=== PATIENT | female | born 1955 | race Caucasian/White ===

== ENCOUNTER 2019-02-18 06:00 | Outpatient (RCR) | payer SELFPAY | END 2019-03-20 00:01 | LOC: APT 06:00 | PROVIDERS: Family Provider Nurse Practitioner; Visit Provider Nurse Practitioner Family | DX: M54.6 Pain in thoracic spine (principal); M51.26 Other intervertebral disc displacement, lumbar region; M46.90 Unspecified inflammatory spondylopathy, site unspecified; M54.2 Cervicalgia | CPT/HCPCS: 97110 ×7 ==

== ENCOUNTER 2019-03-21 06:00 | Outpatient (RCR) | payer MEDICAID, SELFPAY | END 2019-04-20 23:59 | disposition home or self-care (01) | LOC: APT 06:00 | PROVIDERS: Family Provider Nurse Practitioner; PCP Nurse Practitioner; Visit Provider Nurse Practitioner Family | DX: M54.6 Pain in thoracic spine (principal) | CPT/HCPCS: 97110 ==

== ENCOUNTER 2019-04-13 09:12 | Emergency (ER) | payer MEDICAID, SELFPAY ==
[2019-04-13 09:18] VITALS: BP 95/78; PULSE 89; RESP 18; TEMP 36.9; O2SAT 94; BMI 24.4
--- NOTE | 2019-04-13 09:18 | XR_ITS ---
WS: [id number] RIGHT WRIST: 3 VIEW(S) TECHNIQUE: PA, oblique and lateral. HISTORY: pain COMPARISON: 03/03/2010 No acute fracture or dislocation. Mild narrowing of the joint space. No soft tissue swelling. XR/XR wrist RT min 3V* [id number] IMPRESSION: Negative RIGHT wrist for fracture.
--- NOTE | 2019-04-13 09:18 | W.ED.UPPEXIN ---
HPI - Extremity Injury (Upper) General: Chief Complaint: Extremity Injury, Upper Stated Complaint: Right wrist pain Time Seen by Provider: 04/13/19 09:18 Source: patient Mode of arrival: ambulatory Limitations: no limitations History of Present Illness: HPI narrative: Patient comes in with right wrist pain. Patient reports no injury that she can recall. Patient does have but some mild bruising to the wrist and thenar area of the hand. No obvious deformity. Patient appears well. Patient appears in mild pain. Review of Systems General: Reports: 10 or more systems reviewed and unremarkable except in HPI and below Musc: Reports: joint pain (right wrist) PFSH ED PFSH: Statuses (acute, chronic, etc) shown below reflect problem list status as previously entered and may not be historically accurate Family History (Updated 03/28/19 @ 10:23 by Elicia Moreno LPN) Mother COPD (chronic obstructive pulmonary disease) Father COPD (chronic obstructive pulmonary disease) Social History (Updated 03/28/19 @ 10:58 by Elicia Moreno LPN) Smoking and tobacco status: current every day smoker Lives independently: Yes Household members: none Marital status: Current occupational status: disabled Physical Exam Const: COMMON NORMALS: no apparent distress and oriented x3 GENERAL APPEARANCE: cooperative HENMT: COMMON NORMALS: normocephalic, external ears normal, EAC's normal, TM's normal bilaterally and external nose normal HEAD & SCALP: normal to inspection and normocephalic FACE & SINUS: normal facial exam NOSE: external nose normal GENERAL EAR: hearing not grossly impaired EXTERNAL EAR: Yes external ears normal EXTERNAL AUDITORY CANAL: EAC's normal TYMPANIC MEMBRANE: TM's normal bilaterally MOUTH: oral and palatal mucosa normal THROAT: posterior oropharynx normal Eye: COMMON NORMALS: PERRL and EOMs intact bilaterally PUPIL: Yes PERRL Neck/C-Spine: COMMON NORMALS: full ROM and no lymphadenopathy Lymph: LYMPHATIC: no lymphedema noted Chest: COMMONS NORMALS: inspection of chest normal and palpation of chest normal Resp: COMMON NORMALS: normal respiratory effort and clear to auscultation bilaterally AUSCULTATION: clear to auscultation bilaterally Cardio: COMMON NORMALS: regular rate and regular rhythm RATE: regular rate RHYTHM: regular rhythm GI: COMMON NORMALS: normal to inspection, nondistended, normoactive bowel sounds and non-tender : COMMON NORMALS: Yes no CVA tenderness BLADDER/KIDNEY EXAM: Yes no CVA tenderness Back/Pelvis: COMMON NORMALS: no CVA tenderness and thoracic and lumbar spine normal to inspection Extremity: COMMON NORMALS: full ROM GENERAL: Yes edema (mild right wrist) RIGHT UPPER EXTREMITY: Yes wrist (mild tenderness, with mild ecchymosis) Neuro: COMMON NORMALS: oriented x3, moves all extremities and no focal motor deficits Psych: COMMON NORMALS: mental status grossly normal and cooperative Skin: COMMON NORMALS: no rashes or lesions noted GENERAL SKIN EXAM: no rashes or lesions noted Course Vital Signs: Vital signs: Vital Signs Temperature 98.4 F 04/13/19 09:18 Pulse Rate 89 04/13/19 09:18 Respiratory Rate 18 04/13/19 09:18 Blood Pressure 95/78 04/13/19 09:18 Pulse Oximetry 97 04/13/19 09:29 MDM - Extremity Injury (Upper) MDM Narrative: Medical decision making narrative: Patient comes in with concerns for pain and possible injury to the right wrist. On exam we note some mild swelling to the right wrist area and some mild ecchymosis. No obvious deformity is noted. Differential diagnosis includes fracture, sprain, contusion. Reviewed exam with patient, x-ray was negative for fracture dislocation, discussed recommendations for acetaminophen or ibuprofen for pain and elastic bandage for comfort. Patient reports understanding and agreed to plan. Discharge Plan Discharge Patient Disposition: Home, Self-Care Clinical Impression: Contusion of right wrist Qualifiers: Encounter type: initial encounter Qualified Code(s): S60.211A - Contusion of right wrist, initial encounter Condition: Stable Prescriptions: No Action albuterol sulfate 2.5 mg /3 mL (0.083 %) solution for nebulization 1.25 mg INHALATION QID PRNRF: 0 fluticasone propionate [24 Hour Allergy Relief] 50 mcg/actuation spray,suspension 2 spray INTRANASAL ONCE RF: 0 benzonatate 200 mg capsule 200 mg PO TID PRN (Reason: cough) RF: 0 fenofibrate nanocrystallized 145 mg tablet 145 mg PO DAILY RF: 0 gabapentin 100 mg capsule 200 mg PO BID RF: 0 guaifenesin [Mucinex] 600 mg tablet extended release 12hr 600 mg PO BID RF: 0 nitroglycerin 0.4 mg tablet, sublingual 0.4 mg SUBLINGUAL Q5M PRN (Reason: chest pain) RF: 0 albuterol sulfate [ProAir HFA] 90 mcg/actuation HFA aerosol inhaler 2 inh INHALATION Q4H PRNRF: 0 ramelteon [Rozerem] 8 mg tablet 8 mg PO .HS RF: 0 Spiriva with HandiHaler 18 mcg capsule, w/inhalation device 1 cap INHALATION DAILY RF: 0 Symbicort 80-4.5 mcg/actuation HFA aerosol inhaler 2 inh INHALATION BID RF: 0 cetirizine [Zyrtec] 10 mg tablet 10 mg PO DAILY RF: 0 Discharge Orders: Discharge Order (Routine); Ordered 04/13/19 Ordered By: Caleb Stokes Referrals: Janny Estrada, PLANOGRAPH OPERATOR-C [Primary Care Provider] - Discharge Diet: Usual diet Discharge Activity: Increase activity as tolerated Patient Instructions: Wrist Injury (ED) Activity Restrictions/Additional Instructions: elastic bandage for comfort Activity as tolerated Acetaminophen or ibuprofen for pain use ice or heat to area for comfort Follow-up with primary care in one week for recheck Coding Level 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
[2019-04-13 09:29] VITALS: O2SAT 97
[2019-04-13 11:01] VITALS: BP 132/87; PULSE 69; RESP 20; O2SAT 97
== END 2019-04-13 11:04 | disposition home or self-care (01) ==
PROVIDERS: Emergency Provider Nurse Practitioner Family; Family Provider Nurse Practitioner; PCP Nurse Practitioner
DX: S60.211A Contusion of right wrist, initial encounter (principal); X58.XXXA Exposure to other specified factors, initial encounter; F17.210 Nicotine dependence, cigarettes, uncomplicated
CPT/HCPCS: 73110; 99281

== ENCOUNTER → 2019-09-07 09:27 | Outpatient (BNVA) | payer MEDICAID, SELFPAY | PROVIDERS: Family Provider Nurse Practitioner; PCP Nurse Practitioner; Visit Provider Nurse Practitioner | DX: J43.9 Emphysema, unspecified (principal); R10.10 Upper abdominal pain, unspecified | CPT/HCPCS: 71046; 74018; 80053; 81000; 85025 ==

== ENCOUNTER 2019-11-23 07:30 | Outpatient (CLI) | payer MEDICAID, SELFPAY ==
--- NOTE | 2019-11-23 07:35 | CT_ITS ---
WS: [id number] LDCT LUNG CANCER SCREENING HISTORY: NICOTINE DEPENDENCE,CIGARETTES TECHNIQUE: Axial imaging performed from the apices to 1 cm below the costophrenic angles. Coronal and sagittal reformats are submitted with axial MIP series. All CT scans at [facility] use at least one of these dose optimization techniques: automated exposure control; mA and/or kV adjustment per patient size (includes targeted exams where dose is matched to clinical indication); or iterativ e reconstruction. DLP: 117.87 mGy.cm DIvol: 2.27 mGy,1.21 mGy COMPARISON: 11/14/2018 Diagnostic quality: Satisfactory Lung Nodules: No solid or subsolid pulmonary nodules. No groundglass attenuation or endobronchial les ions. Benign granuloma medial RIGHT upper lobe. Lungs: Marked pulmonary hyperexpansion with emphysema. No pneumonia. No pleural effusion. Heart: Normal size heart. Other findings: Top normal main pulmonary artery trunk size at 2.9 cm. Mild aortic atherosclerosis. P osterior RIGHT diaphragmatic hernia containing fat. CT/CT lung screening [id number] IMPRESSION: LUNG-RADS: 1-Negative FOLLOW UP: 12 Month: Continue annual screening with LDCT OTHER FINDINGS (S MODIFIER): None.
== END 2019-11-23 07:31 | disposition home or self-care (01) ==
LOC: CT 07:30
PROVIDERS: PCP Nurse Practitioner; Visit Provider Internal Medicine Pulmonary Disease
DX: Z12.2 Encounter for screening for malignant neoplasm of respiratory organs (principal); F17.210 Nicotine dependence, cigarettes, uncomplicated
CPT/HCPCS: G0297

== ENCOUNTER 2019-12-06 08:36 | Outpatient (CLI) | payer MEDICAID, SELFPAY ==
--- NOTE | 2019-12-06 09:30 | USCV_ITS ---
Alis Spencer Age: 64 Gender: F : 1955 Exam Date: 12/06/2019 08:53 Ordering Phys: Willam Betts M.D ([email or web address]) Technologist: Brittany Burnett Exam Location: [facility] [place] Indication: SOB BP: 118 / 87 HR: 70 Rhythm: Sinus Technical Quality: Adequate MEASUREMENTS (Male / Female) Normal Values 2D ECHO LV Chamber Size 3.8 cm RV Chamber Size 2.5 cm LVOT Diameter 2.0 cm LV Ejection Fraction MOD 2C 60.7 % LV Ejection Fraction 2C AL 58.1 % LA Width 2.9 cm LA Height 4.7 cm RA Width 3.4 cm RA Height 3.8 cm DOPPLER AV Peak Velocity 101.0 cm/s LVOT Peak Velocity 86.0 cm/s AV Area Cont Eq vti 2.5 cm squared AV Area Cont Eq pk 2.8 cm squared MV Area PHT 2.7 cm squared Mitral E to A Ratio 1.2 MV E' Velocity 10.0 cm/s Mitral E to MV E' Ratio 7.6 Mitral E to LV E' Lateral Ratio 7.8 Mitral E to LV E' Septal Ratio 7.4 TR Peak Velocity 241.4 cm/s TR Peak Gradient 23.3 mmHg TR Mean Velocity 186.5 cm/s TR Mean Gradient 15.1 mmHg TR Velocity Time Integral 62.9 cm TV Peak E Velocity 42.0 cm/s Right Atrial Pressure 3.0 mmHg Pulmonary Artery Systolic Pressu 26.3 mmHg PV Peak Velocity 53.0 cm/s FINDINGS Left Ventricle Normal left ventricular size, systolic function and wall thickness, with no regional wall motion abnormalities. LVEF is 55 to 60%. Normal left ventricular wall thickness. Normal diastolic filling pattern. Right Ventricle The right ventricle is normal in size and function. Right Atrium The right atrium is normal in size. Left Atrium The left atrium is normal in size. Mitral Valve Structurally normal mitral valve without significant stenosis or prolapse. There is no mitral regurgitation. Aortic Valve Structurally normal aortic valve without significant sclerosis or stenosis. There is no aortic regurgitation. Tricuspid Valve Structurally normal tricuspid valve without significant stenosis or regurgitation. Insufficient TR jet to calculate RVSP. Pulmonic Valve Structurally normal pulmonic valve without significant stenosis. There is no pulmonic regurgitation. Pericardium Normal pericardium without effusion. Aorta Normal ascending aorta dimension. CONCLUSIONS Normal LV systolic function with EF of 55 to 60%. Normal diastolic function. Willam Betts MD (Electronically Signed) Final Date: 07 December 2019 15:17 S
== END 2019-12-06 08:37 | disposition home or self-care (01) ==
PROVIDERS: PCP Nurse Practitioner; Visit Provider Internal Medicine
DX: R06.02 Shortness of breath (principal)
CPT/HCPCS: 87635; 93306

== ENCOUNTER → 2020-02-06 08:32 | Outpatient (BNVA) | payer MEDICAID, SELFPAY | PROVIDERS: PCP Nurse Practitioner; Visit Provider Nurse Practitioner Family | DX: E78.5 Hyperlipidemia, unspecified (principal); K21.9 Gastro-esophageal reflux disease without esophagitis; J43.9 Emphysema, unspecified; G43.909 Migraine, unspecified, not intractable, without status migrainosus | CPT/HCPCS: 80053; 80061; 84443; 85025 ==

== ENCOUNTER 2020-03-26 13:05 | Outpatient (CLI) | payer MEDICAID, SELFPAY ==
--- NOTE | 2020-03-26 13:11 | MM_ITS ---
WS: [id number] SCREENING DIGITAL MAMMOGRAM WITH CAD HISTORY: SCREENING COMPARISON: 06/20/2018 and 05/13/2016 Bilateral CC and MLO views submitted. Computer aided detection analyzed. Breast composition: There are scattered areas of fibroglandular density. No suspicious masses, microc alcifications or architectural distortion. MM/[place] [id number] IMPRESSION: BI-RADS: 1-Negative FOLLOW UP: 1 Year Follow-up
== END 2020-03-26 13:06 | disposition home or self-care (01) ==
LOC: RADSHAW 13:08
PROVIDERS: PCP Nurse Practitioner; Visit Provider Nurse Practitioner Family
DX: Z12.31 Encounter for screening mammogram for malignant neoplasm of breast (principal)
CPT/HCPCS: 77067

== ENCOUNTER → 2020-05-29 09:43 | Outpatient (BNVA) | payer MEDICAID, SELFPAY | PROVIDERS: PCP Nurse Practitioner; Visit Provider Internal Medicine Pulmonary Disease | DX: R06.02 Shortness of breath (principal); Z20.822 Contact with and (suspected) exposure to COVID-19 | CPT/HCPCS: 87635 ==

== ENCOUNTER 2020-06-02 09:14 | Outpatient (CLI) | payer MEDICAID, SELFPAY ==
--- NOTE | 2020-06-02 11:44 | PFTS_ITS ---
Date of Study:06/02/20 Date of Dictation: 06/02/2020 MECHANICS: Postbronchodilator forced vital capacity (FVC) is normal. Postbronchodilator forced expiratory volume in one second (FEV1) is severely reduced 36% FEV1/FVC is reduced. There is no significant response to bronchodilators. FLOW VOLUME LOOP: Severe scooping of expiratory limb suggestive of severe obstruction . LUNG VOLUMES: Total lung capacity (TLC) is increased. Residual volume (RV) is increased to 206% suggestive of severe air trapping.. DIFFUSING CAPACITY FOR CARBON MONOXIDE: Moderately reduced to 59% . INTERPRETATION: The pulmonary function tests are consistent with severe obstructive ventilatory defect with severe air trapping and moderately reduced gas transfer suggestive of emphysema. Please correlate clinically. MTDD
== END 2020-06-02 09:15 | disposition home or self-care (01) ==
LOC: RT 09:15
PROVIDERS: PCP Nurse Practitioner; Visit Provider Internal Medicine Pulmonary Disease
DX: R06.02 Shortness of breath (principal)
CPT/HCPCS: 94060; 94618; 94726; 94729; J7611

== ENCOUNTER → 2020-06-17 08:56 | Outpatient (BNVA) | payer MEDICAID, SELFPAY | PROVIDERS: PCP Nurse Practitioner; Visit Provider Internal Medicine Pulmonary Disease | DX: R06.02 Shortness of breath (principal) | CPT/HCPCS: 82785; 85025; 86003 ==

== ENCOUNTER → 2020-07-09 15:21 | Outpatient (BNVA) | payer MEDICAID, SELFPAY | PROVIDERS: PCP Nurse Practitioner; Visit Provider Nurse Practitioner Family | DX: J44.1 Chronic obstructive pulmonary disease with (acute) exacerbation (principal) | CPT/HCPCS: 71046 ==

== ENCOUNTER → 2020-10-27 14:24 | Outpatient (BNVA) | payer MEDICAID, SELFPAY | PROVIDERS: PCP Nurse Practitioner; Visit Provider Nurse Practitioner Family | DX: Z20.822 Contact with and (suspected) exposure to COVID-19 (principal); J44.1 Chronic obstructive pulmonary disease with (acute) exacerbation | CPT/HCPCS: 87635 ==

== ENCOUNTER → 2021-01-23 10:16 | Outpatient (BNVA) | payer MEDICAID, SELFPAY | PROVIDERS: PCP Nurse Practitioner; Visit Provider Nurse Practitioner Family | DX: E78.5 Hyperlipidemia, unspecified (principal); J43.9 Emphysema, unspecified; G47.9 Sleep disorder, unspecified; K21.9 Gastro-esophageal reflux disease without esophagitis; M47.819 Spondylosis without myelopathy or radiculopathy, site unspecified; R51.9 Headache, unspecified | CPT/HCPCS: 80053; 80061; 84443; 85025 ==

== ENCOUNTER → 2021-04-29 10:28 | Outpatient (BNVA) | payer MEDICAID, SELFPAY | PROVIDERS: PCP Nurse Practitioner; Visit Provider Nurse Practitioner Family | DX: J44.1 Chronic obstructive pulmonary disease with (acute) exacerbation (principal); E78.5 Hyperlipidemia, unspecified | CPT/HCPCS: 71046; 80053; 80061; 84443; 85025 ==

== ENCOUNTER → 2021-05-28 10:13 | Outpatient (BNVA) | payer MEDICARE, MEDICAID, SELFPAY | PROVIDERS: PCP Nurse Practitioner; Visit Provider Internal Medicine Critical Care Medicine | DX: J44.9 Chronic obstructive pulmonary disease, unspecified (principal); J96.11 Chronic respiratory failure with hypoxia; F17.210 Nicotine dependence, cigarettes, uncomplicated | CPT/HCPCS: 99214 ==

== ENCOUNTER 2021-06-08 12:28 | Outpatient (CLI) | payer MEDICARE, MEDICAID, SELFPAY ==
--- NOTE | 2021-06-08 13:15 | US_ITS ---
WS: [id number] Ultrasound abdomen, limited. HISTORY: Abdominal hernia. Ultrasound is directed to the RIGHT upper quadrant in the area of pain. In the site of pain is a foca l outpouching of omental fat. There is no peristalsis. The defect within the ventral abdominal wall m easures 9 mm. There is no increased vascularity. During coughing and Valsalva the extent of the herni ation increases. At no time is peristalsis identified. I favor this is probably a RIGHT upper quadran t hernia with omentum only. US/US abdomen limited [id number] IMPRESSION: Ventral RIGHT upper quadrant abdominal wall hernia corresponds to the area of p ain. No peristalsis was identified but the hernia increases in size with Valsal va. I suspect this is omentum only. For further evaluation CT of the abdomen ca n be obtained.
== END 2021-06-08 12:29 | disposition home or self-care (01) ==
LOC: RAD 12:31
PROVIDERS: PCP Nurse Practitioner; Visit Provider Nurse Practitioner Family
DX: K46.9 Unspecified abdominal hernia without obstruction or gangrene (principal)
CPT/HCPCS: 76705

== ENCOUNTER → 2021-06-29 09:17 | Outpatient (BNVA) | payer MEDICARE, MEDICAID, SELFPAY | PROVIDERS: PCP Nurse Practitioner; Referring Provider Nurse Practitioner Family; Visit Provider Surgery | DX: R19.01 Right upper quadrant abdominal swelling, mass and lump (principal); F17.210 Nicotine dependence, cigarettes, uncomplicated | CPT/HCPCS: 99203 ==

== ENCOUNTER 2021-07-10 10:00 | Outpatient (CLI) | payer MEDICARE, MEDICAID, SELFPAY ==
--- NOTE | 2021-07-10 10:21 | CT_ITS ---
WS: [id number] LDCT LUNG CANCER SCREENING HISTORY: Lung cancer screening TECHNIQUE: Axial imaging performed from the apices to 1 cm below the costophrenic angles. Coronal and sagittal reformats are submitted with axial MIP series. All CT scans at use at least one of these dose optimization techniques: automated exposure control; mA and/or kV adjustment per patient size (includes targeted exams where dose is matched to clinical indication); or iterativ e reconstruction. DLP: 77.67 mGy.cm DIvol: Mean CTDIvol: 1.60 (mGy) COMPARISON: 11/23/2019 Diagnostic quality: Satisfactory Lung Nodules: New very minimally spiculated ovoid nodule in the periphery RIGHT upper lobe. Nodule me asures 6 mm. This nodule was not present on the study of 11/23/2019. Otherwise lungs are hyperexpanded. No additional nodule or mass. No endobronchial lesion. Heart: Normal size heart. No mediastinal or hilar adenopathy. Other findings: Very minimal thickening of the LEFT adrenal gland is similar to the prior study. Post erior RIGHT diaphragmatic hernia contains fat only. Mild increase in the thoracic kyphosis. No osteob lastic or osteolytic disease. CT/CT lung screening [id number] IMPRESSION: LUNG-RADS: 4A-Probably Suspicious FOLLOW UP: 3 Month LDCT OTHER FINDINGS (S MODIFIER): None.
--- NOTE | 2021-07-10 12:00 | CT_ITS ---
WS: [id number] CT ABDOMEN WITHOUT CONTRAST HISTORY: K46.9 - Unspecified abdominal hernia without obstruction ... Contiguous single phase 5 mm axial imaging performed to the abdomen. Oral contrast has not been provi ded. Coronal and sagittal reformats are submitted. All CT scans at [facility] use at least on e of these dose optimization techniques: automated exposure control; mA and/or kV adjustment per eryn ent size (includes targeted exams where dose is matched to clinical indication); or iterative reconst ruction. CONTRAST: None DLP: 510.18 mGy.cm COMPARISON: 11/14/2018 Lower thorax: Pulmonary hyperinflation. No mass or nodule. Normal size heart. No hiatal hernia. Liver: Unenhanced liver is normal. Gallbladder: Prior cholecystectomy. No bile duct dilatation is evident. Common bile duct is top harshda l size at 7 mm. No interval change. Pancreas: Normal. Spleen: Normal. Adrenals: Normal. Right kidney: Normal size kidney. Low-attenuation nodule in the lower pole was present on the prior s tudy from 2019. No obstruction. Left kidney: Normal. Aorta: Mild atherosclerosis aorta. GI tract: Fluid distended stomach. No small bowel obstruction. Mild fecal retention. No adenopathy or free fluid. Abdominal wall: Prior supraumbilical hernia repair. There is no mass present. No recurrent hernia or omental fat protrusion is identified. No new hernia. Position of the graft and surgical changes is ve ry similar to the study of 11/14/2018. Visualized osseous structures: Unremarkable. CT/CT abdomen wo con [id number] IMPRESSION: 1. No acute abdominal findings. 2. Supraumbilical hernia repair is similar to the study of 11/14/2018. No recur rence of hernia. 3. Prior cholecystectomy.
== END 2021-07-10 10:01 | disposition home or self-care (01) ==
LOC: RAD 10:02
PROVIDERS: PCP Nurse Practitioner; Visit Provider Nurse Practitioner Family
DX: Z12.2 Encounter for screening for malignant neoplasm of respiratory organs (principal); K46.9 Unspecified abdominal hernia without obstruction or gangrene; F17.200 Nicotine dependence, unspecified, uncomplicated; Z90.49 Acquired absence of other specified parts of digestive tract
CPT/HCPCS: 71271; 74150

== ENCOUNTER → 2021-07-27 08:46 | Outpatient (BNVA) | payer MEDICARE, MEDICAID, SELFPAY | PROVIDERS: PCP Nurse Practitioner; Visit Provider Surgery | DX: J44.9 Chronic obstructive pulmonary disease, unspecified (principal); F17.210 Nicotine dependence, cigarettes, uncomplicated; J96.11 Chronic respiratory failure with hypoxia; R91.1 Solitary pulmonary nodule; E78.5 Hyperlipidemia, unspecified; K21.9 Gastro-esophageal reflux disease without esophagitis; Z99.81 Dependence on supplemental oxygen | CPT/HCPCS: 99213; 99214 ==

== ENCOUNTER 2021-11-06 10:07 | Emergency (ER) | payer MEDICARE, MEDICAID, SELFPAY ==
--- NOTE | 2021-11-06 10:12 | ECG_ITS ---
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 Measurements Intervals [place] Rate: 73 P: 63 OK: 92 QRS: 65 QRSD: 103 T: 68 QT: 365 QTc: 405 Interpretive Statements SINUS RHYTHM WITH SHORT OK INTERVAL WITH OCCASIONAL VENTRICULAR PREMATURE COMPLEXES Compared to ECG 11/14/2018 17:08:38 Ventricular premature complex(es) now present Sinus arrhythmia no longer present Electronically Signed On 11-06-2021 17:46:09 CDT by Willam Betts M.D. [email or web address] [facility] [id number]
--- NOTE | 2021-11-06 10:12 | XRR_ITS ---
PROCEDURE INFORMATION: Exam: XR Chest Exam date and time: 11/06/2021 10:32 AM Age: 66 years old Clinical indication: Cough and shortness of breath; Additional info: SOB TECHNIQUE: Imaging protocol: Radiologic exam of the chest. Views: 1 view. COMPARISON: CR XR chest 2V* [id number] 04/29/2021 10:30 AM FINDINGS: Lungs: Hyperexpanded lungs consistent with COPD No consolidation. Pleural spaces: Unremarkable. No pleural effusion. No pneumothorax. Heart/Mediastinum: Unremarkable. No cardiomegaly. Bones/joints: Unremarkable. Other findings: Comparison to prior examination similar findings is seen XR/XR chest 1V portable [id number] IMPRESSION: 1. No acute findings. 2. COPD
--- NOTE | 2021-11-06 10:16 | W.ED.SOB ---
HPI - SOB/Dyspnea General: Chief Complaint: Shortness of Breath/Dyspnea Stated Complaint: SHORTNESS OF BREATH/ BACK PAIN Time Seen by Provider: 11/06/21 10:09 History of Present Illness: HPI Narrative: Patient is a 66-year-old female comes to the ED via EMS with shortness of breath. Patient has a past medical history of GERD, COPD, hyperlipidemia and CKD. Patient is currently on 2 L of O2 via nasal cannula at home when at rest and then on 4 L when she is up and ambulating. EMS was called out to patient's home due to shortness of breath and back pain. EMS administered an albuterol breathing treatment and 125 mg of Solu-Medrol. Patient currently sees Dr. Hong and they are in the process of working up some masses that were seen in her right lung. Patient states her symptoms of worsening shortness of breath started approximately 7 days ago. 5 days ago on November 02 she went and saw her PCP for shortness of breath and they gave her a course of azithromycin and steroids. Patient says her shortness of breath has not improved over the past couple days. She also has a productive cough with green sputum. Today she woke up and had pain in the mid back region bilaterally and also some epigastric pain as well. Patient is not needing any increased oxygen at home. Denies any fever, nausea or vomiting, chest pain, bladder or bowel symptoms. Associated symptoms: Reports abdominal pain (Epigastric pain); Deny chest pain, fever(s), nausea, orthopnea, palpitations or vomiting Review of Systems Const: Denies: fever(s), chills or fatigue Eyes: Denies: change in vision or eye discomfort ENMT: Denies: throat pain, odynophagia, nasal discharge or nasal congestion Card: Denies: chest pain, palpitations, edema, swelling of feet/ankles, dyspnea on exertion or orthopnea Resp: Reports: dyspnea, productive cough and change in phlegm color (Green); Denies: non-productive cough GI: Reports: abdominal pain (Epigastric pain); Denies: nausea, vomiting, diarrhea, constipation or hematochezia : Denies: flank pain, dysuria or hematuria Musc: Reports: back pain; Denies: neck pain or extremity swelling Skin/Breast: Denies: rash or new lesions Neuro: Denies: headache(s), numbness in extremities or weakness in extremities PFSH ED PFSH: Medical History 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 Bipolar disorder, unspecified Chronic GERD Chronic kidney disease, stage 1 Chronic obstructive pulmonary emphysema Dependence on nocturnal oxygen therapy History of paroxysmal supraventricular tachycardia History of supraventricular tachycardia Status post ablation, successful Hyperlipidemia, unspecified Nocturnal oxygen desaturation Shortness of breath Spondylosis without myelopathy or radiculopathy, site unspecified TIA (transient ischemic attack) Tobacco abuse Vitamin D deficiency Surgical History History of appendectomy History of cholecystectomy History of hysterectomy History of repair of hiatal hernia Hx of tonsillectomy Family History Mother COPD (chronic obstructive pulmonary disease) Father COPD (chronic obstructive pulmonary disease) Social History Smoking and tobacco status: current every day smoker cigarettes Packs smoked per day: 0.5 Years cigarettes smoked: 50 [ Other cigarette details: Started at age 6 years] Quit status (tobacco): has tried quititng Number of times tried to quit tobacco: 10 Second hand smoke exposure: Yes Smoking risk assessment/counseling performed?: Yes Alcohol intake: former Year of sobriety/quit date alcohol: 2017 Desire information about alcohol rehabilitation?: No Counseling given: No Desire information about substance/drug rehabilitation?: No Counseling given: No Adopted: No Caregiver/support person: Yes Lives independently: Yes Household members: none Housing: Manufactured/Mobile home Marital status: Number of children: 3 service: No Current occupational status: disabled Pets and animals: Yes History of recent travel: No ([place] 2 wks ago) Current gender identity: Female Physical Exam Const: COMMON NORMALS: patient oriented x3 and alert GENERAL APPEARANCE: cooperative HENMT: COMMON NORMALS: normocephalic HEAD & SCALP: normocephalic MOUTH: Normal oral and palatal mucosa present THROAT: posterior oropharynx normal and uvula midline Eye: COMMON NORMALS: Equal, round and reactive pupils present and conjunctivae normal CONJUNCTIVA: Yes conjunctivae normal PUPIL: Yes Equal, round and reactive pupils present Neck/C-Spine: COMMON NORMALS: supple GENERAL: Yes normal visual inspection Resp: EFFORT & INSPECTION: Yes tachypneic (22 rpm) and Yes labored AUSCULTATION: wheezes expiratory wheezes and throughout and diminished lung sounds bilateral in the lower lung brown OTHER: Patient appears to have some mild labored breathing. Labored breathing gets worse if she is talking more. Cardio: COMMON NORMALS: regular rate, regular rhythm, S1 normal heart sound present, S2 normal heart sound present, No gallops present (Cardio), No clicks present (Cardio), No murmurs present (Cardio) and Peripheral pulses 2+ throughout RATE: regular rate RHYTHM: regular rhythm HEART SOUNDS: S1 normal heart sound present and S2 normal heart sound present PERIPHERAL PULSES: Peripheral pulses 2+ throughout GI: COMMON NORMALS: Normal to inspection, nondistended, normoactive bowel sounds present, Soft to palpation and no masses PALPATION: Yes Soft to palpation and Yes Tenderness to palpation present (GI) (Mild tenderness in epigastric region of abdomen) : COMMON NORMALS: Yes no CVA tenderness BLADDER/KIDNEY EXAM: Yes no CVA tenderness Back/Pelvis: COMMON NORMALS: no CVA tenderness Extremity: COMMON NORMALS: normal to inspection Neuro: COMMON NORMALS: patient oriented x3 SENSORIUM/ORIENTATION: Yes alert GAIT: Yes Normal gait present Skin: GENERAL SKIN EXAM: dry skin Course Vital Signs: Vital signs: Vital Signs Pulse Rate 69 11/06/21 16:24 Respiratory Rate 17 11/06/21 16:24 Blood Pressure 114/69 11/06/21 16:24 Pulse Oximetry 97 11/06/21 16:24 Oxygen Delivery Me thod 11/06/21 16:23 Oxygen Flow Rate 2 11/06/21 16:23 MDM - SOB/Dyspnea Medical Decision Making Patient is a 66-year-old female comes to the ED via EMS with shortness of breath. Patient has a past medical history of GERD, COPD, hyperlipidemia and CKD. Patient is currently on 2 L of O2 via nasal cannula at home when at rest and then on 4 L when she is up and ambulating. For the past week patient has worsening shortness of breath and cough. She was seen by her PCP on Tuesday and put on a prescription of azithromycin and steroid. She still having cough and shortness of breath. She is not needing any increased oxygen at home. She is afebrile here in the ED. respiration rate 22 at triage and she is on 2 L of oxygen via nasal cannula and O2 saturations 97%. Vitals are stable. She appears in no acute distress. Patient has some mild epigastric tenderness of her abdomen. Her breathing appears mildly labored especially when she is talking. She also has decreased breath sounds in the bilateral bases of lungs along with wheezing throughout. Rest of exam is benign. White blood cell count 13.1. The rest of CBC and CMP were unremarkable. Troponins were negative. Influenza negative COVID-negative chest x-ray showed no acute findings. EKG showed sinus rhythm with no ST segment elevation or depression seen. CT of chest, abdomen pelvis showed no acute findings. They did note some spiculated densities in right upper and lower lobes which patient is already aware of and sees Dr. Hong for this. She was given DuoNeb breathing treatments here in the ED. Patient is not needing any increased oxygen and is stable for discharge home and outpatient treatment. She was diagnosed with exacerbation of COPD was told to continue finishing out her previously prescribed azithromycin and prednisone. I added a prescription for doxycycline and told her to start taking that as well. Follow-up with PCP within the next week for reevaluation. Strict return to ED precautions given. Patient understood agree with plan Lab Data I reviewed the patient's lab results. : 11/06/21 10:40 11/06/21 10:40 Labs/Radiology: Radiology Impressions Chest X-Ray 11/06/21 10:12 IMPRESSION: 1. No acute findings. 2. COPD Chest/Abdomen/Pelvis CT 11/06/21 13:46 IMPRESSION: 1. No acute pathology in the chest. 2. Extensive centrilobular emphysema. 3. Spiculated densities in the right upper and lower lobes. For patients at high risk (history of smoking or of other known risk factors), recommend CT IMPRESSION: No acute intra-abdominal or intrapelvic pathology. Laboratory Results WBC 13.1 10^3/uL (4.0-10.0) H 11/06/21 10:40 RBC 4.25 10^6/uL (4.1-5.3) 11/06/21 10:40 Hgb 14.6 g/dL (11.5-15.3) 11/06/21 10:40 Hct 41.0 % (37.0-47.0) 11/06/21 10:40 MCV 96.5 fl (81-99) 11/06/21 10:40 MCH 34.4 pg (28.0-34.0) H 11/06/21 10:40 MCHC 35.6 g/dL (30.0-36.0) 11/06/21 10:40 RDW 15.4 % (12.1-15.1) H 11/06/21 10:40 Plt Count 404 10^3/cmm (130-400) H 11/06/21 10:40 MPV 8.7 fL (7.4-10.4) 11/06/21 10:40 Neut % (Auto) 66.5 % 11/06/21 10:40 Lymph % (Auto) 24.3 % 11/06/21 10:40 Morehouse % (Auto) 8.0 % 11/06/21 10:40 Eos % (Auto) 0.2 % 11/06/21 10:40 Baso % (Auto) 0.2 % 11/06/21 10:40 Neut # (Auto) 8.69 10^3/uL (1.8-7.7) H 11/06/21 10:40 Lymph # (Auto) 3.2 10^3/uL (0.8-4.8) 11/06/21 10:40 Morehouse # (Auto) 1.1 10^3/uL (0.2-0.9) H 11/06/21 10:40 Eos # (Auto) 0.0 10^3/uL (0.0-0.8) 11/06/21 10:40 Baso # (Auto) 0.0 10^3/uL (0.0-0.1) 11/06/21 10:40 Nucleated RBC % (auto) 0 % 11/06/21 10:40 Nucleated RBCs # 0.0 /100WBC 11/06/21 10:40 Sodium 143 mmol/L (136-145) 11/06/21 10:40 Potassium 3.6 mmol/L (3.5-5.1) 11/06/21 10:40 Chloride 102 mmol/L (98-107) 11/06/21 10:40 Carbon Dioxide 30 mmol/L (22-29) H 11/06/21 10:40 Anion Gap 14.6 (5-19) 11/06/21 10:40 BUN 9 mg/dL (8-23) 11/06/21 10:40 Creatinine 0.4 mg/dL (0.5-0.9) L 11/06/21 10:40 GFR Calculation 160.2 mL/min (90-130) H 11/06/21 10:40 Glucose 121 mg/dL (65-115) H 11/06/21 10:40 Calculated Osmolality 296 mOsm/kg (285-295) H 11/06/21 10:40 Calcium 9.8 mg/dL (8.5-10.5) 11/06/21 10:40 Total Bilirubin 0.2 mg/dL (0.15-1.2) 11/06/21 10:40 AST 18 U/L (0-32) 11/06/21 10:40 ALT 11 U/L (0-33) 11/06/21 10:40 Alkaline Phosphatase 87 U/L (35-105) 11/06/21 10:40 Troponin T Baseline 12 ng/L (0-10) H 11/06/21 10:40 Troponin T 120 Minute 10.83 ng/L (0-10) H 11/06/21 12:44 Delta Troponin T -1.17 ABS# (0-10) L 11/06/21 12:44 NT-Pro-B Natriuret Pep 188 pg/mL (0-125) H 11/06/21 10:40 Total Protein 6.7 g/dL (6.6-8.7) 11/06/21 10:40 Albumin 4.3 g/dL (3.5-5.2) 11/06/21 10:40 Globulin 2.4 g/dL (1.3-4.6) 11/06/21 10:40 Coronavirus 229E (PCR) Not detected (NOT DETECT) 11/06/21 11:55 Influenza Type A Ag Negative (Negative) 11/06/21 11:55 Influenza Type B Ag Negative (Negative) 11/06/21 11:55 SARS-CoV-2 (PCR) Not detected (NOT DETECT) 11/06/21 11:55 EKG Data EKG 1: EKG Interpretation Date: 11/06/21 Interpretation: Sinus rhythm, 73 bpm, occasional PVC noted. No ST segment elevation or depression seen. Discharge Plan Discharge Patient Disposition: Home Clinical Impression: COPD exacerbation Back pain Qualifiers: Back pain location: thoracic back pain Chronicity: acute Back pain laterality: bilateral Qualified Code(s): M54.6 - Pain in thoracic spine Condition: Stable Prescriptions: New doxycycline hyclate 100 mg capsule 100 mg PO BID 10 Days Qty: 20 0RF methocarbamol 750 mg tablet 750 mg PO Q8H PRN (Reason: Back muscle spasms and pain) Qty: 20 0RF Celebrex 100 mg capsule 100 mg PO BID PRN (Reason: back pain) Qty: 20 0RF No Action promethazine-DM 6.25-15 mg/5 mL syrup 5 ml PO Q6H PRN (Reason: cough) Qty: 473 2RF ammonium lactate 12 % cream 1 applic TOPICAL BID 30 Days Qty: 280 5RF nitroglycerin 0.4 mg tablet, sublingual 0.4 mg SUBLINGUAL Q5M PRN (Reason: chest pain) Qty: 24 0RF (DME) oxygen 24 hour with portable See Rx Instructions .Route .MEDSUPPLY Qty: 1 0RF Rx Instructions: As directed, oxygen 24 hours 2 liters prednisone 10 mg tablet 10 mg PO DAILY Qty: 10 0RF doxycycline hyclate 50 mg tablet 50 mg PO BID Qty: 14 0RF prednisone 10 mg tablets,dose pack See Rx Instructions PO PER PKG DIR Qty: 21 0RF Rx Instructions: PO PER PKG DIR budesonide 0.5 mg/2 mL suspension for nebulization 0.5 mg inhalation BID Qty: 60 11RF formoterol fumarate [Perforomist] 20 mcg/2 mL solution for nebulization 20 mcg inhalation BID Qty: 60 11RF Yupelri 175 mcg/3 mL solution for nebulization 175 mcg inhalation DAILY Qty: 30 11RF azithromycin 250 mg tablet 250 mg PO .COMPLEX Qty: 60 0RF Rx Instructions: 250 mg PO Tuesday pantoprazole [Protonix] 40 mg tablet,delayed release (DR/EC) 40 mg PO QDAY 30 Days Qty: 30 2RF montelukast [Singulair] 10 mg tablet 10 mg PO DAILY Qty: 30 2RF melatonin 10 mg capsule 10 mg PO BEDTIME 30 Days Qty: 30 2RF guaifenesin [Mucinex] 600 mg tablet extended release 12hr 600 mg PO BID Qty: 60 2RF gabapentin 100 mg capsule 200 mg PO BID Qty: 120 2RF fluticasone propionate [24 Hour Allergy Relief] 50 mcg/actuation spray,suspension 2 spray INTRANASAL DAILY Qty: 16 2RF fenofibrate nanocrystallized 145 mg tablet 145 mg PO DAILY Qty: 30 2RF cetirizine [Zyrtec] 10 mg tablet 10 mg PO DAILY Qty: 30 2RF benzonatate 200 mg capsule 200 mg PO TID PRN (Reason: cough) Qty: 90 2RF albuterol sulfate 2.5 mg /3 mL (0.083 %) solution for nebulization 2.5 mg INHALATION QID PRN (Reason: shortness of breath or wheezing) Qty: 75 2RF atorvastatin 20 mg tablet 20 mg PO DAILY Qty: 30 5RF albuterol sulfate [ProAir HFA] 90 mcg/actuation HFA aerosol inhaler 2 inh INHALATION Q4H PRN (Reason: shortness of breath or wheezing) 30 Days Qty: 8.5 2RF Discharge Orders: Discharge ED (Routine); Ordered 11/06/21 Ordered By: Phillip Jose Referrals: Janny Estrada FNP-C [Primary Care Provider] - Discharge Diet: Regular Discharge Activity: Increase activity as tolerated Patient Instructions: COPD (Chronic Obstructive Pulmonary Disease) (DC) Activity Restrictions/Additional Instructions: Follow-up with medical provider as directed in the next 3 to 5 days for reevaluation. Take medications as prescribed. Continue taking and finish course of azithromycin as well. Also continue taking your prescribed prednisone. Continue using your at home breathing treatments and oxygen. return to the ER or your medical provider if condition worsens. Please read and understand discharge instructions. Thank you for choosing [facility] for your healthcare needs today. Please realize this is an emergency room and that we are providing you with a medical screening exam and this may not be complete and all inclusive of all the testing and or work up that you may need to determine your ailment or severity of your illness. It is very important that you follow up as instructed or that you return to the Emergency Department should you have concerns or if your condition changes or worsens in any way. Coding Level of Care Code ED Motor Pool Clerk for Tyson Fwkamran Exam Comprehensive
[2021-11-06 10:20] VITALS: BP 156/86; PULSE 77; RESP 22; O2SAT 97; BMI 23.4
[2021-11-06 10:47] LABS: Basophils % 0.2 %; Eosinophils % 0.2 %; Hemoglobin 14.6 g/dL (11.5-15.3); Lymphocytes # 3.2 10^3/uL (0.8-4.8); Lymphocytes % 24.3 %; Mean Corpuscular HGB Conc 35.6 g/dL (30.0-36.0); Mean Corpuscular Hemoglobin 34.4 pg (28.0-34.0); Mean Corpuscular Volume 96.5 fl (81-99); Mean Platelet Volume 8.7 fL (7.4-10.4); Monocytes # 1.1 10^3/uL (0.2-0.9); Neutrophils # 8.69 10^3/uL (1.8-7.7); Neutrophils % 66.5 %; Nucleated Red Blood Cells % 0 %; Platelet Count 404 10^3/cmm (130-400); Red Blood Count 4.25 10^6/uL (4.1-5.3); Red Cell Distribution Width 15.4 % (12.1-15.1); White Blood Count 13.1 10^3/uL (4.0-10.0)
[2021-11-06 11:08] VITALS: RESP 18; O2SAT 98
[2021-11-06] MEDS: morphine 4 mg/mL SDV 1 mL IVP (11:08)
[2021-11-06] MEDS: ondansetron 2 mg/ML SDV 2 mL 4 MG IVP (11:08)
[2021-11-06 11:23] LABS: Troponin(5th) Baseline 12 ng/L (0-10)
[2021-11-06 11:28] LABS: Alanine Aminotransferase 11 U/L (0-33); Albumin Level 4.3 g/dL (3.5-5.2); Alkaline Phosphatase 87 U/L (35-105); Aspartate Amino Transferase 18 U/L (0-32); Blood Urea Nitrogen 9 mg/dL (8-23); Calcium 9.8 mg/dL (8.5-10.5); Carbon Dioxide 30 mmol/L (22-29); Chloride 102 mmol/L (98-107); Globulin 2.4 g/dL (1.3-4.6); Glomerular Filtration Rate 160.2 mL/min (90-130); Glucose 121 mg/dL (65-115); NT Pro B Type Natriuretic Pept 188 pg/mL (0-125); Osmolality Calculated 296 mOsm/kg (285-295); Sodium 143 mmol/L (136-145); Total Bilirubin 0.2 mg/dL (0.15-1.2); Total Protein 6.7 g/dL (6.6-8.7)
[2021-11-06 11:30] LABS: Anion Gap 14.6 (5-19); Potassium 3.6 mmol/L (3.5-5.1)
--- NOTE | 2021-11-06 12:27 | ECG_ITS ---
[facility] Test Date: 2021-11-06 Pat Name: Alis Spencer Department: Room: Gender: Female Endocrinology Nurse: : 1955 Requested By: Phillip Jose Order Number: [id number] Jam MD: Willam Betts M.D. Measurements Intervals Cassandra Rate: 63 P: 52 CA: 94 QRS: 53 QRSD: 89 T: 56 QT: 386 QTc: 397 Interpretive Statements SINUS RHYTHM WITH SHORT CA INTERVAL Compared to ECG 11/06/2021 10:27:03 Ventricular premature complex(es) no longer present Electronically Signed On 11-06-2021 17:49:38 CDT by Willam Betts M.D. [id number]
[2021-11-06 12:44] LABS: Influenza A by IFA Negative (Negative); Influenza B by IFA Negative (Negative)
[2021-11-06] MEDS: ketorolac 30 mg/mL INJ IVP (13:08)
[2021-11-06 13:15] VITALS: BP 156/86; PULSE 75; RESP 17; O2SAT 96
[2021-11-06 13:17] LABS: Troponin 5 2HR 10.83 ng/L (0-10)
[2021-11-06 13:18] LABS: Troponin 5 2HR Delta -1.17 ABS# (0-10)
--- NOTE | 2021-11-06 13:46 | CTR_ITS ---
PROCEDURE INFORMATION: Exam: CT Chest Without Contrast; Diagnostic Exam date and time: 11/06/2021 2:12 PM Age: 66 years old Clinical indication: Other: Back pain; Shortness of breath; Prior surgery; Surgery date: 6+ months; Surgery type: Gb, umbilical hernia; Additional info: Epigastric pain that radiates into back TECHNIQUE: Imaging protocol: Diagnostic computed tomography of the chest without contrast. Radiation optimization: All CT scans at this facility use at least one of these dose optimization techniques: automated exposure control; mA and/or kV adjustment per patient size (includes targeted exams where dose is matched to clinical indication); or iterative reconstruction. COMPARISON: CT chest w con* [id number] 11/14/2018 11:55 AM RADIATION DOSE METRICS: Total DLP (mGy-cm): 502.78 FINDINGS: Lungs: Extensive centrilobular emphysema is present. There is a 0.7 cm spiculated density along the anterior superior aspect of the right lower lobe. There is a tiny subpleural spiculated density along the lateral aspect of the right upper lobe measuring 0.5 cm. No consolidation. Tiny calcified granuloma noted in the anterior right upper lobe. Pleural spaces: Unremarkable. No pneumothorax. No pleural effusion. Heart: Normal heart size. Coronary atherosclerotic calcifications seen. No pericardial effusion. Lymph nodes: Unremarkable. No enlarged lymph nodes. Vasculature: Mild diffuse atherosclerotic disease is present. Bones/joints: Degenerative changes of the spine seen. Chronic appearing minimal anterior wedge compression fracture deformity of T8, involving the superior endplate noted. Soft tissues: Unremarkable. Chest at 3-6 months, then CT Chest at 18-24 months. (Reference: Rosario) REFERENCES: Ankushhoaakash Bautista, et al. Guidelines for Management of Incidental Pulmonary Nodules Detected on CT Images: From the Fleischner Society 2017. Radiology. 2017;284(1):228-243. PROCEDURE INFORMATION: Exam: CT Abdomen And Pelvis Without Contrast Exam date and time: 11/06/2021 2:12 PM Age: 66 years old Clinical indication: Other: Back pain; Shortness of breath; Prior surgery; Surgery date: 6+ months; Surgery type: Gb, umbilical hernia; Additional info: Epigastric pain that radiates into back TECHNIQUE: Imaging protocol: Computed tomography of the abdomen and pelvis without contrast. Radiation optimization: All CT scans at this facility use at least one of these dose optimization techniques: automated exposure control; mA and/or kV adjustment per patient size (includes targeted exams where dose is matched to clinical indication); or iterative reconstruction. COMPARISON: CT abdomen wo con [id number] 07/10/2021 10:28 AM RADIATION DOSE METRICS: Total DLP (mGy-cm): 502.78 FINDINGS: Liver: Normal. No mass. Gallbladder and bile ducts: The gallbladder has been surgically removed. Pancreas: Normal. No ductal dilation. Spleen: There is tiny calcific densities scattered throughout the spleen, likely sequela of previous granulomatous disease. The spleen is otherwise unremarkable. Adrenal glands: Normal. No mass. Kidneys and ureters: Normal. No hydronephrosis. Stomach and bowel: Unremarkable. No obstruction. No mucosal thickening. Appendix: No evidence of appendicitis. Intraperitoneal space: Unremarkable. No free air. No significant fluid collection. Vasculature: Mild diffuse atherosclerotic disease is present. Lymph nodes: Unremarkable. No enlarged lymph nodes. Urinary bladder: Unremarkable as visualized. Reproductive: The uterus is surgically absent. Bones/joints: Degenerative changes of the spine seen. Soft tissues: Ventral hernia mesh repair noted. CT/[place] [id number] IMPRESSION: 1. No acute pathology in the chest. 2. Extensive centrilobular emphysema. 3. Spiculated densities in the right upper and lower lobes. For patients at high risk (history of smoking or of other known risk factors), recommend CT IMPRESSION: No acute intra-abdominal or intrapelvic pathology.
[2021-11-06 13:53] LABS: Adenovirus Not Detected (NOT DETECT); Chlamydia Pneumoniae Not Detected (NOT DETECT); Coronavirus 229E,HKU1,NL63,OC4 Not Detected (NOT DETECT); Human Metapneumovirus Not Detected (NOT DETECT); Human Rhinovirus/Enterovirus Not Detected (NOT DETECT); Influenza A Not Detected (NOT DETECT); Influenza A H1 Not Detected (NOT DETECT); Influenza A H1-2009 Not Detected (NOT DETECT); Influenza A H3 Not Detected (NOT DETECT); Influenza B Not Detected (NOT DETECT); Mycoplasma Pneumoniae Not Detected (NOT DETECT); Parainfluenza Virus Type 1 Not Detected (NOT DETECT); Parainfluenza Virus Type 2 Not Detected (NOT DETECT); Parainfluenza Virus Type 3 Not Detected (NOT DETECT); Parainfluenza Virus Type 4 Not Detected (NOT DETECT); Respiratory Syncytial Virus A Not Detected (NOT DETECT); Respiratory Syncytial Virus B Not Detected (NOT DETECT); SARS-COV-2 Not Detected (NOT DETECT)
[2021-11-06 16:23] VITALS: BP 114/69; PULSE 77; RESP 17; O2SAT 96
[2021-11-06 16:24] VITALS: BP 114/69; PULSE 69; RESP 17; O2SAT 97
== END 2021-11-06 16:30 | disposition home or self-care (01) ==
PROVIDERS: Emergency Provider Physician Assistant; PCP Nurse Practitioner
DX: J44.1 Chronic obstructive pulmonary disease with (acute) exacerbation (principal); M54.6 Pain in thoracic spine; Z99.81 Dependence on supplemental oxygen; N18.1 Chronic kidney disease, stage 1; E78.5 Hyperlipidemia, unspecified; Z86.73 Personal history of transient ischemic attack (TIA), and cerebral infarction without residual deficits; F17.210 Nicotine dependence, cigarettes, uncomplicated; Z20.822 Contact with and (suspected) exposure to COVID-19
CPT/HCPCS: 36415; 71045; 71250; 74176; 80053; 83880; 84484; 85025; 87635; 87804; 93005; 96374; 96375; 99285; J1885; J2270; J2405

== ENCOUNTER 2021-11-14 21:03 | Emergency (ER) | payer MEDICARE, MEDICAID, SELFPAY ==
[2021-11-14 21:17] VITALS: BP 142/76; PULSE 97; RESP 22; TEMP 36.6; O2SAT 96; BMI 23.4
[2021-11-14 21:22] VITALS: BP 113/72; PULSE 94; RESP 20; O2SAT 98
--- NOTE | 2021-11-14 21:36 | ED_ITS ---
HPI - SOB/Dyspnea General: Chief Complaint: Shortness of Breath/Dyspnea Stated Complaint: SOB Time Seen by Provider: 11/14/21 21:20 History of Present Illness: HPI Narrative: Patient comes in with shortness of breath. States that she has a history of COPD. States she started developing some severe shortness of breath earlier while at home. States when this happened she developed severe back pain at the same time. When EMS arrived they gave her 2 nebulizer treatments, a shot of intramuscular Toradol, and she states she feels much better at this time. Associated symptoms: Deny abdominal pain, chest pain, fever(s), nausea, palpitations, polyuria or vomiting Review of Systems Const: Denies: fever(s) or body aches Eyes: Denies: change in vision or blurry vision ENMT: Denies: throat pain or odynophagia Card: Denies: chest pain or palpitations Resp: Reports: dyspnea and productive cough GI: Denies: abdominal pain, nausea or vomiting : Denies: flank pain or dysuria Musc: Reports: back pain; Denies: neck pain Skin/Breast: Denies: rash or pruritus Neuro: Denies: headache(s) or numbness in extremities Psych: Denies: anxiety or change in appetite Endo: Denies: polyuria or excessive sweating PFSH ED PFSH: Medical History 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 Bipolar disorder, unspecified Chronic GERD Chronic kidney disease, stage 1 Chronic obstructive pulmonary emphysema Dependence on nocturnal oxygen therapy History of paroxysmal supraventricular tachycardia History of supraventricular tachycardia Status post ablation, successful Hyperlipidemia, unspecified Nocturnal oxygen desaturation Shortness of breath Spondylosis without myelopathy or radiculopathy, site unspecified TIA (transient ischemic attack) Tobacco abuse Vitamin D deficiency Surgical History History of appendectomy History of cholecystectomy History of hysterectomy History of repair of hiatal hernia Hx of tonsillectomy Family History Mother COPD (chronic obstructive pulmonary disease) Father COPD (chronic obstructive pulmonary disease) Social History Smoking and tobacco status: current every day smoker cigarettes Packs smoked per day: 0.5 Years cigarettes smoked: 50 [ Other cigarette details: Started at age 6 years] Quit status (tobacco): has tried quititng Number of times tried to quit tobacco: 10 Second hand smoke exposure: Yes Smoking risk assessment/counseling performed?: Yes Alcohol intake: former Year of sobriety/quit date alcohol: 2017 Desire information about alcohol rehabilitation?: No Counseling given: No Desire information about substance/drug rehabilitation?: No Counseling given: No Adopted: No Caregiver/support person: Yes Lives independently: Yes Household members: none Housing: Manufactured/Mobile home Marital status: Number of children: 3 service: No Current occupational status: disabled Pets and animals: Yes History of recent travel: No ([place] 2 wks ago) Current gender identity: Female Physical Exam Const: COMMON NORMALS: no acute distress, patient oriented x3, healthy appearing and alert HENMT: COMMON NORMALS: normocephalic and atraumatic HEAD & SCALP: normocephalic and atraumatic Eye: COMMON NORMALS: Equal, round and reactive pupils present and EOMs intact bilaterally PUPIL: Yes Equal, round and reactive pupils present Neck/C-Spine: COMMON NORMALS: full ROM and supple Resp: COMMON NORMALS: normal respiratory effort, No retractions and No use of accessory muscles Cardio: COMMON NORMALS: regular rate and regular rhythm RATE: regular rate RHYTHM: regular rhythm GI: COMMON NORMALS: Normal to inspection, nondistended, normoactive bowel sounds present, Soft to palpation and non-tender PALPATION: Yes Soft to palpation Back/Pelvis: COMMON NORMALS: thoracic and lumbar spine normal to inspection and no thoracic nor lumbar tenderness Extremity: COMMON NORMALS: normal to inspection and full ROM Neuro: COMMON NORMALS: patient oriented x3 SENSORIUM/ORIENTATION: Yes alert Psych: COMMON NORMALS: mental status grossly normal and cooperative Skin: COMMON NORMALS: no rashes or lesions noted and no wounds GENERAL SKIN EXAM: no rashes or lesions noted Course Vital Signs: Vital signs: Vital Signs Temperature 97.8 F 11/14/21 21:17 Pulse Rate 94 11/14/21 21:22 Respiratory Rate 20 H 11/14/21 21:22 Blood Pressure 113/72 11/14/21 21:22 Pulse Oximetry 98 11/14/21 21:22 Oxygen Delivery Me thod 11/14/21 21:22 Oxygen Flow Rate 3 11/14/21 21:22 MDM - SOB/Dyspnea Medical Decision Making Patient comes in with shortness of breath. States that she has a history of COPD. States she started developing some severe shortness of breath earlier while at home. States when this happened she developed severe back pain at the same time. When EMS arrived they gave her 2 nebulizer treatments, a shot of intramuscular Toradol, and she states she feels much better at this time. On physical exam her lungs are clear to auscultation. She is in no acute distress. Will start steroids, and discharged with precautions return for worsening or changing symptoms. Discharge Plan Discharge Patient Disposition: Home Clinical Impression: COPD (chronic obstructive pulmonary disease) Condition: Stable Prescriptions: New prednisone 20 mg tablet 60 mg PO DAILY Qty: 12 0RF No Action promethazine-DM 6.25-15 mg/5 mL syrup 5 ml PO Q6H PRN (Reason: cough) Qty: 473 2RF ammonium lactate 12 % cream 1 applic TOPICAL BID 30 Days Qty: 280 5RF nitroglycerin 0.4 mg tablet, sublingual 0.4 mg SUBLINGUAL Q5M PRN (Reason: chest pain) Qty: 24 0RF (DME) oxygen 24 hour with portable See Rx Instructions .Route .MEDSUPPLY Qty: 1 0RF Rx Instructions: As directed, oxygen 24 hours 2 liters prednisone 10 mg tablet 10 mg PO DAILY Qty: 10 0RF prednisone 10 mg tablets,dose pack See Rx Instructions PO PER PKG DIR Qty: 21 0RF Rx Instructions: PO PER PKG DIR budesonide 0.5 mg/2 mL suspension for nebulization 0.5 mg inhalation BID Qty: 60 11RF formoterol fumarate [Perforomist] 20 mcg/2 mL solution for nebulization 20 mcg inhalation BID Qty: 60 11RF Yupelri 175 mcg/3 mL solution for nebulization 175 mcg inhalation DAILY Qty: 30 11RF azithromycin 250 mg tablet 250 mg PO .COMPLEX Qty: 60 0RF Rx Instructions: 250 mg PO Tuesday pantoprazole [Protonix] 40 mg tablet,delayed release (DR/EC) 40 mg PO QDAY 30 Days Qty: 30 2RF montelukast [Singulair] 10 mg tablet 10 mg PO DAILY Qty: 30 2RF melatonin 10 mg capsule 10 mg PO BEDTIME 30 Days Qty: 30 2RF guaifenesin [Mucinex] 600 mg tablet extended release 12hr 600 mg PO BID Qty: 60 2RF gabapentin 100 mg capsule 200 mg PO BID Qty: 120 2RF fluticasone propionate [24 Hour Allergy Relief] 50 mcg/actuation spray,suspension 2 spray INTRANASAL DAILY Qty: 16 2RF fenofibrate nanocrystallized 145 mg tablet 145 mg PO DAILY Qty: 30 2RF cetirizine [Zyrtec] 10 mg tablet 10 mg PO DAILY Qty: 30 2RF benzonatate 200 mg capsule 200 mg PO TID PRN (Reason: cough) Qty: 90 2RF albuterol sulfate 2.5 mg /3 mL (0.083 %) solution for nebulization 2.5 mg INHALATION QID PRN (Reason: shortness of breath or wheezing) Qty: 75 2RF atorvastatin 20 mg tablet 20 mg PO DAILY Qty: 30 5RF albuterol sulfate [ProAir HFA] 90 mcg/actuation HFA aerosol inhaler 2 inh INHALATION Q4H PRN (Reason: shortness of breath or wheezing) 30 Days Qty: 8.5 2RF doxycycline hyclate 100 mg capsule 100 mg PO BID 10 Days Qty: 20 0RF methocarbamol 750 mg tablet 750 mg PO Q8H PRN (Reason: Back muscle spasms and pain) Qty: 20 0RF Celebrex 100 mg capsule 100 mg PO BID PRN (Reason: back pain) Qty: 20 0RF Discharge Orders: Discharge ED (Routine); Ordered 11/14/21 Ordered By: Domenico Mayfield Referrals: Janny Estrada, FIRE SPRINKLER SERVICE TECHNICIAN-C [Primary Care Provider] - Coding Level of Care Code ED Roll On Worker for Chg Fwd Exam Comprehensive
[2021-11-14 22:57] VITALS: BP 125/68; PULSE 81; RESP 20; O2SAT 98
== END 2021-11-14 22:45 | disposition home or self-care (01) ==
PROVIDERS: Emergency Provider Emergency Medicine; PCP Nurse Practitioner
DX: J44.9 Chronic obstructive pulmonary disease, unspecified (principal); M54.9 Dorsalgia, unspecified; F17.210 Nicotine dependence, cigarettes, uncomplicated
CPT/HCPCS: 96374; 99284; J2930

== ENCOUNTER → 2021-11-18 13:15 | Outpatient (BNVA) | payer MEDICARE, MEDICAID, SELFPAY | PROVIDERS: PCP Nurse Practitioner; Visit Provider Internal Medicine Critical Care Medicine | DX: J44.9 Chronic obstructive pulmonary disease, unspecified (principal); J96.11 Chronic respiratory failure with hypoxia; F17.210 Nicotine dependence, cigarettes, uncomplicated; R91.8 Other nonspecific abnormal finding of lung field; Z99.81 Dependence on supplemental oxygen | CPT/HCPCS: 99214 ==

== ENCOUNTER 2021-11-27 06:00 | Outpatient (RCR) | payer MEDICARE, MEDICAID, SELFPAY | END 2021-12-18 23:59 | disposition home or self-care (01) | LOC: APT 06:00 | PROVIDERS: PCP Nurse Practitioner; Visit Provider Nurse Practitioner Family | DX: M54.6 Pain in thoracic spine (principal); J44.9 Chronic obstructive pulmonary disease, unspecified; R53.1 Weakness | CPT/HCPCS: 97110; 97163 ==

== ENCOUNTER 2022-01-04 13:04 | Emergency (ER) | payer MEDICARE, MEDICAID, SELFPAY ==
[2022-01-04 13:05] VITALS: BP 124/72; PULSE 96; RESP 18; TEMP 36.6; O2SAT 96; BMI 24.4
--- NOTE | 2022-01-04 13:11 | XRR_ITS ---
PROCEDURE INFORMATION: Exam: XR Chest Exam date and time: 01/04/2022 1:17 PM Age: 66 years old Clinical indication: Cough and dyspnea and shortness of breath; Prior surgery; Surgery type: Cholecystectomy, appendectomy, hysterectomy; Patient HX: PT states that she is short of breath with pain that originated in the upper umbelical part of the abdomen but is now radiating to her mid back . ; additional info: Dyspnea/cough TECHNIQUE: Imaging protocol: Radiologic exam of the chest. Views: 1 view. COMPARISON: [place] [id number] 11/06/2021 2:12 PM FINDINGS: Lungs: The lungs are overinflated consistent with pulmonary emphysema. No acute pulmonary infiltrates are present. Pleural spaces: Unremarkable. No pleural effusion. No pneumothorax. Heart/Mediastinum: Unremarkable. No cardiomegaly. Bones/joints: Unremarkable. XR/XR chest 1V portable [id number] IMPRESSION: Pulmonary emphysema. No acute abnormality.
--- NOTE | 2022-01-04 13:11 | ECG_ITS ---
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 Measurements Intervals [place] Rate: 94 P: 79 RI: 120 QRS: 62 QRSD: 85 T: 71 QT: 303 QTc: 381 Interpretive Statements SINUS RHYTHM NONSPECIFIC T-WAVE ABNORMALITY Compared to ECG 11/06/2021 12:27:57 T-wave abnormality now present Short RI interval no longer present Electronically Signed On 01-04-2022 17:16:45 CDT by Willam Betts M.D. [id number]
--- NOTE | 2022-01-04 13:13 | W.ED.SOB ---
HPI - SOB/Dyspnea General: Chief Complaint: Shortness of Breath/Dyspnea Stated Complaint: SOB Time Seen by Provider: 01/04/22 13:08 Source: patient Mode of arrival: ambulatory History of Present Illness: HPI Narrative: 66 yo female rpesent to the ER with complaints of shortness of breath last 5 to 7 days progressively worsening. She does get some relief with albuterol treatment. No fever sweats or chills cough is nonproductive. She is chronically on oxygen she usually uses 3 L at rest and up to 5 L if she is up and active. On arrival here she was on 6 L immediately after arrival she was titrated down to 3 and is tolerating well oxygen sats remaining stable. MD elicited complaint: shortness of breath and cough Pertinent past history: COPD Onset (ago): day(s) Context: recent illness Timing: constant Exacerbating factors: nothing Relieving factors: nothing Known history of: COPD Associated symptoms: Reports chest congestion, chest pain and cough; Deny abdominal pain, diaphoresis, dizziness, extremity pain, fever(s), hemoptysis, lightheadedness, myalgias, nausea, orthopnea, palpitations, paresthesias, polydipsia, polyuria, rash, sense of impending doom, syncope or vomiting Treatment prior to arrival: oxygen Review of Systems Const: Denies: fever(s), chills or diaphoresis ENMT: Denies: throat pain, ear or mastoid pain, nasal discharge or nasal congestion Card: Reports: chest pain; Denies: palpitations, lightheadedness, syncope or orthopnea Resp: Reports: chest congestion; Denies: dyspnea, productive cough or hemoptysis GI: Denies: abdominal pain, nausea or vomiting : Denies: flank pain, difficulty voiding, dysuria, urinary frequency or urinary urgency Musc: Denies: extremity pain Skin/Breast: Denies: rash or pruritus Neuro: Denies: dizziness Endo: Denies: polyuria or polydipsia PFSH ED PFSH: Medical History 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 Bipolar disorder, unspecified Chest wall pain Chronic GERD Chronic kidney disease, stage 1 Chronic obstructive pulmonary emphysema Dependence on nocturnal oxygen therapy History of paroxysmal supraventricular tachycardia History of supraventricular tachycardia Status post ablation, successful Hyperlipidemia, unspecified Nocturnal oxygen desaturation Shortness of breath Spondylosis without myelopathy or radiculopathy, site unspecified TIA (transient ischemic attack) Tobacco abuse Vitamin D deficiency Surgical History History of appendectomy History of cholecystectomy History of hysterectomy History of repair of hiatal hernia Hx of tonsillectomy Family History Mother COPD (chronic obstructive pulmonary disease) Father COPD (chronic obstructive pulmonary disease) Social History Smoking and tobacco status: current every day smoker cigarettes Packs smoked per day: 0.5 Years cigarettes smoked: 50 [ Other cigarette details: Started at age 6 years] Quit status (tobacco): has tried quititng Number of times tried to quit tobacco: 10 Second hand smoke exposure: Yes Smoking risk assessment/counseling performed?: Yes Alcohol intake: former Year of sobriety/quit date alcohol: 2017 Desire information about alcohol rehabilitation?: No Counseling given: No Desire information about substance/drug rehabilitation?: No Counseling given: No Adopted: No Caregiver/support person: Yes Lives independently: Yes Household members: none Housing: Manufactured/Mobile home Marital status: Number of children: 3 service: No Current occupational status: disabled Pets and animals: Yes History of recent travel: No ([place] 2 wks ago) Current gender identity: Female Course Vital Signs: Vital signs: Vital Signs Temperature 97.8 F 01/04/22 13:05 Pulse Rate 89 01/04/22 13:41 Respiratory Rate 20 H 01/04/22 13:41 Blood Pressure 138/68 01/04/22 15:36 Pulse Oximetry 98 01/04/22 13:41 Oxygen Delivery Me thod 01/04/22 13:20 Oxygen Flow Rate 3 01/04/22 13:20 MDM - SOB/Dyspnea Medical Decision Making Labs imaging and EKG reviewed as found in the chart. No acute changes noted troponins unremarkable. Patient is feeling COVID better discharge home steroid taper doxycycline albuterol. Recheck with primary care if not improving over the next several days. Return if worsens. Medical Records I reviewed the patient's medical records. Lab Data I reviewed the patient's lab results. : 01/04/22 13:56 01/04/22 13:56 Labs/Radiology: Radiology Impressions Chest X-Ray 01/04/22 13:11 IMPRESSION: Pulmonary emphysema. No acute abnormality. Laboratory Results WBC 6.0 10^3/uL (4.0-10.0) 01/04/22 13:56 RBC 4.61 10^6/uL (4.1-5.3) 01/04/22 13:56 Hgb 14.8 g/dL (11.5-15.3) 01/04/22 13:56 Hct 44.3 % (37.0-47.0) 01/04/22 13:56 MCV 96.1 fl (81-99) 01/04/22 13:56 MCH 32.1 pg (28.0-34.0) 01/04/22 13:56 MCHC 33.4 g/dL (30.0-36.0) 01/04/22 13:56 RDW 14.1 % (12.1-15.1) 01/04/22 13:56 Plt Count 343 10^3/cmm (130-400) 01/04/22 13:56 MPV 8.6 fL (7.4-10.4) 01/04/22 13:56 Neut % (Auto) 79.9 % 01/04/22 13:56 Lymph % (Auto) 14.2 % 01/04/22 13:56 [place] % (Auto) 3.2 % 01/04/22 13:56 Eos % (Auto) 1.2 % 01/04/22 13:56 Baso % (Auto) 1.3 % 01/04/22 13:56 Neut # (Auto) 4.77 10^3/uL (1.8-7.7) 01/04/22 13:56 Lymph # (Auto) 0.9 10^3/uL (0.8-4.8) 01/04/22 13:56 [place] # (Auto) 0.2 10^3/uL (0.2-0.9) 01/04/22 13:56 Eos # (Auto) 0.1 10^3/uL (0.0-0.8) 01/04/22 13:56 Baso # (Auto) 0.1 10^3/uL (0.0-0.1) 01/04/22 13:56 Nucleated RBC % (auto) 0 % 01/04/22 13:56 Nucleated RBCs # 0.0 /100WBC 01/04/22 13:56 Sodium 138 mmol/L (136-145) 01/04/22 13:56 Potassium 4.1 mmol/L (3.5-5.1) 01/04/22 13:56 Chloride 98 mmol/L (98-107) 01/04/22 13:56 Carbon Dioxide 31 mmol/L (22-29) H 01/04/22 13:56 Anion Gap 13.1 (5-19) 01/04/22 13:56 BUN 7 mg/dL (8-23) L 01/04/22 13:56 Creatinine 0.4 mg/dL (0.5-0.9) L 01/04/22 13:56 GFR Calculation 160.2 mL/min (90-130) H 01/04/22 13:56 Glucose 117 mg/dL (65-115) H 01/04/22 13:56 Calculated Osmolality 285 mOsm/kg (285-295) 01/04/22 13:56 Calcium 9.6 mg/dL (8.5-10.5) 01/04/22 13:56 Total Bilirubin 0.3 mg/dL (0.15-1.2) 01/04/22 13:56 AST 14 U/L (0-32) 01/04/22 13:56 ALT < 5 U/L (0-33) 01/04/22 13:56 Alkaline Phosphatase 100 U/L (35-105) 01/04/22 13:56 Troponin T Baseline 16 ng/L (0-10) H 01/04/22 13:56 Troponin T 120 Minute 14.04 ng/L (0-10) H 01/04/22 15:52 Delta Troponin T -1.96 ABS# (0-10) L 01/04/22 15:52 Total Protein 6.6 g/dL (6.6-8.7) 01/04/22 13:56 Albumin 4.5 g/dL (3.5-5.2) 01/04/22 13:56 Globulin 2.1 g/dL (1.3-4.6) 01/04/22 13:56 Discharge Plan Discharge Patient Disposition: Home Clinical Impression: Acute exacerbation of chronic obstructive airways disease Condition: Stable Prescriptions: New albuterol sulfate 90 mcg/actuation HFA aerosol inhaler 2 inh INHALATION Q4H PRN (Reason: shortness of breath or wheezing) Qty: 18 0RF doxycycline hyclate 100 mg capsule 100 mg PO BID 10 Days Qty: 20 0RF prednisone 20 mg tablet 20 mg PO TID Qty: 15 0RF Rx Instructions: 1 p.o. 3 times daily x3 days, 1 p.o. twice daily x2 days, 1 p.o. daily x2 days No Action nitroglycerin 0.4 mg tablet, sublingual 0.4 mg SUBLINGUAL Q5M PRN (Reason: chest pain) Qty: 24 0RF (DME) oxygen 24 hour with portable See Rx Instructions .Route .MEDSUPPLY Qty: 1 0RF Rx Instructions: As directed, oxygen 24 hours 2 liters cyclobenzaprine 10 mg tablet 10 mg PO DAILY Qty: 30 2RF fluoxetine 10 mg capsule 10 mg PO DAILY Qty: 30 2RF budesonide 0.5 mg/2 mL suspension for nebulization 0.5 mg inhalation BID Qty: 60 11RF formoterol fumarate [Perforomist] 20 mcg/2 mL solution for nebulization 20 mcg inhalation BID Qty: 60 11RF azithromycin 250 mg tablet 250 mg PO .COMPLEX Qty: 60 0RF Rx Instructions: 250 mg PO Tuesday montelukast [Singulair] 10 mg tablet 10 mg PO DAILY Qty: 30 2RF melatonin 10 mg capsule 10 mg PO BEDTIME 30 Days Qty: 30 2RF guaifenesin [Mucinex] 600 mg tablet extended release 12hr 600 mg PO BID Qty: 60 2RF fenofibrate nanocrystallized 145 mg tablet 145 mg PO DAILY Qty: 30 2RF cetirizine [Zyrtec] 10 mg tablet 10 mg PO DAILY Qty: 30 2RF benzonatate 200 mg capsule 200 mg PO TID PRN (Reason: cough) Qty: 90 2RF albuterol sulfate 2.5 mg /3 mL (0.083 %) solution for nebulization 2.5 mg INHALATION QID PRN (Reason: shortness of breath or wheezing) Qty: 75 2RF albuterol sulfate [ProAir HFA] 90 mcg/actuation HFA aerosol inhaler 2 inh INHALATION Q4H PRN (Reason: shortness of breath or wheezing) 30 Days Qty: 8.5 5RF celecoxib [Celebrex] 100 mg capsule 100 mg PO BID PRN (Reason: back pain) Qty: 20 0RF atorvastatin 20 mg tablet 20 mg PO BEDTIME Protonix 40 mg tablet,delayed release (DR/EC) 40 mg PO DAILY Discharge Orders: Discharge ED (Routine); Ordered 01/04/22 Ordered By: Allan Crump Referrals: Janny Estrada, INSTRUCTIONAL RESOURCE TEACHER-C [Primary Care Provider] - Discharge Diet: Usual diet Discharge Activity: Increase activity as tolerated Patient Instructions: Opioid Safety, Pain Management Activity Restrictions/Additional Instructions: Follow-up within the next week with your primary care provider if not improving. If symptoms worsen return to the emergency room Coding Level of Care Code ED Director Process Engineering for [employer] Pretty
[2022-01-04 13:20] VITALS: BP 137/86; PULSE 89; RESP 20; O2SAT 99
[2022-01-04 13:41] VITALS: BP 114/73; PULSE 89; RESP 20; O2SAT 98
[2022-01-04 14:07] LABS: Basophils # 0.1 10^3/uL (0.0-0.1); Basophils % 1.3 %; Eosinophils # 0.1 10^3/uL (0.0-0.8); Eosinophils % 1.2 %; Hematocrit 44.3 % (37.0-47.0); Hemoglobin 14.8 g/dL (11.5-15.3); Lymphocytes # 0.9 10^3/uL (0.8-4.8); Lymphocytes % 14.2 %; Mean Corpuscular HGB Conc 33.4 g/dL (30.0-36.0); Mean Corpuscular Hemoglobin 32.1 pg (28.0-34.0); Mean Corpuscular Volume 96.1 fl (81-99); Mean Platelet Volume 8.6 fL (7.4-10.4); Monocytes # 0.2 10^3/uL (0.2-0.9); Monocytes % 3.2 %; Neutrophils # 4.77 10^3/uL (1.8-7.7); Neutrophils % 79.9 %; Nucleated Red Blood Cells % 0 %; Platelet Count 343 10^3/cmm (130-400); Red Blood Count 4.61 10^6/uL (4.1-5.3); Red Cell Distribution Width 14.1 % (12.1-15.1)
[2022-01-04 14:21] LABS: Alanine Aminotransferase < 5 U/L (0-33); Albumin Level 4.5 g/dL (3.5-5.2); Alkaline Phosphatase 100 U/L (35-105); Anion Gap 13.1 (5-19); Aspartate Amino Transferase 14 U/L (0-32); Blood Urea Nitrogen 7 mg/dL (8-23); Calcium 9.6 mg/dL (8.5-10.5); Carbon Dioxide 31 mmol/L (22-29); Chloride 98 mmol/L (98-107); Globulin 2.1 g/dL (1.3-4.6); Glomerular Filtration Rate 160.2 mL/min (90-130); Glucose 117 mg/dL (65-115); Osmolality Calculated 285 mOsm/kg (285-295); Potassium 4.1 mmol/L (3.5-5.1); Sodium 138 mmol/L (136-145); Total Bilirubin 0.3 mg/dL (0.15-1.2); Total Protein 6.6 g/dL (6.6-8.7)
[2022-01-04 14:31] LABS: Troponin(5th) Baseline 16 ng/L (0-10)
--- NOTE | 2022-01-04 15:12 | ECG_ITS ---
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 Measurements Intervals [place] Rate: 90 P: 76 MD: 127 QRS: 71 QRSD: 81 T: 77 QT: 362 QTc: 443 Interpretive Statements SINUS RHYTHM Compared to ECG 01/04/2022 13:18:10 T-wave abnormality no longer present Electronically Signed On 01-04-2022 17:23:00 CDT by Willam Betts M.D. [id number]
[2022-01-04 15:36] VITALS: BP 138/68
[2022-01-04 16:32] LABS: Troponin 5 2HR 14.04 ng/L (0-10)
[2022-01-04 16:33] LABS: Troponin 5 2HR Delta -1.96 ABS# (0-10)
[2022-01-04 17:59] VITALS: BP 145/72; PULSE 81; O2SAT 98
== END 2022-01-04 18:01 | disposition home or self-care (01) ==
PROVIDERS: Emergency Provider Family Medicine; PCP Nurse Practitioner
DX: J44.1 Chronic obstructive pulmonary disease with (acute) exacerbation (principal); F17.210 Nicotine dependence, cigarettes, uncomplicated; N18.1 Chronic kidney disease, stage 1; E78.5 Hyperlipidemia, unspecified; Z86.73 Personal history of transient ischemic attack (TIA), and cerebral infarction without residual deficits
CPT/HCPCS: 36415; 71045; 80053; 84484; 85025; 93005; 99285

== ENCOUNTER → 2022-04-05 11:51 | Outpatient (BNVA) | payer MEDICARE, MEDICAID, SELFPAY | PROVIDERS: PCP Nurse Practitioner; Visit Provider Nurse Practitioner Family | DX: J44.9 Chronic obstructive pulmonary disease, unspecified (principal); E78.5 Hyperlipidemia, unspecified; G45.9 Transient cerebral ischemic attack, unspecified | CPT/HCPCS: 80053; 80061; 84443; 85025 ==

== ENCOUNTER 2022-05-26 18:08 | Inpatient (IN) | payer MEDICARE, MEDICAID, SELFPAY ==
[2022-05-26] VITALS (16 sets, daily range): BP systolic 110–118; BP diastolic 80–91; PULSE 110–126; RESP 17–25; TEMP 36.1–36.4; O2SAT 95–99; BMI 25.4
--- NOTE | 2022-05-26 18:11 | W.ED.SOB ---
HPI - SOB/Dyspnea General: Chief Complaint: ER Hold Stated Complaint: RESP/ COPD Time Seen by Provider: 05/26/22 18:11 History of Present Illness: HPI Narrative: Ms. Spencer is a 66-year-old lady with history of COPD with chronic hypoxic respiratory failure on 3 L at baseline presenting to the emergency department for shortness of breath. She reports 3 days of gradually worsening symptoms with more profound symptoms today. She endorses minimal relief with albuterol treatments. Intensity symptoms is moderate to severe. Worse with exertion and laying down. She does have associated chest aching and heaviness. She was unable to sleep even sitting up last night due to severity. No other specific changes in health, exacerbating, or alleviating factors identified. EMS administered DuoNeb and 125 mg Solu-Medrol. Onset (ago): day(s) Timing: progressively worsening Severity: severe Exacerbating factors: exertion and coughing Known history of: COPD Associated symptoms: Reports chest pain Review of Systems General: Reports: 10 or more systems reviewed and unremarkable except in HPI and below Card: Reports: chest pain PFSH ED PFSH: Medical History 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 Bipolar disorder, unspecified Chest wall pain Chronic GERD Chronic kidney disease, stage 1 Chronic obstructive pulmonary emphysema Dependence on nocturnal oxygen therapy History of paroxysmal supraventricular tachycardia History of supraventricular tachycardia Status post ablation, successful Hyperlipidemia, unspecified Nocturnal oxygen desaturation Shortness of breath Spondylosis without myelopathy or radiculopathy, site unspecified TIA (transient ischemic attack) Tobacco abuse Vitamin D deficiency Surgical History History of appendectomy History of cholecystectomy History of hysterectomy History of repair of hiatal hernia Hx of tonsillectomy Family History Mother COPD (chronic obstructive pulmonary disease) Father COPD (chronic obstructive pulmonary disease) Social History Smoking and tobacco status: current every day smoker cigarettes Packs smoked per day: 0.5 Years cigarettes smoked: 50 [ Other cigarette details: Started at age 6 years] Quit status (tobacco): has tried quititng Number of times tried to quit tobacco: 10 Second hand smoke exposure: Yes Smoking risk assessment/counseling performed?: Yes Alcohol intake: former Year of sobriety/quit date alcohol: 2017 Desire information about alcohol rehabilitation?: No Counseling given: No Desire information about substance/drug rehabilitation?: No Counseling given: No Adopted: No Caregiver/support person: Yes Lives independently: Yes Household members: none Housing: Manufactured/Mobile home Marital status: Number of children: 3 service: No Current occupational status: disabled Pets and animals: Yes Current gender identity: Female Physical Exam Const: COMMON NORMALS: alert GENERAL APPEARANCE: cooperative and well developed HENMT: COMMON NORMALS: normocephalic and atraumatic HEAD & SCALP: normocephalic and atraumatic Eye: COMMON NORMALS: conjunctivae normal CONJUNCTIVA: Yes conjunctivae normal SCLERA: sclerae normal Neck/C-Spine: COMMON NORMALS: supple GENERAL: Yes trachea midline Resp: EFFORT & INSPECTION: Yes tachypneic AUSCULTATION: diminished lung sounds Cardio: COMMON NORMALS: regular rhythm RATE: tachycardic RHYTHM: regular rhythm GI: COMMON NORMALS: Soft to palpation PALPATION: Yes Soft to palpation and No Tenderness to palpation present (GI) Extremity: GENERAL: Yes normal exam except as noted and No edema Neuro: COMMON NORMALS: moves all extremities SENSORIUM/ORIENTATION: Yes alert and No Orientation impaired Psych: COMMON NORMALS: mental status grossly normal and Normal thought process present THOUGHT PROCESS: Normal thought process present Course Vital Signs: Vital signs: Vital Signs Temperature 98.8 F 06/05/22 13:25 Pulse Rate 102 H 06/05/22 14:00 Respiratory Rate 16 06/05/22 14:00 Blood Pressure 95/69 06/05/22 13:25 Pulse Oximetry 98 06/05/22 14:00 Oxygen Delivery Me thod 06/05/22 14:00 Oxygen Flow Rate 3 06/05/22 14:00 Fraction of Inspir ed Oxygen 35 06/03/22 08:00 MDM - SOB/Dyspnea Medical Decision Making 66-year-old lady presenting with shortness of breath in the context of known COPD. EKG notable for sinus rhythm with nonspecific ST segment abnormalities, no STEMI. Labs with mild leukocytosis and hemoconcentration. Metabolic panel without significant derangement. Initial troponin is elevated with positive range 2-hour delta. BNP elevated. Chest x-ray with COPD, no other significant finding. Given elevated troponin in the mid range aspirin given. Heparin drip initiated. Most likely etiology of patient's symptoms is acute COPD exacerbation with NSTEMI. The results of ED evaluation were discussed with the patient including plan for admission due to requirement for level of care not available if discharged to prevent significant worsening/deterioration. Patient agreeable with plan. Discussed with hospitalist service who was agreeable to admit patient. Medical Records I reviewed the patient's medical records. Lab Data I reviewed the patient's lab results. 05/26/22 18:32 05/26/22 18:32 Labs/Radiology: Radiology Impressions Chest CTA 05/26/22 19:23 IMPRESSION: 1. Negative for pulmonary embolus. 2. Cholecystectomy. 3. Emphysematous changes. 4. Bibasilar atelectasis versus infiltrate. 5. Minimal coronary artery atherosclerotic calcifications. 6. T7 and T8 vertebral body compression fractures without retropulsion of bony fragments, the T8 fracture appears chronic and similar to prior exam. COMMENTS: In the absence of a history or active diagnosis of lung cancer, it is recommended that this patient with emphysema be evaluated for enrollment in a low dose CT lung cancer screening program. Chest X-Ray 05/28/22 08:23 Impression: Hyperinflation and atherosclerosis. Renal Ultrasound 05/28/22 13:07 IMPRESSION: Negative renal ultrasound. Laboratory Results WBC 11.5 10^3/uL (4.0-10.0) H 05/26/22 18:32 RBC 5.08 10^6/uL (4.1-5.3) 05/26/22 18:32 Hgb 15.8 g/dL (11.5-15.3) H 05/26/22 18:32 Hct 48.8 % (37.0-47.0) H 05/26/22 18:32 MCV 96.1 fl (81-99) 05/26/22 18: MCH 31.1 pg (28.0-34.0) 05/26/22 18: MCHC 32.4 g/dL (30.0-36.0) 05/26/22 18:32 RDW 15.7 % (12.1-15.1) H 05/26/22 18:32 Plt Count 419 10^3/cmm (130-400) H 05/26/22 18:32 MPV 8.4 fL (7.4-10.4) 05/26/22 18:32 Neut % (Auto) 73.7 % 05/26/22 18:32 Lymph % (Auto) 18.8 % 05/26/22 18:32 [place] % (Auto) 6.4 % 05/26/22 18:32 Eos % (Auto) 0.3 % 05/26/22 18:32 Baso % (Auto) 0.5 % 05/26/22 18: Neut # (Auto) 8.50 10^3/uL (1.8-7.7) H 05/26/22 18:32 Lymph # (Auto) 2.2 10^3/uL (0.8-4.8) 05/26/22 18:32 [place] # (Auto) 0.7 10^3/uL (0.2-0.9) 05/26/22 18:32 Eos # (Auto) 0.0 10^3/uL (0.0-0.8) 05/26/22 18: Baso # (Auto) 0.1 10^3/uL (0.0-0.1) 05/26/22 18: Nucleated RBC % (auto) 0 % 05/26/22: Nucleated RBCs # 0.0 /100WBC 05/26/22 18: PT 12.90 SECONDS (12.1-14.9) 05/26/22 18: INR 0.94 (0.8-1.2) 05/26/22 18: APTT 26.5 SECONDS (23.9-36.7) 05/26/22 18:21 Specimen Type Arterial 05/26/22 18:30 Sample Site Radial, left 05/26/22 18:30 ABG pH 7.27 (7.35-7.45) L 05/26/22 18:30 ABG pCO2 77.7 mmHg (35-45) H* 05/26/22 18:30 ABG pO2 153.0 mmHg (80.0-100.0) H 05/26/22 18:30 ABG HCO3 35.7 mmol/L (22-26) H 05/26/22 18:30 ABG Base Excess 5.5 mmol/L (-2.0-2.0) H 05/26/22 18:30 Jann Test Pos 05/26/22 18:30 Hematocrit 47.4 % (37-47) H 05/26/22 18:30 Hgb O2 Saturation 96.8 % (95-100) 05/26/22 18:30 Carboxyhemoglobin 2.0 %THgb (0.4-20.1) 05/26/22 18:30 Methemoglobin 0.6 % (0.4-1.5) 05/26/22 18:30 Total Hemoglobin 15.4 g/dL (12-16) 05/26/22 18:30 O2 Delivery Device Nc 05/26/22 18:30 O2 Liters/Min 4.0 % 05/26/22 18:30 FiO2 36.0 % 05/26/22 18:30 Marketing Education Teacher ID Cak 05/26/22 18:30 Sodium 142 mmol/L (136-145) 05/26/22 18:32 Potassium 3.8 mmol/L (3.5-5.1) 05/26/22 18:32 Chloride 99 mmol/L (98-107) 05/26/22 18:32 Carbon Dioxide 34 mmol/L (22-29) H 05/26/22 18:32 Anion Gap 12.8 (5-19) 05/26/22 18:32 BUN 13 mg/dL (8-23) 05/26/22 18:32 Creatinine 0.5 mg/dL (0.5-0.9) 05/26/22 18:32 GFR Calculation 123.8 mL/min (90-130) 05/26/22 18:32 Glucose 205 mg/dL (65-115) H 05/26/22 18:32 Calculated Osmolality 300 mOsm/kg (285-295) H 05/26/22 18:32 Lactic Acid 2.2 mmol/L (0.5-2.2) 05/26/22 18:32 Lactic Acid (Sepsis) 2.1 mmol/L (0.5-2.2) 05/26/22 21:00 Calcium 9.8 mg/dL (8.5-10.5) 05/26/22 18:32 Total Bilirubin 0.2 mg/dL (0.15-1.2) 05/26/22 18:32 AST 33 U/L (0-32) H 05/26/22 18:32 ALT 10 U/L (0-33) 05/26/22 18:32 Alkaline Phosphatase 97 U/L (35-105) 05/26/22 18:32 Troponin T Baseline 216 ng/L (0-10) H* 05/26/22 18:32 Troponin T 120 Minute 223.1 ng/L (0-10) H 05/26/22 21:00 Delta Troponin T 7.1 ABS# (0-10) 05/26/22 21:00 C-Reactive Protein 3.3 mg/L (0.0-4.9) 05/26/22 18:21 NT-Pro-B Natriuret Pep 4592 pg/mL (0-125) H 05/26/22 18:32 Total Protein 7.2 g/dL (6.6-8.7) 05/26/22 18:32 Albumin 4.3 g/dL (3.5-5.2) 05/26/22 18:32 Globulin 2.9 g/dL (1.3-4.6) 05/26/22 18:32 Procalcitonin 0.06 ng/mL (0-0.5) 05/26/22 18:21 Nasal Influ A H1 2008 PCR Not detected (NOT DETECT) 05/26/22 19:10 Adenovirus (PCR) Not detected (NOT DETECT) 05/26/22 19:10 C. pneumoniae DNA (PCR) Not detected (NOT DETECT) 05/26/22 19:10 Coronavirus 229E (PCR) Not detected (NOT DETECT) 05/26/22 19:10 Human Metapneumovir PCR Not detected (NOT DETECT) 05/26/22 19:10 Influenza A (H1) PCR Not detected (NOT DETECT) 05/26/22 19:10 Influenza A (H3) PCR Not detected (NOT DETECT) 05/26/22 19:10 Influenza Type A (PCR) Not detected (NOT DETECT) 05/26/22 19:10 Influenza Type B (PCR) Not detected (NOT DETECT) 05/26/22 19:10 M. pneumoniae (PCR) Not detected (NOT DETECT) 05/26/22 19:10 Parainfluenza 1 (PCR) Not detected (NOT DETECT) 05/26/22 19:10 Parainfluenza 2 (PCR) Not detected (NOT DETECT) 05/26/22 19:10 Parainfluenza 3 (PCR) Not detected (NOT DETECT) 05/26/22 19:10 Parainfluenza 4 (PCR) Not detected (NOT DETECT) 05/26/22 19:10 RSV Type A (PCR) Not detected (NOT DETECT) 05/26/22 19:10 RSV Type B (PCR) Not detected (NOT DETECT) 05/26/22 19:10 Entero/Rhino (PCR) Not detected (NOT DETECT) 05/26/22 19:10 SARS-CoV-2 (PCR) Not detected (NOT DETECT) 05/26/22 19:10 Critical Care Time Critical Care Time: Critical Care Time: Yes Total Critical Care Time: 35 Attestation: Due to a high probability of clinically significant, possibly life threatening deterioration, the patient required my highest level of attention and preparedness to intervene emergently and I personally spent this critical care time directly and personally managing the patient. This critical care time included obtaining a history; examining the patient; pulse oximetry; ordering and review of laboratory and imaging studies; arranging urgent treatment with development of a management plan; evaluation of patient's response to treatment; frequent reassessment; and, discussions with other providers as applicable. It was exclusive of separately billable procedures. Primary system involved is cardiopulmonary Discharge Plan Discharge Patient Disposition: Admitted As Inpatient Admit Provider: Bushra Hill Clinical Impression: Acute exacerbation of chronic obstructive airways disease, Acute non-ST elevation myocardial infarction (NSTEMI), Acute on chronic respiratory failure with hypoxia and hypercapnia Condition: Stable Discharge Diet: Cardiac Discharge Activity: Increase activity as tolerated Coding Level of Care Code ED Triage Register Nurse for Tyson Pretty
--- NOTE | 2022-05-26 18:20 | ECG_ITS ---
[facility] Test Date: 2022-05-26 Pat Name: Alis Spencer Department: Room: Gender: Female Portfolio Manager: : 1955 Requested By: Israel Baez Order Number: [id number] Jam MD: Gita Tyler M.D. Measurements Intervals [place] Rate: 112 P: 85 OK: 96 QRS: 85 QRSD: 91 T: 267 QT: 347 QTc: 475 Interpretive Statements SINUS TACHYCARDIA WITH SHORT OK INTERVAL SEPTAL MYOCARDIAL INFARCTION , OF INDETERMINATE AGE [40+ ms Q WAVE IN V1/V2] MODERATE T-WAVE ABNORMALITY, CONSIDER ANTEROLATERAL ISCHEMIA [-0.1+ mV T-WAVE IN V3-V6] MODERATE T-WAVE ABNORMALITY, CONSIDER INFERIOR ISCHEMIA [-0.1+ mV T-WAVE IN II/aVF] Compared to ECG 01/04/2022 15:12:30 Short OK interval now present Myocardial infarct finding now present T-wave abnormality now present Possible ischemia now present Sinus rhythm no longer present Electronically Signed On 05-27-2022 23:26:52 LEAD GENERATOR by Gita Tyler M.D. [id number]
--- NOTE | 2022-05-26 18:20 | XRR_ITS ---
PROCEDURE INFORMATION: Exam: XR Chest Exam date and time: 05/26/2022 6:41 PM Age: 66 years old Clinical indication: Shortness of breath; Additional info: SOB TECHNIQUE: Imaging protocol: Radiologic exam of the chest. Views: 1 view. COMPARISON: CR XR chest 1V portable [id number] 01/04/2022 1:17 PM FINDINGS: Lungs: Emphysematous, hyperinflated lungs. No consolidation. Pleural spaces: Unremarkable. No pleural effusion. No pneumothorax. Heart/Mediastinum: Unremarkable. No cardiomegaly. Bones/joints: Unremarkable. XR/XR chest 1V portable [id number] IMPRESSION: Sequela of COPD. No acute findings.
[2022-05-26] MEDS: albuterol 2.5 mg/3 mL Neb INHALATION ×2 (18:29→22:39)
[2022-05-26 18:41] LABS: ABG PH Result 7.27 (7.35-7.45); Arterial Blood Gas Hematocrit 47.4 % (37-47); Base Excess ABG 5.5 mmol/L (-2.0-2.0); Blood Gas Allen Test Pos; Blood Gas Operator Identificat CAK; Blood Gas Sample Site Radial, left; Blood Gas Sample Type Arterial; HCO3 ABG 35.7 mmol/L (22-26); HGB O2 Sat 96.8 % (95-100); Methemoglobin 0.6 % (0.4-1.5); Oxygen Device NC; Total Hemoglobin 15.4 g/dL (12-16)
[2022-05-26 18:42] LABS: ABG PCO2 77.7 mmHg (35-45)
[2022-05-26 18:50] LABS: Basophils # 0.1 10^3/uL (0.0-0.1); Basophils % 0.5 %; Eosinophils % 0.3 %; Hematocrit 48.8 % (37.0-47.0); Hemoglobin 15.8 g/dL (11.5-15.3); Lymphocytes # 2.2 10^3/uL (0.8-4.8); Lymphocytes % 18.8 %; Mean Corpuscular HGB Conc 32.4 g/dL (30.0-36.0); Mean Corpuscular Hemoglobin 31.1 pg (28.0-34.0); Mean Corpuscular Volume 96.1 fl (81-99); Mean Platelet Volume 8.4 fL (7.4-10.4); Monocytes # 0.7 10^3/uL (0.2-0.9); Monocytes % 6.4 %; Neutrophils % 73.7 %; Nucleated Red Blood Cells % 0 %; Platelet Count 419 10^3/cmm (130-400); Red Blood Count 5.08 10^6/uL (4.1-5.3); Red Cell Distribution Width 15.7 % (12.1-15.1); White Blood Count 11.5 10^3/uL (4.0-10.0)
[2022-05-26] MEDS: cefTRIAXone 1,000 MG in sodium chloride 0.9% (plus) 50 ML 100 MG IV (19:03)
[2022-05-26 19:05] LABS: Lactic Sepsis W/Reflex 2.2 mmol/L (0.5-2.2)
[2022-05-26 19:11] LABS: Alanine Aminotransferase 10 U/L (0-33); Albumin Level 4.3 g/dL (3.5-5.2); Alkaline Phosphatase 97 U/L (35-105); Anion Gap 12.8 (5-19); Aspartate Amino Transferase 33 U/L (0-32); Blood Urea Nitrogen 13 mg/dL (8-23); Calcium 9.8 mg/dL (8.5-10.5); Carbon Dioxide 34 mmol/L (22-29); Chloride 99 mmol/L (98-107); Globulin 2.9 g/dL (1.3-4.6); Glomerular Filtration Rate 123.8 mL/min (90-130); Glucose 205 mg/dL (65-115); Osmolality Calculated 300 mOsm/kg (285-295); Potassium 3.8 mmol/L (3.5-5.1); Sodium 142 mmol/L (136-145); Total Bilirubin 0.2 mg/dL (0.15-1.2); Total Protein 7.2 g/dL (6.6-8.7)
[2022-05-26] MEDS: doxycycline 100 MG in sodium chloride 0.9% (plus) 100 ML IV (19:13)
[2022-05-26 19:14] LABS: Troponin(5th) Baseline 216 ng/L (0-10)
[2022-05-26 19:18] LABS: NT Pro B Type Natriuretic Pept 4592 pg/mL (0-125)
--- NOTE | 2022-05-26 19:23 | CTR_ITS ---
PROCEDURE INFORMATION: Exam: CTA Chest With Contrast Exam date and time: 05/26/2022 8:17 PM Age: 66 years old Clinical indication: Abnormal findings; Abnormal diagnostic tests; Elevated d-dimer; Shortness of breath; Prior surgery; Surgery type: Gb; Patient HX: Worsening SOB with elevated d dimer. Copd. History of lung cancer. ; Additional info: SOB, tachycardia TECHNIQUE: Imaging protocol: Computed tomographic angiography of the chest with contrast. 3D rendering (Not supervised by radiologist): MIP and/or 3D reconstructed images were created by the technologist. Radiation optimization: All CT scans at this facility use at least one of these dose optimization techniques: automated exposure control; mA and/or kV adjustment per patient size (includes targeted exams where dose is matched to clinical indication); or iterative reconstruction. Contrast material: OMNI 350; Contrast volume: 67 ml; Contrast route: INTRAVENOUS (IV); REPORTING DATA: Count of CT and Cardiac NM exams in prior 12 months: This patient has received 3 known CTs and 0 known cardiac nuclear medicine studies in the 12 months prior to the current study. COMPARISON: [place] [id number] 11/06/2021 2:12 PM RADIATION DOSE METRICS: Total DLP (mGy-cm): 240.19 FINDINGS: Pulmonary arteries: Normal. No pulmonary emboli. Aorta: Unremarkable. No aortic aneurysm. No aortic dissection. Lungs: Emphysematous changes. Bibasilar atelectasis versus infiltrate. Pleural spaces: Unremarkable. No pneumothorax. No pleural effusion. Heart: Minimal coronary artery atherosclerotic calcifications. Lymph nodes: Unremarkable. No enlarged lymph nodes. Gallbladder and bile ducts: Cholecystectomy. Bones/joints: T7 and T8 vertebral body compression fractures without retropulsion of bony fragments, the T8 fracture appears chronic and similar to prior exam. Soft tissues: Unremarkable. CT/CT angio chest PE protcl [id number] IMPRESSION: 1. Negative for pulmonary embolus. 2. Cholecystectomy. 3. Emphysematous changes. 4. Bibasilar atelectasis versus infiltrate. 5. Minimal coronary artery atherosclerotic calcifications. 6. T7 and T8 vertebral body compression fractures without retropulsion of bony fragments, the T8 fracture appears chronic and similar to prior exam. COMMENTS: In the absence of a history or active diagnosis of lung cancer, it is recommended that this patient with emphysema be evaluated for enrollment in a low dose CT lung cancer screening program.
[2022-05-26 19:33] LABS: C Reactive Protein 3.3 mg/L (0.0-4.9)
[2022-05-26 19:41] LABS: Procalcitonin 0.06 ng/mL (0-0.5)
[2022-05-26 19:55] LABS: INR 0.94 (0.8-1.2)
[2022-05-26 19:56] LABS: Partial Thromboplastin Time 26.5 SECONDS (23.9-36.7)
--- NOTE | 2022-05-26 20:20 | ECG_ITS ---
[facility] Test Date: 2022-05-26 Pat Name: Alis Spencer Department: Room: Gender: Female Sand Mixer: : 1955 Requested By: Israel Baez Order Number: [id number] Jam MD: Gita Tyler M.D. Measurements Intervals [place] Rate: 111 P: 78 AL: 96 QRS: 76 QRSD: 85 T: 248 QT: 367 QTc: 500 Interpretive Statements SINUS TACHYCARDIA WITH SHORT AL INTERVAL SEPTAL MYOCARDIAL INFARCTION , OF INDETERMINATE AGE [40+ ms Q WAVE IN V1/V2] MODERATE T-WAVE ABNORMALITY, CONSIDER ANTEROLATERAL ISCHEMIA [-0.1+ mV T-WAVE IN V3-V6] MODERATE T-WAVE ABNORMALITY, CONSIDER INFERIOR ISCHEMIA [-0.1+ mV T-WAVE IN II/aVF] Compared to ECG 05/26/2022 18:30:16 No significant changes Electronically Signed On 05-27-2022 23:47:36 AUTO BODY REPAIRMAN by Gita Tyler M.D. [email or web address] [email or web address] Make [id number]
[2022-05-26] MEDS: iohexol 350 mg/mL 500 mL Btl (per mL) IV (20:26)
[2022-05-26 20:33] LABS: Reflex Lactate Order REFLEX LACTIC ORDERD
[2022-05-26] MEDS: aspirin 81 mg Chew Tablet 324 MG PO (20:33)
[2022-05-26] MEDS: heparin 5,000 unit/mL INJ 1 mL IV (20:33)
[2022-05-26] MEDS: heparin drip 25,000 UNIT/500 ML PREMIX 16 UNIT IV (20:37)
[2022-05-26 21:28] LABS: Lactic Acid level (Lactate) 2.1 mmol/L (0.5-2.2)
[2022-05-26 21:31] LABS: Adenovirus Not Detected (NOT DETECT); Chlamydia Pneumoniae Not Detected (NOT DETECT); Coronavirus 229E,HKU1,NL63,OC4 Not Detected (NOT DETECT); Human Metapneumovirus Not Detected (NOT DETECT); Human Rhinovirus/Enterovirus Not Detected (NOT DETECT); Influenza A Not Detected (NOT DETECT); Influenza A H1 Not Detected (NOT DETECT); Influenza A H1-2009 Not Detected (NOT DETECT); Influenza A H3 Not Detected (NOT DETECT); Influenza B Not Detected (NOT DETECT); Mycoplasma Pneumoniae Not Detected (NOT DETECT); Parainfluenza Virus Type 1 Not Detected (NOT DETECT); Parainfluenza Virus Type 2 Not Detected (NOT DETECT); Parainfluenza Virus Type 3 Not Detected (NOT DETECT); Parainfluenza Virus Type 4 Not Detected (NOT DETECT); Respiratory Syncytial Virus A Not Detected (NOT DETECT); Respiratory Syncytial Virus B Not Detected (NOT DETECT); SARS-COV-2 Not Detected (NOT DETECT)
[2022-05-26 21:33] LABS: Troponin 5 2HR Delta 7.1 ABS# (0-10)
[2022-05-26 21:35] LABS: Troponin 5 2HR 223.1 ng/L (0-10)
--- NOTE | 2022-05-26 21:38 | PC.NURSE ---
Verbal order Dr Hill, Once the current bag of Heparin has finished- d/c and change to Lovenox. RBVO.
--- NOTE | 2022-05-26 22:00 | P.HP_ITS ---
Providers/Chief Complaint Admitting Physician: Bushra Hill MD Primary Care Provider: Janny Estrada, ACID BLEACHER-C Chief Complaint: RESP/ COPD History of Present Illness Alis Spencer is a 66 year old female with end-stage COPD, chronically on 4 L/min home O2, chronic steroids, presenting with 3 days of worsening shortness of breath and chest pain. Patient has not been unable to perform minimal activities within the house such as transferring from bed to chair without getting worsening shortness of breath and chest discomfort. She has a past history of A-fib for which she had ablation 2 years ago. No past history of CAD. She has tried to increase her inhalers at home, and has doubled her dose of steroids, however this has not made a significant difference. ABG upon admission showed evidence of acute on chronic hypoxic hypercapnic decompensated respiratory failure. She has been placed on BiPAP. Baseline troponin returned elevated at 216. 2-hour delta at 7. Her cough is no worse than baseline, no fever no chills Review of Systems General: Reports: 10 or more systems reviewed and unremarkable except in HPI and below Const: Denies: fever(s), chills or body aches Eyes: Denies: change in vision, blurry vision or photophobia ENMT: Reports: hoarseness; Denies: throat pain, enlarged tonsils, odynophagia or nasal congestion Card: Denies: chest pain, palpitations, irregular heart rhythm, edema, swelling of feet/ankles, lightheadedness, pre-syncope, dyspnea on exertion or orthopnea Resp: Denies: dyspnea, productive cough, non-productive cough, wheezing, stridor, pain on inspiration, change in phlegm color, hemoptysis or chest c ongestion GI: Denies: abdominal pain, nausea, vomiting, hematemesis, coffee ground emesis, dysphagia, heartburn, diarrhea, constipation, GI cramping, change in stool character, hematochezia or melena : Denies: flank pain, difficulty voiding, dysuria, urinary frequency, urinary urgency, urinary hesitancy or hematuria Musc: Denies: neck pain, back pain, extremity pain, joint swelling, joint warmth or deformity Neuro: Denies: headache(s), numbness in extremities, weakness in extremities, sensory changes, difficulty walking, frequent falls, dizziness, vertigo, behavioral changes, Slurred speech present or seizure-like activity Psych: Denies: anxiety, depression, suicidal ideation or homicidal ideation Endo: Denies: polyuria, polydipsia, tired all the time, cold intolerance or hot flashes Smith/Lymph: Denies: easy bruising or easy bleeding Medications/Allergies Home Medications Medication Instructions Recorded Confirmed Last Taken Type nitroglycerin 0.4 mg sublingual 0.4 mg sublingual Q5M PRN chest 05/30/2012/11 Unknown Rx tablet pain #24 tabs oxygen 24 hour with portable #1 ea 01/30/21 05/27/22 Unknown Rx budesonide 0.5 mg/2 mL suspension 0.5 mg (2 mL) inhalation BID #60 mL 07/30/21 05/27/22 01/03/22 Rx for nebulization formoterol fumarate 20 mcg/2 mL 20 mcg (2 mL) inhalation BID #60 mL 07/30/21 05/27/22 01/03/22 Rx solution for nebulization (Perforomist) fenofibrate nanocrystallized 145 145 mg PO DAILY #30 tabs 08/11/21 05/27/22 01/03/22 Rx mg tablet albuterol sulfate 2.5 mg/3 mL 2.5 mg (3 mL) inhalation QID PRN 12/04/21 05/27/22 01/04/22 Rx (0.083 %) solution for nebulization shortness of breath or wheezing #75 mL albuterol sulfate 90 mcg/actuation 2 inh inhalation Q4H PRN shortness 01/04/22 05/27/22 Unknown Rx aerosol inhaler of breath or wheezing #18 grams albuterol sulfate 90 mcg/actuation 2 inh inhalation Q4H PRN shortness 04/05/22 05/27/22 Unknown Rx aerosol inhaler (ProAir HFA) of breath or wheezing 30 days #8.5 grams atorvastatin 20 mg tablet 20 mg PO BEDTIME #30 tabs 04/05/22 05/27/22 Unknown Rx benzonatate 200 mg capsule 200 mg PO TID PRN cough #90 caps 04/05/22 05/27/22 Unknown Rx cetirizine 10 mg tablet (Zyrtec) 10 mg PO DAILY #30 tabs 04/05/22 05/27/22 Unknown Rx citalopram 10 mg tablet (Celexa) 10 mg PO DAILY #30 tabs 04/05/22 05/27/22 Unknown Rx cyclobenzaprine 10 mg tablet 10 mg PO DAILY #30 tabs 04/05/22 05/27/22 Unknown Rx fluticasone fur. 100 mcg-umeclid 1 inh inhalation DAILY #28 ea 04/05/22 05/27/22 Unknown Rx 62.5 mcg-vilant 25 mcg inhalat.powder (Trelegy Ellipta) guaifenesin 600 mg tablet, 600 mg PO BID #60 tabs 04/05/22 05/27/22 Unknown Rx extended release 12 hr (Mucinex) melatonin 10 mg capsule 10 mg PO BEDTIME 30 days #30 caps 04/05/22 05/27/22 Unknown Rx montelukast 10 mg tablet 10 mg PO DAILY #30 tabs 04/05/22 05/27/22 Unknown Rx (Singulair) pantoprazole 40 mg tablet,delayed 40 mg PO DAILY #30 tabs 04/05/22 05/27/22 Unknown Rx release (Protonix) Allergies Allergy/AdvReac Type Severity Reaction Status Date / Time No Known Allergies Allergy Verified 04/05/22 10:50 PFSH Acute PFSH: Medical History 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 Bipolar disorder, unspecified Chest wall pain Chronic GERD Chronic kidney disease, stage 1 Chronic obstructive pulmonary emphysema Dependence on nocturnal oxygen therapy History of paroxysmal supraventricular tachycardia History of supraventricular tachycardia Status post ablation, successful Hyperlipidemia, unspecified Nocturnal oxygen desaturation Shortness of breath Spondylosis without myelopathy or radiculopathy, site unspecified TIA (transient ischemic attack) Tobacco abuse Vitamin D deficiency Surgical History History of appendectomy History of cholecystectomy History of hysterectomy History of repair of hiatal hernia Hx of tonsillectomy Family History Mother COPD (chronic obstructive pulmonary disease) Father COPD (chronic obstructive pulmonary disease) Social History Smoking and tobacco status: current every day smoker cigarettes Packs smoked per day: 0.5 Years cigarettes smoked: 50 [ Other cigarette details: Started at age 6 years] Quit status (tobacco): has tried quititng Number of times tried to quit tobacco: 10 Second hand smoke exposure: Yes Smoking risk assessment/counseling performed?: Yes Alcohol intake: former Year of sobriety/quit date alcohol: 2017 Desire information about alcohol rehabilitation?: No Counseling given: No Desire information about substance/drug rehabilitation?: No Counseling given: No Adopted: No Caregiver/support person: Yes Lives independently: Yes Household members: none Housing: Manufactured/Mobile home Marital status: Number of children: 3 service: No Current occupational status: disabled Pets and animals: Yes Current gender identity: Female Vitals/I&O/Wt Last Vital Signs Temp 97.9 F 05/27/22 04:00 Pulse 90 05/27/22 04:58 Resp 23 H 05/27/22 01:37 BP 118/87 05/27/22 03:15 Pulse Ox 20 L 05/27/22 04:58 O2 Del Method 05/27/22 01:37 O2 Flow Rate 3 05/26/22 18:38 FiO2 35 05/27/22 04:58 05/26/22 05/26/22 05/27/22 14:59 22:59 06:59 Intake Total 150 / 150 110.933 / 260.933 Balance 150 / 150 110.933 / 260.933 Weight last 48 hrs Weight 58.967 kg Physical Exam Narrative: General: No acute distress, AO x3 currently on BiPAP HEENT: PERRLA, pupils bilaterally equal and reactive, pallors not present Chest: Harsh vesicular breath sounds, conducted sounds while on BiPAP CVS: S1-S2 regular, no murmurs, no tachycardia, no gallops, no rubs Abdomen: Soft, nontender, no organomegaly, bowel sounds present Neuro: No focal deficits, no facial deformity, AO x3, power 5/5 in all limbs Data 05/27/22 02:11 05/27/22 02:11 Micro: Microbiology 05/26/22 18:37 Blood Culture - Preliminary Blood SPECIMEN COLLECTED 05/26/22 18:32 Blood Culture - Preliminary Blood SPECIMEN COLLECTED Other data: [address] [address] [address] Scan Report Signed Patient: Alis Spencer Unit #: [id number] : 1955 [id number] Age/Sex: 66 / F ADM Date: 05/26/22 Loc: ER Room/Bed: Attending Dr: Ordering Provider/Ordering MD: Israel Baez MD Date of Service: 05/26/22 Procedure(s): CT angio chest PE protcl [id number] Accession Number(s): [id number] Report Number: [id number] PROCEDURE INFORMATION: Exam: CTA Chest With Contrast Exam date and time: 05/26/2022 8:17 PM Age: 66 years old Clinical indication: Abnormal findings; Abnormal diagnostic tests; Elevated d-dimer; Shortness of breath; Prior surgery; Surgery type: Gb; Patient HX: Worsening SOB with elevated d dimer. Copd. History of lung cancer. ; Additional info: SOB, tachycardia TECHNIQUE: Imaging protocol: Computed tomographic angiography of the chest with contrast. 3D rendering (Not supervised by radiologist): MIP and/or 3D reconstructed images were created by the technologist. Radiation optimization: All CT scans at this facility use at least one of these dose optimization techniques: automated exposure control; mA and/or kV adjustment per patient size (includes targeted exams where dose is matched to clinical indication); or iterative reconstruction. Contrast material: OMNI 350; Contrast volume: 67 ml; Contrast route: INTRAVENOUS (IV);? REPORTING DATA: Count of CT and Cardiac NM exams in prior 12 months: This patient has received 3 known CTs and 0 known cardiac nuclear medicine studies in the 12 months prior to the current study. COMPARISON: [place] [id number] 11/06/2021 2:12 PM RADIATION DOSE METRICS: Total DLP (mGy-cm): 240.19 FINDINGS: Pulmonary arteries: Normal. No pulmonary emboli. Aorta: Unremarkable. No aortic aneurysm. No aortic dissection. Lungs: Emphysematous changes. Bibasilar atelectasis versus infiltrate. Pleural spaces: Unremarkable. No pneumothorax. No pleural effusion. Heart:? Minimal coronary artery atherosclerotic calcifications. Lymph nodes: Unremarkable. No enlarged lymph nodes. Gallbladder and bile ducts: Cholecystectomy. Bones/joints: T7 and T8 vertebral body compression fractures without retropulsion of bony fragments, the T8 fracture appears chronic and similar to prior exam. Soft tissues: Unremarkable. CT/CT angio chest PE protcl [id number] IMPRESSION: 1. ? Negative for pulmonary embolus. 2. ? Cholecystectomy. 3. ? Emphysematous changes. 4. ? Bibasilar atelectasis versus infiltrate. 5.? Minimal coronary artery atherosclerotic calcifications. 6.? T7 and T8 vertebral body compression fractures without retropulsion of bony fragments, the T8 fracture appears chronic and similar to prior exam. A&P Assessment and plan (1) Acute on chronic respiratory failure with hypoxia and hypercapnia: Secondary to COPD exacerbation. ABG 7./77 point 7/153/30 5.7 on 4 L/min supplemental O2. Placed on BiPAP on admission. We will obtain ABG with a.m. labs to ensure that CO2 levels are downtrending. (2) Acute exacerbation of chronic obstructive airways disease: Severe baseline end-stage COPD. DuoNebs every 6 hours scheduled, budesonide 0.5 twice daily scheduled inhalation Methylprednisolone 40 mg IV every 8 hours Continue BiPAP as above No evidence of consolidation on CT (3) Acute non-ST elevation myocardial infarction (NSTEMI): Baseline troponin at 216. EKG shows nonspecific ST-T wave changes in leads V1 V2. Together with chest pain concern for NSTEMI. 2-hour troponin is downtrending. We will await 6-hour trend. No past history of CAD She has received aspirin 324 mg in the ER and started on a heparin drip. When the current bag of heparin runs out we will plan to switch to subcutaneous Lovenox. Continue aspirin 81 mg daily, increase atorvastatin to 40 mg p.o. daily. Continue fenofibrate. Check echocardiogram We will likely benefit from ischemic work-up, however currently unable to lie flat to undergo further cardiac testing. Once more stable from a COPD perspect sandrine this will be further addressed. Attestations Medical Necessity Statement*: Greater than 2 midnight admission is anticipated for above defined care Coding Level of Care Code Acute Code for Chg Fwd High MDM includes number and complexity of problems actively addressed during encounter, amount and/or complexity of data reviewed/ordered and described risk of complication, morbidity or mortality of management as documented Diagnoses Acute on chronic respiratory failure with hypoxia and hypercapnia J96.21; J9 6.22 Acute exacerbation of chronic obstructive airways disease J44.1 Acute non-ST elevation myocardial infarction (NSTEMI) I21.4
[2022-05-26] MEDS: FUROsemide 10 mg/mL SDV 2mL 20 MG IVP (22:35)
[2022-05-27] VITALS (30 sets, daily range): BP systolic 86–122; BP diastolic 58–97; PULSE 90–115; RESP 16–24; TEMP 36.6–37.2; O2SAT 4–98; BMI 25.4
--- NOTE | 2022-05-27 | USCV_ITS ---
Alis Spencer Age: 66 Gender: F : 1955 Exam Date: 05/26/2022 21:59 Ordering Phys: Bushra Hill MD Technologist: LUIS [place] [facility] [place]: COPD, chronic hypoxia, O2 dependent 3L at home, SOB, NSTEMI BP: 114 / 82 HR: 98 Rhythm: Sinus Technical Quality: technically difficult c/o COPD, low-lying heart MEASUREMENTS (Male / Female) Normal Values 2D ECHO LV Diastolic Diameter PLAX 3.7 cm 4.2 - 5.9 / 3.9 - 5.3 cm LV Systolic Diameter PLAX 3.2 cm IVS Diastolic Thickness 1.2 cm 0.6 - 1.0 / 0.6 - 0.9 cm IVS Systolic Thickness 1.4 cm LVPW Diastolic Thickness 1.5 cm 0.6 - 1.0 / 0.6 - 0.9 cm LVPW Systolic Thickness 1.4 cm LVOT Diameter 1.7 cm LV Ejection Fraction 2D Teich 30.8 % LV Ejection Fraction MOD 2C 27.1 % LV Ejection Fraction 2C AL 25.4 % LA Diameter 3.0 cm LA Width 2.3 cm LA Height 3.5 cm RA Width 3.2 cm RA Height 2.9 cm Aorta at Sinotubular Diameter 2.5 cm IVC Diameter 1.2 cm M-MODE Aortic Annulus Diameter 3.7 cm LA Ao Ratio MM 0.9 DOPPLER AV Peak Velocity 87.0 cm/s LVOT Peak Velocity 66.0 cm/s AV Area Cont Eq vti 1.5 cm squared AV Area Cont Eq pk 1.8 cm squared MV Peak Velocity 90.0 cm/s MV Area PHT 3.9 cm squared Mitral E to A Ratio 0.7 MV E' Velocity 25.5 cm/s Mitral E to MV E' Ratio 7.3 Mitral E to LV E' Lateral Ratio 8.6 Mitral E to LV E' Septal Ratio 6.4 TR Peak Velocity 236.0 cm/s TR Peak Gradient 22.3 mmHg TV Peak E Velocity 48.0 cm/s Right Atrial Pressure 5.0 mmHg Pulmonary Artery Systolic Pressu 27.3 mmHg PV Peak Velocity 101.0 cm/s RV Acceleration Time 0.1 s RV Ejection Time 0.3 s RV AcT/ET 0.4 FINDINGS Left Ventricle There was severe diffuse hypokinesia of the left ventricle except the basal segments. LV ejection fraction was around 25 to 30% Right Ventricle Normal right ventricular size and systolic function. Right Atrium The right atrium is normal in size. Left Atrium The left atrium is normal in size. Mitral Valve No gross abnormalities noted Aortic Valve No gross abnormalities noted Tricuspid Valve Trace tricuspid valve regurgitation. Pulmonic Valve No gross abnormalities no Pericardium No pericardial effusion. Aorta Normal aortic annulus size. IVC Normal inferior vena cava. CONCLUSIONS There was severe diffuse hypokinesia of the left ventricle except the basal segments. LV ejection fraction was around 25 to 30%. Trace tricuspid valve regurgitation. There is no pericardial effusion. There are no intracardiac masses. Compared to the study from 12/06/2019, the ejection fraction has dropped from 55 - 60% to 25-30% Dr Gita Tyler MD [facility] (Electronically Signed) Final Date: 27 May 2022 06:48 S
--- NOTE | 2022-05-27 00:36 | ECG_ITS ---
[facility] Test Date: 2022-05-27 Pat Name: Alis Spencer Department: Room: ED Gender: Female Online Communications Manager: : 1955 Requested By: Israel Baez Order Number: [id number] MD: Gita Tyler M.D. Measurements Intervals [place] Rate: 107 P: 77 DC: 123 QRS: 72 QRSD: 87 T: 242 QT: 375 QTc: 501 Interpretive Statements SINUS TACHYCARDIA SEPTAL MYOCARDIAL INFARCTION , OF INDETERMINATE AGE [40+ ms Q WAVE IN V1/V2] MODERATE T-WAVE ABNORMALITY, CONSIDER ANTEROLATERAL ISCHEMIA [-0.1+ mV T-WAVE IN V3-V6] MODERATE T-WAVE ABNORMALITY, CONSIDER INFERIOR ISCHEMIA [-0.1+ mV T-WAVE IN II/aVF] Minimal ST elevation in the anterolateral and inferior Compared to ECG 05/26/2022 20:33:19 Short DC interval no longer present Myocardial infarct finding still present T-wave abnormality still present Possible ischemia still present Electronically Signed On 05-27-2022 23:51:21 BATCHING OPERATOR by Gita Tyler M.D. [id number]
[2022-05-27] MEDS: ipratropium-albuterol 3 mL Neb INHALATION ×3 (01:35→14:34)
[2022-05-27 02:50] LABS: Hematocrit 50.2 % (37.0-47.0); Hemoglobin 15.8 g/dL (11.5-15.3); Mean Corpuscular HGB Conc 31.5 g/dL (30.0-36.0); Mean Corpuscular Hemoglobin 29.3 pg (28.0-34.0); Platelet Count 370 10^3/cmm (130-400); Red Cell Distribution Width 14.6 % (12.1-15.1); White Blood Count 7.1 10^3/uL (4.0-10.0)
[2022-05-27 02:58] LABS: Partial Thromboplastin Time 115.1 SECONDS (23.9-36.7)
[2022-05-27 02:59] LABS: Troponin 5 6HR Delta -43.3 ng/L (0-12)
[2022-05-27 03:00] LABS: Troponin 5 6HR 172.7 ng/L (0-10)
[2022-05-27 03:10] LABS: Eosinophils 0 %; Lymphocytes 15 %; Lymphocytes Absolute 1.1 10^3/cmm (1.2-3.4); Platelet Estimate Normal (Normal); Segmented Neutrophils 85 %; Total Cells Counted 100 (0-100)
[2022-05-27 03:26] LABS: Alanine Aminotransferase 10 U/L (0-33); Alkaline Phosphatase 86 U/L (35-105); Aspartate Amino Transferase 31 U/L (0-32); Blood Urea Nitrogen 15 mg/dL (8-23); Calcium 9.4 mg/dL (8.5-10.5); Carbon Dioxide 31 mmol/L (22-29); Glucose 192 mg/dL (65-115); Total Bilirubin 0.2 mg/dL (0.15-1.2); Total Protein 6.9 g/dL (6.6-8.7)
[2022-05-27 03:45] LABS: Chloride 98 mmol/L (98-107); Potassium 4.1 mmol/L (3.5-5.1)
[2022-05-27 03:46] LABS: Anion Gap 17.1 (5-19); Osmolality Calculated 300 mOsm/kg (285-295); Sodium 142 mmol/L (136-145)
[2022-05-27 03:51] LABS: Albumin Level 4.1 g/dL (3.5-5.2); Globulin 2.8 g/dL (1.3-4.6)
[2022-05-27 05:09] LABS: ABG PH Result 7.39 (7.35-7.45); Arterial Blood Gas Hematocrit 45.3 % (37-47); Base Excess ABG 7.6 mmol/L (-2.0-2.0); Blood Gas Allen Test Pos; Blood Gas Sample Site Radial, left; Blood Gas Sample Type Arterial; HCO3 ABG 34.8 mmol/L (22-26); Oxygen Device BIPAP
[2022-05-27] MEDS: budesonide 0.5 mg/2 mL Neb INHALATION (08:51)
[2022-05-27] MEDS: aspirin 81 mg EC Tablet PO (08:59)
[2022-05-27] MEDS: pantoprazole DR 40 mg Tablet PO (08:59)
[2022-05-27] MEDS: FUROsemide 10 mg/mL SDV 4mL 40 MG IVP (08:59)
[2022-05-27] MEDS: citalopram 20 mg Tablet 10 MG PO (08:59)
[2022-05-27] MEDS: montelukast sodium 10 mg Tablet PO (08:59)
[2022-05-27] MEDS: guaiFENesin 600 mg Tablet PO ×2 (08:59→18:04)
[2022-05-27] MEDS: doxycycline 100 MG in sodium chloride 0.9% (plus) 100 ML IV ×2 (09:09→20:15)
--- NOTE | 2022-05-27 09:21 | P.CONIM_ITS ---
Providers/Reason For Consult Consulting Physician/Specialty*: KIRSTEN Tyler MD/cardiology Reason for Consult*: Patient with worsening shortness of breath, heartburn, echocardiographic evidence of severe LV systolic dysfunction Requesting Physician: Dr. Hill/Dr. Norwood Attending Physician: Darvin Norwood MD Primary Care Provider: DELMAR Lino-C History of Present Illness History of Present Illness Alis Spencer is a 66 year old female with a history of heavy smoking abuse, COPD/emphysema with recurrent exacerbation is presenting with complaints of progressive shortness of breath and heartburn . She had an echocardiogram which revealed an LV ejection fraction of 25 to 30%. Cardiology consult is requested for further cardiac evaluation recommendations. This patient apparently has been in her baseline state of health up until 3 days ago when she started getting progressively short of breath. She is finding it difficult to catch her breath. Even though she had exacerbations in the past, this time the shortness of breath was more severe. She also started having heartburns. Even though she has a history of heartburn for many years the pain was somewhat different this time. She had some pressure-like feeling in the epigastric area. She has no other associated symptoms or radiation of pain. S he been coughing so badly that she also had some lower abdominal pain with cough. No fever or chills. No dysuria. She has a history of SVT. She had RF ablation in [place] few years ago. According the patient, she had ablation x2 on the same day. Details are not available. She also had a stress test in the past revealing no evidence of ischemia. She had an echocardiogram sometime around 2018 which revealed ejection fraction around 40%. Repeat echocardiogram in 2019 revealed an ejec tion fraction of 55 to 60%. Currently this patient never had any cardiac catheterization. She has a longstanding history of heavy smoking abuse. She used to smoke 2 pack a day for more than 40 years. Lately she has cut back to half pack a day. No alcohol abuse or any other substance abuse. Her mother had a myocardial infarction in her 50s. Father had some heart problems and he in his 60s. No other relevant family history. She lives alone. He has a history of bipolar disorder and chronic headaches. Review of Systems Narrative: CONSTITUTIONAL: No fever or chills. EYES: No blurring of vision or other visual disturbances lately. ENT: No hoarseness of voice, auditory disturbances or sore throat. CARDIOVASCULAR: As mentioned above. RESPIRATORY: COPD exacerbation as mentioned above GASTROINTESTINAL: No hematemesis or melena. GENITOURINARY: No dysuria or hematuria. INTEGUMENTARY: No skin rashes or history of skin cancer. NEURO: No transient ischemic attacks or amaurosis. PSYCHIATRIC: History of bipolar disorder HEMATOLOGIC: History of chronic anemia ENDOCRINE: No history of polyuria or polydipsia. MUSCULOSKELETAL: No recent joint pain or swelling. ALLERGY/IMMUNOLOGY: As mentioned above. Medications/Allergies Home Medications Medication Instructions Recorded Confirmed Last Taken Type nitroglycerin 0.4 mg sublingual 0.4 mg sublingual Q5M PRN chest 05/30/20 05/27/22 Unknown Rx tablet pain #24 tabs oxygen 24 hour with portable #1 ea 01/30/21 05/27/22 Unknown Rx budesonide 0.5 mg/2 mL suspension 0.5 mg (2 mL) inhalation BID #60 mL 07/30/21 05/27/22 01/03/22 Rx for nebulization formoterol fumarate 20 mcg/2 mL 20 mcg (2 mL) inhalation BID #60 mL 07/30/21 05/27/22 01/03/22 Rx solution for nebulization (Perforomist) fenofibrate nanocrystallized 145 145 mg PO DAILY #30 tabs 08/11/21 05/27/22 01/03/22 Rx mg tablet albuterol sulfate 2.5 mg/3 mL 2.5 mg (3 mL) inhalation QID PRN 12/04/21 05/27/22 01/04/22 Rx (0.083 %) solution for nebulization shortness of breath or wheezing #75 mL albuterol sulfate 90 mcg/actuation 2 inh inhalation Q4H PRN shortness 01/04/22 05/27/22 Unknown Rx aerosol inhaler of breath or wheezing #18 grams albuterol sulfate 90 mcg/actuation 2 inh inhalation Q4H PRN shortness 04/05/22 05/27/22 Unknown Rx aerosol inhaler (ProAir HFA) of breath or wheezing 30 days #8.5 grams atorvastatin 20 mg tablet 20 mg PO BEDTIME #30 tabs 04/05/22 05/27/22 Unknown Rx benzonatate 200 mg capsule 200 mg PO TID PRN cough #90 caps 04/05/22 05/27/22 Unknown Rx cetirizine 10 mg tablet (Zyrtec) 10 mg PO DAILY #30 tabs 04/05/22 05/27/22 Unknown Rx citalopram 10 mg tablet (Celexa) 10 mg PO DAILY #30 tabs 04/05/22 05/27/22 Unknown Rx cyclobenzaprine 10 mg tablet 10 mg PO DAILY #30 tabs 04/05/22 05/27/22 Unknown R x fluticasone fur. 100 mcg-umeclid 1 inh inhalation DAILY #28 ea 04/05/22 05/27/22 Unknown Rx 62.5 mcg-vilant 25 mcg inhalat.powder (Trelegy Ellipta) guaifenesin 600 mg tablet, 600 mg PO BID #60 tabs 04/05/22 05/27/22 Unknown Rx extended release 12 hr (Mucinex) melatonin 10 mg capsule 10 mg PO BEDTIME 30 days #30 caps 04/05/22 05/27/22 Unknown Rx montelukast 10 mg tablet 10 mg PO DAILY #30 tabs 04/05/22 05/27/22 Unknown Rx (Singulair) pantoprazole 40 mg tablet,delayed 40 mg PO DAILY #30 tabs 04/05/22 05/27/22 Unknown Rx release (Protonix) Allergies Allergy/AdvReac Type Severity Reaction Status Date / Time No Known Allergies Allergy Verified 04/05/22 10:50 Current Medications Generic Name Dose Route Start Last Admin Trade Name Freq PRN Reason Stop Dose Admin Albuterol/Ipratropium 3 ml 05/26/22 21:45 05/27/22 08:51 Ipratropium-Albuterol 3 Ml Neb INHALATION 3 ml Q6H.RESP OBIE Administration Aspirin 81 mg 05/27/22 09:00 05/27/22 08:59 Aspirin 81 Mg Ec Tablet PO 81 mg DAILY OBIE Administration Budesonide 0.5 mg 05/27/22 08:00 05/27/22 08:51 Budesonide 0.5 Mg/2 Ml Neb INHALATION 0.5 mg BID.RESPIRATORY OBIE Administration Citalopram Hydrobromide 10 mg 05/27/22 09:00 05/27/22 08:59 Citalopram 20 Mg Tablet PO 10 mg DAILY OBIE Administration Furosemide 40 mg 05/27/22 08:00 05/27/22 08:59 Furosemide 10 Mg/Ml Sdv 4ml IVP 40 mg Q24H OBIE Administration Guaifenesin 600 mg 05/27/22 09:00 05/27/22 08:59 Guaifenesin 600 Mg Tablet PO 600 mg BID OBIE Administration Heparin Sodium/Sodium Chloride 25,000 unit in 500 mls @ 0 mls/hr 05/26/22 19:30 05/27/22 03:33 Heparin Drip IV 11.02 unit/kg/hr .Q0M OBIE 13 mls/hr Titration Protocol Per Protocol Doxycycline Hyclate 100 mg/ 100 mls @ 100 mls/hr 05/27/22 08:00 05/27/22 09:09 Sodium Chloride IV 100 mls/hr Q12H OBIE Administration Protocol Methylprednisolone Sodium Succinate 40 mg 05/26/22 21:45 05/27/22 05:34 Methylprednisolone Sod Succ 40 Mg/Ml Inj IVP 40 mg Q8H OBIE Administration Montelukast Sodium 10 mg 05/27/22 09:00 05/27/22 08:59 Montelukast Sodium 10 Mg Tablet PO 10 mg DAILY OBIE Administration Pantoprazole Sodium 40 mg 05/27/22 09:00 05/27/22 08:[address] 40 Mg Tablet PO 40 mg DAILY OBIE Administration PFSH Acute PFSH: Medical History 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 Bipolar disorder, unspecified Chest wall pain Chronic GERD Chronic kidney disease, stage 1 Chronic obstructive pulmonary emphysema Dependence on nocturnal oxygen therapy History of paroxysmal supraventricular tachycardia History of supraventricular tachycardia Status post ablation, successful Hyperlipidemia, unspecified Nocturnal oxygen desaturation Shortness of breath Spondylosis without myelopathy or radiculopathy, site unspecified TIA (transient ischemic attack) Tobacco abuse Vitamin D deficiency Surgical History History of appendectomy History of cholecystectomy History of hysterectomy History of repair of hiatal hernia Hx of tonsillectomy Family History Mother COPD (chronic obstructive pulmonary disease) Father COPD (chronic obstructive pulmonary disease) Social History Smoking and tobacco status: current every day smoker cigarettes Packs smoked per day: 0.5 Years cigarettes smoked: 50 [ Other cigarette details: Started at age 6 years] Quit status (tobacco): has tried quititng Number of times tried to quit tobacco: 10 Second hand smoke exposure: Yes Smoking risk assessment/counseling performed?: Yes Alcohol intake: former Year of sobriety/quit date alcohol: 2017 Desire information about alcohol rehabilitation?: No Counseling given: No Desire information about substance/drug rehabilitation?: No Counseling given: No Adopted: No Caregiver/support person: Yes Lives independently: Yes Household members: none Housing: Manufactured/Mobile home Marital status: Number of children: 3 service: No Current occupational status: disabled Pets and animals: Yes Current gender identity: Female Vitals/I&O/Wt Last Vital Signs Temp 97.9 F 05/27/22 04:00 Pulse 114 H 05/27/22 09:11 Resp 24 H 05/27/22 09:11 BP 122/97 05/27/22 09:11 Pulse Ox 96 05/27/22 09:11 O2 Del Method 05/27/22 08:55 O2 Flow Rate 3 05/26/22 18:38 FiO2 35 05/27/22 08:55 05/26/22 05/27/22 05/27/22 22:59 06:59 14:59 Intake Total 150 / 150 110.933 / 260.933 Balance 150 / 150 110.933 / 260.933 Weight last 48 hrs Weight 130 lb Physical Exam Narrative: GENERAL: The patient is alert and oriented times three. She is in minimal respiratory distress. Has some generalized wasting. HEENT: No significant pallor, icterus or lymphadenopathy.Oral cavity: There are no mucous membrane lesions. NECK: Trachea appears to be central. No masses noted. No JVD or thyromegaly appreciated. RESPIRATORY: Patient has an emphysematous chest. Minimal kyphosis. Breath sounds are heard bilaterally. Extensive coarse crackles and expiratory wheezing. Intensity of breath sounds are diminished in the bases BREASTS: Deferred. HEART: The heart sounds are normal. No S3 or S4. No significant murmurs. No pericardial rub ABDOMEN: No vessel pulsations or distention. Has some vague tenderness in the umbilical region. No organomegaly appreciated. Bowel sounds are normally heard. : Deferred. RECTAL: Deferred. LYMPHATIC: No lymphadenopathy noted in the neck. EXTREMITIES: No edema or cyanosis. No clubbing. Multiple small healed ecchymotic areas in the upper extremities. The peripheral pulses are palpable but weak bilaterally MUSCULOSKELETAL: No acute joint deformities or swelling SKIN: There are no significant rashes or ecchymosis NEUROPSYCHIATRIC: The patient is alert and oriented x3. Appears to be in a good mood. No tremors or rigidity noted. Urinary Catheter Management: Dave: Cath Placed During This Visit: yes Urinary Catheter Date of Insertion: 05/27/22 Urinary Catheter Time of Insertion: 09:11 Data 05/27/22 02:11 05/27/22 02:11 Other Labs: Laboratory Last Values WBC 7.1 10^3/uL (4.0-10.0) 05/27/22 02:11 RBC 5.40 10^6/uL (4.1-5.3) H 05/27/22 02:11 Hgb 15.8 g/dL (11.5-15.3) H 05/27/22 02:11 Hct 50.2 % (37.0-47.0) H 05/27/22 02:11 MCV 93.0 fl (81-99) 05/27/22 02:11 MCH 29.3 pg (28.0-34.0) 05/27/22 02:11 MCHC 31.5 g/dL (30.0-36.0) 05/27/22 02:11 RDW 14.6 % (12.1-15.1) 05/27/22 02:11 Plt Count 370 10^3/cmm (130-400) 05/27/22 02:11 MPV 9.0 fL (7.4-10.4) 05/27/22 02:11 Neut % (Auto) 73.7 % 05/26/22 18:32 Lymph % (Auto) Not Reportable 05/27/22 02:11 Bea[place]gard % (Auto) Not Reportable 05/27/22 02:11 Eos % (Auto) 0.3 % 05/26/22 18:32 Baso % (Auto) 0.5 % 05/26/22 18:32 Neut # (Auto) 8.50 10^3/uL (1.8-7.7) H 05/26/22 18:32 Lymph # (Auto) Not Reportable 05/27/22 02:11 Bea[place]gard # (Auto) Not Reportable 05/27/22 02:11 Eos # (Auto) 0.0 10^3/uL (0.0-0.8) 05/26/22 18:32 Baso # (Auto) 0.1 10^3/uL (0.0-0.1) 05/26/22 18:32 Nucleated RBC % (auto) 0 % 05/26/22 18:32 Total Counted 100 (0-100) 05/27/22 02:11 Atypical Lymphs % 0.0 % (0-5) 05/27/22 02:11 Absolute Neutrophils 6.0 10^3/cmm (1.4-6.5) 05/27/22 02:11 Segmented Neutrophils 85 % 05/27/22 02:11 Abs Segm Neuts (Man) 6.0 10/cmm (1.6-7.1) 05/27/22 02:11 Band Neutrophils 0.0 % 05/27/22 02:11 Abs Band Neuts (Man) 0.0 10^3/cmm (0.0-1.2) 05/27/22 02:11 Absolute Lymphocytes 1.1 10^3/cmm (1.2-3.4) L 05/27/22 02:11 Lymphocytes (Manual) 15 % 05/27/22 02:11 Monocytes (Manual) 0.0 % 05/27/22 02:11 Absolute Monocytes 0.0 10^3/cmm (0.1-0.6) L 05/27/22 02:11 Eosinophils (Manual) 0 % 05/27/22 02:11 Absolute Eosinophils 0.0 10^3/cmm (0.0-0.7) 05/27/22 02:11 Basophils (Manual) 0.0 % 05/27/22 02:11 Absolute Basophils 0.0 10^3/cmm (0.0-0.2) 05/27/22 02:11 Nucleated RBCs # 0.0 /100WBC 05/26/22 18:32 Platelet Estimate Normal (Normal) 05/27/22 02:11 PT 12.90 SECONDS (12.1-14.9) 05/26/22 18:21 INR 0.94 (0.8-1.2) 05/26/22 18:21 APTT 115.1 SECONDS (23.9-36.7) H D 05/27/22 02:30 Specimen Type Arterial 05/27/22 04:59 Sample Site Radial, left 05/27/22 04:59 ABG pH 7.39 (7.35-7.45) 05/27/22 04:59 ABG pCO2 58.0 mmHg (35-45) H 05/27/22 04:59 ABG pO2 114.0 mmHg (80.0-100.0) H 05/27/22 04:59 ABG HCO3 34.8 mmol/L (22-26) H 05/27/22 04:59 ABG Base Excess 7.6 mmol/L (-2.0-2.0) H 05/27/22 04:59 Jann Test Pos 05/27/22 04:59 Hematocrit 45.3 % (37-47) 05/27/22 04:59 Hgb O2 Saturation 96.8 % (95-100) 05/26/22 18:30 Carboxyhemoglobin 2.0 %THgb (0.4-20.1) 05/26/22 18:30 Methemoglobin 0.6 % (0.4-1.5) 05/26/22 18:30 Total Hemoglobin 15.4 g/dL (12-16) 05/26/22 18:30 O2 Delivery Device Bipap 05/27/22 04:59 O2 Liters/Min 4.0 % 05/26/22 18:30 FiO2 35.0 % 05/27/22 04:59 PEEP 8.0 cmH20 05/27/22 04:59 [employer] ID [email or web address] 05/27/22 04:59 Sodium 142 mmol/L (136-145) 05/27/22 02:11 Potassium 4.1 mmol/L (3.5-5.1) 05/27/22 02:11 Chloride 98 mmol/L (98-107) 05/27/22 02:11 Carbon Dioxide 31 mmol/L (22-29) H 05/27/22 02:11 Anion Gap 17.1 (5-19) 05/27/22 02:11 BUN 15 mg/dL (8-23) 05/27/22 02:11 Creatinine 0.7 mg/dL (0.5-0.9) 05/27/22 02:11 GFR Calculation 84.0 mL/min (90-130) L 05/27/22 02:11 Glucose 192 mg/dL (65-115) H 05/27/22 02:11 Calculated Osmolality 300 mOsm/kg (285-295) H 05/27/22 02:11 Lactic Acid 2.2 mmol/L (0.5-2.2) 05/26/22 18:32 Lactic Acid (Sepsis) 2.1 mmol/L (0.5-2.2) 05/26/22 21:00 Calcium 9.4 mg/dL (8.5-10.5) 05/27/22 02:11 Total Bilirubin 0.2 mg/dL (0.15-1.2) 05/27/22 02:11 AST 31 U/L (0-32) 05/27/22 02:11 ALT 10 U/L (0-33) 05/27/22 02:11 Alkaline Phosphatase 86 U/L (35-105) 05/27/22 02:11 Troponin T Baseline 216 ng/L (0-10) H* 05/26/22 18:32 Troponin T 120 Minute 223.1 ng/L (0-10) H 05/26/22 21:00 Delta Troponin T 7.1 ABS# (0-10) 05/26/22 21:00 Troponin T Hi Sens 6Hr 172.7 ng/L (0-10) H 05/27/22 02:11 Troponin T Hi Sens 6Hr Delta -43.3 ng/L (0-12) L 05/27/22 02:11 C-Reactive Protein 3.3 mg/L (0.0-4.9) 05/26/22 18:21 NT-Pro-B Natriuret Pep 4592 pg/mL (0-125) H 05/26/22 18:32 Total Protein 6.9 g/dL (6.6-8.7) 05/27/22 02:11 Albumin 4.1 g/dL (3.5-5.2) 05/27/22 02:11 Globulin 2.8 g/dL (1.3-4.6) 05/27/22 02:11 Procalcitonin 0.06 ng/mL (0-0.5) 05/26/22 18:21 Nasal Influ A H1 2009 PCR Not detected (NOT DETECT) 05/26/22 19:10 Adenovirus (PCR) Not detected (NOT DETECT) 05/26/22 19:10 C. pneumoniae DNA (PCR) Not detected (NOT DETECT) 05/26/22 19:10 Coronavirus 229E (PCR) Not detected (NOT DETECT) 05/26/22 19:10 Human Metapneumovir PCR Not detected (NOT DETECT) 05/26/22 19:10 Influenza A (H1) PCR Not detected (NOT DETECT) 05/26/22 19:10 Influenza A (H3) PCR Not detected (NOT DETECT) 05/26/22 19:10 Influenza Type A (PCR) Not detected (NOT DETECT) 05/26/22 19:10 Influenza Type B (PCR) Not detected (NOT DETECT) 05/26/22 19:10 M. pneumoniae (PCR) Not detected (NOT DETECT) 05/26/22 19:10 Parainfluenza 1 (PCR) Not detected (NOT DETECT) 05/26/22 19:10 Parainfluenza 2 (PCR) Not detected (NOT DETECT) 05/26/22 19:10 Parainfluenza 3 (PCR) Not detected (NOT DETECT) 05/26/22 19:10 Parainfluenza 4 (PCR) Not detected (NOT DETECT) 05/26/22 19:10 RSV Type A (PCR) Not detected (NOT DETECT) 05/26/22 19:10 RSV Type B (PCR) Not detected (NOT DETECT) 05/26/22 19:10 Entero/Rhino (PCR) Not detected (NOT DETECT) 05/26/22 19:10 SARS-CoV-2 (PCR) Not detected (NOT DETECT) 05/26/22 19:10 Micro: Microbiology 05/26/22 18:37 Blood Culture - Preliminary Blood SPECIMEN COLLECTED 05/26/22 18:32 Blood Culture - Preliminary Blood SPECIMEN COLLECTED Echo: My impression: Echocardiogram done today, 05/27/2022 there was severe diffuse hypokinesia of the left ventricle ?except the basal segments. ? LV ejection fraction was around 25 to 30%. ?Trace tricuspid valve regurgitation. ?There is no pericardial effusion. ?There are no intracardiac masses. ?Compared to the study from 12/06/2019, the ejection fraction has ?dropped from 55 - 60% to? 25-30% EKG 1: My Interpretation: The EKG revealed a sinus tachycardia with a rate of 107 bpm. Poor R wave progression. Minimal ST elevation with T inversions in the anterolateral and inferior leads. QTc of 501. Features of old septal [place]. A&P Assessment and plan (1) Acute non-ST elevation myocardial infarction (NSTEMI): Elevated troponin T, may suggest non-ST elevation myocardial infarction. A Takotsubo syndrome cannot be excluded. She may be treated with subcu Lovenox, aspirin, Plavix and a low-dose of beta-jordyn. The statin may be continued. Troponin T is trending down (2) Cardiomyopathy: Patient has a severe LV systolic dysfunction. In view of her risk factors, she requires a cardiac catheterization to further evaluate her coronary status. We may have to wait till the respiratory status is stabilized. (3) Acute exacerbation of chronic obstructive airways disease: Patient is currently on BiPAP. Management as per the primary. Once respiratory status is stabilized, we may consider doing a cardiac catheterization to further evaluate her cardiovascular status. (4) Nicotine dependence, cigarettes, uncomplicated: Patient strongly advised to quit smoking. Cardiovascular implications were discussed. (5) History of supraventricular tachycardia: Patient apparently had RF ablation in the past. She seems to have no recurrence of SVT. May continue on the current management. (6) Hyperlipidemia, unspecified: Continue on the current dose of the statin Qualifiers: Hyperlipidemia type: unspecified Qualified Code(s): E78.5 - Hyperlipidemia, unspecified Plan The other problems are Mild anemia Bipolar disorder GERD ? History of TIA Based on the patient's clinical progress and the above test results, further recommendations will be made. Thank you for the opportunity to evaluate this patient and make these recommendations Consult Attestations Medical Necessity Statement: Patient requires continued hospital stay for close monitoring and further management Coding Level of Care Code 90365 Diagnoses Acute non-ST elevation myocardial infarction (NSTEMI) I21.4 Cardiomyopathy I42.9 Acute exacerbation of chronic obstructive airways disease J44.1 Nicotine dependence, cigarettes, uncomplicated F17.210 History of supraventricular tachycardia Z86.79 Hyperlipidemia, unspecified E78.5 Hyperlipidemia type: unspecified
--- NOTE | 2022-05-27 09:55 | PC.NURSE ---
report called danielle moseley [phone] 05/27/22
[2022-05-27 10:11] LABS: Partial Thromboplastin Time 57.2 SECONDS (23.9-36.7)
--- NOTE | 2022-05-27 10:54 | PC.NURSE ---
received into room 103 from er via stretcher,at 1030.report received.pt is alert and oriented x 4.denies pain at present.st on monitor. 3l o2 per cannula.o2 sats are in high 90's.respirations are even and nonlabored.denies any pain.oriented to room environment.instructed to notify staff for any sob,cp,pain..or for any concerns at all.pt verb understanding of instructions
[2022-05-27] MEDS: fenofibrate 145 mg Tablet PO (11:05)
--- NOTE | 2022-05-27 15:09 | P.PN_ITS ---
Subjective Subjective: Patient was seen this morning, she feels a lot better, currently off BiPAP therapy, denies a history of CAD, no history of CHF, denies any chest pain, reports persistent shortness of breath but improved, she does continue to smoke, she reports that Dr. Hong was monitoring lung nodules that she had, and when she was in [facility] in February she was told she had lung cancer, denies any calf pain, no calf swelling, no hemoptysis Vitals/I&O/Wt Last Vital Signs Temp 97.8 F 05/27/22 12:00 Pulse 105 H 05/27/22 14:38 Resp 16 05/27/22 14:38 BP 104/73 05/27/22 12:00 Pulse Ox 96 05/27/22 14:38 O2 Del Method 05/27/22 14:38 O2 Flow Rate 3 05/27/22 14:38 FiO2 35 05/27/22 08:55 05/27/22 05/27/22 05/27/22 06:59 14:59 22:59 Intake Total 110.933 / 260.933 0 / 0 Balance 110.933 / 260.933 0 / 0 Weight last 48 hrs Weight 59.194 kg Weight 58.967 kg Physical Exam Const: COMMON NORMALS: no acute distress and patient oriented x3 Resp: COMMON NORMALS: normal respiratory effort, No retractions and No use of accessory muscles AUSCULTATION: crackles and wheezes Cardio: COMMON NORMALS: regular rate, regular rhythm, S1 normal heart sound present and S2 normal heart sound present RATE: regular rate RHYTHM: regular rhythm HEART SOUNDS: S1 normal heart sound present and S2 normal heart sound present GI: COMMON NORMALS: Normal to inspection, nondistended, normoactive bowel sounds present and non-tender Extremity: COMMON NORMALS: no pedal edema Neuro: COMMON NORMALS: patient oriented x3 Psych: COMMON NORMALS: mental status grossly normal Urinary Catheter Management: Dave: Cath Placed During This Visit: yes Urinary Catheter Date of Insertion: 05/27/22 Urinary Catheter Time of Insertion: 09:11 Data 05/27/22 02:11 05/27/22 02:11 Micro: Microbiology 05/26/22 18:37 Blood Culture - Preliminary Blood SPECIMEN COLLECTED 05/26/22 18:32 Blood Culture - Preliminary Blood SPECIMEN COLLECTED A&P Assessment and plan (1) Acute non-ST elevation myocardial infarction (NSTEMI): (2) Cardiomyopathy: d. (3) Acute exacerbation of chronic obstructive airways disease: (4) Nicotine dependence, cigarettes, uncomplicated: (5) History of supraventricular tachycardia: (6) Hyperlipidemia, unspecified: Qualifiers: Hyperlipidemia type: unspecified Qualified Code(s): E78.5 - Hyperlipidemia, unspecified (7) Acute on chronic respiratory failure with hypoxia and hypercapnia: Secondary to COPD exacerbation. ABG 7 point /30 5.7 on 4 L/min supplemental O2. Placed on BiPAP on admission. We will obtain ABG with a.m. labs to ensure that CO2 levels are downtrending. (8) Pneumonia: Plan Acute hypoxic respiratory failure -Secondary to COPD -Possible underlying pneumonia -Some component might be related to CHF given diminished ejection fraction -Plan -Monitor cardiac stepdown unit closely -Continue BiPAP therapy -Solu-Medrol 40 IV every 8 hours -Doxycycline 100 every 12 hours -Lasix 40 IV every 24 hours -Monitor urine output, monitor creatinine -Monitor respiratory status closely -DNR/DNI -Heparin drip for DVT prophylaxis NSTEMI -Possibly supply demand ischemia from respiratory failure from COPD and pneumonia as above -However cannot rule out underlying cardiac etiology -There is also possibility of Takotsubo cardiomyopathy -Serial EKGs, surgical telemetry monitoring -Continue aspirin, statin -We will consider beta-jorydn COPD -Advised to quit smoking -As above Possible pneumonia -CT angiogram of the chest shows bibasilar atelectasis versus infiltrate -Follow blood cultures -Sputum cultures Systolic CHF ?There was severe diffuse hypokinesia of the left ventricle ?except the basal segments. ? LV ejection fraction was around 25 to 30%. ?Trace tricuspid valve regurgitation. ?There is no pericardial effusion. ?There are no intracardiac masses. ?Compared to the study from 12/06/2019, the ejection fraction has ?dropped from 55 - 60% to? 25-30% -Aspirin, statin -Heparin drip -Cardiology consulted She was told that she had lung cancer by hospital in [facility] -I reviewed her CAT scans she has a history of pulmonary nodules in the right upper right lower lobe -We will have her follow-up with pulm as outpatient, pulmonary nodules difficult to assess on current CT angiogram Attestations Medical Necessity Statement*: Patient requires hospitalization for acute hypoxic respiratory failure, pneumonia, COPD, CHF, NSTEMI, diminished ejection fraction Diagnoses Acute non-ST elevation myocardial infarction (NSTEMI) I21.4 Cardiomyopathy I42.9 Acute exacerbation of chronic obstructive airways disease J44.1 Nicotine dependence, cigarettes, uncomplicated F17.210 History of supraventricular tachycardia Z86.79 Hyperlipidemia, unspecified E78.5 Hyperlipidemia type: unspecified Acute on chronic respiratory failure with hypoxia and hypercapnia J96.21; J96. 22 Pneumonia J18.9
--- NOTE | 2022-05-27 15:11 | USCV_ITS ---
Alis Spencer Age: 66 Gender: F : 1955 Exam Date: 05/27/2022 16:16 Ordering Phys: Darvin Norwood MD Technologist: Jesse Nguyen Exam Location: [facility] – [place]_ Indication: bilat edema PROCEDURES: The venous duplex Doppler examination of both lower extremities was performed in the standard fashion. Venous duplex imaging was performed in only the left lower extremity. The following venous structures were evaluated: common femoral vein, profunda vein, proximal portion of the greater saphenous vein, superficial femoral vein, and the popliteal vein. In addition, the posterior tibial and peroneal trunk were evaluated. FINDINGS: Normal 2-D Doppler and augmentation and compressibility throughout the lower extremity venous structures. Additional imaging through the proximal calf veins also reveals no thrombus. Limited evaluation of the greater saphenous vein is patent with no thrombus.. CONCLUSIONS No evidence of right lower extremity DVT. No evidence of left lower extremity DVT. Khai Harris MD (Electronically Signed) Final Date: 27 May 2022 17:30 S
[2022-05-27 16:14] LABS: Partial Thromboplastin Time 63.8 SECONDS (23.9-36.7)
[2022-05-27] MEDS: atorvastatin 40 mg Tablet PO (20:14)
--- NOTE | 2022-05-27 21:37 | USCV_ITS ---
Alis Spencer Age: 66 Gender: F : 1955 Exam Date: 05/26/2022 21:59 Ordering Phys: Bushra Hill MD Technologist: LUIS [place] [facility] [place]ication: COPD, chronic hypoxia, O2 dependent 3L at home, SOB, NSTEMI BP: 114 / 82 HR: 98 Rhythm: Sinus Technical Quality: technically difficult c/o COPD, low-lying heart MEASUREMENTS (Male / Female) Normal Values 2D ECHO LV Diastolic Diameter PLAX 3.7 cm 4.2 - 5.9 / 3.9 - 5.3 cm LV Systolic Diameter PLAX 3.2 cm IVS Diastolic Thickness 1.2 cm 0.6 - 1.0 / 0.6 - 0.9 cm IVS Systolic Thickness 1.4 cm LVPW Diastolic Thickness 1.5 cm 0.6 - 1.0 / 0.6 - 0.9 cm LVPW Systolic Thickness 1.4 cm LVOT Diameter 1.7 cm LV Ejection Fraction 2D Teich 30.8 % LV Ejection Fraction MOD 2C 27.1 % LV Ejection Fraction 2C AL 25.4 % LA Diameter 3.0 cm LA Width 2.3 cm LA Height 3.5 cm RA Width 3.2 cm RA Height 2.9 cm Aorta at Sinotubular Diameter 2.5 cm IVC Diameter 1.2 cm M-MODE Aortic Annulus Diameter 3.7 cm LA Ao Ratio MM 0.9 DOPPLER AV Peak Velocity 87.0 cm/s LVOT Peak Velocity 66.0 cm/s AV Area Cont Eq vti 1.5 cm squared AV Area Cont Eq pk 1.8 cm squared MV Peak Velocity 90.0 cm/s MV Area PHT 3.9 cm squared Mitral E to A Ratio 0.7 MV E' Velocity 25.5 cm/s Mitral E to MV E' Ratio 7.3 Mitral E to LV E' Lateral Ratio 8.6 Mitral E to LV E' Septal Ratio 6.4 TR Peak Velocity 236.0 cm/s TR Peak Gradient 22.3 mmHg TV Peak E Velocity 48.0 cm/s Right Atrial Pressure 5.0 mmHg Pulmonary Artery Systolic Pressu 27.3 mmHg PV Peak Velocity 101.0 cm/s RV Acceleration Time 0.1 s RV Ejection Time 0.3 s RV AcT/ET 0.4 FINDINGS Left Ventricle There was severe diffuse hypokinesia of the left ventricle except the basal segments. LV ejection fraction was around 25 to 30% Right Ventricle Normal right ventricular size and systolic function. Right Atrium The right atrium is normal in size. Left Atrium The left atrium is normal in size. Mitral Valve No gross abnormalities noted Aortic Valve No gross abnormalities noted Tricuspid Valve Trace tricuspid valve regurgitation. Pulmonic Valve No gross abnormalities no Pericardium No pericardial effusion. Aorta Normal aortic annulus size. IVC Normal inferior vena cava. CONCLUSIONS There was severe diffuse hypokinesia of the left ventricle except the basal segments. LV ejection fraction was around 25 to 30%. Trace tricuspid valve regurgitation. There is no pericardial effusion. There are no intracardiac masses. Compared to the study from 12/06/2019, the ejection fraction has dropped from 55 - 60% to 25-30% Dr Gita Tyler MD [facility] (Electronically Signed) Final Date: 27 May 2022 06:48 S
[2022-05-27 21:57] LABS: Partial Thromboplastin Time 59.9 SECONDS (23.9-36.7)
[2022-05-28] VITALS (14 sets, daily range): BP systolic 102–124; BP diastolic 75–87; PULSE 75–115; RESP 12–30; TEMP 36.6–37.1; O2SAT 93–99
[2022-05-28] MEDS: albuterol 2.5 mg/3 mL Neb INHALATION (03:39)
[2022-05-28 05:35] LABS: Alanine Aminotransferase 11 U/L (0-33); Albumin Level 3.8 g/dL (3.5-5.2); Alkaline Phosphatase 83 U/L (35-105); Aspartate Amino Transferase 30 U/L (0-32); Basophils % 0.1 %; Blood Urea Nitrogen 24 mg/dL (8-23); C Reactive Protein 5.1 mg/L (0.0-4.9); Calcium 9.5 mg/dL (8.5-10.5); Carbon Dioxide 36 mmol/L (22-29); Chloride 97 mmol/L (98-107); Globulin 2.7 g/dL (1.3-4.6); Glomerular Filtration Rate 123.8 mL/min (90-130); Glucose 149 mg/dL (65-115); Hemoglobin 13.8 g/dL (11.5-15.3); Lymphocytes # 1.3 10^3/uL (0.8-4.8); Lymphocytes % 8.8 %; Magnesium 2.3 mg/dL (1.7-2.3); Mean Corpuscular HGB Conc 32.1 g/dL (30.0-36.0); Mean Corpuscular Hemoglobin 29.4 pg (28.0-34.0); Mean Corpuscular Volume 91.5 fl (81-99); Mean Platelet Volume 9.3 fL (7.4-10.4); Monocytes # 0.8 10^3/uL (0.2-0.9); Monocytes % 5.5 %; Neutrophils # 12.61 10^3/uL (1.8-7.7); Neutrophils % 85.3 %; Nucleated Red Blood Cells % 0 %; Osmolality Calculated 303 mOsm/kg (285-295); Phosphorus 3.3 mg/dL (2.5-4.5); Platelet Count 367 10^3/cmm (130-400); Red Cell Distribution Width 14.8 % (12.1-15.1); Sodium 143 mmol/L (136-145); Total Bilirubin 0.3 mg/dL (0.15-1.2); Total Protein 6.5 g/dL (6.6-8.7); White Blood Count 14.8 10^3/uL (4.0-10.0)
[2022-05-28 05:45] LABS: NT Pro B Type Natriuretic Pept 7595 pg/mL (0-125); Procalcitonin 0.11 ng/mL (0-0.5)
--- NOTE | 2022-05-28 08:23 | XR_ITS ---
WS: [id number] Portable AP upright chest, 05/28/2022 Clinical Data: sob Comparison: Portable chest, 05/26/2022 Findings: No nodules, masses or effusions are seen. The heart is normal. The pulmonary vascularity is not increased. No pneumonia or pneumothorax is seen. The diaphragms are flattened. The aortic arch a nd descending thoracic aorta show mild tortuosity. There are monitor leads on the chest wall. XR/XR chest 1V portable [id number] Impression: Hyperinflation and atherosclerosis.
[2022-05-28 08:28] LABS: Urine Appearance Turbid (CLEAR); Urine Color Amber (Yellow); pH Urine 6 (5-7)
[2022-05-28 08:29] LABS: Add Urine Culture? Yes; Add Urine Microscopic? YES; Bacteria Urine TRACE /hpf; Bilirubin Urine Neg (Negative); Blood Urine 3+ (Negative); Glucose Urine UA Norm (Normal); Ketones Urine 1+ (Negative); Leukocyte Esterase Urine 2+ (Negative); Mucus Urine 4+ /hpf; Nitrate Urine Negative (Negative); Protein Urine 1+ (Negative); RBC Urine >100 /hpf (0-2); Squamous Epithelial Cell Urine 0-4 /hpf (0-5); Urobilinogen Urine Norm (Negative)
[2022-05-28] MEDS: ipratropium-albuterol 3 mL Neb INHALATION ×3 (08:35→20:28)
[2022-05-28] MEDS: budesonide 0.5 mg/2 mL Neb INHALATION ×2 (08:35→20:28)
[2022-05-28] MEDS: guaiFENesin 600 mg Tablet PO ×2 (09:09→18:45)
[2022-05-28] MEDS: fenofibrate 145 mg Tablet PO (09:09)
[2022-05-28] MEDS: citalopram 20 mg Tablet 10 MG PO (09:09)
[2022-05-28] MEDS: metOLazone 5 MG Tablet PO (09:09)
[2022-05-28] MEDS: pantoprazole DR 40 mg Tablet PO (09:10)
[2022-05-28] MEDS: montelukast sodium 10 mg Tablet PO (09:10)
[2022-05-28] MEDS: aspirin 81 mg EC Tablet PO (09:10)
[2022-05-28] MEDS: doxycycline 100 MG in sodium chloride 0.9% (plus) 100 ML IV ×2 (09:11→19:27)
[2022-05-28] MEDS: LORazepam 0.5 mg Tablet 0.25 MG PO ×2 (09:22→19:27)
[2022-05-28] MEDS: heparin drip 25,000 UNIT/500 ML PREMIX 14 UNIT IV (10:01)
[2022-05-28] MEDS: FUROsemide 10 mg/mL SDV 4mL 40 MG IVP (10:01)
[2022-05-28 12:44] LABS: Partial Thromboplastin Time 55.8 SECONDS (23.9-36.7)
--- NOTE | 2022-05-28 13:07 | USR_ITS ---
PROCEDURE INFORMATION: Exam: US Retroperitoneal; Complete; Kidneys and Bladder Exam date and time: 05/28/2022 7:03 PM Age: 66 years old Clinical indication: Abnormal findings; Abnormal lab test; Other: UTI TECHNIQUE: Imaging protocol: Real-time ultrasound of the retroperitoneum with image documentation. Complete exam focused on the kidneys and bladder. COMPARISON: US abdomen limited [id number] 06/08/2021 1:06 PM FINDINGS: Right kidney: Normal. No stones. No hydronephrosis. Left kidney: Normal. No stones. No hydronephrosis. Urinary bladder: The bladder is decompressed by Dave catheter. US/US renal BI* [id number] IMPRESSION: Negative renal ultrasound.
--- NOTE | 2022-05-28 13:25 | P.PN_ITS ---
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 Tyler at bedside, for now we will forego coronary angiogram given her respiratory failure, will watch her respiratory status, if it improves will cons ider angiogram -In terms, her breathing, she was given a small dose of Ativan, monitored on BiPAP, given metolazone -Patient was reexamined, her breathing has improved, her respiratory rate has decreased to 20, she is less tachypneic, feeling better, will continue oral Ativan as needed for shortness of breath -We will try oral liquids, monitor for aspiration risk Vitals/I&O/Wt Last Vital Signs Temp 98.1 F 05/28/22 04:00 Pulse 114 H 05/28/22 12:00 Resp 19 H 05/28/22 08:50 BP 124/82 05/28/22 08:00 Pulse Ox 95 05/28/22 12:00 O2 Del Method 05/28/22 08:50 O2 Flow Rate 3 05/28/22 08:50 FiO2 35 05/28/22 12:00 05/27/22 05/28/22 05/28/22 22:59 06:59 14:59 Intake Total 230 / 230 367.133 / 597.133 51.934 / 51.934 Output Total 500 / 500 125 / 125 Balance 230 / 230 -132.867 / 97.133 -73.066 / -73.066 Weight last 48 hrs Weight 56.926 kg Weight 59.194 kg Weight 58.967 kg Physical Exam Const: COMMON NORMALS: no acute distress and patient oriented x3 Resp: COMMON NORMALS: normal respiratory effort, No retractions, No use of accessory muscles and clear to auscultation bilaterally AUSCULTATION: clear to auscultation bilaterally Cardio: COMMON NORMALS: regular rate, regular rhythm, S1 normal heart sound present and S2 normal heart sound present RATE: regular rate RHYTHM: regular rhythm HEART SOUNDS: S1 normal heart sound present and S2 normal heart sound present GI: COMMON NORMALS: Normal to inspection, nondistended, normoactive bowel sounds present and non-tender Extremity: COMMON NORMALS: no pedal edema Neuro: COMMON NORMALS: patient oriented x3 Psych: COMMON NORMALS: mental status grossly normal Urinary Catheter Management: Dave: Cath Placed During This Visit: yes Reason for Continuing Indwelling Catheter: Accurate Measurement of Urinary Output in Critically Ill Patients Urinary Catheter Date of Insertion: 05/27/22 Urinary Catheter Time of Insertion: 09:11 Data 05/28/22 04:20 05/28/22 04:20 Micro: Microbiology 05/26/22 18:37 Blood Culture - Preliminary Blood NEGATIVE TO DATE 05/26/22 18:32 Blood Culture - Preliminary Blood NEGATIVE TO DATE A&P Assessment and plan (1) Acute non-ST elevation myocardial infarction (NSTEMI): (2) Cardiomyopathy: d. (3) Acute exacerbation of chronic obstructive airways disease: (4) Nicotine dependence, cigarettes, uncomplicated: (5) History of supraventricular tachycardia: (6) Hyperlipidemia, unspecified: Qualifiers: Hyperlipidemia type: unspecified Qualified Code(s): E78.5 - Hyperlipidemia, unspecified (7) Acute on chronic respiratory failure with hypoxia and hypercapnia: Secondary to COPD exacerbation. ABG 7./ point 7/153/30 5.7 on 4 L/min supplemental O2. Placed on BiPAP on admission. We will obtain ABG with a.m. labs to ensure that CO2 levels are downtrending. (8) Pneumonia: Plan Acute hypoxic respiratory failure -Secondary to COPD -Possible underlying pneumonia -Some component might be related to CHF given diminished ejection fraction -Plan -Monitor cardiac stepdown unit closely -Continue BiPAP therapy -Solu-Medrol 40 IV every 8 hours -Doxycycline 100 every 12 hours -Lasix 40 IV every 24 hours, 1 dose of metolazone today -Monitor urine output, monitor creatinine -Monitor respiratory status closely -DNR/DNI -Heparin drip for DVT prophylaxis UTI -UA quite turbid -We will do renal ultrasound -We will start Rocephin NSTEMI -Possibly supply demand ischemia from respiratory failure from COPD and pneumonia as above -However cannot rule out underlying cardiac etiology -There is also possibility of Takotsubo cardiomyopathy -Serial EKGs, surgical telemetry monitoring -Continue aspirin, statin -Hold off on beta-jordyn COPD -Advised to quit smoking -As above Possible pneumonia -CT angiogram of the chest shows bibasilar atelectasis versus infiltrate -Follow blood cultures -Sputum cultures -Receiving doxycycline, Rocephin Systolic CHF ?There was severe diffuse hypokinesia of the left ventricle ?except the basal segments. ? LV ejection fraction was around 25 to 30%. ?Trace tricuspid valve regurgitation. ?There is no pericardial effusion. ?There are no intracardiac masses. ?Compared to the study from 12/06/2019, the ejection fraction has ?dropped from 55 - 60% to? 25-30% -Aspirin, statin -Heparin drip -Cardiology consulted She was told that she had lung cancer by hospital [facility] -I reviewed her CAT scans she has a history of pulmonary nodules in the right upper right lower lobe -We will have her follow-up with pulm as outpatient, pulmonary nodules difficult to assess on current CT angiogram Anxiety -Ativan p.o. 0.25 mg every 4 hours as needed Attestations Medical Necessity Statement*: Patient requires hospitalization for acute hypoxic respiratory failure, NSTEMI, COPD, possible pneumonia, systolic CHF, UTI, Diagnoses Acute non-ST elevation myocardial infarction (NSTEMI) I21.4 Cardiomyopathy I42.9 Acute exacerbation of chronic obstructive airways disease J44.1 Nicotine dependence, cigarettes, uncomplicated F17.210 History of supraventricular tachycardia Z86.79 Hyperlipidemia, unspecified E78.5 Hyperlipidemia type: unspecified Acute on chronic respiratory failure with hypoxia and hypercapnia J96.21; J96.22 Pneumonia J18.9
--- NOTE | 2022-05-28 15:20 | PM.PN ---
Subjective Subjective: Patient went into more respiratory distress last night. Currently she is on a BiPAP. She is being treated with bronchodilators and IV diuretics. Denies any chest pain. No fever or chills. Medications: Medication Review Details: Current Medications Acetaminophen (Acetaminophen 325 Mg Tablet) 650 mg PO Q6H PRN PRN Reason: Mild/Mod Pain Or Temp >/= 101 Albuterol Sulfate (Albuterol 2.5 Mg/3 Ml Neb) 2.5 mg INHALATION Q4H.RESPIRATORY PRN PRN Reason: wheezing Last Admin: 05/28/22 03:39 Dose: 2.5 mg Albuterol/Ipratropium (Ipratropium-Albuterol 3 Ml Neb) 3 ml INHALATION Q6H.RESP OBIE Last Admin: 05/28/22 14:10 Dose: 3 ml Aspirin (Aspirin 81 Mg Ec Tablet) 81 mg PO DAILY OBIE Last Admin: 05/28/22 09:10 Dose: 81 mg Atorvastatin Calcium (Atorvastatin 40 Mg Tablet) 40 mg PO BEDTIME OBIE Last Admin: 05/27/22 20:14 Dose: 40 mg Benzonatate (Benzonatate 100 Mg Capsule) 200 mg PO TID PRN PRN Reason: cough Budesonide (Budesonide 0.5 Mg/2 Ml Neb) 0.5 mg INHALATION BID.RESPIRATORY OBIE Last Admin: 05/28/22 08:35 Dose: 0.5 mg Citalopram Hydrobromide (Citalopram 20 Mg Tablet) 10 mg PO DAILY OBIE Last Admin: 05/28/22 09:09 Dose: 10 mg Fenofibrate (Fenofibrate 145 Mg Tablet) 145 mg PO DAILY OBIE Last Admin: 05/28/22 09:09 Dose: 145 mg Furosemide (Furosemide 10 Mg/Ml Sdv 4ml) 40 mg IVP Q24H OBIE Guaifenesin (Guaifenesin 600 Mg Tablet) 600 mg PO BID OBIE Last Admin: 05/28/22 09:09 Dose: 600 mg Heparin Sodium/Sodium Chloride (Heparin Drip) 25,000 unit in 500 mls @ 0 mls/hr IV .Q0M OBIE; Protocol Last Admin: 05/28/22 10:01 Dose: 11.87 unit/kg/hr, 14 mls/hr Doxycycline Hyclate 100 mg/ (Sodium Chloride) 100 mls @ 100 mls/hr IV Q12H OBIE; Protocol Last Admin: 05/28/22 09:11 Dose: 100 mls/hr Ceftriaxone Sodium 1,000 mg/ (Sodium Chloride) 50 mls @ 100 mls/hr IV Q24H [facility], [facility]; Protocol Lorazepam (Lorazepam 0.5 Mg Tablet) 0.25 mg PO Q4H PRN 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 Methylprednisolone Sodium Succinate (Methylprednisolone Sod Succ 40 Mg/Ml Inj) 60 mg IVP Q6H [facility], [facility]1983 Last Admin: 05/28/22 09:23 Dose: 60 mg Montelukast Sodium (Montelukast Sodium 10 Mg Tablet) 10 mg PO DAILY [facility]1983 Last Admin: 05/28/22 09:10 Dose: 10 mg Morphine Sulfate (Morphine 4 Mg/Ml Sdv 1 Ml) 1 mg IVP Q4H PRN PRN Reason: SEVERE PAIN Naloxone HCl (Naloxone 0.4 Mg/Ml Sdv) 0.1 mg IVP Q2M PRN PRN Reason: OPIATERV Ondansetron HCl (Ondansetron 2 Mg/Ml Sdv 2 Ml) 4 mg IVP Q8H PRN PRN Reason: vomiting, or N/V if npo Pantoprazole Sodium (Pantoprazole Dr 40 Mg Tablet) 40 mg PO DAILY [facility]1983 Last Admin: 05/28/22 09:10 Dose: 40 mg Vitals/I&O/Wt Last Vital Signs Temp 98.1 F 05/28/22 04:00 Pulse 105 H 05/28/22 14:00 Resp 18 05/28/22 14:00 BP 124/82 05/28/22 08:00 Pulse Ox 96 05/28/22 14:00 O2 Del Method 05/28/22 14:00 O2 Flow Rate 3 05/28/22 08:50 FiO2 35 05/28/22 14:00 05/28/22 05/28/22 05/28/22 06:59 14:59 22:59 Intake Total 367.133 / 597.133 51.934 / 51.934 Output Total 500 / 500 1125 / 1125 Balance -132.867 / 97.133 -1073.066 / -1073.066 Weight last 48 hrs Weight 125 lb 8 oz Weight 130 lb 8 oz Weight 130 lb Physical Exam Narrative: GENERAL: The patient is alert and oriented times three. Moderate respiratory distress; on BiPAP HEENT: No significant pallor, icterus or lymphadenopathy.Oral cavity: There are no mucous membrane lesions. NECK: Trachea appears to be central. No masses noted. No JVD or thyromegaly appreciated. RESPIRATORY: Breath sounds noted bilaterally with diminished air entry in the bases. Expiratory wheezing bilaterally. BREASTS: Deferred. HEART: The heart sounds are normal. No S3 or S4. No significant murmurs. No pericardial rub ABDOMEN: No vessel pulsations or distention. No tenderness. No organomegaly appreciated. Bowel sounds are normally heard. : Deferred. RECTAL: Deferred. LYMPHATIC: No lymphadenopathy noted in the neck. EXTREMITIES: No edema or cyanosis. No clubbing. MUSCULOSKELETAL: No acute joint deformities or swelling SKIN: There are no significant rashes or ecchymosis NEUROPSYCHIATRIC: No focal motor deficits Urinary Catheter Management: Dave: Cath Placed During This Visit: yes Reason for Continuing Indwelling Catheter: Accurate Measurement of Urinary Output in Critically Ill Patients Urinary Catheter Date of Insertion: 05/27/22 Urinary Catheter Time of Insertion: 09:11 Data 05/28/22 04:20 05/28/22 04:20 Other Labs: Laboratory Last Values WBC 14.8 10^3/uL (4.0-10.0) H 05/28/22 04:20 RBC 4.70 10^6/uL (4.1-5.3) 05/28/22 04:20 Hgb 13.8 g/dL (11.5-15.3) 05/28/22 04:20 Hct 43.0 % (37.0-47.0) 05/28/22 04:20 MCV 91.5 fl (81-99) 05/28/22 04:20 MCH 29.4 pg (28.0-34.0) 05/28/22 04:20 MCHC 32.1 g/dL (30.0-36.0) 05/28/22 04:20 RDW 14.8 % (12.1-15.1) 05/28/22 04:20 Plt Count 367 10^3/cmm (130-400) 05/28/22 04:20 MPV 9.3 fL (7.4-10.4) 05/28/22 04:20 Neut % (Auto) 85.3 % 05/28/22 04:20 Lymph % (Auto) 8.8 % 05/28/22 04:20 Adams % (Auto) 5.5 % 05/28/22 04:20 Eos % (Auto) 0.0 % 05/28/22 04:20 Baso % (Auto) 0.1 % 05/28/22 04:20 Neut # (Auto) 12.61 10^3/uL (1.8-7.7) H 05/28/22 04:20 Lymph # (Auto) 1.3 10^3/uL (0.8-4.8) 05/28/22 04:20 Adams # (Auto) 0.8 10^3/uL (0.2-0.9) 05/28/22 04:20 Eos # (Auto) 0.0 10^3/uL (0.0-0.8) 05/28/22 04:20 Baso # (Auto) 0.0 10^3/uL (0.0-0.1) 05/28/22 04:20 Nucleated RBC % (auto) 0 % 05/28/22 04:20 Total Counted 100 (0-100) 05/27/22 02:11 Atypical Lymphs % 0.0 % (0-5) 05/27/22 02:11 Absolute Neutrophils 6.0 10^3/cmm (1.4-6.5) 05/27/22 02:11 Segmented Neutrophils 85 % 05/27/22 02:11 Abs Segm Neuts (Man) 6.0 10/cmm (1.6-7.1) 05/27/22 02:11 Band Neutrophils 0.0 % 05/27/22 02:11 Abs Band Neuts (Man) 0.0 10^3/cmm (0.0-1.2) 05/27/22 02:11 Absolute Lymphocytes 1.1 10^3/cmm (1.2-3.4) L 05/27/22 02:11 Lymphocytes (Manual) 15 % 05/27/22 02:11 Monocytes (Manual) 0.0 % 05/27/22 02:11 Absolute Monocytes 0.0 10^3/cmm (0.1-0.6) L 05/27/22 02:11 Eosinophils (Manual) 0 % 05/27/22 02:11 Absolute Eosinophils 0.0 10^3/cmm (0.0-0.7) 05/27/22 02:11 Basophils (Manual) 0.0 % 05/27/22 02:11 Absolute Basophils 0.0 10^3/cmm (0.0-0.2) 05/27/22 02:11 Nucleated RBCs # 0.0 /100WBC 05/28/22 04:20 Platelet Estimate Normal (Normal) 05/27/22 02:11 PT 12.90 SECONDS (12.1-14.9) 05/26/22 18:21 INR 0.94 (0.8-1.2) 05/26/22 18:21 APTT 55.8 SECONDS (23.9-36.7) H 05/28/22 12:03 Specimen Type Arterial 05/27/22 04:59 Sample Site Radial, left 05/27/22 04:59 ABG pH 7.39 (7.35-7.45) 05/27/22 04:59 ABG pCO2 58.0 mmHg (35-45) H 05/27/22 04:59 ABG pO2 114.0 mmHg (80.0-100.0) H 05/27/22 04:59 ABG HCO3 34.8 mmol/L (22-26) H 05/27/22 04:59 ABG Base Excess 7.6 mmol/L (-2.0-2.0) H 05/27/22 04:59 Jann Test Pos 05/27/22 04:59 Hematocrit 45.3 % (37-47) 05/27/22 04:59 Hgb O2 Saturation 96.8 % (95-100) 05/26/22 18:30 Carboxyhemoglobin 2.0 %THgb (0.4-20.1) 05/26/22 18:30 Methemoglobin 0.6 % (0.4-1.5) 05/26/22 18:30 Total Hemoglobin 15.4 g/dL (12-16) 05/26/22 18:30 O2 Delivery Device Bipap 05/27/22 04:59 O2 Liters/Min 4.0 % 05/26/22 18:30 FiO2 35.0 % 05/27/22 04:59 PEEP 8.0 cmH20 05/27/22 04:59 Booster Assembler ID [email or web address] 05/27/22 04:59 Sodium 143 mmol/L (136-145) 05/28/22 04:20 Potassium 4.0 mmol/L (3.5-5.1) 05/28/22 04:20 Chloride 97 mmol/L (98-107) L 05/28/22 04:20 Carbon Dioxide 36 mmol/L (22-29) H 05/28/22 04:20 Anion Gap 14.0 (5-19) 05/28/22 04:20 BUN 24 mg/dL (8-23) H 05/28/22 04:20 Creatinine 0.5 mg/dL (0.5-0.9) 05/28/22 04:20 GFR Calculation 123.8 mL/min (90-130) 05/28/22 04:20 Glucose 149 mg/dL (65-115) H 05/28/22 04:20 Calculated Osmolality 303 mOsm/kg (285-295) H 05/28/22 04:20 Lactic Acid 2.2 mmol/L (0.5-2.2) 05/26/22 18:32 Lactic Acid (Sepsis) 2.1 mmol/L (0.5-2.2) 05/26/22 21:00 Calcium 9.5 mg/dL (8.5-10.5) 05/28/22 04:20 Phosphorus 3.3 mg/dL (2.5-4.5) 05/28/22 04:20 Magnesium 2.3 mg/dL (1.7-2.3) 05/28/22 04:20 Total Bilirubin 0.3 mg/dL (0.15-1.2) 05/28/22 04:20 AST 30 U/L (0-32) 05/28/22 04:20 ALT 11 U/L (0-33) 05/28/22 04:20 Alkaline Phosphatase 83 U/L (35-105) 05/28/22 04:20 Troponin T Baseline 216 ng/L (0-10) H* 05/26/22 18:32 Troponin T 120 Minute 223.1 ng/L (0-10) H 05/26/22 21:00 Delta Troponin T 7.1 ABS# (0-10) 05/26/22 21:00 Troponin T Hi Sens 6Hr 172.7 ng/L (0-10) H 05/27/22 02:11 Troponin T Hi Sens 6Hr Delta -43.3 ng/L (0-12) L 05/27/22 02:11 C-Reactive Protein 5.1 mg/L (0.0-4.9) H 05/28/22 04:20 NT-Pro-B Natriuret Pep 7595 pg/mL (0-125) H 05/28/22 04:20 Total Protein 6.5 g/dL (6.6-8.7) L 05/28/22 04:20 Albumin 3.8 g/dL (3.5-5.2) 05/28/22 04:20 Globulin 2.7 g/dL (1.3-4.6) 05/28/22 04:20 Procalcitonin 0.11 ng/mL (0-0.5) 05/28/22 04:20 Urine Color Rand (Yellow) 05/28/22 07:45 Urine Appearance Turbid (CLEAR) A 05/28/22 07:45 Urine pH 6 (5-7) 05/28/22 07:45 Ur Specific [place] 1.020 (1.005-1.030) 05/28/22 07:45 Urine Protein 1+ (Negative) H 05/28/22 07:45 Urine Glucose (UA) Norm (Normal) 05/28/22 07:45 Urine Ketones 1+ (Negative) H 05/28/22 07:45 Urine Blood 3+ (Negative) H 05/28/22 07:45 Urine Nitrate Negative (Negative) 05/28/22 07:45 Urine Bilirubin Neg (Negative) 05/28/22 07:45 Urine Urobilinogen Norm mg/dL (Negative) 05/28/22 07:45 Ur Leukocyte Esterase 2+ (Negative) H 05/28/22 07:45 Urine RBC >100 /hpf (0-2) H 05/28/22 07:45 Urine WBC 10-15 /hpf (0-5) H 05/28/22 07:45 Ur Squamous Epith Cells 0-4 /hpf (0-5) H 05/28/22 07:45 Amorphous Sediment Not Reportable 05/28/22 07:45 Urine Bacteria Trace /hpf (NONE) 05/28/22 07:45 Urine Mucus 4+ /hpf 05/28/22 07:45 Nasal Influ A H1 2008 PCR Not detected (NOT DETECT) 05/26/22 19:10 Adenovirus (PCR) Not detected (NOT DETECT) 05/26/22 19:10 C. pneumoniae DNA (PCR) Not detected (NOT DETECT) 05/26/22 19:10 Coronavirus 229E (PCR) Not detected (NOT DETECT) 05/26/22 19:10 Human Metapneumovir PCR Not detected (NOT DETECT) 05/26/22 19:10 Influenza A (H1) PCR Not detected (NOT DETECT) 05/26/22 19:10 Influenza A (H3) PCR Not detected (NOT DETECT) 05/26/22 19:10 Influenza Type A (PCR) Not detected (NOT DETECT) 05/26/22 19:10 Influenza Type B (PCR) Not detected (NOT DETECT) 05/26/22 19:10 M. pneumoniae (PCR) Not detected (NOT DETECT) 05/26/22 19:10 Parainfluenza 1 (PCR) Not detected (NOT DETECT) 05/26/22 19:10 Parainfluenza 2 (PCR) Not detected (NOT DETECT) 05/26/22 19:10 Parainfluenza 3 (PCR) Not detected (NOT DETECT) 05/26/22 19:10 Parainfluenza 4 (PCR) Not detected (NOT DETECT) 05/26/22 19:10 RSV Type A (PCR) Not detected (NOT DETECT) 05/26/22 19:10 RSV Type B (PCR) Not detected (NOT DETECT) 05/26/22 19:10 Entero/Rhino (PCR) Not detected (NOT DETECT) 05/26/22 19:10 SARS-CoV-2 (PCR) Not detected (NOT DETECT) 05/26/22 19:10 Micro: Microbiology 05/26/22 18:37 Blood Culture - Preliminary Blood NEGATIVE TO DATE 05/26/22 18:32 Blood Culture - Preliminary Blood NEGATIVE TO DATE Other data: There was severe diffuse hypokinesia of the left ventricle ?except the basal segments. ? LV ejection fraction was around 25 to 30%. ?Trace tricuspid valve regurgitation. ?There is no pericardial effusion. ?There are no intracardiac masses. ?Compared to the study from 12/06/2019, the ejection fraction has ?dropped from 55 - 60% to? 25-30% A&P Assessment and plan (1) Acute non-ST elevation myocardial infarction (NSTEMI): May continue on the current management with subcu Lovenox, aspirin, Plavix and other measures. (2) Cardiomyopathy: May continue IV Lasix, DASIA inhibitor and other symptomatic measures. (3) Acute exacerbation of chronic obstructive airways disease: Chest x-ray today. Management as per the primary (4) Nicotine dependence, cigarettes, uncomplicated: Patient strongly advised to quit smoking. Cardiovascular implications were discussed. (5) History of supraventricular tachycardia: Patient apparently had RF ablation in the past. She seems to have no recurrence of SVT. May continue on the current management. (6) Hyperlipidemia, unspecified: Continue on the current dose of the statin Qualifiers: Hyperlipidemia type: unspecified Qualified Code(s): E78.5 - Hyperlipidemia, unspecified Plan The other problems are Mild anemia Bipolar disorder GERD ? History of TIA Based on the clinical progress, further management decisions will be made Attestations Medical Necessity Statement*: Patient requires continued hospital stay for close monitoring and further management Coding Level of Care Code 26695 Diagnoses Acute non-ST elevation myocardial infarction (NSTEMI) I21.4 Cardiomyopathy I42.9 Acute exacerbation of chronic obstructive airways disease J44.1 Nicotine dependence, cigarettes, uncomplicated F17.210 History of supraventricular tachycardia Z86.79 Hyperlipidemia, unspecified E78.5 Hyperlipidemia type: unspecified
[2022-05-28] MEDS: cefTRIAXone 1,000 MG in sodium chloride 0.9% (plus) 50 ML 100 MG IV (15:52)
[2022-05-28 18:36] LABS: Partial Thromboplastin Time 51.5 SECONDS (23.9-36.7)
[2022-05-28] MEDS: atorvastatin 40 mg Tablet PO (19:28)
[2022-05-29] VITALS (14 sets, daily range): BP systolic 96–132; BP diastolic 75–105; PULSE 97–125; RESP 12–30; TEMP 36.4–37.3; O2SAT 94–99
[2022-05-29 01:23] LABS: Basophils % 0.1 %; Hematocrit 46.1 % (37.0-47.0); Mean Corpuscular HGB Conc 32.5 g/dL (30.0-36.0); Mean Corpuscular Hemoglobin 29.6 pg (28.0-34.0); Mean Corpuscular Volume 91.1 fl (81-99); Mean Platelet Volume 8.8 fL (7.4-10.4); Monocytes # 0.7 10^3/uL (0.2-0.9); Monocytes % 4.5 %; Neutrophils # 14.36 10^3/uL (1.8-7.7); Neutrophils % 88.9 %; Nucleated Red Blood Cells % 0 %; Platelet Count 402 10^3/cmm (130-400); Red Blood Count 5.06 10^6/uL (4.1-5.3); Red Cell Distribution Width 14.5 % (12.1-15.1); White Blood Count 16.2 10^3/uL (4.0-10.0)
[2022-05-29] MEDS: ipratropium-albuterol 3 mL Neb INHALATION ×4 (01:31→20:33)
[2022-05-29 01:34] LABS: Partial Thromboplastin Time 72.3 SECONDS (23.9-36.7)
[2022-05-29 01:41] LABS: NT Pro B Type Natriuretic Pept 8714 pg/mL (0-125); Procalcitonin 0.08 ng/mL (0-0.5)
[2022-05-29 01:52] LABS: Alanine Aminotransferase 11 U/L (0-33); Albumin Level 3.9 g/dL (3.5-5.2); Alkaline Phosphatase 83 U/L (35-105); Anion Gap 11.2 (5-19); Aspartate Amino Transferase 25 U/L (0-32); Blood Urea Nitrogen 23 mg/dL (8-23); C Reactive Protein 3.6 mg/L (0.0-4.9); Calcium 9.6 mg/dL (8.5-10.5); Chloride 89 mmol/L (98-107); Globulin 2.7 g/dL (1.3-4.6); Glomerular Filtration Rate 123.8 mL/min (90-130); Glucose 161 mg/dL (65-115); Magnesium 2.1 mg/dL (1.7-2.3); Osmolality Calculated 293 mOsm/kg (285-295); Potassium 3.2 mmol/L (3.5-5.1); Sodium 138 mmol/L (136-145); Total Bilirubin 0.3 mg/dL (0.15-1.2); Total Protein 6.6 g/dL (6.6-8.7)
[2022-05-29 02:03] LABS: Carbon Dioxide 41 mmol/L (22-29)
--- NOTE | 2022-05-29 08:20 | PC.SOCIAL ---
IMM update IMM updated with patient. Verbalized an understanding. Copy PG 2 provided. Initialled, dated, timed, and placed in chart.
[2022-05-29 08:27] LABS: Partial Thromboplastin Time 69.8 SECONDS (23.9-36.7)
[2022-05-29] MEDS: budesonide 0.5 mg/2 mL Neb INHALATION ×2 (08:29→20:33)
[2022-05-29] MEDS: FUROsemide 10 mg/mL SDV 4mL 40 MG IVP ×2 (09:03→17:30)
[2022-05-29] MEDS: doxycycline 100 MG in sodium chloride 0.9% (plus) 100 ML IV ×2 (09:03→19:34)
[2022-05-29] MEDS: pantoprazole DR 40 mg Tablet PO (09:04)
[2022-05-29] MEDS: citalopram 20 mg Tablet 10 MG PO (09:04)
[2022-05-29] MEDS: aspirin 81 mg EC Tablet PO (09:04)
[2022-05-29] MEDS: montelukast sodium 10 mg Tablet PO (09:04)
[2022-05-29] MEDS: fenofibrate 145 mg Tablet PO (09:04)
[2022-05-29] MEDS: guaiFENesin 600 mg Tablet PO ×2 (09:04→17:30)
--- NOTE | 2022-05-29 09:23 | PC.NURSE ---
Ptt 69.8, no change in dose at this time.
[2022-05-29] MEDS: lidocaine 1% 5 ML in potassium chloride premix 100 ML 26.25 ML IV (10:28)
[2022-05-29] MEDS: metOLazone 5 MG Tablet PO (10:29)
--- NOTE | 2022-05-29 10:50 | PC.NURSE ---
NS running at 45ml/hr with KCL, d/t KCL burning the pts arm.
--- NOTE | 2022-05-29 11:04 | PC.NURSE ---
Dave cath leaking. Repositioned and advanced. Will monitor.
[2022-05-29] MEDS: enoxaparin 60 mg/0.6 mL Syringe SUBCUT (13:31)
[2022-05-29] MEDS: cefTRIAXone 1,000 MG in sodium chloride 0.9% (plus) 50 ML 100 MG IV (13:31)
--- NOTE | 2022-05-29 13:58 | PM.PN ---
Subjective Subjective: Patient continues to have intermittent respiratory distress.. According to her, she soon after the device treatment, she starts coughing and gagging. It may last for few minutes and then gradually subsides. At that point she feels better. She is responding to the diuretics appropriately. Vital signs remained stable. Medications: Medication Review Details: Current Medications Acetaminophen (Acetaminophen 325 Mg Tablet) 650 mg PO Q6H PRN PRN Reason: Mild/Mod Pain Or Temp >/= 101 Albuterol Sulfate (Albuterol 2.5 Mg/3 Ml Neb) 2.5 mg INHALATION Q4H.RESPIRATORY PRN PRN Reason: wheezing Last Admin: 05/28/22 03:39 Dose: 2.5 mg Albuterol/Ipratropium (Ipratropium-Albuterol 3 Ml Neb) 3 ml INHALATION Q6H.RESP OBIE Last Admin: 05/29/22 08:29 Dose: 3 ml Aspirin (Aspirin 81 Mg Ec Tablet) 81 mg PO DAILY OBIE Last Admin: 05/29/22 09:04 Dose: 81 mg Atorvastatin Calcium (Atorvastatin 40 Mg Tablet) 40 mg PO BEDTIME OBIE Last Admin: 05/28/22 19:28 Dose: 40 mg Benzonatate (Benzonatate 100 Mg Capsule) 200 mg PO TID PRN PRN Reason: cough Budesonide (Budesonide 0.5 Mg/2 Ml Neb) 0.5 mg INHALATION BID.RESPIRATORY OBIE Last Admin: 05/29/22 08:29 Dose: 0.5 mg Citalopram Hydrobromide (Citalopram 20 Mg Tablet) 10 mg PO DAILY OBIE Last Admin: 05/29/22 09:04 Dose: 10 mg Enoxaparin Sodium (Enoxaparin 60 Mg/0.6 Ml Syringe) 60 mg SUBCUT Q12H OBIE Last Admin: 05/29/22 13:31 Dose: 60 mg Fenofibrate (Fenofibrate 145 Mg Tablet) 145 mg PO DAILY OBIE Last Admin: 05/29/22 09:04 Dose: 145 mg Furosemide (Furosemide 10 Mg/Ml Sdv 4ml) 40 mg IVP Q12H OBIE Guaifenesin (Guaifenesin 600 Mg Tablet) 600 mg PO BID OBIE Last Admin: 05/29/22 09:04 Dose: 600 mg Doxycycline Hyclate 100 mg/ (Sodium Chloride) 100 mls @ 100 mls/hr IV Q12H OBIE; Protocol Last Infusion: 05/29/22 10:17 Dose: Infused Ceftriaxone Sodium 1,000 mg/ (Sodium Chloride) 50 mls @ 100 mls/hr IV Q24H [facility]; Protocol Last Admin: 05/29/22 13:31 Dose: 100 mls/hr Sodium Chloride (Sodium Chloride 0.9%) 250 mls @ 0 mls/hr IV .Q0M OBIE Lorazepam (Lorazepam 0.5 Mg Tablet) 0.5 mg PO Q6H PRN 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 Methylprednisolone Sodium Succinate (Methylprednisolone Sod Succ 125 Mg/2 Ml Inj) 60 mg IVP Q6H [facility] Last Admin: 05/29/22 09:04 Dose: 60 mg Montelukast Sodium (Montelukast Sodium 10 Mg Tablet) 10 mg PO DAILY [facility] Last Admin: 05/29/22 09:04 Dose: 10 mg Morphine Sulfate (Morphine 4 Mg/Ml Sdv 1 Ml) 1 mg IVP Q4H PRN PRN Reason: SEVERE PAIN Naloxone HCl (Naloxone 0.4 Mg/Ml Sdv) 0.1 mg IVP Q2M PRN PRN Reason: OPIATERV Ondansetron HCl (Ondansetron 2 Mg/Ml Sdv 2 Ml) 4 mg IVP Q8H PRN PRN Reason: vomiting, or N/V if npo Pantoprazole Sodium (Pantoprazole Dr 40 Mg Tablet) 40 mg PO DAILY [facility] Last Admin: 05/29/22 09:04 Dose: 40 mg Potassium Chloride (Potassium Chloride Er 20 Meq Tablet) 40 meq PO ONCE ONE Stop: 05/29/22 18:01 Vitals/I&O/Wt Last Vital Signs Temp 97.7 F 05/29/22 11:13 Pulse 108 H 05/29/22 11:13 Resp 22 H 05/29/22 11:13 BP 118/95 05/29/22 11:13 Pulse Ox 97 05/29/22 11:13 O2 Del Method 05/29/22 11:13 O2 Flow Rate 4 05/29/22 08:33 FiO2 35 05/29/22 12:00 05/28/22 05/29/22 05/29/22 22:59 06:59 14:59 Intake Total 897.4 / 1049.334 461.75 / 1511.084 730 / 730 Output Total 1150 / 2275 1150 / 1150 Balance 897.4 / -75.666 -688.25 / -763.916 -420 / -420 Weight last 48 hrs Weight 128 lb 4.8 oz Weight 125 lb 8 oz Physical Exam Narrative: GENERAL: The patient is alert and oriented times three. Not in any acute distress. Emphysematous chest HEENT: No significant pallor, icterus or lymphadenopathy.Oral cavity: There are no mucous membrane lesions. NECK: Trachea appears to be central. No masses noted. No JVD or thyromegaly appreciated. RESPIRATORY: Breath sounds are bilaterally with expiratory wheezing and occasional coarse crackles. Intensity of breath sounds are diminished at the bases. BREASTS: Deferred. HEART: The heart sounds are normal. No S3 or S4. No significant murmurs. No pericardial rub ABDOMEN: No vessel pulsations or distention. No tenderness. No organomegaly appreciated. Bowel sounds are normally heard. : Deferred. RECTAL: Deferred. LYMPHATIC: No lymphadenopathy noted in the neck. EXTREMITIES: No edema or cyanosis. No clubbing. Peripheral pulses are palpable but weak bilaterally. MUSCULOSKELETAL: No acute joint deformities or swelling SKIN: There are no significant rashes or ecchymosis NEUROPSYCHIATRIC: The patient is alert and oriented x3. Appears to be in a good mood. No tremors or rigidity noted. Urinary Catheter Management: Dave: Cath Placed During This Visit: yes Reason for Continuing Indwelling Catheter: Acute Urinary Retention or Obstruction Urinary Catheter Date of Insertion: 05/27/22 Urinary Catheter Time of Insertion: 09:11 Data 05/29/22 01:05 05/29/22 01:05 Micro: Microbiology 05/27/22 17:00 Gram Stain - Final Sputum - Expectorated Sputum Sputum Culture - Preliminary 05/28/22 07:45 Urine Culture - Preliminary Urine,Clean Catch A&P Assessment and plan (1) Acute non-ST elevation myocardial infarction (NSTEMI): May continue on the current management with subcu Lovenox, aspirin, Plavix and other measures. (2) Cardiomyopathy: May continue with IV Lasix. I also may start her on losartan 25 mg p.o. daily. Try to bridge to his Entresto. Patient requires a cardiac catheterization. But because of the respiratory status, we may have to hold off on this for the time being (3) Acute exacerbation of chronic obstructive airways disease: Chest x-ray today. Management as per the primary (4) Nicotine dependence, cigarettes, uncomplicated: Patient strongly advised to quit smoking. Cardiovascular implications were discussed. (5) History of supraventricular tachycardia: Patient apparently had RF ablation in the past. She seems to have no recurrence of SVT. May continue on the current management. (6) Hyperlipidemia, unspecified: Continue on the current dose of the statin Qualifiers: Hyperlipidemia type: unspecified Qualified Code(s): E78.5 - Hyperlipidemia, unspecified Plan The other problems are Mild anemia Bipolar disorder GERD ? History of TIA Based on the clinical progress, further management decisions will be made Attestations Medical Necessity Statement*: Deferred to the primary Coding Level of Care Code 86065 Diagnoses Acute non-ST elevation myocardial infarction (NSTEMI) I21.4 Cardiomyopathy I42.9 Acute exacerbation of chronic obstructive airways disease J44.1 Nicotine dependence, cigarettes, uncomplicated F17.210 History of supraventricular tachycardia Z86.79 Hyperlipidemia, unspecified E78.5 Hyperlipidemia type: unspecified
--- NOTE | 2022-05-29 16:14 | PM.PN ---
Subjective Subjective: Patient was seen this morning, she does feel a bit better, she tells that the Ativan significantly helped with her breathing and with her anxiety, however she felt it was not enough, denies any lightheadedness, no dizziness Vitals/I&O/Wt Last Vital Signs Temp 98.1 F 05/29/22 15:25 Pulse 112 H 05/29/22 15:25 Resp 18 05/29/22 15:25 BP 119/82 05/29/22 15:25 Pulse Ox 97 05/29/22 15:25 O2 Del Method 05/29/22 15:25 O2 Flow Rate 3.5 05/29/22 15:25 FiO2 35 05/29/22 12:00 05/29/22 05/29/22 05/29/22 06:59 14:59 22:59 Intake Total 461.75 / 1511.084 730 / 730 Output Total 1150 / 2275 1150 / 1150 950 / 2100 Balance -688.25 / -763.916 -420 / -420 -950 / -1370 Weight last 48 hrs Weight 58.196 kg Weight 56.926 kg Physical Exam Const: COMMON NORMALS: no acute distress and patient oriented x3 Resp: COMMON NORMALS: normal respiratory effort, No retractions and No use of accessory muscles AUSCULTATION: crackles and wheezes Cardio: COMMON NORMALS: regular rate, regular rhythm, S1 normal heart sound present and S2 normal heart sound present RATE: regular rate RHYTHM: regular rhythm HEART SOUNDS: S1 normal heart sound present and S2 normal heart sound present GI: COMMON NORMALS: Normal to inspection, nondistended, normoactive bowel sounds present and non-tender Extremity: COMMON NORMALS: no pedal edema Neuro: COMMON NORMALS: patient oriented x3 Psych: COMMON NORMALS: mental status grossly normal Urinary Catheter Management: Dave: Cath Placed During This Visit: yes Reason for Continuing Indwelling Catheter: Acute Urinary Retention or Obstruction Urinary Catheter Date of Insertion: 05/27/22 Urinary Catheter Time of Insertion: 09:11 Data 05/29/22 01:05 05/29/22 01:05 Micro: Microbiology 05/27/22 17:00 Gram Stain - Final Sputum - Expectorated Sputum Sputum Culture - Preliminary 05/28/22 07:45 Urine Culture - Preliminary Urine,Clean Catch A&P Assessment and plan (1) Acute non-ST elevation myocardial infarction (NSTEMI): (2) Cardiomyopathy: d. (3) Acute exacerbation of chronic obstructive airways disease: (4) Nicotine dependence, cigarettes, uncomplicated: (5) History of supraventricular tachycardia: (6) Hyperlipidemia, unspecified: Qualifiers: Hyperlipidemia type: unspecified Qualified Code(s): E78.5 - Hyperlipidemia, unspecified (7) Acute on chronic respiratory failure with hypoxia and hypercapnia: Secondary to COPD exacerbation. ABG 7 point /30 5.7 on 4 L/min supplemental O2. Placed on BiPAP on admission. We will obtain ABG with a.m. labs to ensure that CO2 levels are downtrending. (8) Pneumonia: Plan Acute hypoxic respiratory failure -Secondary to COPD -Possible underlying pneumonia -Some component might be related to CHF given diminished ejection fraction -Plan -Monitor cardiac stepdown unit closely -Continue BiPAP therapy -Solu-Medrol 40 IV every 8 hours -Doxycycline 100 every 12 hours -Lasix 40 IV every 12 hours 1 dose of metolazone today -Monitor urine output, monitor creatinine -Monitor respiratory status closely -DNR/DNI -Heparin drip for DVT prophylaxis UTI -UA quite turbid -Continue Rocephin NSTEMI -Possibly supply demand ischemia from respiratory failure from COPD and pneumonia as above -However cannot rule out underlying cardiac etiology -There is also possibility of Takotsubo cardiomyopathy -Serial EKGs, surgical telemetry monitoring -Continue aspirin, statin -Hold off on beta-jordyn COPD -Advised to quit smoking -As above Possible pneumonia -CT angiogram of the chest shows bibasilar atelectasis versus infiltrate -Follow blood cultures -Sputum cultures -Receiving doxycycline, Rocephin Systolic CHF ?There was severe diffuse hypokinesia of the left ventricle ?except the basal segments. ? LV ejection fraction was around 25 to 30%. ?Trace tricuspid valve regurgitation. ?There is no pericardial effusion. ?There are no intracardiac masses. ?Compared to the study from 12/06/2019, the ejection fraction has ?dropped from 55 - 60% to? 25-30% -Aspirin, statin -Heparin drip -Cardiology consulted She was told that she had lung cancer by hospital in [facility] -I reviewed her CAT scans she has a history of pulmonary nodules in the right upper right lower lobe -We will have her follow-up with pulm as outpatient, pulmonary nodules difficult to assess on current CT angiogram Anxiety -Ativan p.o. 0.25 mg every 4 hours as needed Attestations Medical Necessity Statement*: Patient requires hospitalization for acute hypoxic respiratory failure, COPD exacerbation, pneumonia Diagnoses Acute non-ST elevation myocardial infarction (NSTEMI) I21.4 Cardiomyopathy I42.9 Acute exacerbation of chronic obstructive airways disease J44.1 Nicotine dependence, cigarettes, uncomplicated F17.210 History of supraventricular tachycardia Z86.79 Hyperlipidemia, unspecified E78.5 Hyperlipidemia type: unspecified Acute on chronic respiratory failure with hypoxia and hypercapnia J96.21; J96.22 Pneumonia J18.9
[2022-05-29] MEDS: potassium chloride ER 20 mEq Tablet 40 MEQ PO (17:30)
--- NOTE | 2022-05-29 17:41 | PC.NURSE ---
Heparin drip turned off at 1345.
[2022-05-29 17:42] LABS: Partial Thromboplastin Time 33.5 SECONDS (23.9-36.7)
[2022-05-29] MEDS: atorvastatin 40 mg Tablet PO (20:07)
[2022-05-30] VITALS (14 sets, daily range): BP systolic 89–144; BP diastolic 61–110; PULSE 96–119; RESP 12–27; TEMP 36.2–36.9; O2SAT 94–97
[2022-05-30] MEDS: enoxaparin 60 mg/0.6 mL Syringe SUBCUT ×2 (00:52→12:53)
[2022-05-30] MEDS: ipratropium-albuterol 3 mL Neb INHALATION ×2 (03:15→07:59)
[2022-05-30] MEDS: FUROsemide 10 mg/mL SDV 4mL 40 MG IVP ×2 (04:26→18:07)
[2022-05-30] MEDS: LORazepam 0.5 mg Tablet 0.25 MG PO ×2 (04:26→21:13)
[2022-05-30 05:44] LABS: NT Pro B Type Natriuretic Pept 8336 pg/mL (0-125); Procalcitonin 0.07 ng/mL (0-0.5)
[2022-05-30 05:53] LABS: Basophils % 0.1 %; Hematocrit 51.4 % (37.0-47.0); Hemoglobin 16.7 g/dL (11.5-15.3); Lymphocytes # 0.8 10^3/uL (0.8-4.8); Lymphocytes % 5.9 %; Mean Corpuscular HGB Conc 32.5 g/dL (30.0-36.0); Mean Corpuscular Hemoglobin 29.2 pg (28.0-34.0); Mean Platelet Volume 9.3 fL (7.4-10.4); Monocytes # 0.7 10^3/uL (0.2-0.9); Monocytes % 5.2 %; Neutrophils # 11.95 10^3/uL (1.8-7.7); Nucleated Red Blood Cells % 0 %; Platelet Count 439 10^3/cmm (130-400); Red Blood Count 5.71 10^6/uL (4.1-5.3); Red Cell Distribution Width 14.3 % (12.1-15.1); White Blood Count 13.6 10^3/uL (4.0-10.0)
[2022-05-30 06:00] LABS: Alanine Aminotransferase 12 U/L (0-33); Albumin Level 4.2 g/dL (3.5-5.2); Alkaline Phosphatase 87 U/L (35-105); Anion Gap 14.3 (5-19); Aspartate Amino Transferase 25 U/L (0-32); Blood Urea Nitrogen 35 mg/dL (8-23); Calcium 9.8 mg/dL (8.5-10.5); Chloride 83 mmol/L (98-107); Globulin 3.1 g/dL (1.3-4.6); Glucose 174 mg/dL (65-115); Magnesium 2.3 mg/dL (1.7-2.3); Osmolality Calculated 304 mOsm/kg (285-295); Phosphorus 4.8 mg/dL (2.5-4.5); Potassium 3.3 mmol/L (3.5-5.1); Sodium 141 mmol/L (136-145); Total Bilirubin 0.4 mg/dL (0.15-1.2); Total Protein 7.3 g/dL (6.6-8.7)
[2022-05-30 06:03] LABS: Carbon Dioxide 47 mmol/L (22-29)
[2022-05-30] MEDS: budesonide 0.5 mg/2 mL Neb INHALATION ×2 (07:59→20:14)
[2022-05-30] MEDS: doxycycline 100 MG in sodium chloride 0.9% (plus) 100 ML IV ×2 (09:19→20:48)
[2022-05-30] MEDS: lidocaine 1% 5 ML in potassium chloride premix 100 ML 26.25 ML IV (09:20)
[2022-05-30] MEDS: acetaZOLAMIDE 250 mg Tablet PO ×2 (09:23→20:47)
[2022-05-30] MEDS: metOLazone 5 MG Tablet PO (09:23)
[2022-05-30] MEDS: aspirin 81 mg EC Tablet PO (09:23)
[2022-05-30] MEDS: guaiFENesin 600 mg Tablet PO ×2 (09:23→18:07)
[2022-05-30] MEDS: pantoprazole DR 40 mg Tablet PO (09:23)
[2022-05-30] MEDS: fenofibrate 145 mg Tablet PO (09:23)
[2022-05-30] MEDS: montelukast sodium 10 mg Tablet PO (09:24)
[2022-05-30] MEDS: citalopram 20 mg Tablet 10 MG PO (09:25)
[2022-05-30] MEDS: benzonatate 100 mg Capsule 200 MG PO (09:29)
[2022-05-30] MEDS: losartan 50 mg Tablet 25 MG PO (09:31)
--- NOTE | 2022-05-30 12:49 | PM.PN ---
Subjective Subjective: Patient's breathing is slowly improving. Still has significant wheeze. No chest pain. No fever or chills. Has a dry cough. No other specific complaints. Medications: Medication Review Details: Current Medications Acetaminophen (Acetaminophen 325 Mg Tablet) 650 mg PO Q6H PRN PRN Reason: Mild/Mod Pain Or Temp >/= 101 Acetazolamide (Acetazolamide 250 Mg Tablet) 250 mg PO Q12H OBIE Stop: 05/30/22 20:46 Last Admin: 05/30/22 09:23 Dose: 250 mg Albuterol Sulfate (Albuterol 2.5 Mg/3 Ml Neb) 2.5 mg INHALATION Q4H.RESPIRATORY PRN PRN Reason: wheezing Last Admin: 05/28/22 03:39 Dose: 2.5 mg Albuterol/Ipratropium (Ipratropium-Albuterol 3 Ml Neb) 3 ml INHALATION Q6H.RESP OBIE Aspirin (Aspirin 81 Mg Ec Tablet) 81 mg PO DAILY OBIE Last Admin: 05/30/22 09:23 Dose: 81 mg Atorvastatin Calcium (Atorvastatin 40 Mg Tablet) 40 mg PO BEDTIME OBIE Last Admin: 05/29/22 20:07 Dose: 40 mg Benzonatate (Benzonatate 100 Mg Capsule) 200 mg PO TID PRN PRN Reason: cough Last Admin: 05/30/22 09:29 Dose: 200 mg Budesonide (Budesonide 0.5 Mg/2 Ml Neb) 0.5 mg INHALATION BID.RESPIRATORY OBIE Last Admin: 05/30/22 07:59 Dose: 0.5 mg Citalopram Hydrobromide (Citalopram 20 Mg Tablet) 10 mg PO DAILY OBIE Last Admin: 05/30/22 09:25 Dose: 10 mg Enoxaparin Sodium (Enoxaparin 60 Mg/0.6 Ml Syringe) 60 mg SUBCUT Q12H OBIE Last Admin: 05/30/22 00:52 Dose: 60 mg Fenofibrate (Fenofibrate 145 Mg Tablet) 145 mg PO DAILY OBIE Last Admin: 05/30/22 09:23 Dose: 145 mg Furosemide (Furosemide 10 Mg/Ml Sdv 4ml) 40 mg IVP Q12H OBIE Last Admin: 05/30/22 04:26 Dose: 40 mg Guaifenesin (Guaifenesin 600 Mg Tablet) 600 mg PO BID OBIE Last Admin: 05/30/22 09:23 Dose: 600 mg Doxycycline Hyclate 100 mg/ (Sodium Chloride) 100 mls @ 100 mls/hr IV Q12H [facility]; Protocol Last Infusion: 05/30/22 11:32 Dose: Infused Ceftriaxone Sodium 1,000 mg/ (Sodium Chloride) 50 mls @ 100 mls/hr IV Q24H OBIE; Protocol Last Infusion: 05/29/22 14:14 Dose: Infused Potassium Chloride (K-Mynor) 100 mls @ 25 mls/hr IV ONCE ONE Stop: 05/30/22 12:54 Last Admin: 05/30/22 09:31 Dose: Not Given Levalbuterol HCl (Levalbuterol 0.63 Mg/3 Ml Neb) 0.63 mg INHALATION Q6H.RESP OBIE Lorazepam (Lorazepam 0.5 Mg Tablet) 0.25 mg PO Q6H PRN 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 Last Admin: 05/30/22 04:26 Dose: 0.25 mg Losartan Potassium (Losartan 50 Mg Tablet) 25 mg PO DAILY [facility] Last Admin: 05/30/22 09:31 Dose: 25 mg Methylprednisolone Sodium Succinate (Methylprednisolone Sod Succ 125 Mg/2 Ml Inj) 60 mg IVP Q6H OBIE Last Admin: 05/30/22 09:21 Dose: 60 mg Montelukast Sodium (Montelukast Sodium 10 Mg Tablet) 10 mg PO DAILY [facility] Last Admin: 05/30/22 09:24 Dose: 10 mg Morphine Sulfate (Morphine 4 Mg/Ml Sdv 1 Ml) 1 mg IVP Q4H PRN PRN Reason: SEVERE PAIN Naloxone HCl (Naloxone 0.4 Mg/Ml Sdv) 0.1 mg IVP Q2M PRN PRN Reason: OPIATERV Ondansetron HCl (Ondansetron 2 Mg/Ml Sdv 2 Ml) 4 mg IVP Q8H PRN PRN Reason: vomiting, or N/V if npo Pantoprazole Sodium (Pantoprazole Dr 40 Mg Tablet) 40 mg PO DAILY [facility] Last Admin: 05/30/22 09:23 Dose: 40 mg Potassium Chloride (Potassium Chloride Er 20 Meq Tablet) 40 meq PO ONCE ONE Stop: 05/30/22 18:01 Vitals/I&O/Wt Last Vital Signs Temp 98.1 F 05/30/22 11:09 Pulse 115 H 05/30/22 11:09 Resp 20 H 05/30/22 11:09 BP 134/92 05/30/22 11:09 Pulse Ox 94 05/30/22 11:09 O2 Del Method 05/30/22 11:09 O2 Flow Rate 3 05/30/22 11:09 FiO2 35 05/30/22 03:15 05/29/22 05/30/22 05/30/22 21:59 06:59 14:59 Intake Total 340 / 340 Output Total Balance 340 / 340 Weight last 48 hrs Weight 129 lb 8 oz Weight 128 lb 4.8 oz Physical Exam Narrative: GENERAL: The patient is alert and oriented times three. Not in any acute distress. HEENT: No significant pallor, icterus or lymphadenopathy.Oral cavity: There are no mucous membrane lesions. NECK: Trachea appears to be central. No masses noted. No JVD or thyromegaly appreciated. RESPIRATORY: Chest is symmetrical. No intercostals muscle retraction or any accessory muscle activation. There is no chest wall tenderness. Breath sounds are heard bilaterally. The intensity of the breath sounds are diminished at the bases. No rales or rhonchi heard. No evidence of any consolidation. BREASTS: Deferred. HEART: The heart sounds are normal. No S3 or S4. No significant murmurs. No pericardial rub ABDOMEN: No vessel pulsations or distention. No tenderness. No organomegaly appreciated. Bowel sounds are normally heard. : Deferred. RECTAL: Deferred. LYMPHATIC: No lymphadenopathy noted in the neck. EXTREMITIES: No edema or cyanosis. No clubbing. MUSCULOSKELETAL: No acute joint deformities or swelling SKIN: There are no significant rashes or ecchymosis NEUROPSYCHIATRIC: The patient is alert and oriented x3. Appears to be in a good mood. No tremors or rigidity noted. Urinary Catheter Management: Dave: Cath Placed During This Visit: yes Reason for Continuing Indwelling Catheter: Accurate Measurement of Urinary Output in Critically Ill Patients Urinary Catheter Date of Insertion: 05/27/22 Urinary Catheter Time of Insertion: 09:11 Data 05/30/22 04:30 05/30/22 04:30 Other Labs: Laboratory Last Values WBC 13.6 10^3/uL (4.0-10.0) H 05/30/22 04:30 RBC 5.71 10^6/uL (4.1-5.3) H 05/30/22 04:30 Hgb 16.7 g/dL (11.5-15.3) H 05/30/22 04:30 Hct 51.4 % (37.0-47.0) H 05/30/22 04:30 MCV 90.0 fl (81-99) 05/30/22 04:30 MCH 29.2 pg (28.0-34.0) 05/30/22 04:30 MCHC 32.5 g/dL (30.0-36.0) 05/30/22 04:30 RDW 14.3 % (12.1-15.1) 05/30/22 04:30 Plt Count 439 10^3/cmm (130-400) H 05/30/22 04:30 MPV 9.3 fL (7.4-10.4) 05/30/22 04:30 Neut % (Auto) 88.0 % 05/30/22 04:30 Lymph % (Auto) 5.9 % 05/30/22 04:30 [place] % (Auto) 5.2 % 05/30/22 04:30 Eos % (Auto) 0.0 % 05/30/22 04:30 Baso % (Auto) 0.1 % 05/30/22 04:30 Neut # (Auto) 11.95 10^3/uL (1.8-7.7) H 05/30/22 04:30 Lymph # (Auto) 0.8 10^3/uL (0.8-4.8) 05/30/22 04:30 [place]ford # (Auto) 0.7 10^3/uL (0.2-0.9) 05/30/22 04:30 Eos # (Auto) 0.0 10^3/uL (0.0-0.8) 05/30/22 04:30 Baso # (Auto) 0.0 10^3/uL (0.0-0.1) 05/30/22 04:30 Nucleated RBC % (auto) 0 % 05/30/22 04:30 Total Counted 100 (0-100) 05/27/22 02:11 Atypical Lymphs % 0.0 % (0-5) 05/27/22 02:11 Absolute Neutrophils 6.0 10^3/cmm (1.4-6.5) 05/27/22 02:11 Segmented Neutrophils 85 % 05/27/22 02:11 Abs Segm Neuts (Man) 6.0 10/cmm (1.6-7.1) 05/27/22 02:11 Band Neutrophils 0.0 % 05/27/22 02:11 Abs Band Neuts (Man) 0.0 10^3/cmm (0.0-1.2) 05/27/22 02:11 Absolute Lymphocytes 1.1 10^3/cmm (1.2-3.4) L 05/27/22 02:11 Lymphocytes (Manual) 15 % 05/27/22 02:11 Monocytes (Manual) 0.0 % 05/27/22 02:11 Absolute Monocytes 0.0 10^3/cmm (0.1-0.6) L 05/27/22 02:11 Eosinophils (Manual) 0 % 05/27/22 02:11 Absolute Eosinophils 0.0 10^3/cmm (0.0-0.7) 05/27/22 02:11 Basophils (Manual) 0.0 % 05/27/22 02:11 Absolute Basophils 0.0 10^3/cmm (0.0-0.2) 05/27/22 02:11 Nucleated RBCs # 0.0 /100WBC 05/30/22 04:30 Platelet Estimate Normal (Normal) 05/27/22 02:11 PT 12.90 SECONDS (12.1-14.9) 05/26/22 18:21 INR 0.94 (0.8-1.2) 05/26/22 18:21 APTT 33.5 SECONDS (23.9-36.7) D 05/29/22 16:26 Specimen Type Arterial 05/27/22 04:59 Sample Site Radial, left 05/27/22 04:59 ABG pH 7.39 (7.35-7.45) 05/27/22 04:59 ABG pCO2 58.0 mmHg (35-45) H 05/27/22 04:59 ABG pO2 114.0 mmHg (80.0-100.0) H 05/27/22 04:59 ABG HCO3 34.8 mmol/L (22-26) H 05/27/22 04:59 ABG Base Excess 7.6 mmol/L (-2.0-2.0) H 05/27/22 04:59 Jann Test Pos 05/27/22 04:59 Hematocrit 45.3 % (37-47) 05/27/22 04:59 Hgb O2 Saturation 96.8 % (95-100) 05/26/22 18:30 Carboxyhemoglobin 2.0 %THgb (0.4-20.1) 05/26/22 18:30 Methemoglobin 0.6 % (0.4-1.5) 05/26/22 18:30 Total Hemoglobin 15.4 g/dL (12-16) 05/26/22 18:30 O2 Delivery Device Bipap 05/27/22 04:59 O2 Liters/Min 4.0 % 05/26/22 18:30 FiO2 35.0 % 05/27/22 04:59 PEEP 8.0 cmH20 05/27/22 04:59 Special Education Coordinator ID [email or web address] 05/27/22 04:59 Sodium 141 mmol/L (136-145) 05/30/22 04:30 Potassium 3.3 mmol/L (3.5-5.1) L 05/30/22 04:30 Chloride 83 mmol/L (98-107) L 05/30/22 04:30 Carbon Dioxide 47 mmol/L (22-29) H* 05/30/22 04:30 Anion Gap 14.3 (5-19) 05/30/22 04:30 BUN 35 mg/dL (8-23) H 05/30/22 04:30 Creatinine 0.7 mg/dL (0.5-0.9) 05/30/22 04:30 GFR Calculation 84.0 mL/min (90-130) L 05/30/22 04:30 Glucose 174 mg/dL (65-115) H 05/30/22 04:30 Calculated Osmolality 304 mOsm/kg (285-295) H 05/30/22 04:30 Lactic Acid 2.2 mmol/L (0.5-2.2) 05/26/22 18:32 Lactic Acid (Sepsis) 2.1 mmol/L (0.5-2.2) 05/26/22 21:00 Calcium 9.8 mg/dL (8.5-10.5) 05/30/22 04:30 Phosphorus 4.8 mg/dL (2.5-4.5) H 05/30/22 04:30 Magnesium 2.3 mg/dL (1.7-2.3) 05/30/22 04:30 Total Bilirubin 0.4 mg/dL (0.15-1.2) 05/30/22 04:30 AST 25 U/L (0-32) 05/30/22 04:30 ALT 12 U/L (0-33) 05/30/22 04:30 Alkaline Phosphatase 87 U/L (35-105) 05/30/22 04:30 Troponin T Baseline 216 ng/L (0-10) H* 05/26/22 18:32 Troponin T 120 Minute 223.1 ng/L (0-10) H 05/26/22 21:00 Delta Troponin T 7.1 ABS# (0-10) 05/26/22 21:00 Troponin T Hi Sens 6Hr 172.7 ng/L (0-10) H 05/27/22 02:11 Troponin T Hi Sens 6Hr Delta -43.3 ng/L (0-12) L 05/27/22 02:11 C-Reactive Protein 3.0 mg/L (0.0-4.9) 05/30/22 04:30 NT-Pro-B Natriuret Pep 8336 pg/mL (0-125) H 05/30/22 04:30 Total Protein 7.3 g/dL (6.6-8.7) 05/30/22 04:30 Albumin 4.2 g/dL (3.5-5.2) 05/30/22 04:30 Globulin 3.1 g/dL (1.3-4.6) 05/30/22 04:30 Procalcitonin 0.07 ng/mL (0-0.5) 05/30/22 04:30 Urine Color Rand (Yellow) 05/28/22 07:45 Urine Appearance Turbid (CLEAR) A 05/28/22 07:45 Urine pH 6 (5-7) 05/28/22 07:45 Ur Specific Saxon 1.020 (1.005-1.030) 05/28/22 07:45 Urine Protein 1+ (Negative) H 05/28/22 07:45 Urine Glucose (UA) Norm (Normal) 05/28/22 07:45 Urine Ketones 1+ (Negative) H 05/28/22 07:45 Urine Blood 3+ (Negative) H 05/28/22 07:45 Urine Nitrate Negative (Negative) 05/28/22 07:45 Urine Bilirubin Neg (Negative) 05/28/22 07:45 Urine Urobilinogen Norm mg/dL (Negative) 05/28/22 07:45 Ur Leukocyte Esterase 2+ (Negative) H 05/28/22 07:45 Urine RBC >100 /hpf (0-2) H 05/28/22 07:45 Urine WBC 10-15 /hpf (0-5) H 05/28/22 07:45 Ur Squamous Epith Cells 0-4 /hpf (0-5) H 05/28/22 07:45 Amorphous Sediment Not Reportable 05/28/22 07:45 Urine Bacteria Trace /hpf (NONE) 05/28/22 07:45 Urine Mucus 4+ /hpf 05/28/22 07:45 Nasal Influ A H1 2008 PCR Not detected (NOT DETECT) 05/26/22 19:10 Adenovirus (PCR) Not detected (NOT DETECT) 05/26/22 19:10 C. pneumoniae DNA (PCR) Not detected (NOT DETECT) 05/26/22 19:10 Coronavirus 229E (PCR) Not detected (NOT DETECT) 05/26/22 19:10 Human Metapneumovir PCR Not detected (NOT DETECT) 05/26/22 19:10 Influenza A (H1) PCR Not detected (NOT DETECT) 05/26/22 19:10 Influenza A (H3) PCR Not detected (NOT DETECT) 05/26/22 19:10 Influenza Type A (PCR) Not detected (NOT DETECT) 05/26/22 19:10 Influenza Type B (PCR) Not detected (NOT DETECT) 05/26/22 19:10 M. pneumoniae (PCR) Not detected (NOT DETECT) 05/26/22 19:10 Parainfluenza 1 (PCR) Not detected (NOT DETECT) 05/26/22 19:10 Parainfluenza 2 (PCR) Not detected (NOT DETECT) 05/26/22 19:10 Parainfluenza 3 (PCR) Not detected (NOT DETECT) 05/26/22 19:10 Parainfluenza 4 (PCR) Not detected (NOT DETECT) 05/26/22 19:10 RSV Type A (PCR) Not detected (NOT DETECT) 05/26/22 19:10 RSV Type B (PCR) Not detected (NOT DETECT) 05/26/22 19:10 Entero/Rhino (PCR) Not detected (NOT DETECT) 05/26/22 19:10 SARS-CoV-2 (PCR) Not detected (NOT DETECT) 05/26/22 19:10 Micro: Microbiology 05/27/22 17:00 Gram Stain - Final Sputum - Expectorated Sputum Sputum Culture - Final 05/28/22 07:45 Urine Culture - Final Urine,Clean Catch 05/27/22 Unknown Bacterial Antigens - Final Urine,Voided A&P Assessment and plan (1) Acute non-ST elevation myocardial infarction (NSTEMI): Continue Plavix and aspirin (2) Cardiomyopathy: IV Lasix as needed. Continue losartan. I may add spironolactone 25 mg p.o. daily to the current regimen. Lasix 20 mg p.o. daily (3) Acute exacerbation of chronic obstructive airways disease: Continue the management as per the primary attending (4) Nicotine dependence, cigarettes, uncomplicated: Patient strongly advised to quit smoking. Cardiovascular implications were discussed. (5) History of supraventricular tachycardia: Patient apparently had RF ablation in the past. She seems to have no recurrence of SVT. May continue on the current management. (6) Hyperlipidemia, unspecified: Continue on the current dose of the statin Qualifiers: Hyperlipidemia type: unspecified Qualified Code(s): E78.5 - Hyperlipidemia, unspecified Plan The other problems are Mild anemia Bipolar disorder GERD ? History of TIA May consider cardiac catheterization on Tuesday or Tuesday, decision will be based on the respiratory status. Lasix 20 mg p.o. daily Potassium 10 mEq p.o. daily Spironolactone 25 mg p.o. daily Attestations Medical Necessity Statement*: Patient requires continued hospital stay for close monitoring and further management Coding Level of Care Code 41534 Diagnoses Acute non-ST elevation myocardial infarction (NSTEMI) I21.4 Cardiomyopathy I42.9 Acute exacerbation of chronic obstructive airways disease J44.1 Nicotine dependence, cigarettes, uncomplicated F17.210 History of supraventricular tachycardia Z86.79 Hyperlipidemia, unspecified E78.5 Hyperlipidemia type: unspecified
[2022-05-30] MEDS: potassium chloride ER 20 mEq Tablet PO (12:53)
[2022-05-30] MEDS: levalbuterol 0.63 mg/3 mL Neb INHALATION ×2 (13:26→20:14)
[2022-05-30] MEDS: cefTRIAXone 1,000 MG in sodium chloride 0.9% (plus) 50 ML 100 MG IV (14:05)
--- NOTE | 2022-05-30 17:25 | PM.PN ---
Subjective Subjective: Patient was seen this morning, she feels a lot better, she is less short of breath, she feels a lot better, her family is at bedside, denies any fevers, no chills Vitals/I&O/Wt Last Vital Signs Temp 97.7 F 05/30/22 16:00 Pulse 110 H 05/30/22 16:00 Resp 18 05/30/22 16:00 BP 89/61 05/30/22 16:00 Pulse Ox 96 05/30/22 16:00 O2 Del Method 05/30/22 16:00 O2 Flow Rate 3 05/30/22 16:00 FiO2 35 05/30/22 12:00 05/30/22 05/30/22 05/30/22 06:59 14:59 22:59 Intake Total 340 / 340 Output Total Balance 340 / 340 Weight last 48 hrs Weight 58.74 kg Weight 58.196 kg Physical Exam Const: COMMON NORMALS: no acute distress and patient oriented x3 Resp: COMMON NORMALS: normal respiratory effort, No retractions and No use of accessory muscles AUSCULTATION: crackles and wheezes OTHER: barrel chested Cardio: COMMON NORMALS: regular rate, regular rhythm, S1 normal heart sound present and S2 normal heart sound present RATE: regular rate RHYTHM: regular rhythm HEART SOUNDS: S1 normal heart sound present and S2 normal heart sound present GI: COMMON NORMALS: Normal to inspection, nondistended, normoactive bowel sounds present and non-tender Extremity: COMMON NORMALS: no pedal edema Neuro: COMMON NORMALS: patient oriented x3 Psych: COMMON NORMALS: mental status grossly normal Urinary Catheter Management: Dave: Cath Placed During This Visit: yes Reason for Continuing Indwelling Catheter: Accurate Measurement of Urinary Output in Critically Ill Patients Urinary Catheter Date of Insertion: 05/27/22 Urinary Catheter Time of Insertion: 09:11 Data 05/30/22 04:30 05/30/22 04:30 Micro: Microbiology 05/27/22 17:00 Gram Stain - Final Sputum - Expectorated Sputum Sputum Culture - Final 05/28/22 07:45 Urine Culture - Final Urine,Clean Catch 05/27/22 Unknown Bacterial Antigens - Final Urine,Voided A&P Assessment and plan (1) Acute non-ST elevation myocardial infarction (NSTEMI): (2) Cardiomyopathy: d. (3) Acute exacerbation of chronic obstructive airways disease: (4) Nicotine dependence, cigarettes, uncomplicated: (5) History of supraventricular tachycardia: (6) Hyperlipidemia, unspecified: Qualifiers: Hyperlipidemia type: unspecified Qualified Code(s): E78.5 - Hyperlipidemia, unspecified (7) Acute on chronic respiratory failure with hypoxia and hypercapnia: Secondary to COPD exacerbation. ABG 7.27/77 point 7/153/30 5.7 on 4 L/min supplemental O2. Placed on BiPAP on admission. We will obtain ABG with a.m. labs to ensure that CO2 levels are downtrending. (8) Pneumonia: (9) CHF exacerbation: (10) Ischemic cardiomyopathy: (11) Protein calorie malnutrition: (12) Physical deconditioning: Plan Acute hypoxic respiratory failure -Secondary to COPD -Possible underlying pneumonia -Ischemic cardiomyopathy, CHF diminished ejection fraction -Plan -Monitor cardiac stepdown unit closely -Continue BiPAP therapy -Solu-Medrol 40 IV every 8 hours -Doxycycline 100 every 12 hours -Lasix 40 IV every 12 hours, 1 dose of metolazone today -Due to elevated BUN, will give 2 doses of Diamox -Potassium replacement -Patient is to 2 liters negative since admission -Monitor urine output, monitor creatinine -Monitor respiratory status closely -DNR/DNI -Lovenox for DVT prophylaxis Ischemic cardio myopathy, with diminished ejection fraction -Diuresing as above UTI -UA quite turbid -Continue Rocephin NSTEMI -Possibly supply demand ischemia from respiratory failure from COPD and pneumonia as above -However cannot rule out underlying cardiac etiology -There is also possibility of Takotsubo cardiomyopathy -Serial EKGs, surgical telemetry monitoring -Continue aspirin, statin -Hold off on beta-jrodyn -Has completed 48 hours of therapeutic Lovenox, switch to DVT prophylaxis COPD -Advised to quit smoking -As above Possible pneumonia -CT angiogram of the chest shows bibasilar atelectasis versus infiltrate -Follow blood cultures -Sputum cultures -Receiving doxycycline, Rocephin Systolic CHF ?There was severe diffuse hypokinesia of the left ventricle ?except the basal segments. ? LV ejection fraction was around 25 to 30%. ?Trace tricuspid valve regurgitation. ?There is no pericardial effusion. ?There are no intracardiac masses. ?Compared to the study from 12/06/2019, the ejection fraction has ?dropped from 55 - 60% to? 25-30% -Aspirin, statin -Completed therapeutic Lovenox -Diuresing due to concerns of ischemic cardiomyopathy -Cardiology consulted She was told that she had lung cancer by hospital in [facility] -I reviewed her CAT scans she has a history of pulmonary nodules in the right upper right lower lobe -We will have her follow-up with pulm as outpatient, pulmonary nodules difficult to assess on current CT angiogram Anxiety -Ativan p.o. 0.25 mg every 4 hours as needed Attestations Medical Necessity Statement*: Patient requires position due to acute respiratory failure, NSTEMI, ischemic cardiomyopathy Diagnoses Acute non-ST elevation myocardial infarction (NSTEMI) I21.4 Cardiomyopathy I42.9 Acute exacerbation of chronic obstructive airways disease J44.1 Nicotine dependence, cigarettes, uncomplicated F17.210 History of supraventricular tachycardia Z86.79 Hyperlipidemia, unspecified E78.5 Hyperlipidemia type: unspecified Acute on chronic respiratory failure with hypoxia and hypercapnia J96.21; J96.22 Pneumonia J18.9 CHF exacerbation I50.9 Ischemic cardiomyopathy I25.5 Protein calorie malnutrition E46 Physical deconditioning R53.81
[2022-05-30] MEDS: potassium chloride ER 20 mEq Tablet 40 MEQ PO (18:07)
[2022-05-30] MEDS: ipratropium 0.5 mg/2.5 mL Neb INHALATION (20:14)
[2022-05-30] MEDS: atorvastatin 40 mg Tablet PO (20:47)
[2022-05-31] VITALS (15 sets, daily range): BP systolic 94–117; BP diastolic 71–94; PULSE 89–116; RESP 16–30; TEMP 36.6–37.1; O2SAT 93–97
[2022-05-31 04:17] LABS: Basophils % 0.2 %; Hemoglobin 17.1 g/dL (11.5-15.3); Lymphocytes # 0.9 10^3/uL (0.8-4.8); Lymphocytes % 5.5 %; Mean Corpuscular HGB Conc 35.6 g/dL (30.0-36.0); Mean Corpuscular Hemoglobin 34.1 pg (28.0-34.0); Mean Corpuscular Volume 95.8 fl (81-99); Mean Platelet Volume 9.3 fL (7.4-10.4); Monocytes % 6.1 %; Neutrophils # 14.27 10^3/uL (1.8-7.7); Neutrophils % 87.5 %; Nucleated Red Blood Cells % 0 %; Platelet Count 420 10^3/cmm (130-400); Red Blood Count 5.01 10^6/uL (4.1-5.3); Red Cell Distribution Width 16.1 % (12.1-15.1); White Blood Count 16.3 10^3/uL (4.0-10.0)
[2022-05-31 04:46] LABS: Blood Urea Nitrogen 55 mg/dL (8-23); Calcium 9.9 mg/dL (8.5-10.5); Chloride 85 mmol/L (98-107); Glomerular Filtration Rate 62.8 mL/min (90-130); Glucose 160 mg/dL (65-115); Magnesium 2.4 mg/dL (1.7-2.3); NT Pro B Type Natriuretic Pept 6205 pg/mL (0-125); Osmolality Calculated 305 mOsm/kg (285-295); Sodium 138 mmol/L (136-145)
[2022-05-31 04:48] LABS: Anion Gap 14.9 (5-19); Potassium 3.9 mmol/L (3.5-5.1)
[2022-05-31 04:58] LABS: Carbon Dioxide 42 mmol/L (22-29)
--- NOTE | 2022-05-31 08:33 | P.PN_ITS ---
Subjective Subjective: The patient is feeling better today. She is slowly started ambulating on telemetry. Denies any chest pain. She is back to 3 L of oxygen by nasal cannula. The oxygen saturation in the mid 90s. No fever or chills. Medications: Medication Review Details: Current Medications Acetaminophen (Acetaminophen 325 Mg Tablet) 650 mg PO Q6H PRN PRN Reason: Mild/Mod Pain Or Temp >/= 101 Albuterol Sulfate (Albuterol 2.5 Mg/3 Ml Neb) 2.5 mg INHALATION Q4H.RESPIRATORY PRN PRN Reason: wheezing Last Admin: 05/28/22 03:39 Dose: 2.5 mg Aspirin (Aspirin 81 Mg Ec Tablet) 81 mg PO DAILY OBIE Last Admin: 05/30/22 09:23 Dose: 81 mg Atorvastatin Calcium (Atorvastatin 40 Mg Tablet) 40 mg PO BEDTIME OBIE Last Admin: 05/30/22 20:47 Dose: 40 mg Benzonatate (Benzonatate 100 Mg Capsule) 200 mg PO TID PRN PRN Reason: cough Last Admin: 05/30/22 09:29 Dose: 200 mg Budesonide (Budesonide 0.5 Mg/2 Ml Neb) 0.5 mg INHALATION BID.RESPIRATORY OBIE Last Admin: 05/30/22 20:14 Dose: 0.5 mg Citalopram Hydrobromide (Citalopram 20 Mg Tablet) 10 mg PO DAILY OBIE Last Admin: 05/30/22 09:25 Dose: 10 mg Enoxaparin Sodium (Enoxaparin 40 Mg/0.4 Ml Syringe) 40 mg SUBCUT Q24H OBIE Fenofibrate (Fenofibrate 145 Mg Tablet) 145 mg PO DAILY OBIE Last Admin: 05/30/22 09:23 Dose: 145 mg Furosemide (Furosemide 20 Mg Tablet) 20 mg PO DAILY@0800 OBIE Guaifenesin (Guaifenesin 600 Mg Tablet) 600 mg PO BID OBIE Last Admin: 05/30/22 18:07 Dose: 600 mg Doxycycline Hyclate 100 mg/ (Sodium Chloride) 100 mls @ 100 mls/hr IV Q12H OBIE; Protocol Last Infusion: 05/30/22 21:55 Dose: Infused Ceftriaxone Sodium 1,000 mg/ (Sodium Chloride) 50 mls @ 100 mls/hr IV Q24H OBIE; Protocol Last Infusion: 05/30/22 19:52 Dose: Infused Ipratropium [place] (Ipratropium 0.5 Mg/2.5 Ml Neb) 0.5 mg INHALATION Q6H [facility] Last Admin: 05/31/22 02:08 Dose: Not Given Levalbuterol HCl (Levalbuterol 0.63 Mg/3 Ml Neb) 0.63 mg INHALATION Q6H.RESP [facility] Last Admin: 05/31/22 02:08 Dose: Not Given Lorazepam (Lorazepam 0.5 Mg Tablet) 0.25 mg PO Q6H PRN 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 Last Admin: 05/30/22 21:13 Dose: 0.25 mg Losartan Potassium (Losartan 50 Mg Tablet) 25 mg PO DAILY [facility] Last Admin: 05/30/22 09:31 Dose: 25 mg Methylprednisolone Sodium Succinate (Methylprednisolone Sod Succ 125 Mg/2 Ml Inj) 60 mg IVP Q6H [facility] Last Admin: 05/31/22 03:34 Dose: 60 mg Montelukast Sodium (Montelukast Sodium 10 Mg Tablet) 10 mg PO DAILY [facility] Last Admin: 05/30/22 09:24 Dose: 10 mg Morphine Sulfate (Morphine 4 Mg/Ml Sdv 1 Ml) 1 mg IVP Q4H PRN PRN Reason: SEVERE PAIN Naloxone HCl (Naloxone 0.4 Mg/Ml Sdv) 0.1 mg IVP Q2M PRN PRN Reason: OPIATERV Ondansetron HCl (Ondansetron 2 Mg/Ml Sdv 2 Ml) 4 mg IVP Q8H PRN PRN Reason: vomiting, or N/V if npo Pantoprazole Sodium (Pantoprazole Dr 40 Mg Tablet) 40 mg PO DAILY [facility] Last Admin: 05/30/22 09:23 Dose: 40 mg Potassium Chloride (Potassium Chloride Er 10 Meq Tablet) 10 meq PO DAILY [facility] Spironolactone (Spironolactone 25 Mg Tablet) 25 mg PO DAILY [facility] Vitals/I&O/Wt Last Vital Signs Temp 98.1 F 05/31/22 03:34 Pulse 95 05/31/22 07:39 Resp 18 05/31/22 07:39 BP 110/71 05/31/22 07:39 Pulse Ox 97 05/31/22 07:39 O2 Del Method 05/31/22 07:39 O2 Flow Rate 3 05/31/22 03:34 FiO2 35 05/30/22 12:00 05/30/22 05/31/22 05/31/22 22:59 06:59 14:59 Intake Total 375 / 715 Output Total 1000 / 1000 750 / 1750 Balance -625 / -285 -750 / -1035 Weight last 48 hrs Weight 129 lb 8 oz Physical Exam Narrative: GENERAL: The patient is alert and oriented times three. Not in any acute distress. Small frame, emphysematous chest HEENT: No significant pallor, icterus or lymphadenopathy.Oral cavity: There are no mucous membrane lesions. NECK: Trachea appears to be central. No masses noted. No JVD or thyromegaly appreciated. RESPIRATORY: Breath sounds are bilaterally with a diminished intensity breath sounds in the bases. No evidence of consolidation. BREASTS: Deferred. HEART: The heart sounds are normal. No S3 or S4. No significant murmurs. No pericardial rub ABDOMEN: No vessel pulsations or distention. No tenderness. No organomegaly appreciated. Bowel sounds are normally heard. : Deferred. RECTAL: Deferred. LYMPHATIC: No lymphadenopathy noted in the neck. EXTREMITIES: The radial pulses are palpable but weak bilaterally MUSCULOSKELETAL: No acute joint deformities or swelling SKIN: There are no significant rashes or ecchymosis NEUROPSYCHIATRIC: The patient is alert and oriented x3. Appears to be in a good mood. No tremors or rigidity noted. Urinary Catheter Management: Dave: Cath Placed During This Visit: yes Reason for Continuing Indwelling Catheter: Acute Urinary Retention or Obstruction Urinary Catheter Date of Insertion: 05/27/22 Urinary Catheter Time of Insertion: 09:11 Data 05/31/22 03:56 05/31/22 03:56 Other Labs: Laboratory Last Values WBC 16.3 10^3/uL (4.0-10.0) H 05/31/22 03:56 RBC 5.01 10^6/uL (4.1-5.3) 05/31/22 03:56 Hgb 17.1 g/dL (11.5-15.3) H 05/31/22 03:56 Hct 48.0 % (37.0-47.0) H 05/31/22 03:56 MCV 95.8 fl (81-99) D 05/31/22 03:56 MCH 34.1 pg (28.0-34.0) H D 05/31/22 03:56 MCHC 35.6 g/dL (30.0-36.0) D 05/31/22 03:56 RDW 16.1 % (12.1-15.1) H 05/31/22 03:56 Plt Count 420 10^3/cmm (130-400) H 05/31/22 03:56 MPV 9.3 fL (7.4-10.4) 05/31/22 03:56 Neut % (Auto) 87.5 % 05/31/22 03:56 Lymph % (Auto) 5.5 % 05/31/22 03:56 [place] % (Auto) 6.1 % 05/31/22 03:56 Eos % (Auto) 0.0 % 05/31/22 03:56 Baso % (Auto) 0.2 % 05/31/22 03:56 Neut # (Auto) 14.27 10^3/uL (1.8-7.7) H 05/31/22 03:56 Lymph # (Auto) 0.9 10^3/uL (0.8-4.8) 05/31/22 03:56 [place] # (Auto) 1.0 10^3/uL (0.2-0.9) H 05/31/22 03:56 Eos # (Auto) 0.0 10^3/uL (0.0-0.8) 05/31/22 03:56 Baso # (Auto) 0.0 10^3/uL (0.0-0.1) 05/31/22 03:56 Nucleated RBC % (auto) 0 % 05/31/22 03:56 Total Counted 100 (0-100) 05/27/22 02:11 Atypical Lymphs % 0.0 % (0-5) 05/27/22 02:11 Absolute Neutrophils 6.0 10^3/cmm (1.4-6.5) 05/27/22 02:11 Segmented Neutrophils 85 % 05/27/22 02:11 Abs Segm Neuts (Man) 6.0 10/cmm (1.6-7.1) 05/27/22 02:11 Band Neutrophils 0.0 % 05/27/22 02:11 Abs Band Neuts (Man) 0.0 10^3/cmm (0.0-1.2) 05/27/22 02:11 Absolute Lymphocytes 1.1 10^3/cmm (1.2-3.4) L 05/27/22 02:11 Lymphocytes (Manual) 15 % 05/27/22 02:11 Monocytes (Manual) 0.0 % 05/27/22 02:11 Absolute Monocytes 0.0 10^3/cmm (0.1-0.6) L 05/27/22 02:11 Eosinophils (Manual) 0 % 05/27/22 02:11 Absolute Eosinophils 0.0 10^3/cmm (0.0-0.7) 05/27/22 02:11 Basophils (Manual) 0.0 % 05/27/22 02:11 Absolute Basophils 0.0 10^3/cmm (0.0-0.2) 05/27/22 02:11 Nucleated RBCs # 0.0 /100WBC 05/31/22 03:56 Platelet Estimate Normal (Normal) 05/27/22 02:11 PT 12.90 SECONDS (12.1-14.9) 05/26/22 18:21 INR 0.94 (0.8-1.2) 05/26/22 18:21 APTT 33.5 SECONDS (23.9-36.7) D 05/29/22 16:26 Specimen Type Arterial 05/27/22 04:59 Sample Site Radial, left 05/27/22 04:59 ABG pH 7.39 (7.35-7.45) 05/27/22 04:59 ABG pCO2 58.0 mmHg (35-45) H 05/27/22 04:59 ABG pO2 114.0 mmHg (80.0-100.0) H 05/27/22 04:59 ABG HCO3 34.8 mmol/L (22-26) H 05/27/22 04:59 ABG Base Excess 7.6 mmol/L (-2.0-2.0) H 05/27/22 04:59 Jann Test Pos 05/27/22 04:59 Hematocrit 45.3 % (37-47) 05/27/22 04:59 Hgb O2 Saturation 96.8 % (95-100) 05/26/22 18:30 Carboxyhemoglobin 2.0 %THgb (0.4-20.1) 05/26/22 18:30 Methemoglobin 0.6 % (0.4-1.5) 05/26/22 18:30 Total Hemoglobin 15.4 g/dL (12-16) 05/26/22 18:30 O2 Delivery Device Bipap 05/27/22 04:59 O2 Liters/Min 4.0 % 05/26/22 18:30 FiO2 35.0 % 05/27/22 04:59 PEEP 8.0 cmH20 05/27/22 04:59 Smt Operator ID [email or web address] 05/27/22 04:59 Sodium 138 mmol/L (136-145) 05/31/22 03:56 Potassium 3.9 mmol/L (3.5-5.1) 05/31/22 03:56 Chloride 85 mmol/L (98-107) L 05/31/22 03:56 Carbon Dioxide 42 mmol/L (22-29) H* 05/31/22 03:56 Anion Gap 14.9 (5-19) 05/31/22 03:56 BUN 55 mg/dL (8-23) H 05/31/22 03:56 Creatinine 0.9 mg/dL (0.5-0.9) 05/31/22 03:56 GFR Calculation 62.8 mL/min (90-130) L 05/31/22 03:56 Glucose 160 mg/dL (65-115) H 05/31/22 03:56 Calculated Osmolality 305 mOsm/kg (285-295) H 05/31/22 03:56 Lactic Acid 2.2 mmol/L (0.5-2.2) 05/26/22 18:32 Lactic Acid (Sepsis) 2.1 mmol/L (0.5-2.2) 05/26/22 21:00 Calcium 9.9 mg/dL (8.5-10.5) 05/31/22 03:56 Phosphorus 4.8 mg/dL (2.5-4.5) H 05/30/22 04:30 Magnesium 2.4 mg/dL (1.7-2.3) H 05/31/22 03:56 Total Bilirubin 0.4 mg/dL (0.15-1.2) 05/30/22 04:30 AST 25 U/L (0-32) 05/30/22 04:30 ALT 12 U/L (0-33) 05/30/22 04:30 Alkaline Phosphatase 87 U/L (35-105) 05/30/22 04:30 Troponin T Baseline 216 ng/L (0-10) H* 05/26/22 18:32 Troponin T 120 Minute 223.1 ng/L (0-10) H 05/26/22 21:00 Delta Troponin T 7.1 ABS# (0-10) 05/26/22 21:00 Troponin T Hi Sens 6Hr 172.7 ng/L (0-10) H 05/27/22 02:11 Troponin T Hi Sens 6Hr Delta -43.3 ng/L (0-12) L 05/27/22 02:11 C-Reactive Protein 3.0 mg/L (0.0-4.9) 05/30/22 04:30 NT-Pro-B Natriuret Pep 6205 pg/mL (0-125) H 05/31/22 03:56 Total Protein 7.3 g/dL (6.6-8.7) 05/30/22 04:30 Albumin 4.2 g/dL (3.5-5.2) 05/30/22 04:30 Globulin 3.1 g/dL (1.3-4.6) 05/30/22 04:30 Procalcitonin 0.07 ng/mL (0-0.5) 05/30/22 04:30 Urine Color Rand (Yellow) 05/28/22 07:45 Urine Appearance Turbid (CLEAR) A 05/28/22 07:45 Urine pH 6 (5-7) 05/28/22 07:45 Ur Specific [place] 1.020 (1.005-1.030) 05/28/22 07:45 Urine Protein 1+ (Negative) H 05/28/22 07:45 Urine Glucose (UA) Norm (Normal) 05/28/22 07:45 Urine Ketones 1+ (Negative) H 05/28/22 07:45 Urine Blood 3+ (Negative) H 05/28/22 07:45 Urine Nitrate Negative (Negative) 05/28/22 07:45 Urine Bilirubin Neg (Negative) 05/28/22 07:45 Urine Urobilinogen Norm mg/dL (Negative) 05/28/22 07:45 Ur Leukocyte Esterase 2+ (Negative) H 05/28/22 07:45 Urine RBC >100 /hpf (0-2) H 05/28/22 07:45 Urine WBC 10-15 /hpf (0-5) H 05/28/22 07:45 Ur Squamous Epith Cells 0-4 /hpf (0-5) H 05/28/22 07:45 Amorphous Sediment Not Reportable 05/28/22 07:45 Urine Bacteria Trace /hpf (NONE) 05/28/22 07:45 Urine Mucus 4+ /hpf 05/28/22 07:45 Nasal Influ A H1 2009 PCR Not detected (NOT DETECT) 05/26/22 19:10 Adenovirus (PCR) Not detected (NOT DETECT) 05/26/22 19:10 C. pneumoniae DNA (PCR) Not detected (NOT DETECT) 05/26/22 19:10 Coronavirus 229E (PCR) Not detected (NOT DETECT) 05/26/22 19:10 Human Metapneumovir PCR Not detected (NOT DETECT) 05/26/22 19:10 Influenza A (H1) PCR Not detected (NOT DETECT) 05/26/22 19:10 Influenza A (H3) PCR Not detected (NOT DETECT) 05/26/22 19:10 Influenza Type A (PCR) Not detected (NOT DETECT) 05/26/22 19:10 Influenza Type B (PCR) Not detected (NOT DETECT) 05/26/22 19:10 M. pneumoniae (PCR) Not detected (NOT DETECT) 05/26/22 19:10 Parainfluenza 1 (PCR) Not detected (NOT DETECT) 05/26/22 19:10 Parainfluenza 2 (PCR) Not detected (NOT DETECT) 05/26/22 19:10 Parainfluenza 3 (PCR) Not detected (NOT DETECT) 05/26/22 19:10 Parainfluenza 4 (PCR) Not detected (NOT DETECT) 05/26/22 19:10 RSV Type A (PCR) Not detected (NOT DETECT) 05/26/22 19:10 RSV Type B (PCR) Not detected (NOT DETECT) 05/26/22 19:10 Entero/Rhino (PCR) Not detected (NOT DETECT) 05/26/22 19:10 SARS-CoV-2 (PCR) Not detected (NOT DETECT) 05/26/22 19:10 Micro: Microbiology 05/27/22 17:00 Gram Stain - Final Sputum - Expectorated Sputum Sputum Culture - Final 05/28/22 07:45 Urine Culture - Final Urine,Clean Catch A&P Assessment and plan (1) Acute non-ST elevation myocardial infarction (NSTEMI): Continue Plavix and aspirin and other current medications. To further evaluate the coronary status based on the results of the above tests, and patient's clinical progress, further recommendations will be made. Requires a cardiac catheterization. The risk and benefits were discussed with the patient and her daughter in detail. The risk of bleeding, hematoma, vascular injury, myocardial infarction, myocardial perforation, malignant cardiac arrhythmias ,CVA, renal failure and other concomitant complications were explained in detail. Patient and her daughter understood this well and consented to proceed. (2) Cardiomyopathy: Patient may continue on the current medications. Continue the losartan, Lasix, spironolactone and other symptomatic measures (3) Acute exacerbation of chronic obstructive airways disease: Continue the management as per the primary attending (4) Nicotine dependence, cigarettes, uncomplicated: Patient strongly advised to quit smoking. Cardiovascular implications were discussed. (5) History of supraventricular tachycardia: Patient apparently had RF ablation in the past. She seems to have no recurrence of SVT. May continue on the current management. (6) Hyperlipidemia, unspecified: Continue on the current dose of the statin Qualifiers: Hyperlipidemia type: unspecified Qualified Code(s): E78.5 - Hyperlipidemia, unspecified Plan The other problems are Mild anemia Bipolar disorder GERD ? History of TIA We may go ahead and do schedule for the cardiac catheterization in the morning. We will keep n.p.o. after midnight. Patient the angiogram findings, further recommendations will be made Attestations Medical Necessity Statement*: Patient requires continued hospital stay for close monitoring and further management Coding Level of Care Code 71285 Diagnoses Acute non-ST elevation myocardial infarction (NSTEMI) I21.4 Cardiomyopathy I42.9 Acute exacerbation of chronic obstructive airways disease J44.1 Nicotine dependence, cigarettes, uncomplicated F17.210 History of supraventricular tachycardia Z86.79 Hyperlipidemia, unspecified E78.5 Hyperlipidemia type: unspecified
[2022-05-31] MEDS: levalbuterol 0.63 mg/3 mL Neb INHALATION ×3 (08:45→19:50)
[2022-05-31] MEDS: budesonide 0.5 mg/2 mL Neb INHALATION ×2 (08:46→19:50)
[2022-05-31] MEDS: ipratropium 0.5 mg/2.5 mL Neb INHALATION ×3 (08:48→19:50)
[2022-05-31] MEDS: guaiFENesin 600 mg Tablet PO ×2 (08:53→17:47)
[2022-05-31] MEDS: montelukast sodium 10 mg Tablet PO (08:53)
[2022-05-31] MEDS: enoxaparin 40 mg/0.4 mL Syringe SUBCUT (08:53)
[2022-05-31] MEDS: losartan 50 mg Tablet 25 MG PO (08:53)
[2022-05-31] MEDS: fenofibrate 145 mg Tablet PO (08:53)
[2022-05-31] MEDS: citalopram 20 mg Tablet 10 MG PO (08:53)
[2022-05-31] MEDS: FUROsemide 20 mg Tablet PO (08:54)
[2022-05-31] MEDS: potassium chloride ER 10 mEq Tablet PO (08:54)
[2022-05-31] MEDS: pantoprazole DR 40 mg Tablet PO (08:54)
[2022-05-31] MEDS: spironolactone 25 mg Tablet PO (08:54)
[2022-05-31] MEDS: aspirin 81 mg EC Tablet PO (08:54)
--- NOTE | 2022-05-31 08:55 | PC.SOCIAL ---
IMM update IMM updated with patient. Copy Pg 2 provided. Verbalized an understanding. Initialled, dated, timed, and placed in chart.
[2022-05-31] MEDS: doxycycline 100 MG in sodium chloride 0.9% (plus) 100 ML IV ×2 (08:57→20:22)
--- NOTE | 2022-05-31 12:08 | PM.PN ---
Subjective Subjective: Seen this morning. On 3 L nasal cannula which is her baseline. Reportedly she says she feels a lot better compared to before. Not quite back to baseline yet. She was seen in the presence of cardiology. Dr. Tyler spoke to her daughter on speaker who consented for angiogram. Femoral approach will probably have to be used and all risks were explained to the daughter on the phone. Tentative plan is for tomorrow. Patient is improving. Vitals/I&O/Wt Last Vital Signs Temp 97.8 F 05/31/22 11:08 Pulse 113 H 05/31/22 11:08 Resp 20 H 05/31/22 11:08 BP 94/76 05/31/22 11:08 Pulse Ox 96 05/31/22 08:48 O2 Del Method 05/31/22 08:48 O2 Flow Rate 3 05/31/22 08:48 FiO2 35 05/31/22 08:00 05/30/22 05/31/22 05/31/22 22:59 06:59 14:59 Intake Total 375 / 715 460 / 460 Output Total 1000 / 1000 750 / 1750 Balance -625 / -285 -750 / -1035 460 / 460 Weight last 48 hrs Weight 58.74 kg Physical Exam Narrative: General: Alert oriented x3, patient seen sitting up in bed on 3 L nasal cannula, frail appearing HEENT: Normocephalic, atraumatic, EOMI, breathing comfortably. Cardio: Regular rate rhythm, normal S1-S2, no gross murmurs noted. Respiratory: Fair bilateral air entry, no wheezes no rhonchi, diminished at bases. No crackles appreciated. Normal respiratory effort. No accessory muscle use. GI: Abdomen soft, nontender, nondistended, bowel sounds + Behavior: Appropriate and cooperative Extremities:no edema, no cyanosis Urinary Catheter Management: Dave: Cath Placed During This Visit: yes Reason for Continuing Indwelling Catheter: Acute Urinary Retention or Obstruction Urinary Catheter Date of Insertion: 05/27/22 Urinary Catheter Time of Insertion: 09:11 Data 05/31/22 03:56 05/31/22 03:56 Micro: Microbiology 05/27/22 17:00 Gram Stain - Final Sputum - Expectorated Sputum Sputum Culture - Final 05/28/22 07:45 Urine Culture - Final Urine,Clean Catch A&P Assessment and plan (1) Acute non-ST elevation myocardial infarction (NSTEMI): (2) Cardiomyopathy: d. (3) Acute exacerbation of chronic obstructive airways disease: (4) Nicotine dependence, cigarettes, uncomplicated: (5) History of supraventricular tachycardia: (6) Hyperlipidemia, unspecified: Qualifiers: Hyperlipidemia type: unspecified Qualified Code(s): E78.5 - Hyperlipidemia, unspecified (7) Acute on chronic respiratory failure with hypoxia and hypercapnia: Secondary to COPD exacerbation. ABG 7.27/77 point 7153/30 5.7 on 4 L/min supplemental O2. Placed on BiPAP on admission. We will obtain ABG with a.m. labs to ensure that CO2 levels are downtrending. Repeat 05/27/2022 showed pH 7.3 9/114/30 4.8. Improved. (8) Pneumonia: (9) CHF exacerbation: (10) Ischemic cardiomyopathy: (11) Protein calorie malnutrition: (12) Physical deconditioning: Plan Acute hypoxic respiratory failure -Secondary to COPD -Possible underlying pneumonia -Ischemic cardiomyopathy, CHF diminished ejection fraction -Plan -?Continue BiPAP as needed. -Solu-Medrol 40 IV every 12 hours -Doxycycline 100 every 12 hours -Lasix 20 po -She is -3 L since admission. -Potassium replacement -Monitor urine output, monitor creatinine -Monitor respiratory status closely -DNR/DNI -Lovenox for DVT prophylaxis UTI -UA quite turbid -Continue Rocephin NSTEMI Acute systolic congestive heart failure, Ischemic cardiomyopathy with diminished ejection fraction -Possibly supply demand ischemia from respiratory failure from COPD and pneumonia as above -However cannot rule out underlying cardiac etiology -There is also possibility of Takotsubo cardiomyopathy -Serial EKGs, surgical telemetry monitoring -Continue aspirin, statin -Hold off on beta-jordyn -Has completed 48 hours of therapeutic Lovenox, switch to DVT prophylaxis -Echo showed EF 25 to 30% with hypokinesia of left ventricle. -Plan for angiogram in AM. Cardiology consulted and on board. Possible pneumonia -CT angiogram of the chest shows bibasilar atelectasis versus infiltrate -Follow blood cultures -Sputum cultures -Receiving doxycycline, Rocephin She was told that she had lung cancer by hospital in [facility] -I reviewed her CAT scans she has a history of pulmonary nodules in the right upper right lower lobe -We will have her follow-up with pulm as outpatient, pulmonary nodules difficult to assess on current CT angiogram Anxiety -Ativan p.o. 0.25 mg every 4 hours as needed DNR/DNI N.p.o. at midnight today for angiogram in a.m. Attestations Medical Necessity Statement*: Angiogram in a.m. Diagnoses Acute non-ST elevation myocardial infarction (NSTEMI) I21.4 Cardiomyopathy I42.9 Acute exacerbation of chronic obstructive airways disease J44.1 Nicotine dependence, cigarettes, uncomplicated F17.210 History of supraventricular tachycardia Z86.79 Hyperlipidemia, unspecified E78.5 Hyperlipidemia type: unspecified Acute on chronic respiratory failure with hypoxia and hypercapnia J96.21; J96.22 Pneumonia J18.9 CHF exacerbation I50.9 Ischemic cardiomyopathy I25.5 Protein calorie malnutrition E46 Physical deconditioning R53.81
[2022-05-31] MEDS: cefTRIAXone 1,000 MG in sodium chloride 0.9% (plus) 50 ML 100 MG IV (15:32)
--- NOTE | 2022-05-31 18:29 | PC.NURSE ---
Patient arrived to floor AAOx4, remains in a-fib with RVR and pressures soft. Son at bedside, patient lethargic and c/o pain. BLE inflamed and edemitis. Excoriated under all patients folds, meds per MAR administered. Patients BP dropped to 40s/30s and physician notified with orders placed. Patient resting currently, room clean and clutter free with call light in reach.
[2022-05-31] MEDS: atorvastatin 40 mg Tablet PO (20:20)
[2022-05-31] MEDS: clopidogrel 300 mg Tablet PO (20:20)
[2022-06-01] VITALS (13 sets, daily range): BP systolic 101–114; BP diastolic 69–94; PULSE 93–113; RESP 15–30; TEMP 36.6–37; O2SAT 95–98
[2022-06-01 04:05] LABS: Basophils % 0.2 %; Hematocrit 47.6 % (37.0-47.0); Hemoglobin 17.2 g/dL (11.5-15.3); Lymphocytes # 1.3 10^3/uL (0.8-4.8); Lymphocytes % 7.1 %; Mean Corpuscular HGB Conc 36.1 g/dL (30.0-36.0); Mean Corpuscular Hemoglobin 33.9 pg (28.0-34.0); Mean Corpuscular Volume 93.7 fl (81-99); Mean Platelet Volume 9.3 fL (7.4-10.4); Monocytes # 1.3 10^3/uL (0.2-0.9); Monocytes % 7.4 %; Neutrophils # 14.85 10^3/uL (1.8-7.7); Neutrophils % 84.5 %; Nucleated Red Blood Cells % 0 %; Platelet Count 399 10^3/cmm (130-400); Red Blood Count 5.08 10^6/uL (4.1-5.3); Red Cell Distribution Width 16.2 % (12.1-15.1); White Blood Count 17.6 10^3/uL (4.0-10.0)
[2022-06-01 04:21] LABS: Blood Urea Nitrogen 66 mg/dL (8-23); Calcium 9.7 mg/dL (8.5-10.5); Carbon Dioxide 40 mmol/L (22-29); Chloride 85 mmol/L (98-107); Glomerular Filtration Rate 55.6 mL/min (90-130); Glucose 150 mg/dL (65-115); Osmolality Calculated 300 mOsm/kg (285-295); Sodium 134 mmol/L (136-145)
[2022-06-01] MEDS: aspirin 325 mg Tablet PO (07:37)
[2022-06-01] MEDS: diphenhydrAMINE 50 mg Capsule PO (07:37)
[2022-06-01] MEDS: doxycycline 100 MG in sodium chloride 0.9% (plus) 100 ML IV (07:37)
[2022-06-01] MEDS: FUROsemide 20 mg Tablet PO (07:37)
[2022-06-01] MEDS: sodium chloride 0.9% 1,000 ML 50 ML IV (07:43)
--- NOTE | 2022-06-01 07:55 | PM.PN ---
Subjective Subjective: The patient is doing okay. Blood urinating was 65 today. White cell count of 17.6 thousand. She is remaining afebrile. She is still has a baseline shortness of breath with no recent worsening. Medications: Medication Review Details: Current Medications Acetaminophen (Acetaminophen 325 Mg Tablet) 650 mg PO Q6H PRN PRN Reason: Mild/Mod Pain Or Temp >/= 101 Albuterol Sulfate (Albuterol 2.5 Mg/3 Ml Neb) 2.5 mg INHALATION Q4H.RESPIRATORY PRN PRN Reason: wheezing Last Admin: 05/28/22 03:39 Dose: 2.5 mg Aspirin (Aspirin 81 Mg Ec Tablet) 81 mg PO DAILY OBIE Last Admin: 05/31/22 08:54 Dose: 81 mg Atorvastatin Calcium (Atorvastatin 40 Mg Tablet) 40 mg PO BEDTIME OBIE Last Admin: 05/31/22 20:20 Dose: 40 mg Benzonatate (Benzonatate 100 Mg Capsule) 200 mg PO TID PRN PRN Reason: cough Last Admin: 05/30/22 09:29 Dose: 200 mg Budesonide (Budesonide 0.5 Mg/2 Ml Neb) 0.5 mg INHALATION BID.RESPIRATORY OBIE Last Admin: 05/31/22 19:50 Dose: 0.5 mg Citalopram Hydrobromide (Citalopram 20 Mg Tablet) 10 mg PO DAILY OBIE Last Admin: 05/31/22 08:53 Dose: 10 mg Clopidogrel Bisulfate (Clopidogrel 75 Mg Tablet) 75 mg PO DAILY [facility] Enoxaparin Sodium (Enoxaparin 40 Mg/0.4 Ml Syringe) 40 mg SUBCUT Q24H OBIE Last Admin: 05/31/22 08:53 Dose: 40 mg Fenofibrate (Fenofibrate 145 Mg Tablet) 145 mg PO DAILY OBIE Last Admin: 05/31/22 08:53 Dose: 145 mg Furosemide (Furosemide 20 Mg Tablet) 20 mg PO DAILY@0800 OBIE Last Admin: 06/01/22 07:37 Dose: 20 mg Guaifenesin (Guaifenesin 600 Mg Tablet) 600 mg PO BID OBIE Last Admin: 05/31/22 17:47 Dose: 600 mg Doxycycline Hyclate 100 mg/ (Sodium Chloride) 100 mls @ 100 mls/hr IV Q12H OBIE; Protocol Last Admin: 06/01/22 07:37 Dose: 100 mls/hr Ceftriaxone Sodium 1,000 mg/ (Sodium Chloride) 50 mls @ 100 mls/hr IV Q24H [facility]; Protocol Last Infusion: 05/31/22 16:14 Dose: Infused Sodium Chloride (Sodium Chloride 0.9%) 1,000 mls @ 50 mls/hr IV .Q20H ONE Stop: 06/02/22 03:29 Last Admin: 06/01/22 07:43 Dose: 50 mls/hr Ipratropium Revere (Ipratropium 0.5 Mg/2.5 Ml Neb) 0.5 mg INHALATION Q6H [facility] Last Admin: 06/01/22 01:34 Dose: Not Given Levalbuterol HCl (Levalbuterol 0.63 Mg/3 Ml Neb) 0.63 mg INHALATION Q6H.RESP [facility] Last Admin: 06/01/22 01:34 Dose: Not Given Lorazepam (Lorazepam 0.5 Mg Tablet) 0.25 mg PO Q6H PRN 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 Last Admin: 05/30/22 21:13 Dose: 0.25 mg Losartan Potassium (Losartan 50 Mg Tablet) 25 mg PO DAILY [facility] Last Admin: 05/31/22 08:53 Dose: 25 mg Methylprednisolone Sodium Succinate (Methylprednisolone Sod Succ 40 Mg/Ml Inj) 40 mg IVP Q12H [facility] Last Admin: 05/31/22 20:22 Dose: 40 mg Montelukast Sodium (Montelukast Sodium 10 Mg Tablet) 10 mg PO DAILY [facility] Last Admin: 05/31/22 08:53 Dose: 10 mg Morphine Sulfate (Morphine 4 Mg/Ml Sdv 1 Ml) 1 mg IVP Q4H PRN PRN Reason: SEVERE PAIN Naloxone HCl (Naloxone 0.4 Mg/Ml Sdv) 0.1 mg IVP Q2M PRN PRN Reason: OPIATERV Ondansetron HCl (Ondansetron 2 Mg/Ml Sdv 2 Ml) 4 mg IVP Q8H PRN PRN Reason: vomiting, or N/V if npo Pantoprazole Sodium (Pantoprazole Dr 40 Mg Tablet) 40 mg PO DAILY [facility] Last Admin: 05/31/22 08:54 Dose: 40 mg Potassium Chloride (Potassium Chloride Er 10 Meq Tablet) 10 meq PO DAILY [facility] Last Admin: 05/31/22 08:54 Dose: 10 meq Spironolactone (Spironolactone 25 Mg Tablet) 25 mg PO DAILY OBIE Last Admin: 05/31/22 08:54 Dose: 25 mg Vitals/I&O/Wt Last Vital Signs Temp 98.6 F 06/01/22 04:00 Pulse 102 H 06/01/22 04:00 Resp 30 H 06/01/22 04:00 BP 104/69 06/01/22 04:00 Pulse Ox 96 06/01/22 04:00 O2 Del Method 06/01/22 04:00 O2 Flow Rate 3 06/01/22 04:00 FiO2 35 05/31/22 16:00 05/31/22 06/01/22 06/01/22 22:59 06:59 14:59 Intake Total 270 / 730 Output Total 600 / 600 350 / 950 Balance -330 / 130 -350 / -220 Physical Exam Narrative: GENERAL: The patient is alert and oriented times three. Not in any acute distress. HEENT: No significant pallor, icterus or lymphadenopathy.Oral cavity: There are no mucous membrane lesions. NECK: Trachea appears to be central. No masses noted. No JVD or thyromegaly appreciated. RESPIRATORY: Breath sounds noted bilaterally with significantly diminished intensity of breath sounds at the bases. BREASTS: Deferred. HEART: The heart sounds are normal. No S3 or S4. Short systolic murmur at the left sternal border.. No pericardial rub ABDOMEN: No vessel pulsations or distention. No tenderness. No organomegaly appreciated. Bowel sounds are normally heard. : Deferred. RECTAL: Deferred. LYMPHATIC: No lymphadenopathy noted in the neck. EXTREMITIES: No edema or cyanosis. No clubbing. MUSCULOSKELETAL: No acute joint deformities or swelling SKIN: There are no significant rashes or ecchymosis NEUROPSYCHIATRIC: The patient is alert and oriented x3. Appears to be in a good mood. No tremors or rigidity noted. Urinary Catheter Management: Dave: Cath Placed During This Visit: yes Reason for Continuing Indwelling Catheter: Accurate Measurement of Urinary Output in Critically Ill Patients Urinary Catheter Date of Insertion: 05/27/22 Urinary Catheter Time of Insertion: 09:11 Data 06/01/22 03:45 06/01/22 03:45 Other Labs: Laboratory Last Values WBC 17.6 10^3/uL (4.0-10.0) H 06/01/22 03:45 RBC 5.08 10^6/uL (4.1-5.3) 06/01/22 03:45 Hgb 17.2 g/dL (11.5-15.3) H 06/01/22 03:45 Hct 47.6 % (37.0-47.0) H 06/01/22 03:45 MCV 93.7 fl (81-99) 06/01/22 03:45 MCH 33.9 pg (28.0-34.0) 06/01/22 03:45 MCHC 36.1 g/dL (30.0-36.0) H 06/01/22 03:45 RDW 16.2 % (12.1-15.1) H 06/01/22 03:45 Plt Count 399 10^3/cmm (130-400) 06/01/22 03:45 MPV 9.3 fL (7.4-10.4) 06/01/22 03:45 Neut % (Auto) 84.5 % 06/01/22 03:45 Lymph % (Auto) 7.1 % 06/01/22 03:45 Randall % (Auto) 7.4 % 06/01/22 03:45 Eos % (Auto) 0.0 % 06/01/22 03:45 Baso % (Auto) 0.2 % 06/01/22 03:45 Neut # (Auto) 14.85 10^3/uL (1.8-7.7) H 06/01/22 03:45 Lymph # (Auto) 1.3 10^3/uL (0.8-4.8) 06/01/22 03:45 Randall # (Auto) 1.3 10^3/uL (0.2-0.9) H 06/01/22 03:45 Eos # (Auto) 0.0 10^3/uL (0.0-0.8) 06/01/22 03:45 Baso # (Auto) 0.0 10^3/uL (0.0-0.1) 06/01/22 03:45 Nucleated RBC % (auto) 0 % 06/01/22 03:45 Total Counted 100 (0-100) 05/27/22 02:11 Atypical Lymphs % 0.0 % (0-5) 05/27/22 02:11 Absolute Neutrophils 6.0 10^3/cmm (1.4-6.5) 05/27/22 02:11 Segmented Neutrophils 85 % 05/27/22 02:11 Abs Segm Neuts (Man) 6.0 10/cmm (1.6-7.1) 05/27/22 02:11 Band Neutrophils 0.0 % 05/27/22 02:11 Abs Band Neuts (Man) 0.0 10^3/cmm (0.0-1.2) 05/27/22 02:11 Absolute Lymphocytes 1.1 10^3/cmm (1.2-3.4) L 05/27/22 02:11 Lymphocytes (Manual) 15 % 05/27/22 02:11 Monocytes (Manual) 0.0 % 05/27/22 02:11 Absolute Monocytes 0.0 10^3/cmm (0.1-0.6) L 05/27/22 02:11 Eosinophils (Manual) 0 % 05/27/22 02:11 Absolute Eosinophils 0.0 10^3/cmm (0.0-0.7) 05/27/22 02:11 Basophils (Manual) 0.0 % 05/27/22 02:11 Absolute Basophils 0.0 10^3/cmm (0.0-0.2) 05/27/22 02:11 Nucleated RBCs # 0.0 /100WBC 06/01/22 03:45 Platelet Estimate Normal (Normal) 05/27/22 02:11 PT 12.90 SECONDS (12.1-14.9) 05/26/22 18:21 INR 0.94 (0.8-1.2) 05/26/22 18:21 APTT 33.5 SECONDS (23.9-36.7) D 05/29/22 16:26 Specimen Type Arterial 05/27/22 04:59 Sample Site Radial, left 05/27/22 04:59 ABG pH 7.39 (7.35-7.45) 05/27/22 04:59 ABG pCO2 58.0 mmHg (35-45) H 05/27/22 04:59 ABG pO2 114.0 mmHg (80.0-100.0) H 05/27/22 04:59 ABG HCO3 34.8 mmol/L (22-26) H 05/27/22 04:59 ABG Base Excess 7.6 mmol/L (-2.0-2.0) H 05/27/22 04:59 Jann Test Pos 05/27/22 04:59 Hematocrit 45.3 % (37-47) 05/27/22 04:59 Hgb O2 Saturation 96.8 % (95-100) 05/26/22 18:30 Carboxyhemoglobin 2.0 %THgb (0.4-20.1) 05/26/22 18:30 Methemoglobin 0.6 % (0.4-1.5) 05/26/22 18:30 Total Hemoglobin 15.4 g/dL (12-16) 05/26/22 18:30 O2 Delivery Device Bipap 05/27/22 04:59 O2 Liters/Min 4.0 % 05/26/22 18:30 FiO2 35.0 % 05/27/22 04:59 PEEP 8.0 cmH20 05/27/22 04:59 Decorator Inspector ID [email or web address] 05/27/22 04:59 Sodium 134 mmol/L (136-145) L 06/01/22 03:45 Potassium 4.0 mmol/L (3.5-5.1) 06/01/22 03:45 Chloride 85 mmol/L (98-107) L 06/01/22 03:45 Carbon Dioxide 40 mmol/L (22-29) H 06/01/22 03:45 Anion Gap 13.0 (5-19) 06/01/22 03:45 BUN 66 mg/dL (8-23) H 06/01/22 03:45 Creatinine 1.0 mg/dL (0.5-0.9) H 06/01/22 03:45 GFR Calculation 55.6 mL/min (90-130) L 06/01/22 03:45 Glucose 150 mg/dL (65-115) H 06/01/22 03:45 Calculated Osmolality 300 mOsm/kg (285-295) H 06/01/22 03:45 Lactic Acid 2.2 mmol/L (0.5-2.2) 05/26/22 18:32 Lactic Acid (Sepsis) 2.1 mmol/L (0.5-2.2) 05/26/22 21:00 Calcium 9.7 mg/dL (8.5-10.5) 06/01/22 03:45 Phosphorus 4.8 mg/dL (2.5-4.5) H 05/30/22 04:30 Magnesium 2.4 mg/dL (1.7-2.3) H 05/31/22 03:56 Total Bilirubin 0.4 mg/dL (0.15-1.2) 05/30/22 04:30 AST 25 U/L (0-32) 05/30/22 04:30 ALT 12 U/L (0-33) 05/30/22 04:30 Alkaline Phosphatase 87 U/L (35-105) 05/30/22 04:30 Troponin T Baseline 216 ng/L (0-10) H* 05/26/22 18:32 Troponin T 120 Minute 223.1 ng/L (0-10) H 05/26/22 21:00 Delta Troponin T 7.1 ABS# (0-10) 05/26/22 21:00 Troponin T Hi Sens 6Hr 172.7 ng/L (0-10) H 05/27/22 02:11 Troponin T Hi Sens 6Hr Delta -43.3 ng/L (0-12) L 05/27/22 02:11 C-Reactive Protein 3.0 mg/L (0.0-4.9) 05/30/22 04:30 NT-Pro-B Natriuret Pep 6205 pg/mL (0-125) H 05/31/22 03:56 Total Protein 7.3 g/dL (6.6-8.7) 05/30/22 04:30 Albumin 4.2 g/dL (3.5-5.2) 05/30/22 04:30 Globulin 3.1 g/dL (1.3-4.6) 05/30/22 04:30 Procalcitonin 0.07 ng/mL (0-0.5) 05/30/22 04:30 Urine Color Rand (Yellow) 05/28/22 07:45 Urine Appearance Turbid (CLEAR) A 05/28/22 07:45 Urine pH 6 (5-7) 05/28/22 07:45 Ur Specific [place] 1.020 (1.005-1.030) 05/28/22 07:45 Urine Protein 1+ (Negative) H 05/28/22 07:45 Urine Glucose (UA) Norm (Normal) 05/28/22 07:45 Urine Ketones 1+ (Negative) H 05/28/22 07:45 Urine Blood 3+ (Negative) H 05/28/22 07:45 Urine Nitrate Negative (Negative) 05/28/22 07:45 Urine Bilirubin Neg (Negative) 05/28/22 07:45 Urine Urobilinogen Norm mg/dL (Negative) 05/28/22 07:45 Ur Leukocyte Esterase 2+ (Negative) H 05/28/22 07:45 Urine RBC >100 /hpf (0-2) H 05/28/22 07:45 Urine WBC 10-15 /hpf (0-5) H 05/28/22 07:45 Ur Squamous Epith Cells 0-4 /hpf (0-5) H 05/28/22 07:45 Amorphous Sediment Not Reportable 05/28/22 07:45 Urine Bacteria Trace /hpf (NONE) 05/28/22 07:45 Urine Mucus 4+ /hpf 05/28/22 07:45 Nasal Influ A H1 2009 PCR Not detected (NOT DETECT) 05/26/22 19:10 Adenovirus (PCR) Not detected (NOT DETECT) 05/26/22 19:10 C. pneumoniae DNA (PCR) Not detected (NOT DETECT) 05/26/22 19:10 Coronavirus 229E (PCR) Not detected (NOT DETECT) 05/26/22 19:10 Human Metapneumovir PCR Not detected (NOT DETECT) 05/26/22 19:10 Influenza A (H1) PCR Not detected (NOT DETECT) 05/26/22 19:10 Influenza A (H3) PCR Not detected (NOT DETECT) 05/26/22 19:10 Influenza Type A (PCR) Not detected (NOT DETECT) 05/26/22 19:10 Influenza Type B (PCR) Not detected (NOT DETECT) 05/26/22 19:10 M. pneumoniae (PCR) Not detected (NOT DETECT) 05/26/22 19:10 Parainfluenza 1 (PCR) Not detected (NOT DETECT) 05/26/22 19:10 Parainfluenza 2 (PCR) Not detected (NOT DETECT) 05/26/22 19:10 Parainfluenza 3 (PCR) Not detected (NOT DETECT) 05/26/22 19:10 Parainfluenza 4 (PCR) Not detected (NOT DETECT) 05/26/22 19:10 RSV Type A (PCR) Not detected (NOT DETECT) 05/26/22 19:10 RSV Type B (PCR) Not detected (NOT DETECT) 05/26/22 19:10 Entero/Rhino (PCR) Not detected (NOT DETECT) 05/26/22 19:10 SARS-CoV-2 (PCR) Not detected (NOT DETECT) 05/26/22 19:10 Micro: Microbiology 05/26/22 18:37 Blood Culture - Final Blood NO GROWTH AFTER 5 DAYS 05/26/22 18:32 Blood Culture - Final Blood NO GROWTH AFTER 5 DAYS A&P Assessment and plan (1) Acute non-ST elevation myocardial infarction (NSTEMI): Continue Plavix and aspirin and other current medications. To further evaluate the coronary status based on the results of the above tests, and patient's clinical progress, further recommendations will be made. Requires a cardiac catheterization. The risk and benefits were discussed with the patient and her daughter in detail. The risk of bleeding, hematoma, vascular injury, myocardial infarction, myocardial perforation, malignant cardiac arrhythmias ,CVA, renal failure and other concomitant complications were explained in detail. Patient and her daughter understood this well and consented to proceed. Because of the rising BUN/creatinine ratio, it was thought to be appropriate to hold off for the angiogram today. We may carefully hydrate her. We will repeat the BMP tomorrow. Based on the results, further management decisions will be made (2) Cardiomyopathy: I will hold off on the Lasix today. Other medications may be continued. (3) Acute exacerbation of chronic obstructive airways disease: Continue the management as per the primary attending (4) Nicotine dependence, cigarettes, uncomplicated: Patient strongly advised to quit smoking. Cardiovascular implications were discussed. (5) History of supraventricular tachycardia: Patient apparently had RF ablation in the past. She seems to have no recurrence of SVT. May continue on the current management. (6) Hyperlipidemia, unspecified: Continue on the current dose of the statin Qualifiers: Hyperlipidemia type: unspecified Qualified Code(s): E78.5 - Hyperlipidemia, unspecified Plan The other problems are Mild anemia Bipolar disorder GERD ? History of TIA IV normal saline 75 cc/h. Repeat a BMP in the morning. Discontinue Lasix today. Attestations Medical Necessity Statement*: Patient requires continued hospital stay for close monitoring and further management Coding Level of Care Code 01137 Diagnoses Acute non-ST elevation myocardial infarction (NSTEMI) I21.4 Cardiomyopathy I42.9 Acute exacerbation of chronic obstructive airways disease J44.1 Nicotine dependence, cigarettes, uncomplicated F17.210 History of supraventricular tachycardia Z86.79 Hyperlipidemia, unspecified E78.5 Hyperlipidemia type: unspecified
[2022-06-01] MEDS: enoxaparin 40 mg/0.4 mL Syringe SUBCUT (08:50)
[2022-06-01] MEDS: fenofibrate 145 mg Tablet PO (08:50)
[2022-06-01] MEDS: clopidogrel 75 mg Tablet PO (08:51)
[2022-06-01] MEDS: guaiFENesin 600 mg Tablet PO ×2 (08:51→17:20)
[2022-06-01] MEDS: pantoprazole DR 40 mg Tablet PO (08:51)
[2022-06-01] MEDS: losartan 50 mg Tablet 25 MG PO (08:53)
[2022-06-01] MEDS: citalopram 20 mg Tablet 10 MG PO (08:53)
[2022-06-01] MEDS: potassium chloride ER 10 mEq Tablet PO (08:53)
[2022-06-01] MEDS: aspirin 81 mg EC Tablet PO (08:53)
[2022-06-01] MEDS: montelukast sodium 10 mg Tablet PO (08:53)
[2022-06-01] MEDS: spironolactone 25 mg Tablet PO (08:53)
[2022-06-01 08:54] LABS: Troponin T (5th) Once 39 ng/L (0-10)
[2022-06-01] MEDS: levalbuterol 0.63 mg/3 mL Neb INHALATION ×3 (09:13→21:00)
[2022-06-01] MEDS: budesonide 0.5 mg/2 mL Neb INHALATION ×2 (09:13→21:00)
[2022-06-01] MEDS: ipratropium 0.5 mg/2.5 mL Neb INHALATION ×3 (09:13→21:00)
--- NOTE | 2022-06-01 10:57 | PC.NURSE ---
physician at bedside this am, gave this nurse verbal orders to change running IVF to current charted mar. See mar.
--- NOTE | 2022-06-01 12:33 | P.PN_ITS ---
Subjective Subjective: seen this am no acute events overnight appears dehydrated Vitals/I&O/Wt Last Vital Signs Temp 97.9 F 06/01/22 12:09 Pulse 104 H 06/01/22 12:09 Resp 20 H 06/01/22 12:09 BP 114/94 06/01/22 12:09 Pulse Ox 98 06/01/22 12:09 O2 Del Method 06/01/22 09:00 O2 Flow Rate 3 06/01/22 09:00 FiO2 35 06/01/22 12:00 05/31/22 06/01/22 06/01/22 22:59 06:59 14:59 Intake Total 270 / 730 176.667 / 176.667 Output Total 600 / 600 350 / 950 60 / 60 Balance -330 / 130 -350 / -220 116.667 / 116.667 Physical Exam Narrative: General: Alert oriented x3, patient seen sitting up in bed on 3 L nasal cannula, frail appearing HEENT: Normocephalic, atraumatic, EOMI, breathing comfortably., appears dehydrated Cardio: Regular rate rhythm, normal S1-S2, no gross murmurs noted. Respiratory: good b/l air entry, no wheezes no rhonchi, diminished at bases. No crackles appreciated. Normal respiratory effort. No accessory muscle use. GI: Abdomen soft, nontender, nondistended, bowel sounds + Behavior: Appropriate and cooperative Extremities:no edema, no cyanosis Urinary Catheter Management: Dave: Cath Placed During This Visit: yes Reason for Continuing Indwelling Catheter: Accurate Measurement of Urinary Output in Critically Ill Patients Urinary Catheter Date of Insertion: 05/27/22 Urinary Catheter Time of Insertion: 09:11 Data 06/01/22 03:45 06/01/22 03:45 Micro: Microbiology 05/26/22 18:37 Blood Culture - Final Blood NO GROWTH AFTER 5 DAYS 05/26/22 18:32 Blood Culture - Final Blood NO GROWTH AFTER 5 DAYS A&P Assessment and plan (1) Acute non-ST elevation myocardial infarction (NSTEMI): (2) Cardiomyopathy: d. (3) Acute exacerbation of chronic obstructive airways disease: (4) Nicotine dependence, cigarettes, uncomplicated: (5) History of supraventricular tachycardia: (6) Hyperlipidemia, unspecified: Qualifiers: Hyperlipidemia type: unspecified Qualified Code(s): E78.5 - Hyperlipidemia, unspecified (7) Acute on chronic respiratory failure with hypoxia and hypercapnia: Secondary to COPD exacerbation. ABG 7.27/77 point 7153/30 5.7 on 4 L/min supplemental O2. Placed on BiPAP on admission. We will obtain ABG with a.m. labs to ensure that CO2 levels are downtrending. Repeat 05/27/2022 showed pH 7.3 9/58/114/30 4.8. Improved. (8) Pneumonia: (9) CHF exacerbation: (10) Ischemic cardiomyopathy: (11) Protein calorie malnutrition: (12) Physical deconditioning: Plan Acute hypoxic respiratory failure -Secondary to COPD -Possible underlying pneumonia -Ischemic cardiomyopathy, CHF diminished ejection fraction -Plan -?Continue BiPAP as needed. -Solu-Medrol 40 IV every 12 hours -Doxycycline 100 every 12 hours -Lasix 20 po -She is -3 L since admission. -Potassium replacement -Monitor urine output, monitor creatinine -Monitor respiratory status closely Place on ns 60 cc/hr -DNR/DNI -Lovenox for DVT prophylaxis UTI -UA quite turbid -Continue Rocephin NSTEMI Acute systolic congestive heart failure, Ischemic cardiomyopathy with diminished ejection fraction -Possibly supply demand ischemia from respiratory failure from COPD and pneumonia as above -However cannot rule out underlying cardiac etiology -There is also possibility of Takotsubo cardiomyopathy -Serial EKGs, surgical telemetry monitoring -Continue aspirin, statin -Hold off on beta-jordyn -Has completed 48 hours of therapeutic Lovenox, switch to DVT prophylaxis -Echo showed EF 25 to 30% with hypokinesia of left ventricle. -Plan for angiogram in AM. Cardiology consulted and on board. Possible pneumonia -CT angiogram of the chest shows bibasilar atelectasis versus infiltrate -Follow blood cultures -Sputum cultures -Receiving doxycycline, Rocephin She was told that she had lung cancer by hospital in [facility] -I reviewed her CAT scans she has a history of pulmonary nodules in the right upper right lower lobe -We will have her follow-up with pulm as outpatient, pulmonary nodules difficult to assess on current CT angiogram Anxiety -Ativan p.o. 0.25 mg every 4 hours as needed DNR/DNI N.p.o. at midnight today for angiogram in a.m. Angio not done today due to dehydration and elevation in wbc will order IV fluids, recheck labs in am Attestations Medical Necessity Statement*: angiogram in AM Diagnoses Acute non-ST elevation myocardial infarction (NSTEMI) I21.4 Cardiomyopathy I42.9 Acute exacerbation of chronic obstructive airways disease J44.1 Nicotine dependence, cigarettes, uncomplicated F17.210 History of supraventricular tachycardia Z86.79 Hyperlipidemia, unspecified E78.5 Hyperlipidemia type: unspecified Acute on chronic respiratory failure with hypoxia and hypercapnia J96.21; J96.22 Pneumonia J18.9 CHF exacerbation I50.9 Ischemic cardiomyopathy I25.5 Protein calorie malnutrition E46 Physical deconditioning R53.81
[2022-06-01] MEDS: cefTRIAXone 1,000 MG in sodium chloride 0.9% (plus) 50 ML 100 MG IV (14:05)
[2022-06-01] MEDS: atorvastatin 40 mg Tablet PO (20:37)
--- NOTE | 2022-06-01 21:52 | PC.NURSE ---
Spoke with Dr Tyler. Received orders to keep patient NPO for possible LHC in the am.
[2022-06-02] VITALS (12 sets, daily range): BP systolic 109–141; BP diastolic 79–93; PULSE 90–116; RESP 16–21; TEMP 36.3–36.7; O2SAT 95–98
[2022-06-02 04:45] LABS: Blood Urea Nitrogen 65 mg/dL (8-23); Calcium 9.2 mg/dL (8.5-10.5); Carbon Dioxide 36 mmol/L (22-29); Chloride 87 mmol/L (98-107); Glucose 155 mg/dL (65-115); Magnesium 2.4 mg/dL (1.7-2.3); Osmolality Calculated 302 mOsm/kg (285-295); Sodium 135 mmol/L (136-145)
[2022-06-02 04:54] LABS: Anion Gap 16.2 (5-19); Potassium 4.2 mmol/L (3.5-5.1)
[2022-06-02 05:10] LABS: Basophils % 0.2 %; Hematocrit 51.1 % (37.0-47.0); Hemoglobin 17.1 g/dL (11.5-15.3); Lymphocytes # 1.1 10^3/uL (0.8-4.8); Lymphocytes % 5.9 %; Mean Corpuscular HGB Conc 33.5 g/dL (30.0-36.0); Mean Corpuscular Hemoglobin 29.3 pg (28.0-34.0); Mean Corpuscular Volume 87.5 fl (81-99); Mean Platelet Volume 9.7 fL (7.4-10.4); Monocytes % 5.3 %; Neutrophils % 87.7 %; Nucleated Red Blood Cells % 0 %; Platelet Count 379 10^3/cmm (130-400); Red Blood Count 5.84 10^6/uL (4.1-5.3); Red Cell Distribution Width 13.9 % (12.1-15.1); White Blood Count 18.1 10^3/uL (4.0-10.0)
[2022-06-02] MEDS: levalbuterol 0.63 mg/3 mL Neb INHALATION ×2 (07:50→13:54)
[2022-06-02] MEDS: ipratropium 0.5 mg/2.5 mL Neb INHALATION ×2 (07:50→13:55)
[2022-06-02] MEDS: budesonide 0.5 mg/2 mL Neb INHALATION (07:50)
[2022-06-02] MEDS: sodium chloride 0.9% 1,000 ML 75 ML IV ×2 (08:00→14:32)
--- NOTE | 2022-06-02 08:27 | P.PN_ITS ---
Subjective Subjective: The BUN from today was 65. Creatinine went down to 0.7. No chest pain or shortness of breath. The white cell count went up to 18.5. For this reason, the cardiac rhythm was postponed. Medications: Medication Review Details: Current Medications Acetaminophen (Acetaminophen 325 Mg Tablet) 650 mg PO Q6H PRN PRN Reason: Mild/Mod Pain Or Temp >/= 101 Albuterol Sulfate (Albuterol 2.5 Mg/3 Ml Neb) 2.5 mg INHALATION Q4H.RESPIRATORY PRN PRN Reason: wheezing Last Admin: 05/28/22 03:39 Dose: 2.5 mg Aspirin (Aspirin 81 Mg Ec Tablet) 81 mg PO DAILY OBIE Last Admin: 06/01/22 08:53 Dose: 81 mg Atorvastatin Calcium (Atorvastatin 40 Mg Tablet) 40 mg PO BEDTIME OBIE Last Admin: 06/01/22 20:37 Dose: 40 mg Benzonatate (Benzonatate 100 Mg Capsule) 200 mg PO TID PRN PRN Reason: cough Last Admin: 05/30/22 09:29 Dose: 200 mg Budesonide (Budesonide 0.5 Mg/2 Ml Neb) 0.5 mg INHALATION BID.RESPIRATORY OBIE Last Admin: 06/02/22 07:50 Dose: 0.5 mg Citalopram Hydrobromide (Citalopram 20 Mg Tablet) 10 mg PO DAILY OBIE Last Admin: 06/01/22 08:53 Dose: 10 mg Clopidogrel Bisulfate (Clopidogrel 75 Mg Tablet) 75 mg PO DAILY OBIE Last Admin: 06/01/22 08:51 Dose: 75 mg Enoxaparin Sodium (Enoxaparin 40 Mg/0.4 Ml Syringe) 40 mg SUBCUT Q24H OBIE Last Admin: 06/01/22 08:50 Dose: 40 mg Fenofibrate (Fenofibrate 145 Mg Tablet) 145 mg PO DAILY OBIE Last Admin: 06/01/22 08:50 Dose: 145 mg Furosemide (Furosemide 20 Mg Tablet) 20 mg PO DAILY@0800 OBIE Last Admin: 06/01/22 07:37 Dose: 20 mg Guaifenesin (Guaifenesin 600 Mg Tablet) 600 mg PO BID OBIE Last Admin: 06/01/22 17:20 Dose: 600 mg Doxycycline Hyclate 100 mg/ (Sodium Chloride) 100 mls @ 100 mls/hr IV Q12H OBIE; Protocol Last Admin: 06/01/22 09:07 Dose: Not Given Ceftriaxone Sodium 1,000 mg/ (Sodium Chloride) 50 mls @ 100 mls/hr IV Q24H [facility]; Protocol Last Infusion: 06/01/22 15:01 Dose: Infused Ipratropium [place] (Ipratropium 0.5 Mg/2.5 Ml Neb) 0.5 mg INHALATION Q6H.RESP [facility] Last Admin: 06/02/22 07:50 Dose: 0.5 mg Levalbuterol HCl (Levalbuterol 0.63 Mg/3 Ml Neb) 0.63 mg INHALATION Q6H.RESP OBIE Last Admin: 06/02/22 07:50 Dose: 0.63 mg Lorazepam (Lorazepam 0.5 Mg Tablet) 0.25 mg PO Q6H PRN 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 Last Admin: 05/30/22 21:13 Dose: 0.25 mg Losartan Potassium (Losartan 50 Mg Tablet) 25 mg PO DAILY [facility] Last Admin: 06/01/22 08:53 Dose: 25 mg Methylprednisolone Sodium Succinate (Methylprednisolone Sod Succ 40 Mg/Ml Inj) 40 mg IVP Q12H [facility] Last Admin: 06/01/22 20:37 Dose: 40 mg Montelukast Sodium (Montelukast Sodium 10 Mg Tablet) 10 mg PO DAILY [facility] Last Admin: 06/01/22 08:53 Dose: 10 mg Morphine Sulfate (Morphine 4 Mg/Ml Sdv 1 Ml) 1 mg IVP Q4H PRN PRN Reason: SEVERE PAIN Naloxone HCl (Naloxone 0.4 Mg/Ml Sdv) 0.1 mg IVP Q2M PRN PRN Reason: OPIATERV Ondansetron HCl (Ondansetron 2 Mg/Ml Sdv 2 Ml) 4 mg IVP Q8H PRN PRN Reason: vomiting, or N/V if npo Pantoprazole Sodium (Pantoprazole Dr 40 Mg Tablet) 40 mg PO DAILY [facility] Last Admin: 06/01/22 08:51 Dose: 40 mg Potassium Chloride (Potassium Chloride Er 10 Meq Tablet) 10 meq PO DAILY [facility] Last Admin: 06/01/22 08:53 Dose: 10 meq Spironolactone (Spironolactone 25 Mg Tablet) 25 mg PO DAILY [facility] Last Admin: 06/01/22 08:53 Dose: 25 mg Vitals/I&O/Wt Last Vital Signs Temp 98.0 F 06/02/22 08:00 Pulse 109 H 06/02/22 08:00 Resp 17 06/02/22 08:00 BP 120/89 06/02/22 08:00 Pulse Ox 96 06/02/22 08:00 O2 Del Method 06/02/22 08:00 O2 Flow Rate 3 06/02/22 07:55 FiO2 35 06/01/22 12:00 06/01/22 06/02/22 06/02/22 22:59 06:59 14:59 Intake Total 703 / 879.667 Output Total 200 / 480 550 / 1030 Balance 503 / 399.667 -550 / -150.333 Physical Exam Narrative: GENERAL: The patient is alert and oriented times three. Not in any acute distress. HEENT: No significant pallor, icterus or lymphadenopathy.Oral cavity: There are no mucous membrane lesions. NECK: Trachea appears to be central. No masses noted. No JVD or thyromegaly appreciated. RESPIRATORY: Chest is symmetrical. No intercostals muscle retraction or any accessory muscle activation. There is no chest wall tenderness. Breath sounds are heard bilaterally. No rales or rhonchi heard. No evidence of any consolidation. BREASTS: Deferred. HEART: The heart sounds are normal. No S3 or S4. Short systolic murmur in the left sternal border. No pericardial rub ABDOMEN: No vessel pulsations or distention. No tenderness. No organomegaly appreciated. Bowel sounds are normally heard. : Deferred. RECTAL: Deferred. LYMPHATIC: No lymphadenopathy noted in the neck. EXTREMITIES: No edema or cyanosis. No clubbing. MUSCULOSKELETAL: No acute joint deformities or swelling SKIN: There are no significant rashes or ecchymosis NEUROPSYCHIATRIC: The patient is alert and oriented x3. Appears to be in a good mood. No tremors or rigidity noted. Urinary Catheter Management: Dave: Cath Placed During This Visit: yes Reason for Continuing Indwelling Catheter: Accurate Measurement of Urinary Output in Critically Ill Patients Urinary Catheter Date of Insertion: 05/27/22 Urinary Catheter Time of Insertion: 09:11 Data 06/02/22 03:29 06/02/22 03:29 Other Labs: Laboratory Last Values WBC 18.1 10^3/uL (4.0-10.0) H 06/02/22 03:29 RBC 5.84 10^6/uL (4.1-5.3) H 06/02/22 03:29 Hgb 17.1 g/dL (11.5-15.3) H 06/02/22 03:29 Hct 51.1 % (37.0-47.0) H 06/02/22 03:29 MCV 87.5 fl (81-99) D 06/02/22 03:29 MCH 29.3 pg (28.0-34.0) D 06/02/22 03:29 MCHC 33.5 g/dL (30.0-36.0) D 06/02/22 03:29 RDW 13.9 % (12.1-15.1) 06/02/22 03:29 Plt Count 379 10^3/cmm (130-400) 06/02/22 03:29 MPV 9.7 fL (7.4-10.4) 06/02/22 03:29 Neut % (Auto) 87.7 % 06/02/22 03:29 Lymph % (Auto) 5.9 % 06/02/22 03:29 Coffee % (Auto) 5.3 % 06/02/22 03:29 Eos % (Auto) 0.0 % 06/02/22 03:29 Baso % (Auto) 0.2 % 06/02/22 03: Neut # (Auto) 15.90 10^3/uL (1.8-7.7) H 06/02/22 03:29 Lymph # (Auto) 1.1 10^3/uL (0.8-4.8) 06/02/22 03:29 Coffee # (Auto) 1.0 10^3/uL (0.2-0.9) H 06/02/22 03:29 Eos # (Auto) 0.0 10^3/uL (0.0-0.8) 06/02/22 03:29 Baso # (Auto) 0.0 10^3/uL (0.0-0.1) 06/02/22 03:29 Nucleated RBC % (auto) 0 % 06/02/22 03:29 Total Counted 100 (0-100) 05/27/22 02:11 Atypical Lymphs % 0.0 % (0-5) 05/27/22 02:11 Absolute Neutrophils 6.0 10^3/cmm (1.4-6.5) 05/27/22 02:11 Segmented Neutrophils 85 % 05/27/22 02:11 Abs Segm Neuts (Man) 6.0 10/cmm (1.6-7.1) 05/27/22 02:11 Band Neutrophils 0.0 % 05/27/22 02:11 Abs Band Neuts (Man) 0.0 10^3/cmm (0.0-1.2) 05/27/22 02:11 Absolute Lymphocytes 1.1 10^3/cmm (1.2-3.4) L 05/27/22 02:11 Lymphocytes (Manual) 15 % 05/27/22 02:11 Monocytes (Manual) 0.0 % 05/27/22 02:11 Absolute Monocytes 0.0 10^3/cmm (0.1-0.6) L 05/27/22 02:11 Eosinophils (Manual) 0 % 05/27/22 02:11 Absolute Eosinophils 0.0 10^3/cmm (0.0-0.7) 05/27/22 02:11 Basophils (Manual) 0.0 % 05/27/22 02:11 Absolute Basophils 0.0 10^3/cmm (0.0-0.2) 05/27/22 02:11 Nucleated RBCs # 0.0 /100WBC 06/02/22 03:29 Platelet Estimate Normal (Normal) 05/27/22 02:11 PT 12.90 SECONDS (12.1-14.9) 05/26/22 18:21 INR 0.94 (0.8-1.2) 05/26/22 18:21 APTT 33.5 SECONDS (23.9-36.7) D 05/29/22 16:26 Specimen Type Arterial 05/27/22 04:59 Sample Site Radial, left 05/27/22 04:59 ABG pH 7.39 (7.35-7.45) 05/27/22 04:59 ABG pCO2 58.0 mmHg (35-45) H 05/27/22 04:59 ABG pO2 114.0 mmHg (80.0-100.0) H 05/27/22 04:59 ABG HCO3 34.8 mmol/L (22-26) H 05/27/22 04:59 ABG Base Excess 7.6 mmol/L (-2.0-2.0) H 05/27/22 04:59 Jann Test Pos 05/27/22 04:59 Hematocrit 45.3 % (37-47) 05/27/22 04:59 Hgb O2 Saturation 96.8 % (95-100) 05/26/22 18:30 Carboxyhemoglobin 2.0 %THgb (0.4-20.1) 05/26/22 18:30 Methemoglobin 0.6 % (0.4-1.5) 05/26/22 18:30 Total Hemoglobin 15.4 g/dL (12-16) 05/26/22 18:30 O2 Delivery Device Bipap 05/27/22 04:59 O2 Liters/Min 4.0 % 05/26/22 18:30 FiO2 35.0 % 05/27/22 04:59 PEEP 8.0 cmH20 05/27/22 04:59 Tacking Stitch Remover ID [email or web address] 05/27/22 04:59 Sodium 135 mmol/L (136-145) L 06/02/22 03:29 Potassium 4.2 mmol/L (3.5-5.1) 06/02/22 03:29 Chloride 87 mmol/L (98-107) L 06/02/22 03:29 Carbon Dioxide 36 mmol/L (22-29) H 06/02/22 03:29 Anion Gap 16.2 (5-19) 06/02/22 03:29 BUN 65 mg/dL (8-23) H 06/02/22 03:29 Creatinine 0.7 mg/dL (0.5-0.9) 06/02/22 03:29 GFR Calculation 84.0 mL/min (90-130) L 06/02/22 03:29 Glucose 155 mg/dL (65-115) H 06/02/22 03:29 Calculated Osmolality 302 mOsm/kg (285-295) H 06/02/22 03:29 Lactic Acid 2.2 mmol/L (0.5-2.2) 05/26/22 18:32 Lactic Acid (Sepsis) 2.1 mmol/L (0.5-2.2) 05/26/22 21:00 Calcium 9.2 mg/dL (8.5-10.5) 06/02/22 03:29 Phosphorus 4.8 mg/dL (2.5-4.5) H 05/30/22 04:30 Magnesium 2.4 mg/dL (1.7-2.3) H 06/02/22 03:29 Total Bilirubin 0.4 mg/dL (0.15-1.2) 05/30/22 04:30 AST 25 U/L (0-32) 05/30/22 04:30 ALT 12 U/L (0-33) 05/30/22 04:30 Alkaline Phosphatase 87 U/L (35-105) 05/30/22 04:30 Troponin T Gen 5 ng/L 39 ng/L (0-10) H 06/01/22 03:45 Troponin T Baseline 216 ng/L (0-10) H* 05/26/22 18:32 Troponin T 120 Minute 223.1 ng/L (0-10) H 05/26/22 21:00 Delta Troponin T 7.1 ABS# (0-10) 05/26/22 21:00 Troponin T Hi Sens 6Hr 172.7 ng/L (0-10) H 05/27/22 02:11 Troponin T Hi Sens 6Hr Delta -43.3 ng/L (0-12) L 05/27/22 02:11 C-Reactive Protein 3.0 mg/L (0.0-4.9) 05/30/22 04:30 NT-Pro-B Natriuret Pep 6205 pg/mL (0-125) H 05/31/22 03:56 Total Protein 7.3 g/dL (6.6-8.7) 05/30/22 04:30 Albumin 4.2 g/dL (3.5-5.2) 05/30/22 04:30 Globulin 3.1 g/dL (1.3-4.6) 05/30/22 04:30 Procalcitonin 0.07 ng/mL (0-0.5) 05/30/22 04:30 Urine Color Rand (Yellow) 05/28/22 07:45 Urine Appearance Turbid (CLEAR) A 05/28/22 07:45 Urine pH 6 (5-7) 05/28/22 07:45 Ur Specific [place] 1.020 (1.005-1.030) 05/28/22 07:45 Urine Protein 1+ (Negative) H 05/28/22 07:45 Urine Glucose (UA) Norm (Normal) 05/28/22 07:45 Urine Ketones 1+ (Negative) H 05/28/22 07:45 Urine Blood 3+ (Negative) H 05/28/22 07:45 Urine Nitrate Negative (Negative) 05/28/22 07:45 Urine Bilirubin Neg (Negative) 05/28/22 07:45 Urine Urobilinogen Norm mg/dL (Negative) 05/28/22 07:45 Ur Leukocyte Esterase 2+ (Negative) H 05/28/22 07:45 Urine RBC >100 /hpf (0-2) H 05/28/22 07:45 Urine WBC 10-15 /hpf (0-5) H 05/28/22 07:45 Ur Squamous Epith Cells 0-4 /hpf (0-5) H 05/28/22 07:45 Amorphous Sediment Not Reportable 05/28/22 07:45 Urine Bacteria Trace /hpf (NONE) 05/28/22 07:45 Urine Mucus 4+ /hpf 05/28/22 07:45 Nasal Influ A H1 2008 PCR Not detected (NOT DETECT) 05/26/22 19:10 Adenovirus (PCR) Not detected (NOT DETECT) 05/26/22 19:10 C. pneumoniae DNA (PCR) Not detected (NOT DETECT) 05/26/22 19:10 Coronavirus 229E (PCR) Not detected (NOT DETECT) 05/26/22 19:10 Human Metapneumovir PCR Not detected (NOT DETECT) 05/26/22 19:10 Influenza A (H1) PCR Not detected (NOT DETECT) 05/26/22 19:10 Influenza A (H3) PCR Not detected (NOT DETECT) 05/26/22 19:10 Influenza Type A (PCR) Not detected (NOT DETECT) 05/26/22 19:10 Influenza Type B (PCR) Not detected (NOT DETECT) 05/26/22 19:10 M. pneumoniae (PCR) Not detected (NOT DETECT) 05/26/22 19:10 Parainfluenza 1 (PCR) Not detected (NOT DETECT) 05/26/22 19:10 Parainfluenza 2 (PCR) Not detected (NOT DETECT) 05/26/22 19:10 Parainfluenza 3 (PCR) Not detected (NOT DETECT) 05/26/22 19:10 Parainfluenza 4 (PCR) Not detected (NOT DETECT) 05/26/22 19:10 RSV Type A (PCR) Not detected (NOT DETECT) 05/26/22 19:10 RSV Type B (PCR) Not detected (NOT DETECT) 05/26/22 19:10 Entero/Rhino (PCR) Not detected (NOT DETECT) 05/26/22 19:10 SARS-CoV-2 (PCR) Not detected (NOT DETECT) 05/26/22 19:10 A&P Assessment and plan (1) Acute non-ST elevation myocardial infarction (NSTEMI): Continue Plavix and aspirin and other current medications. To further evaluate the coronary status based on the results of the above tests, and patient's clinical progress, further recommendations will be made. Requires a cardiac c atheterization. The risk and benefits were discussed with the patient and her daughter in detail. The risk of bleeding, hematoma, vascular injury, myocardial infarction, myocardial perforation, malignant cardiac arrhythmias ,CVA, renal failure and other concomitant complications were explained in detail. Patient and her daughter understood this well and consented to proceed. We will continue the careful hydration today. Repeat BMP and CBC in the morning. (2) Cardiomyopathy: We will continue holding the Lasix. (3) Acute exacerbation of chronic obstructive airways disease: Continue the management as per the primary attending (4) Nicotine dependence, cigarettes, uncomplicated: Patient strongly advised to quit smoking. Cardiovascular implications were discussed. (5) History of supraventricular tachycardia: Patient apparently had RF ablation in the past. She seems to have no recurrence of SVT. May continue on the current management. (6) Hyperlipidemia, unspecified: Continue on the current dose of the statin Qualifiers: Hyperlipidemia type: unspecified Qualified Code(s): E78.5 - Hyperlipidemia, unspecified Plan The other problems are Mild anemia Bipolar disorder GERD ? History of TIA Repeat BMP and CBC in the morning. Discussed with Dr. Mcclain. Based on the results, further management decisions will be made. Attestations Medical Necessity Statement*: Patient requires continued hospital stay for close monitoring and further management Coding Level of Care Code 73774 Diagnoses Acute non-ST elevation myocardial infarction (NSTEMI) I21.4 Cardiomyopathy I42.9 Acute exacerbation of chronic obstructive airways disease J44.1 Nicotine dependence, cigarettes, uncomplicated F17.210 History of supraventricular tachycardia Z86.79 Hyperlipidemia, unspecified E78.5 Hyperlipidemia type: unspecified
[2022-06-02] MEDS: doxycycline 100 MG in sodium chloride 0.9% (plus) 100 ML IV ×2 (09:12→20:39)
[2022-06-02] MEDS: enoxaparin 40 mg/0.4 mL Syringe SUBCUT (09:12)
[2022-06-02] MEDS: guaiFENesin 600 mg Tablet PO ×2 (09:15→17:22)
[2022-06-02] MEDS: fenofibrate 145 mg Tablet PO (09:15)
[2022-06-02] MEDS: citalopram 20 mg Tablet 10 MG PO (09:15)
[2022-06-02] MEDS: losartan 50 mg Tablet 25 MG PO (09:16)
[2022-06-02] MEDS: pantoprazole DR 40 mg Tablet PO (09:16)
[2022-06-02] MEDS: potassium chloride ER 10 mEq Tablet PO (09:16)
[2022-06-02] MEDS: montelukast sodium 10 mg Tablet PO (09:16)
[2022-06-02] MEDS: FUROsemide 20 mg Tablet PO (09:19)
[2022-06-02] MEDS: aspirin 81 mg EC Tablet PO (09:19)
[2022-06-02] MEDS: spironolactone 25 mg Tablet PO (09:21)
[2022-06-02] MEDS: clopidogrel 75 mg Tablet PO (09:24)
[2022-06-02] MEDS: lactulose oral liq 20 gm/30 mL UDC PO (10:41)
--- NOTE | 2022-06-02 11:21 | PM.PN ---
Subjective Subjective: seen this am complains of cold left foot pulses present, checked with doppler wbc 18.1 cr 0.7, improved Vitals/I&O/Wt Last Vital Signs Temp 98.0 F 06/02/22 08:00 Pulse 109 H 06/02/22 08:00 Resp 17 06/02/22 08:00 BP 120/89 06/02/22 09:16 Pulse Ox 96 06/02/22 08:00 O2 Del Method 06/02/22 08:00 O2 Flow Rate 3 06/02/22 07:55 FiO2 35 06/02/22 08:00 06/01/22 06/02/22 06/02/22 22:59 06:59 14:59 Intake Total 703 / 879.667 0 / 0 Output Total 200 / 480 550 / 1030 Balance 503 / 399.667 -550 / -150.333 0 / 0 Physical Exam Narrative: General: Alert oriented x3, patient seen sitting up in bed on 3 L nasal cannula, frail appearing HEENT: Normocephalic, atraumatic, EOMI, breathing comfortably., appears dehydrated Cardio: Regular rate rhythm, normal S1-S2, no gross murmurs noted. Respiratory: good b/l air entry, no wheezes no rhonchi, diminished at bases. No crackles appreciated. Normal respiratory effort. No accessory muscle use. GI: Abdomen soft, nontender, nondistended, bowel sounds + Behavior: Appropriate and cooperative Extremities:no edema, no cyanosis Urinary Catheter Management: Dave: Cath Placed During This Visit: yes Reason for Continuing Indwelling Catheter: Accurate Measurement of Urinary Output in Critically Ill Patients Urinary Catheter Date of Insertion: 05/27/22 Urinary Catheter Time of Insertion: 09:11 Data 06/02/22 03:29 06/02/22 03:29 A&P Assessment and plan (1) Acute non-ST elevation myocardial infarction (NSTEMI): (2) Cardiomyopathy: d. (3) Acute exacerbation of chronic obstructive airways disease: (4) Nicotine dependence, cigarettes, uncomplicated: (5) History of supraventricular tachycardia: (6) Hyperlipidemia, unspecified: Qualifiers: Hyperlipidemia type: unspecified Qualified Code(s): E78.5 - Hyperlipidemia, unspecified (7) Acute on chronic respiratory failure with hypoxia and hypercapnia: Secondary to COPD exacerbation. ABG 7./77 point 7153/30 5.7 on 4 L/min supplemental O2. Placed on BiPAP on admission. We will obtain ABG with a.m. labs to ensure that CO2 levels are downtrending. Repeat 05/27/2022 showed pH 7.3 9/58/114/30 4.8. Improved. (8) Pneumonia: (9) CHF exacerbation: (10) Ischemic cardiomyopathy: (11) Protein calorie malnutrition: (12) Physical deconditioning: Plan Acute hypoxic respiratory failure -Secondary to COPD -Possible underlying pneumonia -Ischemic cardiomyopathy, CHF diminished ejection fraction -Plan -?Continue BiPAP as needed. -Solu-Medrol 40 IV every 24 hour -Doxycycline 100 every 12 hours -Lasix 20 po -Potassium replacement -Monitor urine output, monitor creatinine -Monitor respiratory status closely - Place on ns 60 cc/hr -DNR/DNI -Lovenox for DVT prophylaxis UTI -UA quite turbid -urine culture did not show growth NSTEMI Acute systolic congestive heart failure, Ischemic cardiomyopathy with diminished ejection fraction -Possibly supply demand ischemia from respiratory failure from COPD and pneumonia as above -However cannot rule out underlying cardiac etiology -There is also possibility of Takotsubo cardiomyopathy -Serial EKGs, surgical telemetry monitoring -Continue aspirin, statin -Hold off on beta-jordyn -Has completed 48 hours of therapeutic Lovenox, switch to DVT prophylaxis -Echo showed EF 25 to 30% with hypokinesia of left ventricle. -Plan for angiogram in AM. Cardiology consulted and on board. Possible pneumonia -CT angiogram of the chest shows bibasilar atelectasis versus infiltrate -Follow blood cultures -Sputum cultures -Receiving doxycycline, Rocephin She was told that she had lung cancer by hospital in [facility] -I reviewed her CAT scans she has a history of pulmonary nodules in the right upper right lower lobe -We will have her follow-up with pulm as outpatient, pulmonary nodules difficult to assess on current CT angiogram Anxiety -Ativan p.o. 0.25 mg every 4 hours as needed DNR/DNI N.p.o. at midnight today for angiogram in a.m. Angio not done today due to dehydration and elevation in wbc will order IV fluids, recheck labs in am Attestations Medical Necessity Statement*: angiogram in AM Diagnoses Acute non-ST elevation myocardial infarction (NSTEMI) I21.4 Cardiomyopathy I42.9 Acute exacerbation of chronic obstructive airways disease J44.1 Nicotine dependence, cigarettes, uncomplicated F17.210 History of supraventricular tachycardia Z86.79 Hyperlipidemia, unspecified E78.5 Hyperlipidemia type: unspecified Acute on chronic respiratory failure with hypoxia and hypercapnia J96.21; J96.22 Pneumonia J18.9 CHF exacerbation I50.9 Ischemic cardiomyopathy I25.5 Protein calorie malnutrition E46 Physical deconditioning R53.81
[2022-06-02] MEDS: glycerin adult supp 1 EACH PR (13:07)
[2022-06-02] MEDS: cefTRIAXone 1,000 MG in sodium chloride 0.9% (plus) 50 ML 50 MG IV (14:23)
[2022-06-02] MEDS: atorvastatin 40 mg Tablet PO (20:39)
[2022-06-03] VITALS (14 sets, daily range): BP systolic 90–125; BP diastolic 69–83; PULSE 85–109; RESP 16–23; TEMP 36.4–36.7; O2SAT 93–100
[2022-06-03] MEDS: sodium chloride 0.9% 1,000 ML 75 ML IV (02:04)
[2022-06-03 04:10] LABS: Basophils % 0.2 %; Eosinophils % 0.2 %; Hematocrit 43.6 % (37.0-47.0); Hemoglobin 15.5 g/dL (11.5-15.3); Lymphocytes # 2.4 10^3/uL (0.8-4.8); Mean Corpuscular HGB Conc 35.6 g/dL (30.0-36.0); Mean Corpuscular Hemoglobin 32.9 pg (28.0-34.0); Mean Corpuscular Volume 92.6 fl (81-99); Mean Platelet Volume 9.6 fL (7.4-10.4); Monocytes # 2.3 10^3/uL (0.2-0.9); Monocytes % 10.5 %; Neutrophils # 17.01 10^3/uL (1.8-7.7); Neutrophils % 76.7 %; Nucleated Red Blood Cells % 0 %; Platelet Count 321 10^3/cmm (130-400); Red Blood Count 4.71 10^6/uL (4.1-5.3); Red Cell Distribution Width 15.2 % (12.1-15.1); White Blood Count 22.2 10^3/uL (4.0-10.0)
[2022-06-03 04:28] LABS: Anion Gap 8.5 (5-19); Blood Urea Nitrogen 45 mg/dL (8-23); Carbon Dioxide 37 mmol/L (22-29); Chloride 93 mmol/L (98-107); Glomerular Filtration Rate 123.8 mL/min (90-130); Glucose 95 mg/dL (65-115); Magnesium 1.9 mg/dL (1.7-2.3); Osmolality Calculated 291 mOsm/kg (285-295); Potassium 3.5 mmol/L (3.5-5.1); Sodium 135 mmol/L (136-145)
--- NOTE | 2022-06-03 04:52 | PC.NURSE ---
Called Dr Tyler to leave message regarding patient's lab this morning. BUN of 45 and Creatinine of 0.5
[2022-06-03] MEDS: levalbuterol 0.63 mg/3 mL Neb INHALATION (07:18)
[2022-06-03] MEDS: ipratropium 0.5 mg/2.5 mL Neb INHALATION (07:18)
[2022-06-03] MEDS: budesonide 0.5 mg/2 mL Neb INHALATION (07:18)
[2022-06-03] MEDS: doxycycline 100 MG in sodium chloride 0.9% (plus) 100 ML IV (09:01)
[2022-06-03] MEDS: citalopram 20 mg Tablet 10 MG PO (09:02)
[2022-06-03] MEDS: FUROsemide 20 mg Tablet PO (09:03)
[2022-06-03] MEDS: fenofibrate 145 mg Tablet PO (09:03)
[2022-06-03] MEDS: pantoprazole DR 40 mg Tablet PO (09:03)
[2022-06-03] MEDS: montelukast sodium 10 mg Tablet PO (09:04)
[2022-06-03] MEDS: spironolactone 25 mg Tablet PO (09:04)
[2022-06-03] MEDS: aspirin 81 mg EC Tablet PO (09:04)
[2022-06-03] MEDS: guaiFENesin 600 mg Tablet PO ×2 (09:04→17:49)
[2022-06-03] MEDS: clopidogrel 75 mg Tablet PO (09:05)
[2022-06-03] MEDS: losartan 50 mg Tablet 25 MG PO (09:05)
[2022-06-03] MEDS: potassium chloride ER 10 mEq Tablet PO (09:07)
[2022-06-03] MEDS: enoxaparin 40 mg/0.4 mL Syringe SUBCUT (09:31)
--- NOTE | 2022-06-03 10:56 | P.PN_ITS ---
Subjective Subjective: Seen this am wbc trending up bun cr improving Vitals/I&O/Wt Last Vital Signs Temp 97.6 F 06/03/22 07:47 Pulse 104 H 06/03/22 07:47 Resp 20 H 06/03/22 07:47 BP 110/83 06/03/22 09:05 Pulse Ox 98 06/03/22 07:47 O2 Del Method 06/03/22 07:47 O2 Flow Rate 3 06/03/22 07:19 FiO2 35 06/02/22 08:00 06/02/22 06/03/22 06/03/22 22:59 06:59 14:59 Intake Total 450 / 1280 950 / 2230 0 / 0 Output Total 1300 / 1300 Balance 450 / 1280 -350 / 930 0 / 0 Physical Exam Narrative: General: Alert oriented x3, patient seen sitting up in bed on 3 L nasal cannula, frail appearing HEENT: Normocephalic, atraumatic, EOMI, breathing comfortably., appears dehydrated Cardio: Regular rate rhythm, normal S1-S2, no gross murmurs noted. Respiratory: good b/l air entry, no wheezes no rhonchi, diminished at bases. No crackles appreciated. Normal respiratory effort. No accessory muscle use. GI: Abdomen soft, nontender, nondistended, bowel sounds + Behavior: Appropriate and cooperative Extremities:no edema, no cyanosis Urinary Catheter Management: Dave: Cath Placed During This Visit: yes Reason for Continuing Indwelling Catheter: Accurate Measurement of Urinary Output in Critically Ill Patients Urinary Catheter Date of Insertion: 05/27/22 Urinary Catheter Time of Insertion: 09:11 Data 06/03/22 03:47 06/03/22 03:47 Micro: Microbiology 06/03/22 09:42 Blood Culture - Preliminary Blood SPECIMEN COLLECTED 06/03/22 09:55 Blood Culture - Preliminary Blood SPECIMEN COLLECTED A&P Assessment and plan (1) Acute non-ST elevation myocardial infarction (NSTEMI): (2) Cardiomyopathy: d. (3) Acute exacerbation of chronic obstructive airways disease: (4) Nicotine dependence, cigarettes, uncomplicated: (5) History of supraventricular tachycardia: (6) Hyperlipidemia, unspecified: Qualifiers: Hyperlipidemia type: unspecified Qualified Code(s): E78.5 - Hyperlipid emia, unspecified (7) Acute on chronic respiratory failure with hypoxia and hypercapnia: Secondary to COPD exacerbation. ABG 7.27/77 point 7/153/30 5.7 on 4 L/min supplemental O2. Placed on BiPAP on admission. We will obtain ABG with a.m. labs to ensure that CO2 levels are downtrending. Repeat 05/27/2022 showed pH 7.3 9/58/114/30 4.8. Improved. (8) Pneumonia: (9) CHF exacerbation: (10) Ischemic cardiomyopathy: (11) Protein calorie malnutrition: (12) Physical deconditioning: Plan Acute hypoxic respiratory failure -Secondary to COPD -Possible underlying pneumonia -Ischemic cardiomyopathy, CHF diminished ejection fraction -Plan -?Continue BiPAP as needed. -Solu-Medrol 40 IV every 24 hour -Doxycycline 100 every 12 hours -Lasix 20 po -Potassium replacement -Monitor urine output, monitor creatinine -Monitor respiratory status closely - Place on ns 60 cc/hr -DNR/DNI -Lovenox for DVT prophylaxis UTI -UA quite turbid -urine culture did not show growth NSTEMI Acute systolic congestive heart failure, Ischemic cardiomyopathy with diminished ejection fraction -Possibly supply demand ischemia from respiratory failure from COPD and pneumonia as above -However cannot rule out underlying cardiac etiology -There is also possibility of Takotsubo cardiomyopathy -Serial EKGs, surgical telemetry monitoring -Continue aspirin, statin -Hold off on beta-jordyn -Has completed 48 hours of therapeutic Lovenox, switch to DVT prophylaxis -Echo showed EF 25 to 30% with hypokinesia of left ventricle. -Plan for angiogram in AM. Cardiology consulted and on board. Possible pneumonia -CT angiogram of the chest shows bibasilar atelectasis versus infiltrate -Follow blood cultures -Sputum cultures -Receiving doxycycline, Rocephin. Will stop and switch to zosyn as WBC worsening - Reculture today blood cultures, urine culture, sputum culture She was told that she had lung cancer by hospital in [facility] -I reviewed her CAT scans she has a history of pulmonary nodules in the right upper right lower lobe -We will have her follow-up with pulm as outpatient, pulmonary nodules difficult to assess on current CT angiogram Anxiety -Ativan p.o. 0.25 mg every 4 hours as needed DNR/DNI N.p.o. at midnight today for angiogram in a.m. Angio not done today due to dehydration and elevation in wbc will order IV fluids, recheck labs in am Updated RN, discussed with Dr. Jayson Servin Medical Necessity Statement*: COntinue to tx infection and once improved, go for angiogram Diagnoses Acute non-ST elevation myocardial infarction (NSTEMI) I21.4 Cardiomyopathy I42.9 Acute exacerbation of chronic obstructive airways disease J44.1 Nicotine dependence, cigarettes, uncomplicated F17.210 History of supraventricular tachycardia Z86.79 Hyperlipidemia, unspecified E78.5 Hyperlipidemia type: unspecified Acute on chronic respiratory failure with hypoxia and hypercapnia J96.21; J96.22 Pneumonia J18.9 CHF exacerbation I50.9 Ischemic cardiomyopathy I25.5 Protein calorie malnutrition E46 Physical deconditioning R53.81
[2022-06-03] MEDS: piperacillin-tazobactam 3.375 GM in sodium chloride 0.9% (plus) 50 ML IV ×2 (11:52→17:50)
--- NOTE | 2022-06-03 16:52 | P.PN_ITS ---
Subjective Subjective: Patient's white cell count is going up. This is in spite of the dose of prednisone being tapered down. She has no fever. BUN/creatinine levels are coming down. Medications: Medication Review Details: Current Medications Acetaminophen (Acetaminophen 325 Mg Tablet) 650 mg PO Q6H PRN PRN Reason: Mild/Mod Pain Or Temp >/= 101 Albuterol Sulfate (Albuterol 2.5 Mg/3 Ml Neb) 2.5 mg INHALATION Q4H.RESPIRATORY PRN PRN Reason: wheezing Last Admin: 05/28/22 03:39 Dose: 2.5 mg Aspirin (Aspirin 81 Mg Ec Tablet) 81 mg PO DAILY OBIE Last Admin: 06/03/22 09:04 Dose: 81 mg Atorvastatin Calcium (Atorvastatin 40 Mg Tablet) 40 mg PO BEDTIME OBIE Last Admin: 06/02/22 20:39 Dose: 40 mg Benzonatate (Benzonatate 100 Mg Capsule) 200 mg PO TID PRN PRN Reason: cough Last Admin: 05/30/22 09:29 Dose: 200 mg Budesonide (Budesonide 0.5 Mg/2 Ml Neb) 0.5 mg INHALATION BID.RESPIRATORY OBIE Last Admin: 06/03/22 07:18 Dose: 0.5 mg Citalopram Hydrobromide (Citalopram 20 Mg Tablet) 10 mg PO DAILY OBIE Last Admin: 06/03/22 09:02 Dose: 10 mg Clopidogrel Bisulfate (Clopidogrel 75 Mg Tablet) 75 mg PO DAILY OBIE Last Admin: 06/03/22 09:05 Dose: 75 mg Enoxaparin Sodium (Enoxaparin 40 Mg/0.4 Ml Syringe) 40 mg SUBCUT Q24H OBIE Last Admin: 06/03/22 09:31 Dose: 40 mg Fenofibrate (Fenofibrate 145 Mg Tablet) 145 mg PO DAILY OBIE Last Admin: 06/03/22 09:03 Dose: 145 mg Furosemide (Furosemide 20 Mg Tablet) 20 mg PO DAILY@0800 OBIE Last Admin: 06/03/22 09:03 Dose: 20 mg Guaifenesin (Guaifenesin 600 Mg Tablet) 600 mg PO BID OBIE Last Admin: 06/03/22 09:04 Dose: 600 mg Sodium Chloride (Sodium Chloride 0.9%) 1,000 mls @ 75 mls/hr IV .[id number] OBIE Last Admin: 06/03/22 02:04 Dose: 75 mls/hr Piperacillin Sod/Tazobactam (Sod 3.375 gm/ Sodium Chloride) 50 mls @ 12.5 mls/hr IV Q8H [facility]; Protocol Last Admin: 06/03/22 11:52 Dose: 12.5 mls/hr Ipratropium [place] (Ipratropium 0.5 Mg/2.5 Ml Neb) 0.5 mg INHALATION Q6H.RESP [facility] Last Admin: 06/03/22 13:29 Dose: Not Given Lactulose (Lactulose Oral Liq 20 Gm/30 Ml Udc) 20 gm PO Q12H OBIE Last Admin: 06/03/22 09:07 Dose: Not Given Levalbuterol HCl (Levalbuterol 0.63 Mg/3 Ml Neb) 0.63 mg INHALATION Q6H.RESP [facility] Last Admin: 06/03/22 13:29 Dose: Not Given Losartan Potassium (Losartan 50 Mg Tablet) 25 mg PO DAILY [facility] Last Admin: 06/03/22 09:05 Dose: 25 mg Methylprednisolone Sodium Succinate (Methylprednisolone Sod Succ 40 Mg/Ml Inj) 40 mg IVP Q24H [facility] Last Admin: 06/03/22 09:02 Dose: 40 mg Montelukast Sodium (Montelukast Sodium 10 Mg Tablet) 10 mg PO DAILY [facility] Last Admin: 06/03/22 09:04 Dose: 10 mg Naloxone HCl (Naloxone 0.4 Mg/Ml Sdv) 0.1 mg IVP Q2M PRN PRN Reason: OPIATERV Ondansetron HCl (Ondansetron 2 Mg/Ml Sdv 2 Ml) 4 mg IVP Q8H PRN PRN Reason: vomiting, or N/V if npo Pantoprazole Sodium (Pantoprazole Dr 40 Mg Tablet) 40 mg PO DAILY [facility] Last Admin: 06/03/22 09:03 Dose: 40 mg Potassium Chloride (Potassium Chloride Er 10 Meq Tablet) 10 meq PO DAILY [facility] Last Admin: 06/03/22 09:07 Dose: 10 meq Spironolactone (Spironolactone 25 Mg Tablet) 25 mg PO DAILY [facility] Last Admin: 06/03/22 09:04 Dose: 25 mg Vitals/I&O/Wt Last Vital Signs Temp 97.8 F 06/03/22 12:00 Pulse 107 H 06/03/22 15:45 Resp 22 H 06/03/22 15:45 BP 98/82 06/03/22 15:45 Pulse Ox 96 06/03/22 15:45 O2 Del Method 06/03/22 15:45 O2 Flow Rate 3 06/03/22 13:28 FiO2 35 06/03/22 08:00 06/03/22 06/03/22 06/03/22 06:59 14:59 22:59 Intake Total 950 / 2230 240 / 240 Output Total 1300 / 1300 Balance -350 / 930 240 / 240 Physical Exam Narrative: GENERAL: The patient is alert and oriented times three. Not in any acute distress. HEENT: No significant pallor, icterus or lymphadenopathy.Oral cavity: There are no mucous membrane lesions. NECK: Trachea appears to be central. No masses noted. No JVD or thyromegaly appreciated. RESPIRATORY: Breath sounds heard bilaterally with a scattered coarse crackles. There is a good breath sounds are diminished in the bases. No evidence of consolidation. BREASTS: Deferred. HEART: The heart sounds are normal. No S3 or S4. No significant murmurs. No pericardial rub ABDOMEN: No vessel pulsations or distention. No tenderness. No organomegaly appreciated. Bowel sounds are normally heard. : Deferred. RECTAL: Deferred. LYMPHATIC: No lymphadenopathy noted in the neck. EXTREMITIES: No edema or cyanosis. No clubbing. MUSCULOSKELETAL: No acute joint deformities or swelling SKIN: There are no significant rashes or ecchymosis NEUROPSYCHIATRIC: The patient is alert and oriented x3. Appears to be in a good mood. No tremors or rigidity noted. Urinary Catheter Management: Dave: Cath Placed During This Visit: yes Reason for Continuing Indwelling Catheter: Accurate Measurement of Urinary Output in Critically Ill Patients Urinary Catheter Date of Insertion: 05/27/22 Urinary Catheter Time of Insertion: 09:11 Data 06/03/22 03:47 06/03/22 03:47 Micro: Microbiology 06/03/22 09:42 Blood Culture - Preliminary Blood SPECIMEN COLLECTED 06/03/22 09:55 Blood Culture - Preliminary Blood SPECIMEN COLLECTED A&P Assessment and plan (1) Neutrophilic leukocytosis: Etiology is unclear. Further work-up as per Dr. Mcclain. Repeat urine and blood culture are being sent (2) Acute non-ST elevation myocardial infarction (NSTEMI): Continue Plavix and aspirin and other current medications. To further evaluate the coronary status based on the results of the above tests, and patient's clinical progress, further recommendations will be made. Requires a cardiac catheterization. The risk and benefits were discussed with the patient and her daughter in detail. The risk of bleeding, hematoma, vascular injury, myocardial infarction, myocardial perforation, malignant cardiac arrhythmias ,CVA, renal failure and other concomitant complications were explained in detail. Patient and her daughter understood this well and consented to proceed. May discontinue the IV fluid. Encourage oral hydration (3) Cardiomyopathy: Lasix on a as needed basis (4) Acute exacerbation of chronic obstructive airways disease: Continue the management as per the primary attending (5) Nicotine dependence, cigarettes, uncomplicated: Patient strongly advised to quit smoking. Cardiovascular implications were discussed. (6) History of supraventricular tachycardia: Patient apparently had RF ablation in the past. She seems to have no recurrence of SVT. May continue on the current management. (7) Hyperlipidemia, unspecified: Continue on the current dose of the statin Qualifiers: Hyperlipidemia type: unspecified Qualified Code(s): E78.5 - Hyperlipidemia, unspecified Plan The other problems are Bipolar disorder GERD ? History of TIA Repeat BMP and CBC in the morning. Work-up to find out the source of infection as per Dr. Mcclain. Cardiac catheterization was postponed Continue on the current medications Attestations Medical Necessity Statement*: Patient requires continued hospital stay for close monitoring and further management Coding Level of Care Code 40012 Diagnoses Neutrophilic leukocytosis D72.9 Acute non-ST elevation myocardial infarction (NSTEMI) I21.4 Cardiomyopathy I42.9 Acute exacerbation of chronic obstructive airways disease J44.1 Nicotine dependence, cigarettes, uncomplicated F17.210 History of supraventricular tachycardia Z86.79 Hyperlipidemia, unspecified E78.5 Hyperlipidemia type: unspecified
[2022-06-03 18:09] LABS: Blood Urine 3+ (Negative); Glucose Urine UA 2+ (Normal); Ketones Urine 1+ (Negative); Protein Urine Trace (Negative); Specific Gravity, Urine 1.015 (1.005-1.030); Urine Appearance Hazy (CLEAR); Urine Color Light yellow (Yellow); pH Urine 7 (5-7)
[2022-06-03 18:10] LABS: Add Urine Culture? Yes; Add Urine Microscopic? YES; Bacteria Urine TRACE /hpf; Bilirubin Urine Neg (Negative); Leukocyte Esterase Urine Negative (Negative); Nitrate Urine Negative (Negative); RBC Urine 15-25 /hpf (0-2); Squamous Epithelial Cell Urine 0-4 /hpf (0-5); Urobilinogen Urine Neg (Negative); WBC Urine 0-4 /hpf (0-5)
[2022-06-03] MEDS: atorvastatin 40 mg Tablet PO (20:17)
[2022-06-03] MEDS: trazodone 50 mg Tablet 25 MG PO (20:47)
[2022-06-04] VITALS (17 sets, daily range): BP systolic 91–126; BP diastolic 53–90; PULSE 72–119; RESP 16–26; TEMP 36.6–37.4; O2SAT 88–98
[2022-06-04] MEDS: sodium chloride 0.9% 1,000 ML 75 ML IV ×2 (00:05→13:00)
[2022-06-04] MEDS: piperacillin-tazobactam 3.375 GM in sodium chloride 0.9% (plus) 50 ML IV ×3 (01:14→18:40)
[2022-06-04 05:19] LABS: Basophils % 0.2 %; Eosinophils # 0.1 10^3/uL (0.0-0.8); Eosinophils % 0.3 %; Hematocrit 42.8 % (37.0-47.0); Hemoglobin 15.2 g/dL (11.5-15.3); Lymphocytes # 2.7 10^3/uL (0.8-4.8); Lymphocytes % 15.2 %; Mean Corpuscular HGB Conc 35.5 g/dL (30.0-36.0); Mean Corpuscular Hemoglobin 33.2 pg (28.0-34.0); Mean Corpuscular Volume 93.4 fl (81-99); Mean Platelet Volume 9.8 fL (7.4-10.4); Monocytes # 2.2 10^3/uL (0.2-0.9); Monocytes % 12.4 %; Neutrophils % 70.4 %; Nucleated Red Blood Cells % 0 %; Platelet Count 291 10^3/cmm (130-400); Red Blood Count 4.58 10^6/uL (4.1-5.3); Red Cell Distribution Width 15.7 % (12.1-15.1)
[2022-06-04 06:15] LABS: Blood Urea Nitrogen 28 mg/dL (8-23); Calcium 8.7 mg/dL (8.5-10.5); Carbon Dioxide 34 mmol/L (22-29); Chloride 93 mmol/L (98-107); Glomerular Filtration Rate 123.8 mL/min (90-130); Glucose 94 mg/dL (65-115); Magnesium 1.8 mg/dL (1.7-2.3); Osmolality Calculated 289 mOsm/kg (285-295); Sodium 137 mmol/L (136-145)
[2022-06-04 06:20] LABS: Anion Gap 14.2 (5-19); Potassium 4.2 mmol/L (3.5-5.1)
--- NOTE | 2022-06-04 07:18 | PC.NURSE ---
Bedside report taken from Monserrat Olmos
--- NOTE | 2022-06-04 08:34 | PM.PN ---
Subjective Subjective: 74yo F states she is feeling improved this AM slept well overnight Denies CP, palpitations. worsening SOB form baseline seen on 3L NC in bed. NPO Medications: Medication Review Details: Current Medications Acetaminophen (Acetaminophen 325 Mg Tablet) 650 mg PO Q6H PRN PRN Reason: Mild/Mod Pain Or Temp >/= 101 Albuterol Sulfate (Albuterol 2.5 Mg/3 Ml Neb) 2.5 mg INHALATION Q4H.RESPIRATORY PRN PRN Reason: wheezing Last Admin: 05/28/22 03:39 Dose: 2.5 mg Aspirin (Aspirin 81 Mg Ec Tablet) 81 mg PO DAILY OBIE Last Admin: 06/03/22 09:04 Dose: 81 mg Atorvastatin Calcium (Atorvastatin 40 Mg Tablet) 40 mg PO BEDTIME OBIE Last Admin: 06/02/22 20:39 Dose: 40 mg Benzonatate (Benzonatate 100 Mg Capsule) 200 mg PO TID PRN PRN Reason: cough Last Admin: 05/30/22 09:29 Dose: 200 mg Budesonide (Budesonide 0.5 Mg/2 Ml Neb) 0.5 mg INHALATION BID.RESPIRATORY OBIE Last Admin: 06/03/22 07:18 Dose: 0.5 mg Citalopram Hydrobromide (Citalopram 20 Mg Tablet) 10 mg PO DAILY OBIE Last Admin: 06/03/22 09:02 Dose: 10 mg Clopidogrel Bisulfate (Clopidogrel 75 Mg Tablet) 75 mg PO DAILY OBIE Last Admin: 06/03/22 09:05 Dose: 75 mg Enoxaparin Sodium (Enoxaparin 40 Mg/0.4 Ml Syringe) 40 mg SUBCUT Q24H OBIE Last Admin: 06/03/22 09:31 Dose: 40 mg Fenofibrate (Fenofibrate 145 Mg Tablet) 145 mg PO DAILY OBIE Last Admin: 06/03/22 09:03 Dose: 145 mg Furosemide (Furosemide 20 Mg Tablet) 20 mg PO DAILY@0800 OBIE Last Admin: 06/03/22 09:03 Dose: 20 mg Guaifenesin (Guaifenesin 600 Mg Tablet) 600 mg PO BID OBIE Last Admin: 06/03/22 09:04 Dose: 600 mg Sodium Chloride (Sodium Chloride 0.9%) 1,000 mls @ 75 mls/hr IV .[id number] OBIE Last Admin: 06/03/22 02:04 Dose: 75 mls/hr Piperacillin Sod/Tazobactam (Sod 3.375 gm/ Sodium Chloride) 50 mls @ 12.5 mls/hr IV Q8H [facility]; Protocol Last Admin: 06/03/22 11:52 Dose: 12.5 mls/hr Ipratropium [place] (Ipratropium 0.5 Mg/2.5 Ml Neb) 0.5 mg INHALATION Q6H.RESP [facility] Last Admin: 06/03/22 13:29 Dose: Not Given Lactulose (Lactulose Oral Liq 20 Gm/30 Ml Udc) 20 gm PO Q12H OBIE Last Admin: 06/03/22 09:07 Dose: Not Given Levalbuterol HCl (Levalbuterol 0.63 Mg/3 Ml Neb) 0.63 mg INHALATION Q6H.RESP [facility] Last Admin: 06/03/22 13:29 Dose: Not Given Losartan Potassium (Losartan 50 Mg Tablet) 25 mg PO DAILY [facility] Last Admin: 06/03/22 09:05 Dose: 25 mg Methylprednisolone Sodium Succinate (Methylprednisolone Sod Succ 40 Mg/Ml Inj) 40 mg IVP Q24H [facility] Last Admin: 06/03/22 09:02 Dose: 40 mg Montelukast Sodium (Montelukast Sodium 10 Mg Tablet) 10 mg PO DAILY [facility] Last Admin: 06/03/22 09:04 Dose: 10 mg Naloxone HCl (Naloxone 0.4 Mg/Ml Sdv) 0.1 mg IVP Q2M PRN PRN Reason: OPIATERV Ondansetron HCl (Ondansetron 2 Mg/Ml Sdv 2 Ml) 4 mg IVP Q8H PRN PRN Reason: vomiting, or N/V if npo Pantoprazole Sodium (Pantoprazole Dr 40 Mg Tablet) 40 mg PO DAILY [facility] Last Admin: 06/03/22 09:03 Dose: 40 mg Potassium Chloride (Potassium Chloride Er 10 Meq Tablet) 10 meq PO DAILY [facility] Last Admin: 06/03/22 09:07 Dose: 10 meq Spironolactone (Spironolactone 25 Mg Tablet) 25 mg PO DAILY [facility] Last Admin: 06/03/22 09:04 Dose: 25 mg Vitals/I&O/Wt Last Vital Signs Temp 97.8 F 06/04/22 08:00 Pulse 72 06/04/22 08:00 Resp 16 06/04/22 08:00 BP 126/90 06/04/22 08:00 Pulse Ox 96 06/04/22 08:00 O2 Del Method 06/04/22 08:00 O2 Flow Rate 3 06/04/22 08:00 FiO2 35 06/03/22 08:00 06/03/22 06/04/22 06/04/22 22:59 06:59 14:59 Intake Total 1520 / 1760 350 / 2110 Output Total 1000 / 1000 900 / 1900 Balance 520 / 760 -550 / 210 Weight last 48 hrs Weight 290 lb 11.2 oz Physical Exam Narrative: General: AOx3, no acute distress, frail, laying in bed, 3L NC psych: appropriate mood and affect. good judgment and insight. No suicidal or homicidal ideation. Head: atraumatic, normocephalic, no mass/lesions Eyes: conjunctiva clear w/o exudate or hemorrhage. non-icteric, EOM intact, PERRLA. no signs of nystagmus Nose: nasal mucosa pink, septum midline Oropharynx: good dentition, pink moist mucosa, non-deviated tongue, no buccal nodules/lesions. no pharyngeal exudate Neck: FROM, no lymphadenopathy, no tracheal deviation, non tender, thyroid gland normal w/o mass. supple Chest: atraumatic, symmetrical CVD: RRR, normal S1 and S2, no M/R/G. 2+ pulse x 4 extremities, no JVD, no carotid bruit.no edema Lungs: diffuse poor airflow more so at lung bases. no crackles, wheezing, rhonchi, accessory muscle usage. Abdomen: NT, ND, soft, NABS. No hepatosplenomegaly, no mass. umbilicus midline w/o herniation : not done on todays examination Rectal: not done on todays examination Skin:? no rash, vesicles, lesions. Urinary Catheter Management: Dave: Cath Placed During This Visit: no Data 06/04/22 04:21 06/04/22 04:21 Micro: Microbiology 06/03/22 09:42 Blood Culture - Preliminary Blood SPECIMEN COLLECTED 06/03/22 09:55 Blood Culture - Preliminary Blood SPECIMEN COLLECTED A&P Assessment and plan (1) Acute non-ST elevation myocardial infarction (NSTEMI): BP and HR stable to go to cath this AM with Dr. Tyler. -Echo showed EF 25 to 30% with hypokinesia of left ventricle. Lovenox Thereauputic dose serial EKG and tele (2) Cardiomyopathy: Ischemic vs [place] continue ASA and lipitor (3) Acute on chronic respiratory failure with hypoxia and hypercapnia: 2/2 COPD exacerbation and possible PNA -Solu-Medrol 40 IV every 24 hour IV Zosyn -BIPAP PRN (4) Nicotine dependence, cigarettes, uncomplicated: (5) Pneumonia: IV Zosyn WBC count improving this AM switched from doxy and rocephin 06/03/22 sputum Cx negative thus far. pending other cultures (6) CHF exacerbation: holding losartan. consider restarting after cath continue lasix, aldactone (7) History of supraventricular tachycardia: (8) Hyperlipidemia, unspecified: Qualifiers: Hyperlipidemia type: unspecified Qualified Code(s): E78.5 - Hyperlipidemia, unspecified (9) Ischemic cardiomyopathy: (10) Protein calorie malnutrition: (11) Pulmonary nodule: She was told that she had lung cancer by hospital in [facility] -I reviewed her CAT scans she has a history of pulmonary nodules in the right upper right lower lobe -We will have her follow-up with pulm as outpatient, pulmonary nodules difficult to assess on current CT angiogram Plan NSTEMI Ischemic cardiomyopathy with diminished EF COPD exacerbation PNA Pulmonary nodules p NS 75cc/hr IV Zosyn Lovenox, plavix, ASA NPO for cath lipitor, statin DNR/DNI Lovenox for DVT prophylaxis if tolerates cath well, likely d/c within 24hrs Attestations Medical Necessity Statement*: pt requires further hospitalization for cath procedure by Dr. Tyler and medical management Coding Level of Care Code 20874 Diagnoses Acute non-ST elevation myocardial infarction (NSTEMI) I21.4 Cardiomyopathy I42.9 Acute on chronic respiratory failure with hypoxia and hypercapnia J96.21; J96.22 Nicotine dependence, cigarettes, uncomplicated F17.210 Pneumonia J18.9 CHF exacerbation I50.9 History of supraventricular tachycardia Z86.79 Hyperlipidemia, unspecified E78.5 Hyperlipidemia type: unspecified Ischemic cardiomyopathy I25.5 Protein calorie malnutrition E46 Pulmonary nodule R91.1
--- NOTE | 2022-06-04 08:55 | XACV_ITS ---
Exam Room: 2 Ht: 152 cm Wt: 59 kg BSA: 1.59 m2 Gender: Female : 1955 Any Known Allergies: No known allergies Exam Priority: Routine Procedure(s): Procedure Description: Diagnostic procedure Procedure Description: Left Heart Catheterization Procedure Description: Right Heart Catheterization Procedure Description: Left ventriculography Procedure Description: O2 saturation Procedure Description: Coronary Angiography Jayson SHAW; Diagnostic Cath Status: Elective Diagnostic Findings * The left main is a medium caliber vessel with no significant stenotic lesions. * The left anterior descending artery is a medium caliber vessel which appears to taper off towards the LV apex. The artery appears to give off almost equal caliber diagonal vessels with no significant obstructive lesions. * The left circumflex artery is a medium caliber vessel which also was found to have no significant obstructive coronary lesions. * The right coronary artery is a medium caliber dominant vessel which also was found to no significant stenotic lesions. Conclusions 1. 66-year-old white female with history of severe COPD, ongoing scum smoking abuse presents with features of congestive heart failure and non-ST elevation myocardial infarction. Ejection fraction by echocardiogram was around 25%. For further evaluation of her cardiovascular status, a cardiac catheterization was recommended. Patient underwent left and right heart catheterization with left and right coronary angiogram and LV angiogram today. The findings are as follows.. 2. 1. No significant obstructive coronary artery disease. 2. Hypokinetic LV apex with an ejection fraction of around 50%. 3. Right heart catheterization revealed a right atrial pressure of 4, RV pressure of 31/1, PA pressure of 34/10 with a mean of 18. Pulmonary capillary wedge pressure was 9. Card cardiac output was 4.0 with index of 2.0 by Adria's method. The patient's clinical features may suggest a variant of Tak[place]ub[place] causing the cardiomyopathy and congestive heart failure.. Interventional RX Recommendation: none Diagnostic RX Recommendation: medical therapy and/or counseling LV EDP: 5 mmHg Ventriculography Ejection Fraction: 50.0 % Left Ventriculography Findings: * The LV gram was performed in the GL[place] projection. The LV cavity appears to be of normal size. LV apex was found to be hypokinetic. The overall LV ejection fraction was around 50%. LVEDP was 5 mmHg. Pressures Phase:Rest AO : 120 / 77 ( 94 ) @ 10:44:00 AM 124 / 67 ( 90 ) @ 10:57:00 AM 123 / 55 ( 86 ) @ 10:57:00 AM LV : 118 / -11 / 5 @ 10:55:00 AM 105 / -6 / 9 @ 10:57:00 AM 107 / -6 / 10 @ 10:57:00 AM RV : 31 / 1 / 4 @ 11:08:00 AM PA : 34 / 10 ( 18 ) @ 11:07:00 AM RA : a wave = 7 v wave = 4 mean = 4 @ 11:10:00 AM PCW : a wave = 11 v wave = 10 mean = 9 @ 11:06:00 AM O2 Content Phase:Rest PA : O2 Content O2: 76.4 @ 10:44:00 AM Saturations Phase:Rest AO : 98 @ 10:57:00 AM RA : 76 @ 10:57:00 AM RV : 75 @ 10:55:00 AM PA : 76 @ 10:44:00 AM Cardiac Output Phase:Rest Adria : 4 @ 10:31:54 AM Adria Cardiac Index: 2 @ 10::54 AM Flow Phase:Rest Qp : 4 @ 10:31:54 AM Qs : 4 @ 10:31:54 AM Valves Phase:DefaultPhase AV : 0.0 @ 10:31:54 AM 0.0 @ 10:31:54 AM AV Mean Gradient: 0.0 @ 10:31:54 AM 0.0 @ 10:31:54 AM AV Flow: 690 @ 10:31:54 AM Clinical Evaluation EBL: 5mL-10mL Procedural Details Procedure Consent Obtained. Admit Source: In Patient. Hemodynamic formulas in Rest were re-calculated based on hemoglobin value from 06/04/2022 4:21:00 AM. Pre-Procedure Time Out. Identified patient by full name and date of as verbalized by the patient/guarantor. Does the consent match the physician's order: Yes. Accurate & Complete Informed Consent: Yes. Inpatient/Outpatient History & Physical on Chart: Yes. If H&P is completed, is and addenduem needed: No; If yes, is the addendum complete: N/A. Visualize and Verify Site with Patient/Guarantor: N/A. Relevant Radiology Images available: N/A. The risks, benefits, and alternatives of sedation and/or procedure were discussed by physician. The patient agrees to continue. Procedure started. [facility] Clinical Fraility Score: 4: Vulnerable. Transplanter Orchid Indications: Cardiomyopathy. Chest Pain Symptom Assessment: Typical Angina Symptoms. Correct patient, site and procedure confirmed by cath team. Current diagnosis: NSTEMI. PERRLA. 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 Lungs clear x 5 lobes. IV Site on Arrival: 20 gauge in the left anticubital. IV Fluids: 0.9% NaCl at KVO. 300 mL infused prior to dentures lab technician. Pre Procedural Pulses: bilateral dorsalis pedis was Doppled. Pre Procedural Pulses: bilateral posterior tibial was Doppled. Oxygen started at 3liters/min via nasal canula. right groin was prepped with chloroprep then draped in the usual sterile fashion. left groin was prepped with chloroprep then draped in the usual sterile fashion. Physician notified. Baseline sample Acquired. HR: 105 BPM. Physician arrived. Physician scrubbed in. Immediate Pre-Procedure Time Out. Correct Patient: Yes; Correct Procedure: Yes; Correct Site: Yes; Correct Patient Position: Yes; Correct Supplies: Yes; Dried Flammable Prep: Yes; Blood Products Available: N/A;. Lidocaine 1% infiltrated to the right groin. Arterial access obtained with micropuncture set. A 5 [place] JL4 catheter in over wire. Multiple views taken of left coronary artery. Catheter removed over the standard wire. A 5 [place] JR4 catheter in over wire. AO saturation drawn. Multiple views taken of right coronary artery. Catheter removed over the standard wire. A 5 [place] Angled Pig catheter in over wire. EDP Sample taken: LV 118/-12,5; HR: 97 BPM; SpO2: 98%. LV gram performed in GL[place] @ 10 mL/second for a total of 30 mL. EDP Sample taken: LV 105/-7,9; HR: 99 BPM; SpO2: 98%. Pullback taken: LV 107/-7,10; AO 124/67(90); Mean: 0mmHg, Peak to Peak: 0mmHg, SEP: 5sec/min; HR: 97 BPM; SpO2: 98%. Catheter out. Lidocaine 1% infiltrated to the right groin. Venous access obtained with a micropuncture set. [place]-Amber MON catheter inserted. Pressure measurements obtained. ABG drawn and sent with respiratory therapy. [place]mber out. A Suture was successful obtaining hemostatsis at the Right Femoral artery insertion site. A Suture was successful obtaining hemostatsis at the Right Femoral vein insertion site. Sheath(s) sutured into position with 2-0 silk and sterile 4x4's and Op-site applied over the site. No oozing or signs and symptoms of hematoma noted. Arterial sheath flushed and connected to tranducer and pressure bag with heparinized saline. Post Procedure: Pulses reassessed and unchanged. PERRLA. 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 No VTE prophylaxis required. Post-op diagnosis: Non Ischemic Cardiomyopathy. Medication's Wasted: Lidocaine 1% = 3 mL. Medication's Wasted: Heparin = 2500u. Medication's Wasted: Other = fentanyl 75 mcg. Total IV fluids: 291 mL. Complications: none. Estimated blood loss: 5mL-10mL. Responsiveness - Normal response to verbal stimuli; alert and oriented, PERRLA. Airway - Unaffected, no intervention required; spontaneous ventilation. Circulation: W/N/L, pulses unchanged. Nausea/Vomiting: No. Procedure completed. Patient transferred by bed to 1st floor. Vital chart was stopped. Procedure started. Access Site Site: Right Femoral artery Sheath Size: 5 Fr Hemostasis Method: Suture Hemostasis Success: Successful Site: Right Femoral vein Sheath Size: 6 Fr Hemostasis Method: Suture Hemostasis Success: Successful Procedure Medications Start: 9:33 AM Stop: 9:33 AM Medication: Versed Amount: 1 mg Route: I.V. Start: 9:33 AM Stop: 9:33 AM Medication: Fentanyl Amount: 25 mcg Route: I.V. Start: 9:56 AM Stop: 9:56 AM Medication: 0.9% Saline Amount: 250 ml Route: I.V. bolus Start: 10:05 AM Stop: 10:05 AM Medication: Heparin Amount: 1500 units Route: I.V. Start: 10:00 AM Stop: 10:00 AM Medication: Versed Amount: 1 mg Route: I.V. I, the attending physician, have reviewed and verified all procedure medications. Yes, all medications given per verbal order History/Risk Factors Hypertension: Yes Dyslipidemia: Yes Peripheral Arterial Disease (PAD): No Myocardial Infarction (MO): No Obesity: No Renal Disease: No Tobacco Use: Current/Recent(w/in 1 year) Prior Interventions PCI: No CABG: No Valve Surgery: No Report Signatures Finalized by Dr Gita Tyler MD [facility] on 06/04/2022 12:41 PM
--- NOTE | 2022-06-04 08:56 | PM.PN ---
Subjective Subjective: The patient is okay. She remains afebrile. No chest pain or any unusual shortness of breath. Because of the borderline low blood pressure, the losartan was on hold yesterday. Her urinalysis showed yeast. The blood pressure has no growth so far. The white cell count is down Medications: Medication Review Details: Current Medications Acetaminophen (Acetaminophen 325 Mg Tablet) 650 mg PO Q6H PRN PRN Reason: Mild/Mod Pain Or Temp >/= 101 Albuterol Sulfate (Albuterol 2.5 Mg/3 Ml Neb) 2.5 mg INHALATION Q4H.RESPIRATORY PRN PRN Reason: wheezing Last Admin: 05/28/22 03:39 Dose: 2.5 mg Aspirin (Aspirin 81 Mg Ec Tablet) 81 mg PO DAILY OBIE Last Admin: 06/03/22 09:04 Dose: 81 mg Atorvastatin Calcium (Atorvastatin 40 Mg Tablet) 40 mg PO BEDTIME OBIE Last Admin: 06/03/22 20:17 Dose: 40 mg Benzonatate (Benzonatate 100 Mg Capsule) 200 mg PO TID PRN PRN Reason: cough Last Admin: 05/30/22 09:29 Dose: 200 mg Budesonide (Budesonide 0.5 Mg/2 Ml Neb) 0.5 mg INHALATION BID.RESPIRATORY OBIE Last Admin: 06/04/22 08:22 Dose: Not Given Citalopram Hydrobromide (Citalopram 20 Mg Tablet) 10 mg PO DAILY OBIE Last Admin: 06/03/22 09:02 Dose: 10 mg Clopidogrel Bisulfate (Clopidogrel 75 Mg Tablet) 75 mg PO DAILY OBIE Last Admin: 06/03/22 09:05 Dose: 75 mg Enoxaparin Sodium (Enoxaparin 40 Mg/0.4 Ml Syringe) 40 mg SUBCUT Q24H OBIE Last Admin: 06/03/22 09:31 Dose: 40 mg Fenofibrate (Fenofibrate 145 Mg Tablet) 145 mg PO DAILY OBIE Last Admin: 06/03/22 09:03 Dose: 145 mg Furosemide (Furosemide 20 Mg Tablet) 20 mg PO DAILY@0800 OBIE Last Admin: 06/03/22 09:03 Dose: 20 mg Guaifenesin (Guaifenesin 600 Mg Tablet) 600 mg PO BID OBIE Last Admin: 06/03/22 17:49 Dose: 600 mg Sodium Chloride (Sodium Chloride 0.9%) 1,000 mls @ 75 mls/hr IV .[id number] [facility] [place] Last Admin: 06/04/22 00:05 Dose: 75 mls/hr Piperacillin Sod/Tazobactam (Sod 3.375 gm/ Sodium Chloride) 50 mls @ 12.5 mls/hr IV Q8H [facility] [place]; Protocol Last Titration: 06/04/22 05:20 Dose: Infused Ipratropium [place] (Ipratropium 0.5 Mg/2.5 Ml Neb) 0.5 mg INHALATION Q6H.RESP OBIE Last Admin: 06/04/22 08:22 Dose: Not Given Lactulose (Lactulose Oral Liq 20 Gm/30 Ml Udc) 20 gm PO Q12H OBIE Last Admin: 06/03/22 20:16 Dose: Not Given Levalbuterol HCl (Levalbuterol 0.63 Mg/3 Ml Neb) 0.63 mg INHALATION Q6H.RESP [facility] [place] Last Admin: 06/04/22 08:22 Dose: Not Given Losartan Potassium (Losartan 50 Mg Tablet) 25 mg PO DAILY [facility] [place] Last Admin: 06/03/22 09:05 Dose: 25 mg Methylprednisolone Sodium Succinate (Methylprednisolone Sod Succ 40 Mg/Ml Inj) 40 mg IVP Q24H [facility] [place] Last Admin: 06/03/22 09:02 Dose: 40 mg Montelukast Sodium (Montelukast Sodium 10 Mg Tablet) 10 mg PO DAILY [facility] [place] Last Admin: 06/03/22 09:04 Dose: 10 mg Naloxone HCl (Naloxone 0.4 Mg/Ml Sdv) 0.1 mg IVP Q2M PRN PRN Reason: OPIATERV Ondansetron HCl (Ondansetron 2 Mg/Ml Sdv 2 Ml) 4 mg IVP Q8H PRN PRN Reason: vomiting, or N/V if npo Pantoprazole Sodium (Pantoprazole Dr 40 Mg Tablet) 40 mg PO DAILY [facility] [place] Last Admin: 06/03/22 09:03 Dose: 40 mg Potassium Chloride (Potassium Chloride Er 10 Meq Tablet) 10 meq PO DAILY [facility] [place] Last Admin: 06/03/22 09:07 Dose: 10 meq Spironolactone (Spironolactone 25 Mg Tablet) 25 mg PO DAILY [facility] [place] Last Admin: 06/03/22 09:04 Dose: 25 mg Trazodone HCl (Trazodone 50 Mg Tablet) 25 mg PO BEDTIME PRN PRN Reason: INSOMNIA Last Admin: 06/03/22 20:47 Dose: 25 mg Vitals/I&O/Wt Last Vital Signs Temp 97.8 F 06/04/22 08:00 Pulse 72 06/04/22 08:00 Resp 16 06/04/22 08:00 BP 126/90 06/04/22 08:00 Pulse Ox 96 06/04/22 08:00 O2 Del Method 06/04/22 08:00 O2 Flow Rate 3 06/04/22 08:00 FiO2 35 06/03/22 08:00 06/03/22 06/04/22 06/04/22 22:59 06:59 14:59 Intake Total 1520 / 1760 350 / 2110 Output Total 1000 / 1000 900 / 1900 Balance 520 / 760 -550 / 210 Weight last 48 hrs Weight 290 lb 11.2 oz Physical Exam Narrative: GENERAL: The patient is alert and oriented times three. Not in any acute distress. HEENT: No significant pallor, icterus or lymphadenopathy.Oral cavity: There are no mucous membrane lesions. NECK: Trachea appears to be central. No masses noted. No JVD or thyromegaly appreciated. RESPIRATORY: Breath sounds heard bilaterally with no rales or rhonchi. The breath sounds are diminished in the bases. No evidence of consolidation. BREASTS: Deferred. HEART: The heart sounds are normal. No S3 or S4. No significant murmurs. No pericardial rub ABDOMEN: No vessel pulsations or distention. No tenderness. No organomegaly appreciated. Bowel sounds are normally heard. : Deferred. RECTAL: Deferred. LYMPHATIC: No lymphadenopathy noted in the neck. EXTREMITIES: No edema or cyanosis. No clubbing. The dorsalis pedis and posttibial pulses are weak bilaterally. MUSCULOSKELETAL: No acute joint deformities or swelling SKIN: There are no significant rashes or ecchymosis NEUROPSYCHIATRIC: The patient is alert and oriented x3. Appears to be in a good mood. No tremors or rigidity noted. Urinary Catheter Management: Dave: Cath Placed During This Visit: yes Reason for Continuing Indwelling Catheter: Accurate Measurement of Urinary Output in Critically Ill Patients Urinary Catheter Date of Insertion: 05/27/22 Urinary Catheter Time of Insertion: 09:11 Data 06/04/22 04:21 06/04/22 04:21 Other Labs: Laboratory Last Values WBC 18.0 10^3/uL (4.0-10.0) H 06/04/22 04:21 RBC 4.58 10^6/uL (4.1-5.3) 06/04/22 04:21 Hgb 15.2 g/dL (11.5-15.3) 06/04/22 04:21 Hct 42.8 % (37.0-47.0) 06/04/22 04:21 MCV 93.4 fl (81-99) 06/04/22 04:21 MCH 33.2 pg (28.0-34.0) 06/04/22 04:21 MCHC 35.5 g/dL (30.0-36.0) 06/04/22 04:21 RDW 15.7 % (12.1-15.1) H 06/04/22 04:21 Plt Count 291 10^3/cmm (130-400) 06/04/22 04:21 MPV 9.8 fL (7.4-10.4) 06/04/22 04:21 Neut % (Auto) 70.4 % 06/04/22 04:21 Lymph % (Auto) 15.2 % 06/04/22 04:21 Toole % (Auto) 12.4 % 06/04/22 04:21 Eos % (Auto) 0.3 % 06/04/22 04:21 Baso % (Auto) 0.2 % 06/04/22 04:21 Neut # (Auto) 12.70 10^3/uL (1.8-7.7) H 06/04/22 04:21 Lymph # (Auto) 2.7 10^3/uL (0.8-4.8) 06/04/22 04:21 Toole # (Auto) 2.2 10^3/uL (0.2-0.9) H 06/04/22 04:21 Eos # (Auto) 0.1 10^3/uL (0.0-0.8) 06/04/22 04:21 Baso # (Auto) 0.0 10^3/uL (0.0-0.1) 06/04/22 04:21 Nucleated RBC % (auto) 0 % 06/04/22 04:21 Total Counted 100 (0-100) 05/27/22 02:11 Atypical Lymphs % 0.0 % (0-5) 05/27/22 02:11 Absolute Neutrophils 6.0 10^3/cmm (1.4-6.5) 05/27/22 02:11 Segmented Neutrophils 85 % 05/27/22 02:11 Abs Segm Neuts (Man) 6.0 10/cmm (1.6-7.1) 05/27/22 02:11 Band Neutrophils 0.0 % 05/27/22 02:11 Abs Band Neuts (Man) 0.0 10^3/cmm (0.0-1.2) 05/27/22 02:11 Absolute Lymphocytes 1.1 10^3/cmm (1.2-3.4) L 05/27/22 02:11 Lymphocytes (Manual) 15 % 05/27/22 02:11 Monocytes (Manual) 0.0 % 05/27/22 02:11 Absolute Monocytes 0.0 10^3/cmm (0.1-0.6) L 05/27/22 02:11 Eosinophils (Manual) 0 % 05/27/22 02:11 Absolute Eosinophils 0.0 10^3/cmm (0.0-0.7) 05/27/22 02:11 Basophils (Manual) 0.0 % 05/27/22 02:11 Absolute Basophils 0.0 10^3/cmm (0.0-0.2) 05/27/22 02:11 Nucleated RBCs # 0.0 /100WBC 06/04/22 04:21 Platelet Estimate Normal (Normal) 05/27/22 02:11 PT 12.90 SECONDS (12.1-14.9) 05/26/22 18:21 INR 0.94 (0.8-1.2) 05/26/22 18: APTT 33.5 SECONDS (23.9-36.7) D 05/29/22 16:26 Specimen Type Arterial 05/27/22 04:59 Sample Site Radial, left 05/27/22 04:59 ABG pH 7.39 (7.35-7.45) 05/27/22 04:59 ABG pCO2 58.0 mmHg (35-45) H 05/27/22 04:59 ABG pO2 114.0 mmHg (80.0-100.0) H 05/27/22 04:59 ABG HCO3 34.8 mmol/L (22-26) H 05/27/22 04:59 ABG Base Excess 7.6 mmol/L (-2.0-2.0) H 05/27/22 04:59 Jann Test Pos 05/27/22 04:59 Hematocrit 45.3 % (37-47) 05/27/22 04:59 Hgb O2 Saturation 96.8 % (95-100) 05/26/22 18:30 Carboxyhemoglobin 2.0 %THgb (0.4-20.1) 05/26/22 18:30 Methemoglobin 0.6 % (0.4-1.5) 05/26/22 18:30 Total Hemoglobin 15.4 g/dL (12-16) 05/26/22 18:30 O2 Delivery Device Bipap 05/27/22 04:59 O2 Liters/Min 4.0 % 05/26/22 18:30 FiO2 35.0 % 05/27/22 04:59 PEEP 8.0 cmH20 05/27/22 04:59 Lime Slaker ID [email or web address] 05/27/22 04:59 Sodium 137 mmol/L (136-145) 06/04/22 04:21 Potassium 4.2 mmol/L (3.5-5.1) 06/04/22 04:21 Chloride 93 mmol/L (98-107) L 06/04/22 04:21 Carbon Dioxide 34 mmol/L (22-29) H 06/04/22 04:21 Anion Gap 14.2 (5-19) 06/04/22 04:21 BUN 28 mg/dL (8-23) H 06/04/22 04:21 Creatinine 0.5 mg/dL (0.5-0.9) 06/04/22 04:21 GFR Calculation 123.8 mL/min (90-130) 06/04/22 04:21 Glucose 94 mg/dL (65-115) 06/04/22 04:21 Calculated Osmolality 289 mOsm/kg (285-295) 06/04/22 04:21 Lactic Acid 2.2 mmol/L (0.5-2.2) 05/26/22 18:32 Lactic Acid (Sepsis) 2.1 mmol/L (0.5-2.2) 05/26/22 21:00 Calcium 8.7 mg/dL (8.5-10.5) 06/04/22 04:21 Phosphorus 4.8 mg/dL (2.5-4.5) H 05/30/22 04:30 Magnesium 1.8 mg/dL (1.7-2.3) 06/04/22 04:21 Total Bilirubin 0.4 mg/dL (0.15-1.2) 05/30/22 04:30 AST 25 U/L (0-32) 05/30/22 04:30 ALT 12 U/L (0-33) 05/30/22 04:30 Alkaline Phosphatase 87 U/L (35-105) 05/30/22 04:30 Troponin T Gen 5 ng/L 39 ng/L (0-10) H 06/01/22 03:45 Troponin T Baseline 216 ng/L (0-10) H* 05/26/22 18:32 Troponin T 120 Minute 223.1 ng/L (0-10) H 05/26/22 21:00 Delta Troponin T 7.1 ABS# (0-10) 05/26/22 21:00 Troponin T Hi Sens 6Hr 172.7 ng/L (0-10) H 05/27/22 02:11 Troponin T Hi Sens 6Hr Delta -43.3 ng/L (0-12) L 05/27/22 02:11 C-Reactive Protein 3.0 mg/L (0.0-4.9) 05/30/22 04:30 NT-Pro-B Natriuret Pep 6205 pg/mL (0-125) H 05/31/22 03:56 Total Protein 7.3 g/dL (6.6-8.7) 05/30/22 04:30 Albumin 4.2 g/dL (3.5-5.2) 05/30/22 04:30 Globulin 3.1 g/dL (1.3-4.6) 05/30/22 04:30 Procalcitonin 0.07 ng/mL (0-0.5) 05/30/22 04:30 Urine Color Light yellow (Yellow) 06/03/22 17:25 Urine Appearance Hazy (CLEAR) A 06/03/22 17:25 Urine pH 7 (5-7) 06/03/22 17:25 Ur Specific Filion 1.015 (1.005-1.030) 06/03/22 17:25 Urine Protein Trace (Negative) 06/03/22 17:25 Urine Glucose (UA) 2+ (Normal) H 06/03/22 17:25 Urine Ketones 1+ (Negative) H 06/03/22 17:25 Urine Blood 3+ (Negative) H 06/03/22 17:25 Urine Nitrate Negative (Negative) 06/03/22 17:25 Urine Bilirubin Neg (Negative) 06/03/22 17:25 Urine Urobilinogen Neg mg/dL (Negative) 06/03/22 17:25 Ur Leukocyte Esterase Negative (Negative) 06/03/22 17:25 Urine RBC 15-25 /hpf (0-2) H 06/03/22 17:25 Urine WBC 0-4 /hpf (0-5) H 06/03/22 17:25 Ur Squamous Epith Cells 0-4 /hpf (0-5) H 06/03/22 17:25 Amorphous Sediment Not Reportable 06/03/22 17:25 Urine Bacteria Trace /hpf (NONE) 06/03/22 17:25 Urine Mucus 4+ /hpf 05/28/22 07:45 Urine Yeast 3+ /hpf H 06/03/22 17:25 Nasal Influ A H1 2008 PCR Not detected (NOT DETECT) 05/26/22 19:10 Adenovirus (PCR) Not detected (NOT DETECT) 05/26/22 19:10 C. pneumoniae DNA (PCR) Not detected (NOT DETECT) 05/26/22 19:10 Coronavirus 229E (PCR) Not detected (NOT DETECT) 05/26/22 19:10 Human Metapneumovir PCR Not detected (NOT DETECT) 05/26/22 19:10 Influenza A (H1) PCR Not detected (NOT DETECT) 05/26/22 19:10 Influenza A (H3) PCR Not detected (NOT DETECT) 05/26/22 19:10 Influenza Type A (PCR) Not detected (NOT DETECT) 05/26/22 19:10 Influenza Type B (PCR) Not detected (NOT DETECT) 05/26/22 19:10 M. pneumoniae (PCR) Not detected (NOT DETECT) 05/26/22 19:10 Parainfluenza 1 (PCR) Not detected (NOT DETECT) 05/26/22 19:10 Parainfluenza 2 (PCR) Not detected (NOT DETECT) 05/26/22 19:10 Parainfluenza 3 (PCR) Not detected (NOT DETECT) 05/26/22 19:10 Parainfluenza 4 (PCR) Not detected (NOT DETECT) 05/26/22 19:10 RSV Type A (PCR) Not detected (NOT DETECT) 05/26/22 19:10 RSV Type B (PCR) Not detected (NOT DETECT) 05/26/22 19:10 Entero/Rhino (PCR) Not detected (NOT DETECT) 05/26/22 19:10 SARS-CoV-2 (PCR) Not detected (NOT DETECT) 05/26/22 19:10 Micro: Microbiology 06/03/22 09:42 Blood Culture - Preliminary Blood SPECIMEN COLLECTED 06/03/22 09:55 Blood Culture - Preliminary Blood SPECIMEN COLLECTED A&P Assessment and plan (1) Neutrophilic leukocytosis: Possibly from the steroid/leukemoid reaction. Currently it is coming down. Clinically no signs of infection. (2) CHF exacerbation: Clinically compensated. We will continue on the as needed Lasix (3) Cardiomyopathy: LV ejection fraction was around 25% by echocardiogram. Patient with the angiogram findings, further recommendations will be made (4) Acute non-ST elevation myocardial infarction (NSTEMI): Currently seems to be stable. Patient is on aspirin and Plavix. This will be continued for the time being (5) Acute on chronic respiratory failure with hypoxia and hypercapnia: Clinically has improved. Currently her oxygen requirement is to the baseline, 3 L/min by nasal cannula. Continue the same (6) Acute kidney injury: Significant improvement of the BUN and creatinine. Continue the current meds Plan The other problems are Bipolar disorder GERD ? History of TIA Discussed with Dr. Mustafa. It was thought to be appropriate to go ahead with the angiogram today. Clinically she has no other signs of infection. Once again I discussed with the the patient the procedure, risk and benefits. The risk of bleeding, hematoma, vascular injury, myocardial infarction, myocardial perforation, malignant cardiac arrhythmias ,CVA, renal failure/ contrast induced nephropathy and other concomitant complications were explained in detail. Patient understood this well and consented to proceed. Based on the results, further recommendations will be made Attestations Medical Necessity Statement*: Disposition as per the primary. Coding Level of Care Code 25950 Diagnoses Neutrophilic leukocytosis D72.9 CHF exacerbation I50.9 Cardiomyopathy I42.9 Acute non-ST elevation myocardial infarction (NSTEMI) I21.4 Acute on chronic respiratory failure with hypoxia and hypercapnia J96.21; J96.22 Acute kidney injury N17.9
[2022-06-04] MEDS: citalopram 20 mg Tablet 10 MG PO (08:57)
[2022-06-04] MEDS: enoxaparin 40 mg/0.4 mL Syringe SUBCUT (08:57)
[2022-06-04] MEDS: montelukast sodium 10 mg Tablet PO (08:58)
[2022-06-04] MEDS: clopidogrel 75 mg Tablet PO (08:58)
[2022-06-04] MEDS: potassium chloride ER 10 mEq Tablet PO (08:58)
[2022-06-04] MEDS: pantoprazole DR 40 mg Tablet PO (08:58)
[2022-06-04] MEDS: guaiFENesin 600 mg Tablet PO ×2 (08:58→18:40)
[2022-06-04] MEDS: aspirin 81 mg EC Tablet PO (08:58)
[2022-06-04] MEDS: spironolactone 25 mg Tablet PO (08:58)
[2022-06-04] MEDS: fenofibrate 145 mg Tablet PO (08:58)
[2022-06-04] MEDS: FUROsemide 20 mg Tablet PO (08:58)
[2022-06-04 10:19] LABS: Arterial Blood Gas Hematocrit 41.8 % (37-47); Blood Gas Operator Identificat PA; Blood Gas Sample Site Not specified; Blood Gas Sample Type Not specified; Carboxyhemoglobin 1.3 %THgb (0.4-20.1); HGB O2 Sat 74.9 % (95-100); Methemoglobin 0.7 % (0.4-1.5); Oxygen Device NC; Total Hemoglobin 13.6 g/dL (12-16)
[2022-06-04 10:20] LABS: Arterial Blood Gas Hematocrit 41.8 % (37-47); Blood Gas Operator Identificat RA; Blood Gas Sample Site Not specified; Blood Gas Sample Type Not specified; Carboxyhemoglobin 1.3 %THgb (0.4-20.1); HGB O2 Sat 74.8 % (95-100); Methemoglobin 0.6 % (0.4-1.5); Oxygen Device NC; Total Hemoglobin 13.6 g/dL (12-16)
[2022-06-04 10:22] LABS: Arterial Blood Gas Hematocrit 41.7 % (37-47); Blood Gas Operator Identificat RV; Blood Gas Sample Site Not specified; Blood Gas Sample Type Not specified; Carboxyhemoglobin 1.2 %THgb (0.4-20.1); HGB O2 Sat 73.9 % (95-100); Methemoglobin 0.6 % (0.4-1.5); Oxygen Device NC; Total Hemoglobin 13.6 g/dL (12-16)
[2022-06-04 10:23] LABS: Alveolar-Arterial Oxygen Gradi 7.6 mmHg (5-10); Arterial Blood Gas Hematocrit 42.1 % (37-47); Blood Gas Operator Identificat AO; Blood Gas Sample Site Not specified; Blood Gas Sample Type Arterial; Carboxyhemoglobin 1.1 %THgb (0.4-20.1); HGB O2 Sat 96.8 % (95-100); Methemoglobin 0.6 % (0.4-1.5); Oxygen Device NC; Total Hemoglobin 13.7 g/dL (12-16)
--- NOTE | 2022-06-04 11:43 | PC.SOCIAL ---
IMM Updated Updated pt on IMM. No questions voiced. Provided pt a copy. Initialed, dated, & timed copy in chart.
--- NOTE | 2022-06-04 13:04 | PC.NURSE ---
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 After one hour head of bed was raised to 15 degrees and fluid are increased to 250ml/hr.
[2022-06-04] MEDS: ALPRAZolam 0.5 mg Tablet 0.25 MG PO (20:28)
[2022-06-04] MEDS: temazepam 15 mg Capsule PO (20:28)
[2022-06-04] MEDS: atorvastatin 40 mg Tablet PO (20:28)
[2022-06-05] VITALS (11 sets, daily range): BP systolic 95–107; BP diastolic 59–69; PULSE 65–102; RESP 15–22; TEMP 36.4–37.1; O2SAT 91–100
[2022-06-05] MEDS: piperacillin-tazobactam 3.375 GM in sodium chloride 0.9% (plus) 50 ML IV (02:31)
[2022-06-05 05:50] LABS: Alanine Aminotransferase 11 U/L (0-33); Albumin Level 2.9 g/dL (3.5-5.2); Alkaline Phosphatase 52 U/L (35-105); Anion Gap 8.2 (5-19); Aspartate Amino Transferase 27 U/L (0-32); Blood Urea Nitrogen 22 mg/dL (8-23); Calcium 8.1 mg/dL (8.5-10.5); Carbon Dioxide 35 mmol/L (22-29); Chloride 99 mmol/L (98-107); Globulin 1.7 g/dL (1.3-4.6); Glomerular Filtration Rate 123.8 mL/min (90-130); Glucose 98 mg/dL (65-115); Osmolality Calculated 291 mOsm/kg (285-295); Potassium 3.2 mmol/L (3.5-5.1); Sodium 139 mmol/L (136-145); Total Bilirubin 0.6 mg/dL (0.15-1.2); Total Protein 4.6 g/dL (6.6-8.7)
[2022-06-05 05:52] LABS: Basophils % 0.2 %; Eosinophils # 0.1 10^3/uL (0.0-0.8); Eosinophils % 0.6 %; Hematocrit 38.1 % (37.0-47.0); Hemoglobin 12.7 g/dL (11.5-15.3); Lymphocytes % 17.5 %; Mean Corpuscular HGB Conc 33.3 g/dL (30.0-36.0); Mean Corpuscular Hemoglobin 29.7 pg (28.0-34.0); Mean Corpuscular Volume 89.2 fl (81-99); Mean Platelet Volume 9.7 fL (7.4-10.4); Monocytes # 2.1 10^3/uL (0.2-0.9); Monocytes % 12.2 %; Neutrophils # 11.75 10^3/uL (1.8-7.7); Neutrophils % 67.8 %; Nucleated Red Blood Cells % 0 %; Platelet Count 262 10^3/cmm (130-400); Red Blood Count 4.27 10^6/uL (4.1-5.3); Red Cell Distribution Width 13.6 % (12.1-15.1); White Blood Count 17.3 10^3/uL (4.0-10.0)
[2022-06-05] MEDS: fenofibrate 145 mg Tablet PO (08:40)
[2022-06-05] MEDS: potassium chloride ER 10 mEq Tablet PO (08:40)
[2022-06-05] MEDS: citalopram 20 mg Tablet 10 MG PO (08:41)
[2022-06-05] MEDS: guaiFENesin 600 mg Tablet PO (08:41)
[2022-06-05] MEDS: pantoprazole DR 40 mg Tablet PO (08:41)
[2022-06-05] MEDS: FUROsemide 20 mg Tablet PO (08:41)
[2022-06-05] MEDS: aspirin 81 mg EC Tablet PO (08:42)
[2022-06-05] MEDS: clopidogrel 75 mg Tablet PO (08:42)
[2022-06-05] MEDS: montelukast sodium 10 mg Tablet PO (08:43)
[2022-06-05] MEDS: spironolactone 25 mg Tablet PO (08:43)
[2022-06-05] MEDS: enoxaparin 40 mg/0.4 mL Syringe SUBCUT (08:48)
--- NOTE | 2022-06-05 09:12 | PM.DCS ---
Discharge Providers Date of Admission: 05/26/22 21:09 Date of Discharge: June 05, 2022 Attending Provider at Admission: Bushra Hill MD Attending Provider at Discharge: Ermias Mustafa MD Primary Care Provider: YARA Lino Diagnoses at Discharge Discharge Diagnosis (1) Acute non-ST elevation myocardial infarction (NSTEMI): Status: Acute (2) Cardiomyopathy: Status: Acute (3) Acute on chronic respiratory failure with hypoxia and hypercapnia: Status: Acute (4) Nicotine dependence, cigarettes, uncomplicated: Status: Acute (5) Pneumonia: Status: Acute (6) CHF exacerbation: Status: Acute (7) History of supraventricular tachycardia: Status: Acute Permanent problem details: Status post ablation, successful (8) Hyperlipidemia, unspecified: Status: Chronic Qualifiers: Hyperlipidemia type: unspecified Qualified Code(s): E78.5 - Hyperlipidemia, unspecified (9) Ischemic cardiomyopathy: Status: Acute (10) Protein calorie malnutrition: Status: Acute (11) Pulmonary nodule: Status: Acute Reason for Visit Reason for Visit: RESP/ COPD Hospital Course Hospital Course Pt was admitted on 05/26/22 for acute on chronic hypoxemic herpercapneic respiratory failure 2/2 COPD Exacerbation, NSTEMI. EKG showed non-specific ST -T wave changes in leads V1 and V2 with CP. ECHO showed EF of 25-30%. Troponins elevated; however unsure if she has a true NSTEMI vs Tak[place]ub[place] Cardiomyopathy. was started on lovenox, ASA, plavix, BB, statin. Pt placed on BIPAP and tolerated that well. During course of hospitalization pt was treated for COPD exacerbation with IV solu-Medro, IV Abx, Duonebs. Was also treated for fluid overload given lasix and metolazone for a few days before stabilization of volume status. Pt was transitionsed from BIPAP to NC on 05/31/22. At time pt was recovering from COPD exacerbation and planned to have angiogram done by Dr. Tyler; however leukocytosis showed worsening over initial days. Believed to be leukomoid reaction vs infectoin, pt was continued on Abx and monitored. Pt clinically improved over course of next few days; however WBC remained in low 20's. On 06/04/22 pt was out of respiratory failure, tolerating home medications well for COPD and WBC count was trending downwards. Pt had clinically improved. After discussion with Dr. Tyler, he was agreeable to doing angiogram despite elevated WBC count. Angiogram was clean and no intervention was done. Pt likely had [place] Cardiomyopathy and not NSTEMI. At time of discharge pt was back to 3L NC, tolerating home medication well, tolerating PO, and feeling significantly improved. Physical Exam Narrative: GENERAL: The patient is alert and oriented times three. Not in any acute distress. HEENT: No significant pallor, icterus or lymphadenopathy.Oral cavity: There are no mucous membrane lesions. NECK: Trachea appears to be central. No masses noted. No JVD or thyromegaly appreciated. RESPIRATORY: Breath sounds heard bilaterally with no rales or rhonchi. The breath sounds are diminished in the bases. No evidence of consolidation. BREASTS: Deferred. HEART: The heart sounds are normal. No S3 or S4. No significant murmurs. No pericardial rub ABDOMEN: No vessel pulsations or distention. No tenderness. No organomegaly appreciated. Bowel sounds are normally heard. : Deferred. RECTAL: Deferred. LYMPHATIC: No lymphadenopathy noted in the neck. EXTREMITIES: No edema or cyanosis. No clubbing. The dorsalis pedis and posttibial pulses are weak bilaterally. MUSCULOSKELETAL: No acute joint deformities or swelling SKIN: There are no significant rashes or ecchymosis NEUROPSYCHIATRIC: The patient is alert and oriented x3. Appears to be in a good mood. No tremors or rigidity noted. Urinary Catheter Management: Dave: Cath Placed During This Visit: yes Reason for Continuing Indwelling Catheter: Acute Urinary Retention or Obstruction Urinary Catheter Date of Insertion: 05/27/22 Urinary Catheter Time of Insertion: 09:11 Discharge Data Studies Completed and Pending Completed Studies During Hospitalization Category Date Time Status CTA chest [CT angio chest PE protcl [id number]] Stat Cat Scan 05/26/22 19:23 Completed ART TRACER request for service Routine Exams 06/04/22 08:55 Completed CXRP [XR chest 1V portable [id number]] Routine Exams 05/28/22 08:23 Completed XR chest 1V portable [id number] Stat Exams 05/26/22 18:20 [place] [id number] Routine Ultrasound 05/27/22 15:11 Completed CV. echo complete* [id number] Routine Ultrasound 05/27/22 Completed US renal BI* [id number] Routine Ultrasound 05/28/22 13:07 Completed Pending at discharge Category Date Time Status ABG Coox Only Routine Lab 06/04/22 10:06 Results ABG Coox Only Routine Lab 06/04/22 10:06 Results ABG Coox Only Routine Lab 06/04/22 10:06 Results Blood Culture Stat Lab 06/03/22 09:42 Results Sputum Culture and Gram Stain Stat Lab 06/03/22 09:05 Uncollected Urine Culture Stat Lab 06/03/22 09:30 Results Radiology Impressions Chest CTA 05/26/22 19:23 IMPRESSION: 1. Negative for pulmonary embolus. 2. Cholecystectomy. 3. Emphysematous changes. 4. Bibasilar atelectasis versus infiltrate. 5. Minimal coronary artery atherosclerotic calcifications. 6. T7 and T8 vertebral body compression fractures without retropulsion of bony fragments, the T8 fracture appears chronic and similar to prior exam. COMMENTS: In the absence of a history or active diagnosis of lung cancer, it is recommended that this patient with emphysema be evaluated for enrollment in a low dose CT lung cancer screening program. Chest X-Ray 05/28/22 08:23 Impression: Hyperinflation and atherosclerosis. Renal Ultrasound 05/28/22 13:07 IMPRESSION: Negative renal ultrasound. Laboratory Results WBC 17.3 10^3/uL (4.0-10.0) H 06/05/22 04:40 RBC 4.27 10^6/uL (4.1-5.3) 06/05/22 04:40 Hgb 12.7 g/dL (11.5-15.3) 06/05/22 04:40 Hct 38.1 % (37.0-47.0) 06/05/22 04:40 MCV 89.2 fl (81-99) 06/05/22 04:40 MCH 29.7 pg (28.0-34.0) D 06/05/22 04:40 MCHC 33.3 g/dL (30.0-36.0) D 06/05/22 04:40 RDW 13.6 % (12.1-15.1) 06/05/22 04:40 Plt Count 262 10^3/cmm (130-400) 06/05/22 04:40 MPV 9.7 fL (7.4-10.4) 06/05/22 04:40 Neut % (Auto) 67.8 % 06/05/22 04:40 Lymph % (Auto) 17.5 % 06/05/22 04:40 [place] % (Auto) 12.2 % 06/05/22 04:40 Eos % (Auto) 0.6 % 06/05/22 04:40 Baso % (Auto) 0.2 % 06/05/22 04:40 Neut # (Auto) 11.75 10^3/uL (1.8-7.7) H 06/05/22 04:40 Lymph # (Auto) 3.0 10^3/uL (0.8-4.8) 06/05/22 04:40 [place] # (Auto) 2.1 10^3/uL (0.2-0.9) H 06/05/22 04:40 Eos # (Auto) 0.1 10^3/uL (0.0-0.8) 06/05/22 04:40 Baso # (Auto) 0.0 10^3/uL (0.0-0.1) 06/05/22 04:40 Nucleated RBC % (auto) 0 % 06/05/22 04:40 Total Counted 100 (0-100) 05/27/22 02:11 Atypical Lymphs % 0.0 % (0-5) 05/27/22 02:11 Absolute Neutrophils 6.0 10^3/cmm (1.4-6.5) 05/27/22 02:11 Segmented Neutrophils 85 % 05/27/22 02:11 Abs Segm Neuts (Man) 6.0 10/cmm (1.6-7.1) 05/27/22 02:11 Band Neutrophils 0.0 % 05/27/22 02:11 Abs Band Neuts (Man) 0.0 10^3/cmm (0.0-1.2) 05/27/22 02:11 Absolute Lymphocytes 1.1 10^3/cmm (1.2-3.4) L 05/27/22 02:11 Lymphocytes (Manual) 15 % 05/27/22 02:11 Monocytes (Manual) 0.0 % 05/27/22 02:11 Absolute Monocytes 0.0 10^3/cmm (0.1-0.6) L 05/27/22 02:11 Eosinophils (Manual) 0 % 05/27/22 02:11 Absolute Eosinophils 0.0 10^3/cmm (0.0-0.7) 05/27/22 02:11 Basophils (Manual) 0.0 % 05/27/22 02:11 Absolute Basophils 0.0 10^3/cmm (0.0-0.2) 05/27/22 02:11 Nucleated RBCs # 0.0 /100WBC 06/05/22 04:40 Platelet Estimate Normal (Normal) 05/27/22 02:11 PT 12.90 SECONDS (12.1-14.9) 05/26/22 18: INR 0.94 (0.8-1.2) 05/26/22 18: APTT 33.5 SECONDS (23.9-36.7) D 05/29/22 16:26 Specimen Type Arterial 06/04/22 10:06 Specimen Type Not specified 06/04/22 10:06 Specimen Type Not specified 06/04/22 10:06 Specimen Type Not specified 06/04/22 10:06 Sample Site Not specified 06/04/22 10:06 Sample Site Not specified 06/04/22 10:06 Sample Site Not specified 06/04/22 10:06 Sample Site Not specified 06/04/22 10:06 ABG pH 7.39 (7.35-7.45) 05/27/22 04:59 ABG pCO2 58.0 mmHg (35-45) H 05/27/22 04:59 ABG pO2 114.0 mmHg (80.0-100.0) H 05/27/22 04:59 ABG HCO3 34.8 mmol/L (22-26) H 05/27/22 04:59 ABG Base Excess 7.6 mmol/L (-2.0-2.0) H 05/27/22 04:59 Jann Test N/a 06/04/22 10:06 Jann Test N/a 06/04/22 10:06 Jann Test N/a 06/04/22 10:06 Jann Test N/a 06/04/22 10:06 A-a O2 Gradient 7.6 mmHg (5-10) 06/04/22 10:06 Hematocrit 41.7 % (37-47) 06/04/22 10:06 Hematocrit 41.8 % (37-47) 06/04/22 10:06 Hematocrit 41.8 % (37-47) 06/04/22 10:06 Hematocrit 42.1 % (37-47) 06/04/22 10:06 Hgb O2 Saturation 73.9 % (95-100) L 06/04/22 10:06 Hgb O2 Saturation 74.8 % (95-100) L 06/04/22 10:06 Hgb O2 Saturation 74.9 % (95-100) L 06/04/22 10:06 Hgb O2 Saturation 96.8 % (95-100) 06/04/22 10:06 Carboxyhemoglobin 1.1 %THgb (0.4-20.1) 06/04/22 10:06 Carboxyhemoglobin 1.2 %THgb (0.4-20.1) 06/04/22 10:06 Carboxyhemoglobin 1.3 %THgb (0.4-20.1) 06/04/22 10:06 Carboxyhemoglobin 1.3 %THgb (0.4-20.1) 06/04/22 10:06 Methemoglobin 0.6 % (0.4-1.5) 06/04/22 10:06 Methemoglobin 0.6 % (0.4-1.5) 06/04/22 10:06 Methemoglobin 0.6 % (0.4-1.5) 06/04/22 10:06 Methemoglobin 0.7 % (0.4-1.5) 06/04/22 10:06 Total Hemoglobin 13.6 g/dL (12-16) 06/04/22 10:06 Total Hemoglobin 13.6 g/dL (12-16) 06/04/22 10:06 Total Hemoglobin 13.6 g/dL (12-16) 06/04/22 10:06 Total Hemoglobin 13.7 g/dL (12-16) 06/04/22 10:06 O2 Delivery Device Nc 06/04/22 10:06 O2 Delivery Device Nc 06/04/22 10:06 O2 Delivery Device Nc 06/04/22 10:06 O2 Delivery Device Nc 06/04/22 10:06 O2 Liters/Min 3.0 % 06/04/22 10:06 O2 Liters/Min 3.0 % 06/04/22 10:06 O2 Liters/Min 3.0 % 06/04/22 10:06 O2 Liters/Min 3.0 % 06/04/22 10:06 FiO2 32.0 % 06/04/22 10:06 FiO2 32.0 % 06/04/22 10:06 FiO2 32.0 % 06/04/22 10:06 FiO2 32.0 % 06/04/22 10:06 PEEP 8.0 cmH20 05/27/22 04:59 Optical Engineering Manager ID Ao 06/04/22 10:06 Optical Engineering Manager ID Pa 06/04/22 10:06 Optical Engineering Manager ID Ra 06/04/22 10:06 Optical Engineering Manager ID Rv 06/04/22 10:06 Sodium 139 mmol/L (136-145) 06/05/22 04:40 Potassium 3.2 mmol/L (3.5-5.1) L 06/05/22 04:40 Chloride 99 mmol/L (98-107) 06/05/22 04:40 Carbon Dioxide 35 mmol/L (22-29) H 06/05/22 04:40 Anion Gap 8.2 (5-19) 06/05/22 04:40 BUN 22 mg/dL (8-23) 06/05/22 04:40 Creatinine 0.5 mg/dL (0.5-0.9) 06/05/22 04:40 GFR Calculation 123.8 mL/min (90-130) 06/05/22 04:40 Glucose 98 mg/dL (65-115) 06/05/22 04:40 Calculated Osmolality 291 mOsm/kg (285-295) 06/05/22 04:40 Lactic Acid 2.2 mmol/L (0.5-2.2) 05/26/22 18:32 Lactic Acid (Sepsis) 2.1 mmol/L (0.5-2.2) 05/26/22 21:00 Calcium 8.1 mg/dL (8.5-10.5) L 06/05/22 04:40 Phosphorus 4.8 mg/dL (2.5-4.5) H 05/30/22 04:30 Magnesium 1.8 mg/dL (1.7-2.3) 06/04/22 04:21 Total Bilirubin 0.6 mg/dL (0.15-1.2) 06/05/22 04:40 AST 27 U/L (0-32) 06/05/22 04:40 ALT 11 U/L (0-33) 06/05/22 04:40 Alkaline Phosphatase 52 U/L (35-105) 06/05/22 04:40 Troponin T Gen 5 ng/L 39 ng/L (0-10) H 06/01/22 03:45 Troponin T Baseline 216 ng/L (0-10) H* 05/26/22 18:32 Troponin T 120 Minute 223.1 ng/L (0-10) H 05/26/22 21:00 Delta Troponin T 7.1 ABS# (0-10) 05/26/22 21:00 Troponin T Hi Sens 6Hr 172.7 ng/L (0-10) H 05/27/22 02:11 Troponin T Hi Sens 6Hr Delta -43.3 ng/L (0-12) L 05/27/22 02:11 C-Reactive Protein 3.0 mg/L (0.0-4.9) 05/30/22 04:30 NT-Pro-B Natriuret Pep 6205 pg/mL (0-125) H 05/31/22 03:56 Total Protein 4.6 g/dL (6.6-8.7) L 06/05/22 04:40 Albumin 2.9 g/dL (3.5-5.2) L 06/05/22 04:40 Globulin 1.7 g/dL (1.3-4.6) 06/05/22 04:40 Procalcitonin 0.07 ng/mL (0-0.5) 05/30/22 04:30 Urine Color Light yellow (Yellow) 06/03/22 17:25 Urine Appearance Hazy (CLEAR) A 06/03/22 17:25 Urine pH 7 (5-7) 06/03/22 17:25 Ur Specific [place] 1.015 (1.005-1.030) 06/03/22 17:25 Urine Protein Trace (Negative) 06/03/22 17:25 Urine Glucose (UA) 2+ (Normal) H 06/03/22 17:25 Urine Ketones 1+ (Negative) H 06/03/22 17:25 Urine Blood 3+ (Negative) H 06/03/22 17:25 Urine Nitrate Negative (Negative) 06/03/22 17:25 Urine Bilirubin Neg (Negative) 06/03/22 17:25 Urine Urobilinogen Neg mg/dL (Negative) 06/03/22 17:25 Ur Leukocyte Esterase Negative (Negative) 06/03/22 17:25 Urine RBC 15-25 /hpf (0-2) H 06/03/22 17:25 Urine WBC 0-4 /hpf (0-5) H 06/03/22 17:25 Ur Squamous Epith Cells 0-4 /hpf (0-5) H 06/03/22 17:25 Amorphous Sediment Not Reportable 06/03/22 17:25 Urine Bacteria Trace /hpf (NONE) 06/03/22 17:25 Urine Mucus 4+ /hpf 05/28/22 07:45 Urine Yeast 3+ /hpf H 06/03/22 17:25 Nasal Influ A H1 2008 PCR Not detected (NOT DETECT) 05/26/22 19:10 Adenovirus (PCR) Not detected (NOT DETECT) 05/26/22 19:10 C. pneumoniae DNA (PCR) Not detected (NOT DETECT) 05/26/22 19:10 Coronavirus 229E (PCR) Not detected (NOT DETECT) 05/26/22 19:10 Human Metapneumovir PCR Not detected (NOT DETECT) 05/26/22 19:10 Influenza A (H1) PCR Not detected (NOT DETECT) 05/26/22 19:10 Influenza A (H3) PCR Not detected (NOT DETECT) 05/26/22 19:10 Influenza Type A (PCR) Not detected (NOT DETECT) 05/26/22 19:10 Influenza Type B (PCR) Not detected (NOT DETECT) 05/26/22 19:10 M. pneumoniae (PCR) Not detected (NOT DETECT) 05/26/22 19:10 Parainfluenza 1 (PCR) Not detected (NOT DETECT) 05/26/22 19:10 Parainfluenza 2 (PCR) Not detected (NOT DETECT) 05/26/22 19:10 Parainfluenza 3 (PCR) Not detected (NOT DETECT) 05/26/22 19:10 Parainfluenza 4 (PCR) Not detected (NOT DETECT) 05/26/22 19:10 RSV Type A (PCR) Not detected (NOT DETECT) 05/26/22 19:10 RSV Type B (PCR) Not detected (NOT DETECT) 05/26/22 19:10 Entero/Rhino (PCR) Not detected (NOT DETECT) 05/26/22 19:10 SARS-CoV-2 (PCR) Not detected (NOT DETECT) 05/26/22 19:10 Vitals Last Vital Signs Temp 97.5 F L 06/05/22 08:37 Pulse 85 06/05/22 08:37 Resp 21 H 06/05/22 08:37 BP 107/59 06/05/22 08:42 Pulse Ox 100 06/05/22 08:37 O2 Del Method 06/05/22 07:41 O2 Flow Rate 5 06/05/22 07:41 FiO2 35 06/03/22 08:00 Discharge Plan Discharge Patient Disposition: Home Health Service Condition: Stable Prescriptions: New aspirin 81 mg Tablet,Delayed Release (Dr/Ec) 81 mg PO DAILY Qty: 30 0RF losartan 50 mg Tablet 25 mg PO DAILY Qty: 30 0RF furosemide 20 mg Tablet 20 mg PO DAILY@0800 Qty: 30 0RF spironolactone 25 mg Tablet 25 mg PO DAILY Qty: 30 0RF clopidogrel 75 mg Tablet 75 mg PO DAILY Qty: 30 0RF trazodone 50 mg Tablet 25 mg PO BEDTIME PRN (Reason: Insomnia) Qty: 30 0RF levofloxacin 750 mg Tablet 750 mg PO DAILY@0600 Qty: 5 0RF Continued nitroglycerin 0.4 mg tablet, sublingual 0.4 mg SUBLINGUAL Q5M PRN (Reason: chest pain) Qty: 24 0RF (DME) oxygen 24 hour with portable See Rx Instructions .Route .MEDSUPPLY Qty: 1 0RF Rx Instructions: As directed, oxygen 24 hours 4 liters Protonix 40 mg tablet,delayed release (DR/EC) 40 mg PO DAILY Qty: 30 5RF albuterol sulfate [ProAir HFA] 90 mcg/actuation HFA aerosol inhaler 2 inh INHALATION Q4H PRN (Reason: shortness of breath or wheezing) 30 Days Qty: 8.5 5RF Trelegy Ellipta 100-62.5-25 mcg blister with device 1 inh inhalation DAILY Qty: 28 5RF atorvastatin 20 mg tablet 20 mg PO BEDTIME Qty: 30 5RF cyclobenzaprine 10 mg tablet 10 mg PO DAILY Qty: 30 5RF benzonatate 200 mg capsule 200 mg PO TID PRN (Reason: cough) Qty: 90 5RF cetirizine [Zyrtec] 10 mg tablet 10 mg PO DAILY Qty: 30 5RF guaifenesin [Mucinex] 600 mg tablet extended release 12hr 600 mg PO BID Qty: 60 5RF montelukast [Singulair] 10 mg tablet 10 mg PO DAILY Qty: 30 5RF melatonin 10 mg capsule 10 mg PO BEDTIME 30 Days Qty: 30 5RF citalopram [Celexa] 10 mg tablet 10 mg PO DAILY Qty: 30 5RF budesonide 0.5 mg/2 mL suspension for nebulization 0.5 mg inhalation BID Qty: 60 11RF formoterol fumarate [Perforomist] 20 mcg/2 mL solution for nebulization 20 mcg inhalation BID Qty: 60 11RF fenofibrate nanocrystallized 145 mg tablet 145 mg PO DAILY Qty: 30 2RF albuterol sulfate 2.5 mg /3 mL (0.083 %) solution for nebulization 2.5 mg INHALATION QID PRN (Reason: shortness of breath or wheezing) Qty: 75 2RF albuterol sulfate 90 mcg/actuation HFA aerosol inhaler 2 inh INHALATION Q4H PRN (Reason: shortness of breath or wheezing) Qty: 18 0RF Discharge Orders: Discharge Order (Routine); Ordered 06/05/22 Ordered By: Ermias Mustafa [place]: [facility] [place]) [Outside] Janny Estrada FNP-C [Primary Care Provider] - 06/15/22 2:40 pm Morena Chávez FNP [Nurse Practitioner] - 06/17/22 9:45 am Discharge Diet: Cardiac Discharge Activity: Increase activity as tolerated Patient Instructions: Chest Pain (DC), Acute Kidney Injury (DC), CHF Stoplight, Opioid Safety, Post Angiogram Home Care Instructions Discharge Attestations Time Spent in Discharge Care*: greater than 30 min Quality Metrics Clinical Quality Measures [ No reported AMI, CVA or VTE this stay] Coding Level of Care Code 70114 Diagnoses Acute non-ST elevation myocardial infarction (NSTEMI) I21.4 Cardiomyopathy I42.9 Acute on chronic respiratory failure with hypoxia and hypercapnia J96.21; J96.22 Nicotine dependence, cigarettes, uncomplicated F17.210 Pneumonia J18.9 CHF exacerbation I50.9 History of supraventricular tachycardia Z86.79 Hyperlipidemia, unspecified E78.5 Hyperlipidemia type: unspecified Ischemic cardiomyopathy I25.5 Protein calorie malnutrition E46 Pulmonary nodule R91.1
--- NOTE | 2022-06-05 12:03 | PM.PN ---
Subjective Subjective: Patient is s/p left heart cath course was complicated by right groin hematoma with bruising but overall stable. Vitals/I&O/Wt Last Vital Signs Temp 97.5 F L 06/05/22 08:37 Pulse 85 06/05/22 08:37 Resp 21 H 06/05/22 08:37 BP 107/59 06/05/22 08:42 Pulse Ox 100 06/05/22 08:37 O2 Del Method 06/05/22 07:41 O2 Flow Rate 5 06/05/22 07:41 FiO2 35 06/03/22 08:00 06/04/22 06/05/22 06/05/22 22:59 06:59 14:59 Intake Total 570 / 1538.75 1500 / 3038.75 240 / 240 Output Total 725 / 1275 500 / 1775 Balance -155 / 263.75 1000 / 1263.75 240 / 240 Weight last 48 hrs Weight 128 lb 14.4 oz Weight 290 lb 11.2 oz Physical Exam Narrative: Right groin hematoma and bruising noted Urinary Catheter Management: Dave: Cath Placed During This Visit: yes Reason for Continuing Indwelling Catheter: Acute Urinary Retention or Obstruction Urinary Catheter Date of Insertion: 05/27/22 Urinary Catheter Time of Insertion: 09:11 Data 06/05/22 04:40 06/05/22 04:40 Micro: Microbiology 06/03/22 09:30 Urine Culture - Preliminary Urine Catheterized Yeast species 06/03/22 09:55 Blood Culture - Preliminary Blood NEGATIVE TO DATE 06/03/22 09:42 Blood Culture - Preliminary Blood NEGATIVE TO DATE A&P Assessment and plan (1) Acute non-ST elevation myocardial infarction (NSTEMI): No significant coronary artery disease on left heart cath with suggestive diagnosis of stress-induced cardiomyopathy. Continue aspirin statin beta-jordyn and DASIA inhibitor. Patient developed right groin mild hematoma but big bruise. No significant pain have some tenderness, patient can be discharged home and follow-up with Dr. Tyler in the outpatient clinic. Advise in case of worsening of swelling groin pain she can come back to the ER for (2) COPD (chronic obstructive pulmonary disease): As per medicine. Attestations Medical Necessity Statement*: Patient can be discharged home Coding Level of Care Code Acute Code for [facility] Diagnoses Acute non-ST elevation myocardial infarction (NSTEMI) I21.4 COPD (chronic obstructive pulmonary disease) J44.9
== END 2022-06-05 15:53 | disposition home health service (06) | DRG 286 ==
LOC: ER 21:09 → ER IP 21:30 → CSU 05-27 10:09
PROVIDERS: Family Medicine; Internal Medicine; Internal Medicine Cardiovascular Disease; Admitting Provider Student in an Organized Health Care Education/Training Program; Emergency Provider Emergency Medicine; PCP Nurse Practitioner; Visit Provider Family Medicine
PROC: 4A023N8 Measurement of Cardiac Sampling and Pressure, Bilateral, Percutaneous Approach (ICD-10-PCS; principal; 2022-06-04 09:00)
DX: I50.21 Acute systolic (congestive) heart failure (principal); J18.9 Pneumonia, unspecified organism; J96.21 Acute and chronic respiratory failure with hypoxia; J96.22 Acute and chronic respiratory failure with hypercapnia; I42.8 Other cardiomyopathies; E46 Unspecified protein-calorie malnutrition; N39.0 Urinary tract infection, site not specified; N18.1 Chronic kidney disease, stage 1; J43.9 Emphysema, unspecified; Z99.81 Dependence on supplemental oxygen; I48.91 Unspecified atrial fibrillation; F31.9 Bipolar disorder, unspecified; Z79.51 Long term (current) use of inhaled steroids; E86.0 Dehydration; Z68.25 Body mass index [BMI] 25.0-25.9, adult; R91.1 Solitary pulmonary nodule; F41.9 Anxiety disorder, unspecified; Z66 Do not resuscitate; Z82.49 Family history of ischemic heart disease and other diseases of the circulatory system; F17.210 Nicotine dependence, cigarettes, uncomplicated; Z86.73 Personal history of transient ischemic attack (TIA), and cerebral infarction without residual deficits; E78.5 Hyperlipidemia, unspecified; K21.9 Gastro-esophageal reflux disease without esophagitis
CPT/HCPCS: 36415; 36600; 51702; 71045; 71275; 76770; 80048; 80053; 81001; 82803; 82805; 82810; 83605; 83735; 83880; 84100; 84145; 84484; 85007; 85025; 85610; 85730; 86140; 86403; 87040; 87070; 87086; 87106; 87205; 87486; 87581; 87633; 93005; 93306; 93460; 93970; 94640; 94660; 96365; 96372; 96375; 96376; 97161; 99152; 99153; 99281; C1751; C1769; C1887; C1894; J0696; J1644; J1650; J1940; J2250; J2543; J2920; J2930; J3010; J3480; J3490; J7030; J7613; J7614; J7626; J7644; Q0163; Q9967